=== PATIENT | male | born 1975 | race Caucasian/White ===

== ENCOUNTER 2017-09-17 20:14 | Emergency (ER) | payer OTHER ==
[~2017-09-17] VITALS: Ht 172.7 cm; Wt 81.6 kg
[2017-09-17 20:16] VITALS: TEMP 36.5; Ht 172.7 cm; Wt 81.6 kg
--- NOTE | 2017-09-17 21:11 | DIAGNOSTIC IMAGING REPORT ---
R SHOULDER MIN 2 VIEWS ROUTINE CLINICAL HISTORY: Right shoulder pain following injury. COMPARISON: None FINDINGS: Alignment of the right shoulder is anatomic. No acute fracture is identified. There is moderate osteoarthritis of the right acromioclavicular joint. IMPRESSION: 1. No acute fracture or dislocation within the right shoulder. 2. Moderate osteoarthritis of the right acromioclavicular joint. Electronically signed by: Amadeo Dotson M.D. 09/17/2017 9:09 PM Dictated Date/Time: 09/17/2017 9:08 PM
[2017-09-17 21:36] VITALS: BP 130/80; PULSE 70; O2SAT 98
--- NOTE | 2017-09-17 23:34 | EMERGENCY ROOM VISIT NOTE ---
History First contact with patient: 20:19 Chief Complaint: SHOULDER PAIN Stated Complaint: RIGHT SHOULDER INJURY AND PAIN History of Present Illness The patient is a 41 year old male who presents to the Emergency Room with complaints of a right shoulder injury at work this afternoon. At approximately 5 PM, the patient was on a ladder at [employer], when a tote fell off of the shelf and he attempted to catch it. The patient reports that he reached out to grab the box as it was falling, and the box pulled down on the shoulder. He now reports difficulty moving the shoulder without pain. He has not noticed any swelling or bruising about the shoulder. He denies any pain extending into the neck or back. He also denies any paresthesias or numbness of the right upper extremity, and rates his discomfort an 8 out of 10. The patient is right- hand dominant. He denies any prior history of right shoulder injuries. Review of Systems 10 system review was performed and was negative except for pertinent positives and negatives as indicated in history of present illness Past Medical/Surgical History Medical Problems: (1) Headache (2) Low back pain (3) Slurred speech Surgical Problems: (1) History of left knee surgery Family History Diabetes mellitus Hypertension Seizures Social History Smoking Status: Current Every Day Smoker Alcohol Use: occasionally Drug Use: none Marital Status: Housing Status: lives with family Occupation Status: employed Current/Historical Medications No Active Prescriptions or Reported Meds Physical Exam Vital Signs Date Time Temp Pulse Resp B/P (MAP) Pulse Ox O2 Delivery O2 Flow Rate FiO2 09/17/17 21:36 70 18 130/80 98 Room Air 09/17/17 20:16 36.5 69 18 130/83 99 Room Air Physical Exam CONSTITUTIONAL: Healthy and well nourished. Alert and oriented X 3 with positive affect. Patient appears in mild discomfort. HEENT: Normocephalic, atraumatic. Pupils equal, round and reactive. NECK: Full active range of motion without discomfort. RESPIRATORY: Clear to auscultation bilaterally with no wheezing, crackles, rhonchi or stridor. The breathing does not cause any discomfort. CARDIOVASCULAR: Regular rate and rhythm with no murmurs, rubs or gallops. MUSCULOSKELETAL: Examination of the right shoulder shows discomfort with range of motion. He has no obvious ecchymosis over the biceps or triceps region. He has no significant tenderness to palpation over the distal clavicle or acromioclavicular joint. Distal pulses are intact. INTEGUMENTARY: No rash or other significant dermatologic conditions noted. NEUROLOGIC: No focal neurologic deficits noted. Right deltoid, hand and fingers are sensory intact. Medical Decision & Procedures ER Provider Diagnostic Interpretation: My interpretation of right shoulder x-rays does not show any separation, fracture or dislocation. Radiologist report is as follows: R SHOULDER MIN 2 VIEWS ROUTINE CLINICAL HISTORY: Right shoulder pain following injury. COMPARISON: None FINDINGS: Alignment of the right shoulder is anatomic. No acute fracture is identified. There is moderate osteoarthritis of the right acromioclavicular joint. IMPRESSION: 1. No acute fracture or dislocation within the right shoulder. 2. Moderate osteoarthritis of the right acromioclavicular joint. ED Course Patient history and physical exam were performed. Nurse's notes were reviewed. Vital signs were reviewed and were normal. The patient refused any analgesics while in the emergency department. X-rays of the right shoulder were normal. A sling was applied. He was encouraged to intermittently apply ice to the shoulder. The patient was encouraged alternate ibuprofen and Tylenol as needed for pain. The patient was instructed to follow-up with his Worker's Compensation approved orthopedic surgeon for further reevaluation and management. The patient was happy with plan of care, voiced understanding of all discharge instructions, and rated his pain a 6 out of 10 at the time of discharge. Medical Decision I am concerned for possible tenderness or rotator cuff injury. X-rays do not show any evidence for fracture, dislocation or acromioclavicular separation. Axillary plexitis was also considered. I do not suspect a cervical injury or cervical radiculitis. Medication Reconcilliation Current Medication List: was personally reviewed by me Blood Pressure Screening Patient's blood pressure: Normal blood pressure Impression Primary Impression: Right shoulder injury Additional Impression: Work related injury Departure Information Dispostion Home / Self-Care Condition FAIR Prescriptions No Active Prescriptions or Reported Meds Forms HOME CARE DOCUMENTATION FORM, IMPORTANT VISIT INFORMATION Patient Instructions My [facility] Additional Instructions Intermittently apply ice to shoulder. Wear sling for comfort. Ibuprofen 800 mg and/or Tylenol 1000 mg every 8 hours. You may also alternate these medications for more effective pain relief: Ibuprofen --4 HRS--> Tylenol --4 HRS--> ibuprofen --4 HRS--> Tylenol .... Follow-up with your Worker's Compensation approved orthopedic surgeon for further reevaluation and management. FOR USE: No use of right upper extremity until reevaluated by orthopedics. Problem Qualifiers Primary Impression: Right shoulder injury Encounter type: initial encounter Qualified Codes: S49.91XA - Unspecified injury of right shoulder and upper arm, initial encounter
== END 2017-09-17 21:30 | disposition home or self-care (01) ==
LOC: C.EDB 20:16
DX: S49.91XA Unspecified injury of right shoulder and upper arm, initial encounter (principal); X50.9XXA Other and unspecified overexertion or strenuous movements or postures, initial encounter; Y92.512 Supermarket, store or market as the place of occurrence of the external cause; Y99.0 Civilian activity done for income or pay; F17.200 Nicotine dependence, unspecified, uncomplicated

== ENCOUNTER 2020-09-10 12:30 | Inpatient (IN) ==
[2020-09-10] MEDS ORDERED: SODIUM CHLORIDE 0.9% 1000ML 2,000 ML IV ONE (13:21)
[2020-09-10 13:33] LABS: Appearance Urine Clear (Clear); Bilirubin Urine Negative (Negative); Blood Urine Negative (Negative); Color Urine Yellow; Glucose Urine UA 3+ (Negative); Ketones Urine 4+ (Negative); Leukocyte Esterase Urine Negative (Negative); Nitrite Urine Negative (Negative); Protein Urine Negative (Negative); Specific Gravity Urine 1.042 (1.000-1.030); Urobilinogen Urine Negative (Negative)
[2020-09-10 13:39] LABS: Basophils # (auto) 0.04 K/uL (0-0.2); Basophils % (auto) 0.3 %; Eosinophils # (auto) 0.33 K/uL (0-0.5); Eosinophils % (auto) 2.5 %; Hematocrit (blood only) 46.3 % (42-52); Hemoglobin 17.1 g/dL (14.0-18.0); Immature Granulocytes # (auto) 0.02 K/uL (0.00-0.02); Immature Granulocytes % (auto) 0.2 %; Lymphocytes # (auto) 2.55 K/uL (1.2-3.4); Lymphocytes % (auto) 19.4 %; Mean Corpuscular Hemoglobin 30.1 pg (25-34); Mean Corpuscular Hgb Conc 36.9 g/dL (32-36); Mean Corpuscular Volume 81.5 fL (80-100); Monocytes # (auto) 0.75 K/uL (0.11-0.59); Monocytes % (auto) 5.7 %; Neutrophils # (auto) 9.43 K/uL (1.4-6.5); Neutrophils % (auto) 71.9 %; Platelet Count 306 K/uL (130-400); Red Blood Count 5.68 M/uL (4.7-6.1); White Blood Count 13.12 K/uL (4.8-10.8)
--- NOTE | 2020-09-10 13:39 | Emergency Department Note ---
History of Present Illness General Chief complaint: Hyperglycemia Stated complaint: SUGAR IS 598/HAS NOT BEEN DIAGNOSED W/DIABETES YET Time Seen by Provider: 09/10/20 13:06 History of Present Illness Maximum Pain Intensity: 0 44-year-old male who presents to the emergency department for evaluation of possible diabetes. The patient reports that over the past few months, he has noticed significant change in fatigue, weakness, lethargy, increased hunger, thirst and frequent urination. 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 The patient also reports notable change in vision. He was recently seen by an security and compliance analyst, who told him that he was having changes in the eye that were consistent with diabetes. The patient scheduled an appointment with a [facility] physician for next for evaluation. The patient previously has not had a family doctor. The patient reports strong family history of diabetes with his mother, brother and maternal grandmother with diabetes. Friend brought him a glucometer yesterday, and the patient checked his blood glucose levels this morning starting at around 9 AM up until noon time, and consistently had blood glucose levels in the 500s. The patient reports that he was able to downtrend those numbers with drinking lots of water. Patient denies any other concerning symptoms such as chest pain, shortness of breath or abdominal pain. He has noticed some tingling in his hands and feet. Home Medications Medication Instructions Recorded Confirmed Type No Known Home Medications 09/10/20 09/10/20 History Allergies Allergy/AdvReac Type Severity Reaction Status Date / Time hydrocodone Allergy Mild HIVES Verified 09/10/20 14:49 codeine Allergy Unknown Hives Verified 09/10/20 14:49 Ethanol Allergy Unknown HIVES Uncoded 09/10/20 14:49 Past Med/Surg History Medical History Epilepsy Hx-TIA (transient ischemic attack) Surgical History History of orthopedic surgery Family History Other Diabetes Hypertension Seizure Social History Smoking Status: Current every day smoker Tobacco Type: Cigarettes Preferred Language: Japanese Communication Ability: Effective Visual Impairment: No Limitations Hearing Ability: Normal marital status: Current Living Situation: Spouse current occupational status: employed Feels Safe at Home: Yes Review of Systems 10 system review was performed and was negative except for pertinent positives and negatives as indicated in history of present illness Physical Exam Vital Signs Vital Signs - 24 hr 09/10/20 12:31 09/10/20 13:39 09/10/20 14:00 Temperature 36.4 C L Temperature Source Temporal Artery Scan Pulse Rate 93 H 77 73 Pulse Rate from SpO2 Sensor 76 74 Respiratory Rate 20 14 18 Respiratory Effort / Characteristics Non-Labored Spontaneous Respiratory Depth Normal Respiratory Pattern Regular Blood Pressure 116/79 124/86 129/77 Blood Pressure Mean 91 98 94 Blood Pressure Position Sitting Pulse Oximetry 98 98 98 Oxygen Delivery Method Room Air Room Air Room Air Sepsis Recent Fever Within 48 Hours No Sepsis New/Unexplained Change in Mental Status N/A Sepsis Action Taken by Nursing No Action Required 09/10/20 14:30 09/10/20 15:00 09/10/20 15:30 Temperature Temperature Source Pulse Rate 70 70 78 Pulse Rate from SpO2 Sensor 72 71 76 Respiratory Rate 15 16 22 Respiratory Effort / Characteristics Respiratory Depth Respiratory Pattern Blood Pressure 118/81 114/76 114/86 Blood Pressure Mean 93 88 95 Blood Pressure Position Pulse Oximetry 98 98 98 Oxygen Delivery Method Room Air Room Air Sepsis Recent Fever Within 48 Hours Sepsis New/Unexplained Change in Mental Status Sepsis Action Taken by Nursing 09/10/20 16:00 09/10/20 16:30 09/10/20 17:00 Temperature Temperature Source Pulse Rate 73 70 63 Pulse Rate from SpO2 Sensor 73 72 64 Respiratory Rate 16 14 12 Respiratory Effort / Characteristics Respiratory Depth Respiratory Pattern Blood Pressure 130/72 116/74 104/69 Blood Pressure Mean 91 88 80 Blood Pressure Position Pulse Oximetry 97 97 97 Oxygen Delivery Method Sepsis Recent Fever Within 48 Hours Sepsis New/Unexplained Change in Mental Status Sepsis Action Taken by Nursing 09/10/20 17:30 09/10/20 18:00 09/10/20 19:04 Temperature Temperature Source Pulse Rate 64 66 80 Pulse Rate from SpO2 Sensor 64 63 82 Respiratory Rate 11 L 9 L 14 Respiratory Effort / Characteristics Respiratory Depth Respiratory Pattern Blood Pressure 105/68 116/64 156/91 H Blood Pressure Mean 80 81 112 Blood Pressure Position Pulse Oximetry 97 96 98 Oxygen Delivery Method Sepsis Recent Fever Within 48 Hours Sepsis New/Unexplained Change in Mental Status Sepsis Action Taken by Nursing 09/10/20 20:20 Temperature Temperature Source Pulse Rate 76 Pulse Rate from SpO2 Sensor Respiratory Rate Respiratory Effort / Characteristics Respiratory Depth Respiratory Pattern Blood Pressure Blood Pressure Mean Blood Pressure Position Pulse Oximetry 99 Oxygen Delivery Method Room Air Sepsis Recent Fever Within 48 Hours Sepsis New/Unexplained Change in Mental Status Sepsis Action Taken by Nursing CONSTITUTIONAL: Healthy and well nourished. Alert and oriented X 3. Patient does not appear in any acute distress. HEENT: Normocephalic, atraumatic. Pupils equal, round and reactive. No scleral icterus or conjunctival injection/pallor. NECK: Full active range of motion without discomfort. No JVD or carotid bruits. LYMPHATICS: No cervical chain adenopathy. RESPIRATORY: Clear to auscultation bilaterally with no wheezing, crackles, rhonchi or stridor. CARDIOVASCULAR: Regular rate and rhythm with no murmurs, rubs or gallops. GASTROINTESTINAL: Bowel sounds present in all quadrants. Abdomen is soft and nontender to palpation. MUSCULOSKELETAL: Full range of motion of all joints without discomfort. INTEGUMENTARY: No rash or other significant dermatologic conditions noted. HEMATOLOGIC: No ecchymosis or petechiae. PSYCHIATRIC: Positive affect. NEUROLOGIC: Cranial nerves II-XII grossly intact. No focal neurologic deficits noted. Course Course Patient history and physical exam were performed. Nurses notes were reviewed. Vital signs were reviewed and were normal. BSG at the time of presentation to the emergency department was 321. The patient was advised that he does have diabetes, with his symptoms, elevated blood glucose levels and visual changes. The patient then started to cry. He then started to develop mild left-sided chest discomfort. IV access was established, and labs were drawn. After the patient received only 250 cc of normal saline (upon reevaluation and to further consult with the patient), he reported that his chest pain had resolved. The patient was hydrated with 2 L of normal saline. An ECG was performed and was normal other than a short [place] interval. The patient was placed on a grey roll man while in the emergency department. A portable chest x-ray was performed and was normal. Review of labs shows a mild leukocytosis with left shift and no bandemia. Platelet count, hemoglobin and hematocrit are normal. CMP shows a hyponatremia of 127, glucose of 382, phosphorus of 2.2 and TSH of 6.89. Hemoglobin A1c was 11.2. There were some issues with hemolysis with potassium and serum ketone labs delayed while the patient was under my care. The patient was administered regular insulin 10 units subcutaneous. Findings were discussed with the patient, who agreed with admission. The case was also discussed with Dr. Tavarez, ED attending physician, who is also in agreement with admission. The case was also discussed with our Prepress Operator, as well as Dr. Frausto, [facility] hospitalist, for further evaluation and management. Please see her dictation for further treatment and final disposition. Administered Medications Discontinued Medications Sodium Chloride (Nss 1000ml) 2,000 mls @ 999 mls/hr IV .Q2H1M ONE Stop: 09/10/20 15:21 Last Infusion: 09/10/20 15:31 Dose: 0 mls/hr Documented by: [id number] Admin: 09/10/20 13:25 Dose: 999 mls/hr Documented by: [id number] Insulin Human Regular (Novolin-R Insulin Per Unit Charge) 10 units SC NOW STA Stop: 09/10/20 14:29 Last Admin: 09/10/20 15:25 Dose: 10 units Documented by: [id number] Cosigned by: [id number] Miscellaneous Information (Pharmacy Glycemic Mgmt Consult) 1 ea N/A NOW STA Stop: 09/10/20 15:22 Last Admin: 09/10/20 19:59 Dose: 1 ea Documented by: [id number] Medical Decision Making Medical Records Attestation: I reviewed the patient's medical records. Home Medications Current Medication List: was personally reviewed by me Laboratory Data Attestation: I reviewed the patient's lab results. Result diagrams: 09/10/20 Unknown 09/10/20 Unknown Lab Results 09/10/20 09/10/20 09/10/20 Range/Units 13:13 14:54 16:09 WBC (4.8-10.8) K/uL RBC (4.7-6.1) M/uL Hgb (14.0-18.0) g/dL Hct (42-52) % MCV (80-100) fL MCH (25-34) pg MCHC (32-36) g/dL Plt Count (130-400) K/uL Immature Gran % (Auto) % Neut % (Auto) % Lymph % (Auto) % Morrison % (Auto) % Eos % (Auto) % Baso % (Auto) % Neut # (Auto) (1.4-6.5) K/uL Lymph # (Auto) (1.2-3.4) K/uL Morrison # (Auto) (0.11-0.59) K/uL Eos # (Auto) (0-0.5) K/uL Baso # (Auto) (0-0.2) K/uL Immature Gran # (Auto) (0.00-0.02) K/uL Sodium 133 L (136-145) mmol/L Potassium Cancelled 3.9 Chloride 105 (98-107) mmol/L Carbon Dioxide 19 L (21-32) mmol/L Anion Gap 9.0 (3-11) BUN 13 (7-18) mg/dl Creatinine 0.68 (0.6-1.4) mg/dl Est Cr Clr Drug Dosing 132.3 ml/min Est GFR ( Amer) 136.5 ml/min Est GFR (Non-Af Amer) 117.8 ml/min BUN/Creatinine Ratio 19.8 (10-20) Glucose 252 H (70-99) mg/dl POC Glucose 321 H* (70-99) mg/dl Estimat Average Glucose mg/dl Hemoglobin A1c (4.5-5.6) % Calcium 7.7 L D (8.5-10.1) mg/dl Phosphorus 2.2 L (2.5-4.9) mg/dl Magnesium Cancelled 2.2 Total Bilirubin (0.2-1) mg/dl AST Cancelled 11 L ALT (12-78) U/L Alkaline Phosphatase (45-117) U/L Troponin I (0-0.045) ng/ml Total Protein (6.4-8.2) gm/dl Albumin (3.4-5.0) gm/dl Globulin (2.5-4.0) gm/dl Albumin/Globulin Ratio (0.9-2) Beta-Hydroxybutyric Acd (0.2-2.81) mg/dl TSH (0.300-4.500) uIu/ml Free T4 (0.8-1.6) ng/dl Specimen Hemolysis Urine Color Urine Appearance (Clear) Urine pH (4.5-7.5) Ur Specific [place] (1.000-1.030) Urine Protein (Negative) Urine Glucose (UA) (Negative) Urine Ketones (Negative) Urine Blood (Negative) Urine Nitrite (Negative) Urine Bilirubin (Negative) Urine Urobilinogen (Negative) Ur Leukocyte Esterase (Negative) COVID-19 Eval Order SARS-CoV-2 (PCR) (Negative) 09/10/20 09/10/20 09/10/20 Range/Units 16:48 16:48 18:52 WBC (4.8-10.8) K/uL RBC (4.7-6.1) M/uL Hgb (14.0-18.0) g/dL Hct (42-52) % MCV (80-100) fL MCH (25-34) pg MCHC (32-36) g/dL Plt Count (130-400) K/uL Immature Gran % (Auto) % Neut % (Auto) % Lymph % (Auto) % Morrison % (Auto) % Eos % (Auto) % Baso % (Auto) % Neut # (Auto) (1.4-6.5) K/uL Lymph # (Auto) (1.2-3.4) K/uL Morrison # (Auto) (0.11-0.59) K/uL Eos # (Auto) (0-0.5) K/uL Baso # (Auto) (0-0.2) K/uL Immature Gran # (Auto) (0.00-0.02) K/uL Sodium (136-145) mmol/L Potassium Chloride (98-107) mmol/L Carbon Dioxide (21-32) mmol/L Anion Gap (3-11) BUN (7-18) mg/dl Creatinine (0.6-1.4) mg/dl Est Cr Clr Drug Dosing ml/min Est GFR ( Amer) ml/min Est GFR (Non-Af Amer) ml/min BUN/Creatinine Ratio (10-20) Glucose (70-99) mg/dl POC Glucose 177 H (70-99) mg/dl Estimat Average Glucose mg/dl Hemoglobin A1c (4.5-5.6) % Calcium (8.5-10.1) mg/dl Phosphorus (2.5-4.9) mg/dl Magnesium Total Bilirubin (0.2-1) mg/dl AST ALT (12-78) U/L Alkaline Phosphatase (45-117) U/L Troponin I (0-0.045) ng/ml Total Protein (6.4-8.2) gm/dl Albumin (3.4-5.0) gm/dl Globulin (2.5-4.0) gm/dl Albumin/Globulin Ratio (0.9-2) Beta-Hydroxybutyric Acd (0.2-2.81) mg/dl TSH (0.300-4.500) uIu/ml Free T4 (0.8-1.6) ng/dl Specimen Hemolysis Urine Color Urine Appearance (Clear) Urine pH (4.5-7.5) Ur Specific [place] (1.000-1.030) Urine Protein (Negative) Urine Glucose (UA) (Negative) Urine Ketones (Negative) Urine Blood (Negative) Urine Nitrite (Negative) Urine Bilirubin (Negative) Urine Urobilinogen (Negative) Ur Leukocyte Esterase (Negative) COVID-[address] Eval [address] Covid[address] [facility] SARS-CoV-2 (PCR) POSITIVE A* (Negative) 09/10/20 09/10/20 09/10/20 Range/Units Unknown Unknown Unknown WBC 13.12 H (4.8-10.8) K/uL RBC 5.68 (4.7-6.1) M/uL Hgb 17.1 (14.0-18.0) g/dL Hct 46.3 (42-52) % MCV 81.5 (80-100) fL MCH 30.1 (25-34) pg MCHC 36.9 H (32-36) g/dL Plt Count 306 (130-400) K/uL Immature Gran % (Auto) 0.2 % Neut % (Auto) 71.9 % Lymph % (Auto) 19.4 % Morrison % (Auto) 5.7 % Eos % (Auto) 2.5 % Baso % (Auto) 0.3 % Neut # (Auto) 9.43 H (1.4-6.5) K/uL Lymph # (Auto) 2.55 (1.2-3.4) K/uL Morrison # (Auto) 0.75 H (0.11-0.59) K/uL Eos # (Auto) 0.33 (0-0.5) K/uL Baso # (Auto) 0.04 (0-0.2) K/uL Immature Gran # (Auto) 0.02 (0.00-0.02) K/uL Sodium 127 L (136-145) mmol/L Potassium TNP Chloride 96 L (98-107) mmol/L Carbon Dioxide 22 (21-32) mmol/L Anion Gap 9.0 (3-11) BUN 17 (7-18) mg/dl Creatinine 0.90 (0.6-1.4) mg/dl Est Cr Clr Drug Dosing 100.0 ml/min Est GFR ( Amer) 121.7 ml/min Est GFR (Non-Af Amer) 105.0 ml/min BUN/Creatinine Ratio 18.8 (10-20) Glucose 382 H* (70-99) mg/dl POC Glucose (70-99) mg/dl Estimat Average Glucose 275 mg/dl Hemoglobin A1c 11.2 H (4.5-5.6) % Calcium 9.2 (8.5-10.1) mg/dl Phosphorus (2.5-4.9) mg/dl Magnesium TNP Total Bilirubin 0.5 (0.2-1) mg/dl AST TNP ALT 38 (12-78) U/L Alkaline Phosphatase 184 H (45-117) U/L Troponin I < 0.015 (0-0.045) ng/ml Total Protein 8.2 (6.4-8.2) gm/dl Albumin 4.3 (3.4-5.0) gm/dl Globulin 3.9 (2.5-4.0) gm/dl Albumin/Globulin Ratio 1.1 (0.9-2) Beta-Hydroxybutyric Acd (0.2-2.81) mg/dl TSH 6.890 H (0.300-4.500) uIu/ml Free T4 0.99 (0.8-1.6) ng/dl Specimen Hemolysis Urine Color Urine Appearance (Clear) Urine pH (4.5-7.5) Ur Specific [place] (1.000-1.030) Urine Protein (Negative) Urine Glucose (UA) (Negative) Urine Ketones (Negative) Urine Blood (Negative) Urine Nitrite (Negative) Urine Bilirubin (Negative) Urine Urobilinogen (Negative) Ur Leukocyte Esterase (Negative) COVID-19 Eval Order SARS-CoV-2 (PCR) (Negative) 09/10/20 Range/Units Unknown WBC (4.8-10.8) K/uL RBC (4.7-6.1) M/uL Hgb (14.0-18.0) g/dL Hct (42-52) % MCV (80-100) fL MCH (25-34) pg MCHC (32-36) g/dL Plt Count (130-400) K/uL Immature Gran % (Auto) % Neut % (Auto) % Lymph % (Auto) % Morrison % (Auto) % Eos % (Auto) % Baso % (Auto) % Neut # (Auto) (1.4-6.5) K/uL Lymph # (Auto) (1.2-3.4) K/uL Morrison # (Auto) (0.11-0.59) K/uL Eos # (Auto) (0-0.5) K/uL Baso # (Auto) (0-0.2) K/uL Immature Gran # (Auto) (0.00-0.02) K/uL Sodium (136-145) mmol/L Potassium Chloride (98-107) mmol/L Carbon Dioxide (21-32) mmol/L Anion Gap (3-11) BUN (7-18) mg/dl Creatinine (0.6-1.4) mg/dl Est Cr Clr Drug Dosing ml/min Est GFR ( Amer) ml/min Est GFR (Non-Af Amer) ml/min BUN/Creatinine Ratio (10-20) Glucose (70-99) mg/dl POC Glucose (70-99) mg/dl Estimat Average Glucose mg/dl Hemoglobin A1c (4.5-5.6) % Calcium (8.5-10.1) mg/dl Phosphorus (2.5-4.9) mg/dl Magnesium Total Bilirubin (0.2-1) mg/dl AST ALT (12-78) U/L Alkaline Phosphatase (45-117) U/L Troponin I (0-0.045) ng/ml Total Protein (6.4-8.2) gm/dl Albumin (3.4-5.0) gm/dl Globulin (2.5-4.0) gm/dl Albumin/Globulin Ratio (0.9-2) Beta-Hydroxybutyric Acd (0.2-2.81) mg/dl TSH (0.300-4.500) uIu/ml Free T4 (0.8-1.6) ng/dl Specimen Hemolysis Urine Color Yellow Urine Appearance Clear (Clear) Urine pH 5.0 (4.5-7.5) Ur Specific [place] 1.042 H (1.000-1.030) Urine Protein Negative (Negative) Urine Glucose (UA) 3+ H (Negative) Urine Ketones 4+ H (Negative) Urine Blood Negative (Negative) Urine Nitrite Negative (Negative) Urine Bilirubin Negative (Negative) Urine Urobilinogen Negative (Negative) Ur Leukocyte Esterase Negative (Negative) COVID-19 Eval Order SARS-CoV-2 (PCR) (Negative) Imaging Data Attestation: I personally reviewed and interpreted this imaging study as follows: My Impression: My interpretation of a portable chest x-ray does not show any consolidations, pneumothorax or cardiac prominence. Radiologist report was also reviewed. Radiologist's Impression: Chest X-Ray 09/10/20 13:22 SINGLE VIEW CHEST CLINICAL HISTORY: Generalized weakness. FINDINGS: 2 AP, portable, upright chest radiographs are compared to study dated 08/08/2018. The cardiomediastinal silhouette is unremarkable. The lungs and pleural spaces are clear. No pneumothorax is seen. The bony thorax is grossly intact. IMPRESSION: No active disease in the chest. ACT 112: Negative or not required by law. Electronically signed by: Cody Hawkins M.D. 09/10/2020 1:53 PM ECG Data Attestation: I personally reviewed and interpreted this ECG as follows: Indication: + chest pain and + weakness Rate (beats per minute): 68 Rhythm: + normal sinus ECG Intervals/blocks: + Normal QRS, + Short [place], + Normal QT and + Normal QT-c ECG [place]: + Normal ECG ST segments: + Normal ST segments Comparison ECG Date: from (08/08/2018) Change: no significant change Blood Pressure Blood Pressure Findings: Normal blood pressure MDM Narrative Cardiac monitoring: An order was placed for continuous cardiac monitoring. The monitor shows a rate of 68 bpm with a normal sinus rhythm. 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 Patient presents to the emergency department with symptoms most consistent with diabetes with lethargy, weakness, polyuria, polyphasia and vision changes. Patient also has a strong family history of type 2 diabetes. The patient was also seen by his security and compliance analyst who indicated physical exam findings concerning for diabetes. Patient did have home glucometer readings in the 500s. Hemoglobin A1c is 11.2 consistent with new onset type 2 diabetes mellitus. Patient is also hyponatremic, likely consistent with pseudonatremia due to elevated blood glucose. Urinalysis also shows glucosuria and ketonuria without signs of infection. Laboratory studies are not consistent with ketoacidosis. Patient does not have any other physical exam or imaging findings to suggest infectious etiology. Impression & Plan Diabetes mellitus, new onset, Hyponatremia, History of TIAs, History of tobacco abuse Discharge Plan Visit Data Chief Complaint: Hyperglycemia Stated Complaint: SUGAR IS 598/HAS NOT BEEN DIAGNOSED W/DIABETES YET ED Provider: Josias Tavarez ED Midlevel Provider: Ricardo Dumont Discharge Problem: Diabetes mellitus, new onset, Hyponatremia, History of TIAs, History of tobacco abuse Forms Stand Alone Forms: [employer] Prescriptions Prescriptions: No Action No Known Home Medications RF: 0 Referrals Referrals: PCP,NO [Primary Care Provider] -
--- NOTE | 2020-09-10 13:54 | XRay Report ---
SINGLE VIEW CHEST CLINICAL HISTORY: Generalized weakness. FINDINGS: 2 AP, portable, upright chest radiographs are compared to study dated 08/08/2018. The cardiom ediastinal silhouette is unremarkable. The lungs and pleural spaces are clear. No pneumothorax is see n. The bony thorax is grossly intact. IMPRESSION: No active disease in the chest. ACT 112: Negative or not required by law. Electronically signed by: Cody Hawkins M.D. 09/10/2020 1:53 PM
[2020-09-10 13:59] LABS: Alanine Aminotransferase 38 U/L (12-78); Albumin Level 4.3 gm/dl (3.4-5.0); BUN Creatinine Ratio 18.8 (10-20); Blood Urea Nitrogen 17 mg/dl (7-18); Calcium 9.2 mg/dl (8.5-10.1); Carbon Dioxide 22 mmol/L (21-32); Chloride 96 mmol/L (98-107); Est GFR (African American) 121.7 ml/min; Glucose 382 mg/dl (70-99); Sodium 127 mmol/L (136-145)
[2020-09-10 14:08] LABS: Albumin Globulin Ratio 1.1 (0.9-2); Alkaline Phosphatase 184 U/L (45-117); Bilirubin,Total 0.5 mg/dl (0.2-1); Globulin 3.9 gm/dl (2.5-4.0); Total Protein 8.2 gm/dl (6.4-8.2); Troponin I < 0.015 ng/ml (0-0.045)
[2020-09-10] MEDS ORDERED: NovoLIN-R INSULIN PER UNIT CHARGE SC STA (14:28)
[2020-09-10 14:29] LABS: T4 Free Thyroxine 0.99 ng/dl (0.8-1.6)
[2020-09-10 14:43] LABS: Estimated Average Glucose 275 mg/dl; Hemoglobin A1C 11.2 % (4.5-5.6)
[2020-09-10] MEDS ORDERED: PHARMACY GLYCEMIC MGMT CONSULT STA (15:21)
--- NOTE | 2020-09-10 15:21 | History & Physical Report ---
Date of Service September 10, 2020 Assessment & Plan (1) Diabetes mellitus, new onset: Plan: Patient presents with history of lethargy, weakness, plegia, polyuria, vision changes Elevated blood glucose at home at 590 Prior hemoglobin A1c 5.5%, 2 years ago Brother diagnosed with diabetes at age of 20, there is also other family history of diabetes Patient had recently eye exam due to vision changes, was told that he had diabetic changes In ER, blood glucose about 380, sodium low at 127 consistent with pseudonatremia due to elevated blood sugar Urine significant for glucose and ketones, no signs of infection Current hemoglobin A1c 11.2% in ER received normal saline IV, and 10 units of subcu insulin we will recheck BMP now, we will closely monitor glucose levels, sodium and other electrolytes Replete potassium and add electrolytes as needed 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 Armas is a 44-year-old male, with history of TIA several years ago, family history of diabetes, history of tobacco abuse, who now presents with lethargy, weakness, frequent urination and increased thirst for at least several weeks, and after checking his blood glucose level today found to have value of about 590, presents to ER for further evaluation. Patient reports that his brother was diagnosed with diabetes when he was 20-year-old and is on insulin. There is also history of diabetes in his paternal grandmother who was diagnosed in later age. Patient reports that he has been very weak, lethargic, has had a big appetite, and thirst, urinating a lot, for at least several weeks. He used his brothers glucometer today and found his blood glucose to be elevated, about 590. He drank a lot of water to help with that before he was able to present to the ER. He has not seen a physician in at least 2 years. He was seen at [facility] physician office 2 years ago. At that time hemoglobin A1c was 5.5 %. 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 He was told that he has some diabetic changes on exam. He was supposed to see primary care doctor on to follow-up on these findings and further work-up for diabetes. Reports history of TIA, several years ago, and was recommended to use aspirin. Patient says he only occasionally takes aspirin. He is also a current smoker, reports about half a pack to 2 packs a day. Reports that he would like to try to quit smoking, tried nicotine patches in the past, however says that they made him feel sick. In the ER, glucose level elevated at 380, urine significant for glucose and ketones, no signs of infection. Received normal saline IV, and 10 units of subcu insulin. Hemoglobin A1c found to be 11.2%. Allergies Allergy/AdvReac Type Severity Reaction Status Date / Time hydrocodone Allergy Mild HIVES Verified 09/10/20 14:49 codeine Allergy Unknown Hives Verified 09/10/20 14:49 Ethanol Allergy Unknown HIVES Uncoded 09/10/20 14:49 Home Medications Medication Instructions Recorded Confirmed Type No Known Home Medications 09/10/20 09/10/20 History Past Med/Surg History Medical History Epilepsy Hx-TIA (transient ischemic attack) Surgical History History of orthopedic surgery Family History Other Diabetes Hypertension Seizure Social History Smoking Status: Current every day smoker Tobacco Type: Cigarettes Preferred Language: [place]an Communication Ability: Effective Visual Impairment: No Limitations Hearing Ability: Normal marital status: Current Living Situation: Spouse current occupational status: employed Feels Safe at Home: Yes Review of Systems Constitutional: + fatigue; no fever and no chills Eyes: + worsening vision Ear, Nose, Mouth, Throat: no problem reported Respiratory: no cough and no dyspnea Cardiovascular: no chest pain, no palpitations and no edema Gastrointestinal: no abdominal pain, no nausea and no vomiting Genitourinary: + urinary frequency Musculoskeletal: no problem reported Integumentary: no problem reported Neurologic: + generalized weakness Psychiatric: no problem reported Endocrine: + fatigue, + polydipsia, + polyphagia and + polyuria Hematologic / Lymphatic: no problem reported Allergy / Immunological: no problem reported Physical Exam Constitutional: WD/WN, vitals as above Eyes: PERRL, conjunctivae normal, anicteric sclerae ENMT: external ear and nose normal, oropharynx normal Neck: trachea midline, no thyromegaly Respiratory: normal respiratory effort, lungs clear to auscultation Cardiovascular: RRR, no murmur, no edema Chest (Breasts): Chest: normal inspection of chest Gastrointestinal (Abdomen): normal bowel sounds, soft, nontender, no hepatosplenomegaly Musculoskeletal: no cyanosis or clubbing, extremities motor strength 5/5 Skin: no rashes, warm and dry Neurologic: PERRL, EOMI, accommodation nl, no face palsy, no dysarthria Psychiatric: A+Ox3, euthymic affect Genitourinary: no CVA tenderness Lymphatic: no lymphedema Results & Data Results & Data ([facility]) Vital Signs (Past 12 Hours) Vital Signs Temp Pulse Resp BP Pulse Ox 09/10/20 12:31 36.4 C L 93 H 20 116/79 98 Laboratory Results 09/10/20 09/10/20 09/10/20 Range/Units Unknown Unknown Unknown WBC 13.12 H (4.8-10.8) K/uL RBC 5.68 (4.7-6.1) M/uL Hgb 17.1 (14.0-18.0) g/dL Hct 46.3 (42-52) % MCV 81.5 (80-100) fL MCH 30.1 (25-34) pg MCHC 36.9 H (32-36) g/dL Plt Count 306 (130-400) K/uL Immature Gran % (Auto) 0.2 % Neut % (Auto) 71.9 % Lymph % (Auto) 19.4 % Edgar % (Auto) 5.7 % Eos % (Auto) 2.5 % Baso % (Auto) 0.3 % Neut # (Auto) 9.43 H (1.4-6.5) K/uL Lymph # (Auto) 2.55 (1.2-3.4) K/uL Edgar # (Auto) 0.75 H (0.11-0.59) K/uL Eos # (Auto) 0.33 (0-0.5) K/uL Baso # (Auto) 0.04 (0-0.2) K/uL Immature Gran # (Auto) 0.02 (0.00-0.02) K/uL Sodium 127 L (136-145) mmol/L Potassium TNP Chloride 96 L (98-107) mmol/L Carbon Dioxide 22 (21-32) mmol/L Anion Gap 9.0 (3-11) BUN 17 (7-18) mg/dl Creatinine 0.90 (0.6-1.4) mg/dl Est Cr Clr Drug Dosing 100.0 ml/min Est GFR ( Amer) 121.7 ml/min Est GFR (Non-Af Amer) 105.0 ml/min BUN/Creatinine Ratio 18.8 (10-20) Glucose 382 H* (70-99) mg/dl POC Glucose (70-99) mg/dl Estimat Average Glucose mg/dl Hemoglobin A1c (4.5-5.6) % Calcium 9.2 (8.5-10.1) mg/dl Magnesium TNP Total Bilirubin 0.5 (0.2-1) mg/dl AST TNP ALT 38 (12-78) U/L Alkaline Phosphatase 184 H (45-117) U/L Troponin I < 0.015 (0-0.045) ng/ml Total Protein 8.2 (6.4-8.2) gm/dl Albumin 4.3 (3.4-5.0) gm/dl Globulin 3.9 (2.5-4.0) gm/dl Albumin/Globulin Ratio 1.1 (0.9-2) Beta-Hydroxybutyric Acd (0.2-2.81) mg/dl TSH 6.890 H (0.300-4.500) uIu/ml Free T4 0.99 (0.8-1.6) ng/dl Urine Color Yellow Urine Appearance Clear (Clear) Urine pH 5.0 (4.5-7.5) Ur Specific [place] 1.042 H (1.000-1.030) Urine Protein Negative (Negative) Urine Glucose (UA) 3+ H (Negative) Urine Ketones 4+ H (Negative) Urine Blood Negative (Negative) Urine Nitrite Negative (Negative) Urine Bilirubin Negative (Negative) Urine Urobilinogen Negative (Negative) Ur Leukocyte Esterase Negative (Negative) 09/10/20 09/10/20 09/10/20 Range/Units Unknown 14:54 13:13 WBC (4.8-10.8) K/uL RBC (4.7-6.1) M/uL Hgb (14.0-18.0) g/dL Hct (42-52) % MCV (80-100) fL MCH (25-34) pg MCHC (32-36) g/dL Plt Count (130-400) K/uL Immature Gran % (Auto) % Neut % (Auto) % Lymph % (Auto) % Edgar % (Auto) % Eos % (Auto) % Baso % (Auto) % Neut # (Auto) (1.4-6.5) K/uL Lymph # (Auto) (1.2-3.4) K/uL Edgar # (Auto) (0.11-0.59) K/uL Eos # (Auto) (0-0.5) K/uL Baso # (Auto) (0-0.2) K/uL Immature Gran # (Auto) (0.00-0.02) K/uL Sodium (136-145) mmol/L Potassium Cancelled Chloride (98-107) mmol/L Carbon Dioxide (21-32) mmol/L Anion Gap (3-11) BUN (7-18) mg/dl Creatinine (0.6-1.4) mg/dl Est Cr Clr Drug Dosing ml/min Est GFR ( Amer) ml/min Est GFR (Non-Af Amer) ml/min BUN/Creatinine Ratio (10-20) Glucose (70-99) mg/dl POC Glucose 321 H* (70-99) mg/dl Estimat Average Glucose 275 mg/dl Hemoglobin A1c 11.2 H (4.5-5.6) % Calcium (8.5-10.1) mg/dl Magnesium Cancelled Total Bilirubin (0.2-1) mg/dl AST Cancelled ALT (12-78) U/L Alkaline Phosphatase (45-117) U/L Troponin I (0-0.045) ng/ml Total Protein (6.4-8.2) gm/dl Albumin (3.4-5.0) gm/dl Globulin (2.5-4.0) gm/dl Albumin/Globulin Ratio (0.9-2) Beta-Hydroxybutyric Acd (0.2-2.81) mg/dl TSH (0.300-4.500) uIu/ml Free T4 (0.8-1.6) ng/dl Urine Color Urine Appearance (Clear) Urine pH (4.5-7.5) Ur Specific [place] (1.000-1.030) Urine Protein (Negative) Urine Glucose (UA) (Negative) Urine Ketones (Negative) Urine Blood (Negative) Urine Nitrite (Negative) Urine Bilirubin (Negative) Urine Urobilinogen (Negative) Ur Leukocyte Esterase (Negative) Diagnostic Findings IMPRESSION: No active disease in the chest.
[2020-09-10 16:50] LABS: BUN Creatinine Ratio 19.8 (10-20); Calcium 7.7 mg/dl (8.5-10.1); Creatinine Clr Calc Pharmacy 132.3 ml/min; Est GFR (African American) 136.5 ml/min; Est GFR (Non-African American) 117.8 ml/min; Magnesium 2.2 mg/dl (1.8-2.4); Phosphorus 2.2 mg/dl (2.5-4.9); Potassium 3.9 mmol/L (3.5-5.1)
[2020-09-10] MEDS ORDERED: PHARMACY GLYCEMIC MGMT CONSULT PRN (19:58)
--- NOTE | 2020-09-10 20:48 | Pharmacy Report ---
Pharmacy Glycemic Short Note 2 - Date of Service September 10, 2020 - Glycemic Short BSG Results (Last 24 hours): 09/10/20 09/10/20 09/10/20 13:13 16:09 18:52 Glucose 252 H POC Glucose 321 H* 177 H 09/10/20 Unknown Glucose 382 H* POC Glucose OUTPATIENT ANTIDIABETIC REGIMEN: * None * HbA1c 11.2% on 09/10/20 ASSESSMENT: * 44 yo M admitted with hyperglycemia and new-onset diabetes. No DKA, no HHS noted. * Initial BSG > 300 mg/dL but decrased to 177 mg/dL with 10 units regular insulin SQ * Will initiate Lantus at 0.3 units/kg * Will initiate Novolog at weight-based moderate stress estimate * One overnight check 2nd BSG > 300 mg/dL earlier today PLAN FOR INPATIENT GLYCEMIC CONTROL: * Basal insulin * Lantus 22 units SQ x1 * Bolus insulin * NovoLog per scale ACHS or Q6hrs while NPO * Goal Range: Low 110 mg/dL - High 140 mg/dL * Correction Factor: 35 mg/dL/unit * Nutritional / Prandial insulin per carb ratio of 1 unit per 11 grams CHO consumed PLAN FOR DISCHARGE: * tbd
[2020-09-10] MEDS ORDERED: POT PHOSPHATE MONOBASIC W/ SOD TAB PO ONE (21:00)
[2020-09-10] MEDS ORDERED: INSULIN GLARGINE SOLOSTAR 100 UNITS/ML 3 ML PEN SC ONE (21:45)
[2020-09-10] MEDS: INSULIN ASPART 100 UNITS/ML 3 ML PEN SC ONE (22:57)
[2020-09-10] MEDS: SODIUM CHLORIDE 0.9% 1000ML 1,000 ML IV SCH (23:04)
[2020-09-10] MEDS: INSULIN ASPART 100 UNITS/ML 3 ML PEN SC SCH (23:15)
[2020-09-11] MEDS ORDERED: POLYETHYLENE (MIRALAX) 17 GM PACK PO PRN (02:09)
[2020-09-11] MEDS ORDERED: ONDANSETRON INJ 2 MG/ML 2 ML VIAL IV PRN (02:09)
[2020-09-11] MEDS ORDERED: ACETAMINOPHEN 325 MG TAB PO PRN (02:09)
[2020-09-11] MEDS: INSULIN ASPART 100 UNITS/ML 3 ML PEN SC ONE (02:16)
[2020-09-11] MEDS ORDERED: ENOXAPARIN INJ 40 MG/0.4 ML SYR SQ SCH (03:00)
[2020-09-11] MEDS: SODIUM CHLORIDE 0.9% 1000ML 1,000 ML IV SCH ×2 (04:18→12:38)
[2020-09-11] MEDS: POT PHOSPHATE MONOBASIC W/ SOD TAB PO SCH ×2 (08:35→15:04)
[2020-09-11] MEDS: INSULIN ASPART 100 UNITS/ML 3 ML PEN SC SCH ×2 (08:35→12:22)
--- NOTE | 2020-09-11 09:16 | Pharmacy Report ---
Pharmacy Glycemic Short Note 2 - Date of Service September 11, 2020 - Glycemic Short BSG Results (Last 24 hours): 09/10/20 09/10/20 09/10/20 13:13 16:09 18:52 Glucose 252 H POC Glucose 321 H* 177 H 09/10/20 09/10/20 09/11/20 22:06 Unknown 02:08 Glucose 382 H* POC Glucose 287 H 141 H 09/11/20 08:14 Glucose POC Glucose 157 H OUTPATIENT ANTIDIABETIC REGIMEN: * None * HbA1c 11.2% on 09/10/20 ASSESSMENT: 09/11/20 * Patient has received 22 units (0.32 units/kg) of Lantus PLUS 5 units of NovoLog last evening at bedtime * BSGs overnight 287--> 141-->157 * BSGs coming down nicely with current orders * Patient would like to go home SONG. No hyperglycemic crisis (no DKA/HHS) just hyperglycemia and new diagnosis. Pt will need DM education on signs/symptoms of hypo/hyperglycemia, hypoglycemia treatment, POC BSG testing, and insulin administration prior to dc. Will coordinate with RN and CDE * Will provide conservative insulin recs for outpatient since insulin is not yet at steady state 09/10/20 * 44 yo M admitted with hyperglycemia and new-onset diabetes. No DKA, no HHS noted. * Initial BSG > 300 mg/dL but decreased to 177 mg/dL with 10 units regular insulin SQ * Will initiate Lantus at 0.3 units/kg * Will initiate Novolog at weight-based moderate stress estimate * One overnight check 2nd BSG > 300 mg/dL earlier today PLAN FOR INPATIENT GLYCEMIC CONTROL: * Basal insulin * Lantus 22 units SQ x1 * Bolus insulin * NovoLog per scale ACHS or Q6hrs while NPO * Goal Range: Low 110 mg/dL - High 140 mg/dL * Correction Factor: 35 mg/dL/unit * Nutritional / Prandial insulin per carb ratio of 1 unit per 11 grams CHO consumed PLAN FOR DISCHARGE: * A1c = 11.2 % on 09/10/20 * Goal A1c = <7 % based on age and comorbidities * Unknown if patient is DENNY vs T2DM. Pt appears insulin sensitive like a DENNY and has a strong family history of autoimmune DM. Recommend DC on insulin (as opposed to oral agents + insulin) since autoimmune DM cannot be ruled out. * Pt has [employer] insurance- Lantus and NovoLog are preferred insulins with that insurance * Recommend: * Lantus 20 units SQ HS * NovoLog 6 units SQ three times daily with meals Patient can add correctional insulin scale with PCP next week, could consider: Low dose SSI Blood Sugar 70-150 administer 0 units Blood Sugar 151-200 administer 1 units Blood Sugar 201-250 administer 3 units Blood Sugar 251-300 administer 5 units Blood Sugar 301-350 administer 7 units Blood Sugar 351-400 administer 9 units Blood Sugar >400 administer 11 units and call MD * Support Patient Self-Management * Healthy Lifestyle (diet, exercise, and smoking cessation) * Disease self-management (SMBG) * Prevention of complications (BP, Lipid goals, Immunizations) * Pt will need outpatient Diabetes Self-Management Education & Support
--- NOTE | 2020-09-11 11:26 | Hospitalist Progress Note ---
Date of Service September 11, 2020 Assessment & Plan (1) Diabetes mellitus, new onset: Plan: Patient presents with history of lethargy, weakness, plegia, polyuria, vision changes Elevated blood glucose at home at 590 Prior hemoglobin A1c 5.5%, 2 years ago Brother diagnosed with diabetes at age of 20, there is also other family history of diabetes Patient had recently eye exam due to vision changes, was told that he had diabetic changes In ER, blood glucose about 380, sodium low at 127 consistent with pseudonatremia due to elevated blood sugar Urine significant for glucose and ketones, no signs of infection Current hemoglobin A1c 11.2% in ER received normal saline IV, and 10 units of subcu insulin we will recheck BMP now, we will closely monitor glucose levels, sodium and other electrolytes Replete potassium and add electrolytes as needed Glycemic pharmacy consulted as well community health educator Patient doing quite well clinically, understands how to use insulin, and how to check his blood sugar levels, discussed with community health educator Patient will be discharged on 20 units of Lantus daily, and 6 units of NovoLog 3 times a day with meals He has a follow-up with his PCP on September 17 Hx of TIA several yrs ago Patient reports he is supposed to be on aspirin, however he is not actually taking it only occasionally plan to restart aspirin on discharge History of tobacco abuse Patient reports smoking about half a pack to 2 packs a day Would like to quit smoking Tried nicotine patches before, says that he felt sick Counselled the pt, and recommended calling [phone] quit now, free smoking cessation line DVT ppx: Lovenox Code: Full Admission and Anticipated Discharge Date Admission Date: September 10, 2020 Subjective Patient seen in follow-up of new onset diabetes Review of Systems Review of Systems: All systems reviewed & are unremarkable except as noted in Subjective Physical Exam Constitutional: WD/WN, vitals as above Eyes: PERRL, conjunctivae normal, anicteric sclerae ENMT: external ear and nose normal, oropharynx normal Neck: trachea midline, no thyromegaly Respiratory: normal respiratory effort, lungs clear to auscultation Cardiovascular: RRR, no murmur, no edema Chest (Breasts): Chest: normal inspection of chest Gastrointestinal (Abdomen): normal bowel sounds, soft, nontender, no hepatosplenomegaly Musculoskeletal: no cyanosis or clubbing, extremities motor strength 5/5 Skin: no rashes, warm and dry Neurologic: PERRL, EOMI, accommodation nl, no face palsy, no dysarthria Psychiatric: A+Ox3, euthymic affect Genitourinary: no CVA tenderness Lymphatic: no lymphedema Results & Data Results & Data ([facility]) Vital Signs (Past 12 Hours) Vital Signs Temp Pulse Pulse Resp BP Pulse Ox 09/11/20 08:00 36.5 C 76 18 116/59 L 98 09/11/20 07:00 72 09/11/20 04:14 36.5 C 70 16 107/65 97 Laboratory Results 09/11/20 09/11/20 09/10/20 Range/Units 08:14 02:08 Unknown WBC (4.8-10.8) K/uL RBC (4.7-6.1) M/uL Hgb (14.0-18.0) g/dL Hct (42-52) % MCV (80-100) fL MCH (25-34) pg MCHC (32-36) g/dL Plt Count (130-400) K/uL Immature Gran % (Auto) % Neut % (Auto) % Lymph % (Auto) % Wetzel % (Auto) % Eos % (Auto) % Baso % (Auto) % Neut # (Auto) (1.4-6.5) K/uL Lymph # (Auto) (1.2-3.4) K/uL Wetzel # (Auto) (0.11-0.59) K/uL Eos # (Auto) (0-0.5) K/uL Baso # (Auto) (0-0.2) K/uL Immature Gran # (Auto) (0.00-0.02) K/uL Sodium (136-145) mmol/L Potassium Chloride (98-107) mmol/L Carbon Dioxide (21-32) mmol/L Anion Gap (3-11) BUN (7-18) mg/dl Creatinine (0.6-1.4) mg/dl Est Cr Clr Drug Dosing ml/min Est GFR ( Amer) ml/min Est GFR (Non-Af Amer) ml/min BUN/Creatinine Ratio (10-20) Glucose (70-99) mg/dl POC Glucose 157 H 141 H (70-99) mg/dl Estimat Average Glucose mg/dl Hemoglobin A1c (4.5-5.6) % Calcium (8.5-10.1) mg/dl Phosphorus (2.5-4.9) mg/dl Magnesium Total Bilirubin (0.2-1) mg/dl AST ALT (12-78) U/L Alkaline Phosphatase (45-117) U/L Troponin I (0-0.045) ng/ml Total Protein (6.4-8.2) gm/dl Albumin (3.4-5.0) gm/dl Globulin (2.5-4.0) gm/dl Albumin/Globulin Ratio (0.9-2) Beta-Hydroxybutyric Acd (0.2-2.81) mg/dl TSH (0.300-4.500) uIu/ml Free T4 (0.8-1.6) ng/dl Specimen Hemolysis Urine Color Yellow Urine Appearance Clear (Clear) Urine pH 5.0 (4.5-7.5) Ur Specific Lincoln 1.042 H (1.000-1.030) Urine Protein Negative (Negative) Urine Glucose (UA) 3+ H (Negative) Urine Ketones 4+ H (Negative) Urine Blood Negative (Negative) Urine Nitrite Negative (Negative) Urine Bilirubin Negative (Negative) Urine Urobilinogen Negative (Negative) Ur Leukocyte Esterase Negative (Negative) COVID-19 Eval Order SARS-CoV-2 (PCR) (Negative) 09/10/20 09/10/20 09/10/20 Range/Units Unknown Unknown Unknown WBC 13.12 H (4.8-10.8) K/uL RBC 5.68 (4.7-6.1) M/uL Hgb 17.1 (14.0-18.0) g/dL Hct 46.3 (42-52) % MCV 81.5 (80-100) fL MCH 30.1 (25-34) pg MCHC 36.9 H (32-36) g/dL Plt Count 306 (130-400) K/uL Immature Gran % (Auto) 0.2 % Neut % (Auto) 71.9 % Lymph % (Auto) 19.4 % Wetzel % (Auto) 5.7 % Eos % (Auto) 2.5 % Baso % (Auto) 0.3 % Neut # (Auto) 9.43 H (1.4-6.5) K/uL Lymph # (Auto) 2.55 (1.2-3.4) K/uL Wetzel # (Auto) 0.75 H (0.11-0.59) K/uL Eos # (Auto) 0.33 (0-0.5) K/uL Baso # (Auto) 0.04 (0-0.2) K/uL Immature Gran # (Auto) 0.02 (0.00-0.02) K/uL Sodium 127 L (136-145) mmol/L Potassium TNP Chloride 96 L (98-107) mmol/L Carbon Dioxide 22 (21-32) mmol/L Anion Gap 9.0 (3-11) BUN 17 (7-18) mg/dl Creatinine 0.90 (0.6-1.4) mg/dl Est Cr Clr Drug Dosing 100.0 ml/min Est GFR ( Amer) 121.7 ml/min Est GFR (Non-Af Amer) 105.0 ml/min BUN/Creatinine Ratio 18.8 (10-20) Glucose 382 H* (70-99) mg/dl POC Glucose (70-99) mg/dl Estimat Average Glucose 275 mg/dl Hemoglobin A1c 11.2 H (4.5-5.6) % Calcium 9.2 (8.5-10.1) mg/dl Phosphorus (2.5-4.9) mg/dl Magnesium TNP Total Bilirubin 0.5 (0.2-1) mg/dl AST TNP ALT 38 (12-78) U/L Alkaline Phosphatase 184 H (45-117) U/L Troponin I < 0.015 (0-0.045) ng/ml Total Protein 8.2 (6.4-8.2) gm/dl Albumin 4.3 (3.4-5.0) gm/dl Globulin 3.9 (2.5-4.0) gm/dl Albumin/Globulin Ratio 1.1 (0.9-2) Beta-Hydroxybutyric Acd (0.2-2.81) mg/dl TSH 6.890 H (0.300-4.500) uIu/ml Free T4 0.99 (0.8-1.6) ng/dl Specimen Hemolysis Urine Color Urine Appearance (Clear) Urine pH (4.5-7.5) Ur Specific Lincoln (1.000-1.030) Urine Protein (Negative) Urine Glucose (UA) (Negative) Urine Ketones (Negative) Urine Blood (Negative) Urine Nitrite (Negative) Urine Bilirubin (Negative) Urine Urobilinogen (Negative) Ur Leukocyte Esterase (Negative) COVID-19 Eval Order SARS-CoV-2 (PCR) (Negative) 09/10/20 09/10/20 09/10/20 Range/Units 22:06 18:52 16:48 WBC (4.8-10.8) K/uL RBC (4.7-6.1) M/uL Hgb (14.0-18.0) g/dL Hct (42-52) % MCV (80-100) fL MCH (25-34) pg MCHC (32-36) g/dL Plt Count (130-400) K/uL Immature Gran % (Auto) % Neut % (Auto) % Lymph % (Auto) % Wetzel % (Auto) % Eos % (Auto) % Baso % (Auto) % Neut # (Auto) (1.4-6.5) K/uL Lymph # (Auto) (1.2-3.4) K/uL Wetzel # (Auto) (0.11-0.59) K/uL Eos # (Auto) (0-0.5) K/uL Baso # (Auto) (0-0.2) K/uL Immature Gran # (Auto) (0.00-0.02) K/uL Sodium (136-145) mmol/L Potassium Chloride (98-107) mmol/L Carbon Dioxide (21-32) mmol/L Anion Gap (3-11) BUN (7-18) mg/dl Creatinine (0.6-1.4) mg/dl Est Cr Clr Drug Dosing ml/min Est GFR ( Amer) ml/min Est GFR (Non-Af Amer) ml/min BUN/Creatinine Ratio (10-20) Glucose (70-99) mg/dl POC Glucose 287 H 177 H (70-99) mg/dl Estimat Average Glucose mg/dl Hemoglobin A1c (4.5-5.6) % Calcium (8.5-10.1) mg/dl Phosphorus (2.5-4.9) mg/dl Magnesium Total Bilirubin (0.2-1) mg/dl AST ALT (12-78) U/L Alkaline Phosphatase (45-117) U/L Troponin I (0-0.045) ng/ml Total Protein (6.4-8.2) gm/dl Albumin (3.4-5.0) gm/dl Globulin (2.5-4.0) gm/dl Albumin/Globulin Ratio (0.9-2) Beta-Hydroxybutyric Acd (0.2-2.81) mg/dl TSH (0.300-4.500) uIu/ml Free T4 (0.8-1.6) ng/dl Specimen Hemolysis Urine Color Urine Appearance (Clear) Urine pH (4.5-7.5) Ur Specific Lincoln (1.000-1.030) Urine Protein (Negative) Urine Glucose (UA) (Negative) Urine Ketones (Negative) Urine Blood (Negative) Urine Nitrite (Negative) Urine Bilirubin (Negative) Urine Urobilinogen (Negative) Ur Leukocyte Esterase (Negative) COVID-19 Eval Order SARS-CoV-2 (PCR) POSITIVE A* (Negative) 09/10/20 09/10/20 09/10/20 Range/Units 16:48 16:09 14:54 WBC (4.8-10.8) K/uL RBC (4.7-6.1) M/uL Hgb (14.0-18.0) g/dL Hct (42-52) % MCV (80-100) fL MCH (25-34) pg MCHC (32-36) g/dL Plt Count (130-400) K/uL Immature Gran % (Auto) % Neut % (Auto) % Lymph % (Auto) % Wetzel % (Auto) % Eos % (Auto) % Baso % (Auto) % Neut # (Auto) (1.4-6.5) K/uL Lymph # (Auto) (1.2-3.4) K/uL Wetzel # (Auto) (0.11-0.59) K/uL Eos # (Auto) (0-0.5) K/uL Baso # (Auto) (0-0.2) K/uL Immature Gran # (Auto) (0.00-0.02) K/uL Sodium 133 L (136-145) mmol/L Potassium 3.9 Cancelled Chloride 105 (98-107) mmol/L Carbon Dioxide 19 L (21-32) mmol/L Anion Gap 9.0 (3-11) BUN 13 (7-18) mg/dl Creatinine 0.68 (0.6-1.4) mg/dl Est Cr Clr Drug Dosing 132.3 ml/min Est GFR ( Amer) 136.5 ml/min Est GFR (Non-Af Amer) 117.8 ml/min BUN/Creatinine Ratio 19.8 (10-20) Glucose 252 H (70-99) mg/dl POC Glucose (70-99) mg/dl Estimat Average Glucose mg/dl Hemoglobin A1c (4.5-5.6) % Calcium 7.7 L D (8.5-10.1) mg/dl Phosphorus 2.2 L (2.5-4.9) mg/dl Magnesium 2.2 Cancelled Total Bilirubin (0.2-1) mg/dl AST 11 L Cancelled ALT (12-78) U/L Alkaline Phosphatase (45-117) U/L Troponin I (0-0.045) ng/ml Total Protein (6.4-8.2) gm/dl Albumin (3.4-5.0) gm/dl Globulin (2.5-4.0) gm/dl Albumin/Globulin Ratio (0.9-2) Beta-Hydroxybutyric Acd (0.2-2.81) mg/dl TSH (0.300-4.500) uIu/ml Free T4 (0.8-1.6) ng/dl Specimen Hemolysis Urine Color Urine Appearance (Clear) Urine pH (4.5-7.5) Ur Specific Lincoln (1.000-1.030) Urine Protein (Negative) Urine Glucose (UA) (Negative) Urine Ketones (Negative) Urine Blood (Negative) Urine Nitrite (Negative) Urine Bilirubin (Negative) Urine Urobilinogen (Negative) Ur Leukocyte Esterase (Negative) COVID-19 Eval Order Covid19 at [facility] SARS-CoV-2 (PCR) (Negative) 09/10/20 Range/Units 13:13 WBC (4.8-10.8) K/uL RBC (4.7-6.1) M/uL Hgb (14.0-18.0) g/dL Hct (42-52) % MCV (80-100) fL MCH (25-34) pg MCHC (32-36) g/dL Plt Count (130-400) K/uL Immature Gran % (Auto) % Neut % (Auto) % Lymph % (Auto) % Wetzel % (Auto) % Eos % (Auto) % Baso % (Auto) % Neut # (Auto) (1.4-6.5) K/uL Lymph # (Auto) (1.2-3.4) K/uL Wetzel # (Auto) (0.11-0.59) K/uL Eos # (Auto) (0-0.5) K/uL Baso # (Auto) (0-0.2) K/uL Immature Gran # (Auto) (0.00-0.02) K/uL Sodium (136-145) mmol/L Potassium Chloride (98-107) mmol/L Carbon Dioxide (21-32) mmol/L Anion Gap (3-11) BUN (7-18) mg/dl Creatinine (0.6-1.4) mg/dl Est Cr Clr Drug Dosing ml/min Est GFR ( Amer) ml/min Est GFR (Non-Af Amer) ml/min BUN/Creatinine Ratio (10-20) Glucose (70-99) mg/dl POC Glucose 321 H* (70-99) mg/dl Estimat Average Glucose mg/dl Hemoglobin A1c (4.5-5.6) % Calcium (8.5-10.1) mg/dl Phosphorus (2.5-4.9) mg/dl Magnesium Total Bilirubin (0.2-1) mg/dl AST ALT (12-78) U/L Alkaline Phosphatase (45-117) U/L Troponin I (0-0.045) ng/ml Total Protein (6.4-8.2) gm/dl Albumin (3.4-5.0) gm/dl Globulin (2.5-4.0) gm/dl Albumin/Globulin Ratio (0.9-2) Beta-Hydroxybutyric Acd (0.2-2.81) mg/dl TSH (0.300-4.500) uIu/ml Free T4 (0.8-1.6) ng/dl Specimen Hemolysis Urine Color Urine Appearance (Clear) Urine pH (4.5-7.5) Ur Specific Lincoln (1.000-1.030) Urine Protein (Negative) Urine Glucose (UA) (Negative) Urine Ketones (Negative) Urine Blood (Negative) Urine Nitrite (Negative) Urine Bilirubin (Negative) Urine Urobilinogen (Negative) Ur Leukocyte Esterase (Negative) COVID-19 Eval Order SARS-CoV-2 (PCR) (Negative) Medications Administered Current Inpatient Medications Acetaminophen (Acetaminophen 325 Mg Tab) 650 mg PO Q4H PRN PRN Reason: Pain or Fever Stop: 10/11/20 02:08 Enoxaparin Sodium (Enoxaparin Inj 40 Mg/0.4 Ml Syr) 40 mg SQ DAILY [facility] Stop: 10/11/20 02:59 Last Admin: 09/11/20 04:17 Dose: Not Given Documented by: Sodium Chloride (Nss 1000ml) 1,000 mls @ 125 mls/hr IV .Q8H [facility] Stop: 10/10/20 19:59 Last Admin: 09/11/20 04:18 Dose: 125 mls/hr Documented by: Insulin Aspart (Insulin Aspart 100 Units/Ml 3 Ml Pen) 0 units SC [facility] Stop: 10/10/20 21:44 Last Admin: 09/11/20 08:35 Dose: 6 units Documented by: Insulin Glargine (Insulin Glargine Solostar 100 Units/Ml 3 Ml Pen) 25 units SC [facility]; Protocol Stop: 10/11/20 20:59 Miscellaneous Information (Pharmacy Glycemic Mgmt Consult) 1 ea N/A UD PRN PRN Reason: Consult Stop: 10/10/20 19:57 Ondansetron HCl (Ondansetron Inj 2 Mg/Ml 2 Ml Vial) 4 mg IV Q6H PRN PRN Reason: Nausea Stop: 10/11/20 02:08 Polyethylene Glycol (Polyethylene (Miralax) 17 Gm Pack) 17 gm PO DAILY PRN PRN Reason: Constipation Stop: 10/11/20 02:08 Potassium Phosphate (Pot Phosphate Monobasic W/ Sod Tab) 1 tab PO QID [facility] Stop: 10/11/20 08:59 Last Admin: 09/11/20 08:35 Dose: 1 tab Documented by:
--- NOTE | 2020-09-11 13:43 | Discharge Summary ---
Date of Service September 11, 2020 Admission HPI Per Admitting Provider Mr. Armas is a 44-year-old male, with history of TIA several years ago, family history of diabetes, history of tobacco abuse, who now presents with lethargy, weakness, frequent urination and increased thirst for at least several weeks, and after checking his blood glucose level today found to have value of about 590, presents to ER for further evaluation. Patient reports that his brother was diagnosed with diabetes when he was 20-year-old and is on insulin. There is also history of diabetes in his paternal grandmother who was diagnosed in later age. Patient reports that he has been very weak, lethargic, has had a big appetite, and thirst, urinating a lot, for at least several weeks. He used his brothers glucometer today and found his blood glucose to be elevated, about 590. He drank a lot of water to help with that before he was able to present to the ER. He has not seen a physician in at least 2 years. He was seen at [facility] physician office 2 years ago. At that time hemoglobin A1c was 5.5 %. Most recently, patient noticed that he had some vision changes, and was seen by manager green/psychologist social. He was told that he has some diabetic changes on exam. He was supposed to see primary care doctor on to follow-up on these findings and further work-up for diabetes. Reports history of TIA, several years ago, and was recommended to use aspirin. Patient says he only occasionally takes aspirin. He is also a current smoker, reports about half a pack to 2 packs a day. Reports that he would like to try to quit smoking, tried nicotine patches in the past, however says that they made him feel sick. In the ER, glucose level elevated at 380, urine significant for glucose and ketones, no signs of infection. Received normal saline IV, and 10 units of subcu insulin. Hemoglobin A1c found to be 11.2%. Admission Exam Per Admitting Provider Constitutional: WD/WN, vitals as above Eyes: PERRL, conjunctivae normal, anicteric sclerae ENMT: external ear and nose normal, oropharynx normal Neck: trachea midline, no thyromegaly Respiratory: normal respiratory effort, lungs clear to auscultation Cardiovascular: RRR, no murmur, no edema Chest (Breasts): Chest: normal inspection of chest Gastrointestinal (Abdomen): normal bowel sounds, soft, nontender, no hepatosplenomegaly Musculoskeletal: no cyanosis or clubbing, extremities motor strength 5/5 Skin: no rashes, warm and dry Neurologic: PERRL, EOMI, accommodation nl, no face palsy, no dysarthria Psychiatric: A+Ox3, euthymic affect Genitourinary: no CVA tenderness Lymphatic: no lymphedema Principal Diagnosis Diabetes mellitus, new onset positive COVID 19 test Discharge Exam Constitutional WD/WN, vitals as above Eyes PERRL, conjunctivae normal, anicteric sclerae ENMT external ear and nose normal, oropharynx normal Neck trachea midline, no thyromegaly Respiratory normal respiratory effort, lungs clear to auscultation Cardiovascular RRR, no murmur, no edema Chest (Breasts) Chest: normal inspection of chest Gastrointestinal (Abdomen) normal bowel sounds, soft, nontender, no hepatosplenomegaly Musculoskeletal no cyanosis or clubbing, extremities motor strength 5/5 Skin no rashes, warm and dry Neurologic PERRL, EOMI, accommodation nl, no face palsy, no dysarthria Psychiatric A+Ox3, euthymic affect Genitourinary no CVA tenderness Lymphatic no lymphedema Discharge Data Allergies Allergy/AdvReac Type Severity Reaction Status Date / Time hydrocodone Allergy Mild HIVES Verified 09/10/20 14:49 codeine Allergy Unknown Hives Verified 09/10/20 14:49 Ethanol Allergy Unknown HIVES Uncoded 09/10/20 14:49 Consultations 09/10/20 14:31 ED Decision to Admit Stat Diabetes Follow up Diabetes Follow-up Needed for HgbA1c >9%,Newly Diagnosed Diabetes Hospital Course (1) Diabetes mellitus, new onset: Patient presents with history of lethargy, weakness, plegia, polyuria, vision changes Elevated blood glucose at home at 590 Prior hemoglobin A1c 5.5%, 2 years ago Brother diagnosed with diabetes at age of 20, there is also other family history of diabetes Patient had recently eye exam due to vision changes, was told that he had diabetic changes In ER, blood glucose about 380, sodium low at 127 consistent with pseudonatremia due to elevated blood sugar Urine significant for glucose and ketones, no signs of infection Current hemoglobin A1c 11.2% in ER received normal saline IV, and 10 units of subcu insulin we will recheck BMP now, we will closely monitor glucose levels, sodium and other electrolytes Replete potassium and add electrolytes as needed Glycemic pharmacy consulted as well inclusion paraeducator Patient doing quite well clinically, understands how to use insulin, and how to check his blood sugar levels, discussed with breastfeeding educator Patient will be discharged on 20 units of Lantus daily, and 6 units of NovoLog 3 times a day with meals He has a follow-up with his PCP on September 17 Hx of TIA several yrs ago Patient reports he is supposed to be on aspirin, however he is not actually taking it only occasionally plan to restart aspirin on discharge History of tobacco abuse Patient reports smoking about half a pack to 2 packs a day Would like to quit smoking Tried nicotine patches before, says that he felt sick Counselled the pt, and recommended calling [facility] now, free smoking cessation line + COVID19 test Patient asymptomatic, no history of fevers, shortness of breath Chest x-ray unremarkable Patient was fully vaccinated in May Recommend to monitor for symptoms for next 10 days and if develops any, they will contact healthcare provider Patient was also advised to wear a mask DVT ppx: Lovenox Code: Full Total Time Total Time Spent Total Time Spent (In Minutes): 40 Discharge Plan Discharge Items Patient Disposition: Home - Self-Care Reason For Visit: HYPERGLYCEMIA, NEW DM DX, CP Discharge Diagnosis: Diabetes mellitus, new onset positive COVID 19 test Activity: Per Instructions section Non-emergency contact: Primary Care Provider Call non-emergency contact if: you have any medication questions and your symptoms worsen Follow-up/Referrals: PCP,NO [Primary Care Provider] - Diet: Carb Consistent or DM2 Addtl Attending Provider Instructions: Follow-up with primary care doctor, within 1 week. It is important that you follow instructions from breastfeeding educator, and check your blood sugar at home, keep a record of these numbers. Use insulin as prescribed, use 20 units of Lantus at night, and use 6 units of NovoLog three times a day with meals. Insulin pens will be provided from the hospital. Your insulin dosage may change, and therefore you need to follow-up closely with the physician and provide them with your recorded blood sugar numbers. You should also continue taking aspirin 81 mg daily. For smoking cessation, consider calling [facility] now, free smoking cessation line. Given your positive test for COVID-19, it is recommended that you monitor your symptoms, such as a fever, cough, shortness of breath. Isolate yourself for 10 days and if you develop any of these concerning symptoms, contact your healthcare provider. Also, wear a mask if you have to be around other people. Pending Studies at Discharge: No Stand-Alone Forms: [facility]ess[facility] Medications and DC Order Prescriptions: New Lantus Solostar U-100 Insulin 100 unit/mL (3 mL) Insulin Pen 20 unit SC HS Qty: 3 RF: 0 insulin aspart U-100 [Novolog Flexpen U-100 Insulin] 100 unit/mL (3 mL) Insulin Pen 6 unit SC ACHS Qty: 3 RF: 0 Discharge Orders: Discharge Order (Routine); Ordered 09/11/20 Ordered By: Zhang Johnson/Other Patient Handouts: Long-Term Complications of Diabetes, Hypoglycemia (Low Blood Sugar), How to Check Your Blood Sugar, Healthy Meals for Diabetes, Diabetes: Sick-Day Plan, Diabetes: Activity Tips Admission Data Admit Date/Time: 09/10/20 15:21 Attending Provider: Zhang Bell Admit Provider: Zhang Bell Primary Care Provider: PCP,NO Other Providers: Doroteo Escobar
[2020-09-11] MEDS ORDERED: INSULIN GLARGINE SOLOSTAR 100 UNITS/ML 3 ML PEN SC SCH (21:00)
--- NOTE | 2020-09-12 06:12 | Electrocardiogram Report ---
Test Reason : Blood Pressure : / mmHG Vent. Rate : 068 BPM Atrial Rate : 068 BPM P-R Int : 110 ms QRS Dur : 084 ms QT Int : 382 ms P-R-T Axes : 014 066 046 degrees QTc Int : 406 ms Sinus rhythm with short MS Otherwise normal ECG When compared with ECG of 08-AUG-2018 08:16, No significant change was found Confirmed by Mauri Cisse ([id number]) on 09/12/2020 6:12:04 AM Referred By: Confirmed By:Mauri Cisse
== END 2020-09-11 15:15 | disposition home or self-care (01) | DRG 639 ==
LOC: ED 12:30 → 2S 15:21
DX: Z88.5 Allergy status to narcotic agent; Z83.3 Family history of diabetes mellitus; G40.909 Epilepsy, unspecified, not intractable, without status epilepticus; F17.210 Nicotine dependence, cigarettes, uncomplicated; Z86.73 Personal history of transient ischemic attack (TIA), and cerebral infarction without residual deficits; E11.65 Type 2 diabetes mellitus with hyperglycemia

== ENCOUNTER 2022-12-02 18:31 | Inpatient (IN) ==
[2022-12-02] MEDS ORDERED: SODIUM CHLORIDE 0.9% 1,000 ML IV ONE (18:37)
[2022-12-02] MEDS ORDERED: ONDANSETRON INJ 2 MG/ML 2 ML VIAL IV STA (18:37)
[2022-12-02] MEDS ORDERED: PLASMA-LYTE A 2,000 ML IV ONE (18:37)
--- NOTE | 2022-12-02 18:40 | Emergency Department Note ---
Impression & Plan DKA (diabetic ketoacidosis), Pseudohyponatremia ED Provider Note NAME: NIKKI BERRY AGE: 46 SEX: M : 1975 ARRIVES VIA: Ambulance INFORMANT: Patient ED PROVIDER(S): Joe Cho DO CHIEF COMPLAINT: hyperglycemia HPI: Patient is a 46-year-old male with a past medical history of TIAs, diabetes, tobacco abuse, hyponatremia who presents to the ER for elevated blood sugars. His Dexcom stopped working 3 days ago. He notes he has not taken any insulin since then. He has been having vomiting for the past 2 days. He denies any headache or change in vision. No chest pain or shortness of breath. No dysuria, urgency, or frequency. 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 ADDITIONAL HISTORY OBTAINED: Per HPI Chronic Medical/Social Conditions Affecting Care: Per HPI PAST MEDICAL HISTORY:See Below PAST SURGICAL HISTORY:See Below FAMILY HISTORY:See Below SOCIAL HISTORY:See Below HOME MEDICATIONS:See Below ALLERGIES:See Below VITALS:See Below PHYSICAL EXAMINATION: GENERAL: Sitting up in bed, alert, well appearing, well nourished, no distress, non-toxic EYE EXAM: normal conjunctiva. OROPHARYNX: Dry mucous membranes NECK: supple, no nuchal rigidity, no adenopathy, non-tender LUNGS: Clear to auscultation. Normal chest wall mechanics HEART: no murmurs, S1 normal and S2 normal ABDOMEN: abdomen soft, non-tender, normo-active bowel sounds, no masses, no rebound or guarding. UPPER EXTREMITIES: upper extremities are grossly normal. LOWER EXTREMITIES: No pitting edema. NEURO EXAM: Normal sensorium, cranial nerves II-XII grossly intact, normal speech, no gross weakness of arms, no gross weakness of legs. MEDICAL DECISION MAKING: Patient is a 46-year-old male who presents ER for the above-stated complaint. IV was established blood work was obtained. Labs show a leukocytosis of 13.9 thousand. No significant anemia. VBG with a pH of 7.38. BMP with pseudohyponatremia at 122. Potassium was elevated. Sugars were significantly elevated at about 700. LFTs bilirubin were unremarkable. Lipase was normal. UA was clean. Patient was given 3 L of IV fluids, placed on insulin drip and given insulin bolus and discussed with the hospitalist for further evaluation management treatment. External Records Reviewed: Admitted on 09/26 for DKA Consults/Care Managements Discussions: Per [facility] Triage Nursing notes reviewed. Limited review of prior medical records performed Vital Signs: reviewed and remarkable for no significant abnormalities Differential diagnosis: Differential diagnoses includes but is not limited to gastritis, peptic ulcer disease, GERD, gallbladder disease, pancreatitis, small bowel obstruction, appendicitis, diverticulitis, hernia, urinary tract infection, torsion, perforation, trauma, infectious. ER treatment provided: See below Diagnostics interpreted by me include EKG and cardiac monitoring as listed below: -Cardiac Monitoring: An order was placed for continuous cardiac monitoring. The monitor shows a rate of 78 with sinus rhythm. -ECG: Sinus rhythm rate 74 Normal axis No PVCs QTc 386 -Laboratory studies:Interpreted by me as stated above in MDM and shown below. Imaging studies: Xrays: As interpreted by me:none CTs show: none Procedures:none Critical Care: None Past Med/Surg History Medical History Diabetes mellitus, new onset Epilepsy History of TIAs History of tobacco abuse Hx-TIA (transient ischemic attack) Surgical History History of left knee surgery History of orthopedic surgery Family History Other Diabetes Hypertension Seizure Social History Smoking Status: Current every day smoker Tobacco Type: Cigarettes Cigarettes Per Day: 10; Second Hand Exposure: No; Do You Dip or Chew Tobacco: No; Hx Alcohol Use: Yes Hx Substance Use: No Preferred Language: Yakut Communication Ability: Effective Visual Impairment: No Limitations Hearing Ability: Normal Stacker Operator Required: No Beliefs That Will Affect Care: None marital status: Current Living Situation: Alone current occupational status: employed Feels Safe at Home: Yes Assistive Devices: None Allergies Allergies Allergy/AdvReac Type Severity Reaction Status Date / Time hydrocodone Allergy Mild HIVES Verified 12/02/22 19:55 codeine Allergy Unknown Hives Verified 12/02/22 19:55 Ethanol Allergy Unknown HIVES Uncoded 12/02/22 19:55 Home Meds Home Medications Medication Instructions Recorded Confirmed insulin aspart U-100 100 unit/mL 0 unit subcut DIRECTED 12/02/22 12/02/22 subcutaneous solution Results & Data (ED) Vital Signs Vital Signs - 24 hr 12/02/22 18:37 12/02/22 18:37 12/02/22 19:37 Temperature 36.8 C 36.8 C Temperature Source Oral Oral Pulse Rate 90 73 Pulse Rate [Apical] Pulse Rate [Right Finger] 88 Pulse Rhythm Regular Pulse Rhythm [Right Finger] Regular Pulse Strength Normal Pulse Strength [Right Finger] Normal Respiratory Rate 22 22 Respiratory Effort / Characteristics Non-Labored Non-Labored Respiratory Depth Normal Normal Respiratory Pattern Regular Regular Blood Pressure 119/97 Blood Pressure [Right Arm] 119/97 Blood Pressure Mean 104 Blood Pressure Mean [Right Arm] 104 Blood Pressure Position Lying Blood Pressure Position [Right Arm] Lying Pulse Oximetry 97 97 Oxygen Delivery Method Room Air Room Air Sepsis Recent Fever Within 48 Hours No Sepsis New/Unexplained Change in Mental Status N/A Sepsis Action Taken by Nursing No Action Required 12/02/22 20:02 12/02/22 23:10 Temperature Temperature Source Pulse Rate 69 Pulse Rate [Apical] 78 Pulse Rate [Right Finger] Pulse Rhythm Pulse Rhythm [Right Finger] Pulse Strength Pulse Strength [Right Finger] Respiratory Rate 18 Respiratory Effort / Characteristics Non-Labored Spontaneous Respiratory Depth Normal Respiratory Pattern Regular Blood Pressure Blood Pressure [Right Arm] 112/71 Blood Pressure Mean Blood Pressure Mean [Right Arm] 84 Blood Pressure Position Blood Pressure Position [Right Arm] Pulse Oximetry 100 Oxygen Delivery Method Room Air Sepsis Recent Fever Within 48 Hours Sepsis New/Unexplained Change in Mental Status Sepsis Action Taken by Nursing Laboratory Data 12/02/22 18:45 12/02/22 23:58 Lab Results 12/02/22 12/02/22 12/02/22 Range/Units 18:35 18:45 18:45 WBC 13.93 H (4.8-10.8) K/ul RBC 5.54 (4.70-6.10) M/uL Hgb 15.9 (14.0-18.0) g/dl POC Hgb (14.0-18.0) g/dl Hct 45.4 (42.0-52.0) % POC Hct (42-52) % MCV 81.9 (80.0-100.0) fL MCH 28.7 (25.0-34.0) pg MCHC 35.0 (32.0-36.0) g/dL RDW Std Deviation 37.0 (36.4-46.3) fL RDW Coeff of Edgar 12.4 (11.5-14.5) % Plt Count 485 H (130-400) K/uL MPV 9.7 (9.4-12.4) fL Immature Gran % (Auto) 0.4 % Neut % (Auto) 77.9 % Lymph % (Auto) 13.8 % [place] % (Auto) 6.7 % Eos % (Auto) 0.5 % Baso % (Auto) 0.7 % Neut # (Auto) 10.85 H (1.40-6.50) K/uL Lymph # (Auto) 1.92 (1.20-3.40) K/uL [place] # (Auto) 0.94 H (0.11-0.59) K/uL Eos # (Auto) 0.07 (0.00-0.50) K/uL Baso # (Auto) 0.10 (0.00-0.20) K/uL Immature Gran # (Auto) 0.05 (0.01-0.20) K/uL VBG pH (7.36-7.41) POC Sodium (135-144) mmol/L Sodium 120 L (136-145) mmol/L POC Potassium (3.3-5.0) mmol/L Potassium 5.4 H (3.5-5.1) mmol/L POC Chloride (101-112) mmol/L Chloride 88 L (98-107) mmol/L Carbon Dioxide 15 L (21-32) mmol/L POC Total CO2 (24-31) mmol/L Anion Gap 17 H (3-11) POC Anion Gap (16-25) mmol/L POC BUN (7-18) mg/dl BUN 19 (6-23) mg/dl Creatinine 0.99 (0.6-1.4) mg/dl POC Creatinine (0.6-1.3) mg/dl Est Cr Clr Drug Dosing 84.6 ml/min Est GFR ( Amer) 106.9 ml/min Est GFR (Non-Af Amer) 92.2 ml/min BUN/Creatinine Ratio 19.2 (10-20) Glucose 696 H* (70-99(Fasting)) mg/dl POC Glucose > 600 H* (70-99) mg/dl POC Glucose (other) (70-99) mg/dl Calcium 10.2 (8.6-10.3) mg/dl POC Ioniz Calcium Lizbeth (1.12-1.32) mmol/l Phosphorus (2.5-4.9) mg/dl Magnesium 2.3 (1.7-2.4) mg/dl Total Bilirubin 0.8 (0.2-1.0) mg/dl AST 10 L (13-39) U/L ALT 11 (7-52) U/L Alkaline Phosphatase 132 H (34-104) U/L Total Protein 8.2 (6.0-8.3) gm/dl Albumin 4.8 (3.4-5.0) gm/dl Globulin 3.4 (2.5-4.0) gm/dl Albumin/Globulin Ratio 1.4 (0.9-2) Lipase 25 (11-82) U/L Urine Color Urine Appearance (Clear) Urine pH (4.5-7.5) Ur Specific [place] (1.000-1.030) Urine Protein (Negative) Urine Glucose (UA) (Negative) Urine Ketones (Negative) Urine Blood (Negative) Urine Nitrite (Negative) Urine Bilirubin (Negative) Urine Urobilinogen (Negative) Ur Leukocyte Esterase (Negative) 12/02/22 12/02/22 12/02/22 Range/Units 18:52 19:43 19:45 WBC (4.8-10.8) K/ul RBC (4.70-6.10) M/uL Hgb (14.0-18.0) g/dl POC Hgb 17.0 (14.0-18.0) g/dl Hct (42.0-52.0) % POC Hct 50 (42-52) % MCV (80.0-100.0) fL MCH (25.0-34.0) pg MCHC (32.0-36.0) g/dL RDW Std Deviation (36.4-46.3) fL RDW Coeff of Edgar (11.5-14.5) % Plt Count (130-400) K/uL MPV (9.4-12.4) fL Immature Gran % (Auto) % Neut % (Auto) % Lymph % (Auto) % [place] % (Auto) % Eos % (Auto) % Baso % (Auto) % Neut # (Auto) (1.40-6.50) K/uL Lymph # (Auto) (1.20-3.40) K/uL [place] # (Auto) (0.11-0.59) K/uL Eos # (Auto) (0.00-0.50) K/uL Baso # (Auto) (0.00-0.20) K/uL Immature Gran # (Auto) (0.01-0.20) K/uL VBG pH (7.36-7.41) POC Sodium 122 L (135-144) mmol/L Sodium (136-145) mmol/L POC Potassium 5.5 H (3.3-5.0) mmol/L Potassium (3.5-5.1) mmol/L POC Chloride 93 L (101-112) mmol/L Chloride (98-107) mmol/L Carbon Dioxide (21-32) mmol/L POC Total CO2 16 L (24-31) mmol/L Anion Gap (3-11) POC Anion Gap 19.0 (16-25) mmol/L POC BUN 19 H (7-18) mg/dl BUN (6-23) mg/dl Creatinine (0.6-1.4) mg/dl POC Creatinine 0.7 (0.6-1.3) mg/dl Est Cr Clr Drug Dosing ml/min Est GFR ( Amer) ml/min Est GFR (Non-Af Amer) ml/min BUN/Creatinine Ratio (10-20) Glucose (70-99(Fasting)) mg/dl POC Glucose 489 H* 466 H* (70-99) mg/dl POC Glucose (other) > 700 H* (70-99) mg/dl Calcium (8.6-10.3) mg/dl POC Ioniz Calcium Lizbeth 1.22 (1.12-1.32) mmol/l Phosphorus (2.5-4.9) mg/dl Magnesium (1.7-2.4) mg/dl Total Bilirubin (0.2-1.0) mg/dl AST (13-39) U/L ALT (7-52) U/L Alkaline Phosphatase (34-104) U/L Total Protein (6.0-8.3) gm/dl Albumin (3.4-5.0) gm/dl Globulin (2.5-4.0) gm/dl Albumin/Globulin Ratio (0.9-2) Lipase (11-82) U/L Urine Color Urine Appearance (Clear) Urine pH (4.5-7.5) Ur Specific [place] (1.000-1.030) Urine Protein (Negative) Urine Glucose (UA) (Negative) Urine Ketones (Negative) Urine Blood (Negative) Urine Nitrite (Negative) Urine Bilirubin (Negative) Urine Urobilinogen (Negative) Ur Leukocyte Esterase (Negative) 12/02/22 12/02/22 12/02/22 Range/Units 20:51 21:56 22:20 WBC (4.8-10.8) K/ul RBC (4.70-6.10) M/uL Hgb (14.0-18.0) g/dl POC Hgb (14.0-18.0) g/dl Hct (42.0-52.0) % POC Hct (42-52) % MCV (80.0-100.0) fL MCH (25.0-34.0) pg MCHC (32.0-36.0) g/dL RDW Std Deviation (36.4-46.3) fL RDW Coeff of Edgar (11.5-14.5) % Plt Count (130-400) K/uL MPV (9.4-12.4) fL Immature Gran % (Auto) % Neut % (Auto) % Lymph % (Auto) % [place] % (Auto) % Eos % (Auto) % Baso % (Auto) % Neut # (Auto) (1.40-6.50) K/uL Lymph # (Auto) (1.20-3.40) K/uL [place] # (Auto) (0.11-0.59) K/uL Eos # (Auto) (0.00-0.50) K/uL Baso # (Auto) (0.00-0.20) K/uL Immature Gran # (Auto) (0.01-0.20) K/uL VBG pH (7.36-7.41) POC Sodium (135-144) mmol/L Sodium (136-145) mmol/L POC Potassium (3.3-5.0) mmol/L Potassium (3.5-5.1) mmol/L POC Chloride (101-112) mmol/L Chloride (98-107) mmol/L Carbon Dioxide (21-32) mmol/L POC Total CO2 (24-31) mmol/L Anion Gap (3-11) POC Anion Gap (16-25) mmol/L POC BUN (7-18) mg/dl BUN (6-23) mg/dl Creatinine (0.6-1.4) mg/dl POC Creatinine (0.6-1.3) mg/dl Est Cr Clr Drug Dosing ml/min Est GFR ( Amer) ml/min Est GFR (Non-Af Amer) ml/min BUN/Creatinine Ratio (10-20) Glucose (70-99(Fasting)) mg/dl POC Glucose 370 H* 362 H* (70-99) mg/dl POC Glucose (other) (70-99) mg/dl Calcium (8.6-10.3) mg/dl POC Ioniz Calcium Lizbeth (1.12-1.32) mmol/l Phosphorus (2.5-4.9) mg/dl Magnesium (1.7-2.4) mg/dl Total Bilirubin (0.2-1.0) mg/dl AST (13-39) U/L ALT (7-52) U/L Alkaline Phosphatase (34-104) U/L Total Protein (6.0-8.3) gm/dl Albumin (3.4-5.0) gm/dl Globulin (2.5-4.0) gm/dl Albumin/Globulin Ratio (0.9-2) Lipase (11-82) U/L Urine Color Yellow Urine Appearance Clear (Clear) Urine pH 5.0 (4.5-7.5) Ur Specific [place] 1.039 H (1.000-1.030) Urine Protein Negative (Negative) Urine Glucose (UA) 3+ H (Negative) Urine Ketones 3+ H (Negative) Urine Blood Negative (Negative) Urine Nitrite Negative (Negative) Urine Bilirubin Negative (Negative) Urine Urobilinogen Negative (Negative) Ur Leukocyte Esterase Negative (Negative) 12/02/22 12/02/22 12/02/22 Range/Units 22:56 23:58 23:58 WBC (4.8-10.8) K/ul RBC (4.70-6.10) M/uL Hgb (14.0-18.0) g/dl POC Hgb (14.0-18.0) g/dl Hct (42.0-52.0) % POC Hct (42-52) % MCV (80.0-100.0) fL MCH (25.0-34.0) pg MCHC (32.0-36.0) g/dL RDW Std Deviation (36.4-46.3) fL RDW Coeff of Edgar (11.5-14.5) % Plt Count (130-400) K/uL MPV (9.4-12.4) fL Immature Gran % (Auto) % Neut % (Auto) % Lymph % (Auto) % [place] % (Auto) % Eos % (Auto) % Baso % (Auto) % Neut # (Auto) (1.40-6.50) K/uL Lymph # (Auto) (1.20-3.40) K/uL [place] # (Auto) (0.11-0.59) K/uL Eos # (Auto) (0.00-0.50) K/uL Baso # (Auto) (0.00-0.20) K/uL Immature Gran # (Auto) (0.01-0.20) K/uL VBG pH 7.38 (7.36-7.41) POC Sodium (135-144) mmol/L Sodium 132 L D (136-145) mmol/L POC Potassium (3.3-5.0) mmol/L Potassium 3.5 D (3.5-5.1) mmol/L POC Chloride (101-112) mmol/L Chloride 104 (98-107) mmol/L Carbon Dioxide 22 (21-32) mmol/L POC Total CO2 (24-31) mmol/L Anion Gap 6 (3-11) POC Anion Gap (16-25) mmol/L POC BUN (7-18) mg/dl BUN 15 (6-23) mg/dl Creatinine 0.68 D (0.6-1.4) mg/dl POC Creatinine (0.6-1.3) mg/dl Est Cr Clr Drug Dosing 123.1 ml/min Est GFR ( Amer) 134.6 ml/min Est GFR (Non-Af Amer) 116.2 ml/min BUN/Creatinine Ratio 22.1 H (10-20) Glucose 214 H (70-99(Fasting)) mg/dl POC Glucose 264 H (70-99) mg/dl POC Glucose (other) (70-99) mg/dl Calcium 8.4 L (8.6-10.3) mg/dl POC Ioniz Calcium Lizbeth (1.12-1.32) mmol/l Phosphorus 1.5 L* (2.5-4.9) mg/dl Magnesium 2.0 (1.7-2.4) mg/dl Total Bilirubin (0.2-1.0) mg/dl AST (13-39) U/L ALT (7-52) U/L Alkaline Phosphatase (34-104) U/L Total Protein (6.0-8.3) gm/dl Albumin (3.4-5.0) gm/dl Globulin (2.5-4.0) gm/dl Albumin/Globulin Ratio (0.9-2) Lipase (11-82) U/L Urine Color Urine Appearance (Clear) Urine pH (4.5-7.5) Ur Specific [place] (1.000-1.030) Urine Protein (Negative) Urine Glucose (UA) (Negative) Urine Ketones (Negative) Urine Blood (Negative) Urine Nitrite (Negative) Urine Bilirubin (Negative) Urine Urobilinogen (Negative) Ur Leukocyte Esterase (Negative) 12/03/22 Range/Units 00:19 WBC (4.8-10.8) K/ul RBC (4.70-6.10) M/uL Hgb (14.0-18.0) g/dl POC Hgb (14.0-18.0) g/dl Hct (42.0-52.0) % POC Hct (42-52) % MCV (80.0-100.0) fL MCH (25.0-34.0) pg MCHC (32.0-36.0) g/dL RDW Std Deviation (36.4-46.3) fL RDW Coeff of Edgar (11.5-14.5) % Plt Count (130-400) K/uL MPV (9.4-12.4) fL Immature Gran % (Auto) % Neut % (Auto) % Lymph % (Auto) % [place] % (Auto) % Eos % (Auto) % Baso % (Auto) % Neut # (Auto) (1.40-6.50) K/uL Lymph # (Auto) (1.20-3.40) K/uL [place] # (Auto) (0.11-0.59) K/uL Eos # (Auto) (0.00-0.50) K/uL Baso # (Auto) (0.00-0.20) K/uL Immature Gran # (Auto) (0.01-0.20) K/uL VBG pH (7.36-7.41) POC Sodium (135-144) mmol/L Sodium (136-145) mmol/L POC Potassium (3.3-5.0) mmol/L Potassium (3.5-5.1) mmol/L POC Chloride (101-112) mmol/L Chloride (98-107) mmol/L Carbon Dioxide (21-32) mmol/L POC Total CO2 (24-31) mmol/L Anion Gap (3-11) POC Anion Gap (16-25) mmol/L POC BUN (7-18) mg/dl BUN (6-23) mg/dl Creatinine (0.6-1.4) mg/dl POC Creatinine (0.6-1.3) mg/dl Est Cr Clr Drug Dosing ml/min Est GFR ( Amer) ml/min Est GFR (Non-Af Amer) ml/min BUN/Creatinine Ratio (10-20) Glucose (70-99(Fasting)) mg/dl POC Glucose 184 H (70-99) mg/dl POC Glucose (other) (70-99) mg/dl Calcium (8.6-10.3) mg/dl POC Ioniz Calcium Lizbeth (1.12-1.32) mmol/l Phosphorus (2.5-4.9) mg/dl Magnesium (1.7-2.4) mg/dl Total Bilirubin (0.2-1.0) mg/dl AST (13-39) U/L ALT (7-52) U/L Alkaline Phosphatase (34-104) U/L Total Protein (6.0-8.3) gm/dl Albumin (3.4-5.0) gm/dl Globulin (2.5-4.0) gm/dl Albumin/Globulin Ratio (0.9-2) Lipase (11-82) U/L Urine Color Urine Appearance (Clear) Urine pH (4.5-7.5) Ur Specific [place] (1.000-1.030) Urine Protein (Negative) Urine Glucose (UA) (Negative) Urine Ketones (Negative) Urine Blood (Negative) Urine Nitrite (Negative) Urine Bilirubin (Negative) Urine Urobilinogen (Negative) Ur Leukocyte Esterase (Negative) Administered Medications Insulin Human Regular 250 (units/ Sodium Chloride) 250 mls @ 6 mls/hr IV .Q24H TIGIST; Protocol Stop: 01/01/23 18:59 Last Titration: 12/03/22 00:34 Dose: 0 units/hr, 0 mls/hr Documented By: MED Co-signed By: JOO Titration: 12/02/22 23:04 Dose: 6 units/hr, 6 mls/hr Documented By: MED Co-signed By: RITU Titration: 12/02/22 22:07 Dose: 6 units/hr, 6 mls/hr Documented By: MED Co-signed By: RITU Titration: 12/02/22 20:59 Dose: 6 units/hr, 6 mls/hr Documented By: MED Co-signed By: JOO Admin: 12/02/22 19:56 Dose: 6 units/hr, 6 mls/hr Documented By: MED Co-signed By: RITU Discontinued Medications Parenteral Electrolytes (Plasma-Lyte A Ph 7.4) 2,000 mls @ 999 mls/hr IV .Q2H1M ONE Stop: 12/02/22 20:37 Last Admin: 12/02/22 22:03 Dose: 999 mls/hr Documented By: JOO Sodium Chloride (Nss) 1,000 mls @ 999 mls/hr IV .Q1H1M ONE Stop: 12/02/22 19:37 Last Infusion: 12/02/22 22:06 Dose: 0 mls/hr Documented By: Admin: 12/02/22 19:00 Dose: 999 mls/hr Documented By: JEISON Insulin Aspart (Insulin Aspart Per Unit Charge) 0 units SC ACHS TIGIST Stop: 01/01/23 20:59 Last Admin: 12/02/22 22:06 Dose: Not Given Documented By: MED Co-signed By: RITU Insulin Human Regular (Novolin-R Bolus From Bag) 6 units IV ONE ONE Stop: 12/02/22 19:16 Last Admin: 12/02/22 19:58 Dose: 6 units Documented By: MED Co-signed By: RITU Ondansetron HCl (Ondansetron Inj 2 Mg/Ml 2 Ml Vial) 4 mg IV NOW STA Stop: 12/02/22 18:38 Last Admin: 12/02/22 19:37 Dose: 4 mg Documented By: MED Discharge Plan Visit Data Chief Complaint: Hyperglycemia Stated Complaint: HYPERGLYCEMIA ED Provider: Joe Cho Discharge Problem: DKA (diabetic ketoacidosis), Pseudohyponatremia Forms Stand Alone Forms: My [facility] Prescriptions Prescriptions: No Action insulin aspart U-100 100 unit/mL solution 0 unit subcut DIRECTED Referrals Referrals: PCP,NO [Primary Care Provider] -
[2022-12-02] MEDS ORDERED: GLUCAGON FOR INJ 1 MG VIAL SQ PRN (18:54)
[2022-12-02] MEDS ORDERED: GLUCOSE 10 TAB/TUBE PO PRN (18:54)
[2022-12-02] MEDS ORDERED: CARBOHYDRATES FOR HYPOGLYCEMIA PO PRN (18:54)
[2022-12-02] MEDS ORDERED: STAT IV Infusion **Titration per Protocol STA ×2 (18:54→23:42)
[2022-12-02] MEDS ORDERED: GLUCOSE 40% GEL 15 GM TUBE PO PRN (18:54)
[2022-12-02] MEDS ORDERED: DEXTROSE 50% 50 ML SYRINGE IV PRN (18:54)
[2022-12-02] MEDS ORDERED: HHS GOAL RANGE 250-350 mg/dl ONE (18:54)
[2022-12-02 18:59] LABS: Basophils % (auto) 0.7 %; Eosinophils # (auto) 0.07 K/uL (0.00-0.50); Eosinophils % (auto) 0.5 %; Hematocrit (blood only) 45.4 % (42.0-52.0); Hemoglobin 15.9 g/dl (14.0-18.0); Immature Granulocytes # (auto) 0.05 K/uL (0.01-0.20); Immature Granulocytes % (auto) 0.4 %; Lymphocytes # (auto) 1.92 K/uL (1.20-3.40); Lymphocytes % (auto) 13.8 %; Mean Corpuscular Hemoglobin 28.7 pg (25.0-34.0); Mean Corpuscular Volume 81.9 fL (80.0-100.0); Mean Platelet Volume 9.7 fL (9.4-12.4); Monocytes # (auto) 0.94 K/uL (0.11-0.59); Monocytes % (auto) 6.7 %; Neutrophils # (auto) 10.85 K/uL (1.40-6.50); Neutrophils % (auto) 77.9 %; Platelet Count 485 K/uL (130-400); RDW Coefficient of Variation 12.4 % (11.5-14.5); Red Blood Count 5.54 M/uL (4.70-6.10); White Blood Count 13.93 K/ul (4.8-10.8)
[2022-12-02] MEDS ORDERED: INSULIN REGULAR 250 UNITS in SODIUM CHLORIDE 0.9% 247.5 ML IV SCH ×2 (19:00→23:45)
[2022-12-02 19:06] LABS: iSTAT Blood Urea Nitrogen 19 mg/dl (7-18); iSTAT Carbon Dioxide 16 mmol/L (24-31); iSTAT Chloride 93 mmol/L (101-112); iSTAT Creatinine 0.7 mg/dl (0.6-1.3); iSTAT Glucose > 700 mg/dl (70-99); iSTAT Hematocrit 50 % (42-52); iSTAT Ionized Calcium 1.22 mmol/l (1.12-1.32); iSTAT Potassium 5.5 mmol/L (3.3-5.0); iSTAT Sodium 122 mmol/L (135-144)
[2022-12-02] MEDS ORDERED: NovoLIN-R BOLUS FROM BAG IV ONE (19:15)
[2022-12-02 19:26] LABS: Albumin Globulin Ratio 1.4 (0.9-2); Albumin Level 4.8 gm/dl (3.4-5.0); BUN Creatinine Ratio 19.2 (10-20); Bilirubin,Total 0.8 mg/dl (0.2-1.0); Calcium 10.2 mg/dl (8.6-10.3); Creatinine Clr Calc Pharmacy 84.6 ml/min; Est GFR (African American) 106.9 ml/min; Est GFR (Non-African American) 92.2 ml/min; Globulin 3.4 gm/dl (2.5-4.0); Magnesium 2.3 mg/dl (1.7-2.4); Potassium 5.4 mmol/L (3.5-5.1); Total Protein 8.2 gm/dl (6.0-8.3)
[2022-12-02] MEDS ORDERED: INSULIN ASPART PER UNIT CHARGE SC SCH (21:00)
[2022-12-02 23:10] LABS: Appearance Urine Clear (Clear); Bilirubin Urine Negative (Negative); Blood Urine Negative (Negative); Color Urine Yellow; Glucose Urine UA 3+ (Negative); Ketones Urine 3+ (Negative); Leukocyte Esterase Urine Negative (Negative); Nitrite Urine Negative (Negative); Protein Urine Negative (Negative); Specific Gravity Urine 1.039 (1.000-1.030); Urobilinogen Urine Negative (Negative)
[2022-12-02] MEDS ORDERED: DKA GOAL RANGE 150-250 mg/dl ONE (23:42)
[2022-12-02] MEDS ORDERED: PHARMACY GLYCEMIC MGMT CONSULT PRN (23:42)
[2022-12-02] MEDS ORDERED: PENDING D5 1/2NS+20mEq KCL IVF SCH (23:45)
[2022-12-02] MEDS ORDERED: PENDING 1/2NSS+20mEq KCL IVF SCH (23:45)
--- NOTE | 2022-12-02 23:54 | History & Physical Report ---
Date of Service December 02, 2022 Assessment & Plan (1) DKA (diabetic ketoacidosis): Plan: 46-year-old male with past medical significant for type 1 diabetes subclinical hypothyroidism tobacco use disorder ADHD history of seizure disorder presents with DKA. DKA Insulin drip protocol as per DKA protocol Aggressive IV fluids per protocol Change fluids as per protocol BMP every 4 hours per protocol Close monitoring of sugars as per protocol Monitor in med/telemetry Chest discomfort Chest acid reflux We will follow serial enzymes Hyponatremia Mostly pseudohyponatremia from DKA We will follow labs Hyperkalemia Potassium 5.4 On insulin drip We will follow labs DVT prophylaxis Lovenox History of Present Illness Chief Complaint: DKA Primary Care Provider: NO PCP 46-year-old male with past medical significant for type 1 diabetes subclinical hypothyroidism tobacco use disorder ADHD history of seizure disorder presents with DKA. Patient states his Dexcom was not working and he was in [facility] and he was not having his insulin and was not taking his insulin for last few days. Comes today because of nausea vomiting and abdominal pain and found to be in DKA. States he has some mild chest discomfort thinks from acid reflux. Denies any shortness of breath. Currently no headache. Says when sugars are high he has blurred visions. No earache. No runny nose. No sore throat. No cough. Normal bowel and bladder movements. Past medical history as mentioned above. Past surgical history. Right shoulder arthroscopy. Knee arthroscopy. Social history. Smokes 1 pack a day for 10 years. Alcohol as per epic sixpack per week. No drugs currently. Family history. Mother had diabetes, thyroid issues. Allergies Allergy/AdvReac Type Severity Reaction Status Date / Time hydrocodone Allergy Mild HIVES Verified 12/02/22 19:55 codeine Allergy Unknown Hives Verified 12/02/22 19:55 Ethanol Allergy Unknown HIVES Uncoded 12/02/22 19:55 Home Medications Medication Instructions Recorded Confirmed Type insulin aspart U-100 100 unit/mL 0 unit subcut DIRECTED 12/02/22 12/02/22 History subcutaneous solution Past Med/Surg History Medical History Diabetes mellitus, new onset Epilepsy History of TIAs History of tobacco abuse Hx-TIA (transient ischemic attack) Surgical History History of left knee surgery History of orthopedic surgery Family History Other Diabetes Hypertension Seizure Social History Smoking Status: Heavy tobacco smoker Tobacco Type: Cigarettes Cigarettes Per Day: 10; Second Hand Exposure: No; Do You Dip or Chew Tobacco: Yes; Tobacco Cessation Education Requested by Patient: No Hx Alcohol Use: Yes Hx Substance Use: No Preferred Language: Guinean Communication Ability: Effective Visual Impairment: No Limitations Hearing Ability: Normal Breaker Hand Required: No Beliefs That Will Affect Care: None marital status: Current Living Situation: Alone current occupational status: employed Other Information That Helps Us Care for You: No Feels Safe at Home: Yes Safety Concerns: Feels Safe At This Time Assistive Devices: None Review of Systems Review of Systems: All systems reviewed & are unremarkable except as noted in HPI & below Physical Exam Physical Exam: General- Not in distress Head- atraumatic Eyes- PERRL. ENT- oropharynx clear Neck- supple, no JVD. Lungs- clear to auscultation no wheezing or crackles. Heart- regular rhythm; no murmur, no gallop. Abdomen- normal bowel sounds, soft, nontender, no distension. Extremities- no pretibial edema, no erythema seen. Neuro- alert, oriented x 3; PERRL; no facial palsy; no dysarthria; moves extremities. Skin- warm & dry Results & Data Results & Data Vital Signs (Past 12 Hours) Vital Signs Temp Pulse Pulse Pulse Resp BP BP 12/02/22 20:02 78 18 112/71 12/02/22 19:37 73 12/02/22 18:37 36.8 C 88 22 119/97 12/02/22 18:37 36.8 C 90 22 119/97 Pulse Ox O2 Del Method 12/02/22 20:02 100 Room Air 12/02/22 19:37 12/02/22 18:37 97 Room Air 12/02/22 18:37 97 Room Air Diagnostic Findings Laboratory Results WBC 13.93 K/ul (4.8-10.8) H 12/02/22 18:45 RBC 5.54 M/uL (4.70-6.10) 12/02/22 18:45 Hgb 15.9 g/dl (14.0-18.0) 12/02/22 18:45 POC Hgb 17.0 g/dl (14.0-18.0) 12/02/22 18:52 Hct 45.4 % (42.0-52.0) 12/02/22 18:45 POC Hct 50 % (42-52) 12/02/22 18:52 MCV 81.9 fL (80.0-100.0) 12/02/22 18:45 MCH 28.7 pg (25.0-34.0) 12/02/22 18:45 MCHC 35.0 g/dL (32.0-36.0) 12/02/22 18:45 RDW Std Deviation 37.0 fL (36.4-46.3) 12/02/22 18:45 RDW Coeff of Edgar 12.4 % (11.5-14.5) 12/02/22 18:45 Plt Count 485 K/uL (130-400) H 12/02/22 18:45 MPV 9.7 fL (9.4-12.4) 12/02/22 18:45 Immature Gran % (Auto) 0.4 % 12/02/22 18:45 Neut % (Auto) 77.9 % 12/02/22 18:45 Lymph % (Auto) 13.8 % 12/02/22 18:45 [place] % (Auto) 6.7 % 12/02/22 18:45 Eos % (Auto) 0.5 % 12/02/22 18:45 Baso % (Auto) 0.7 % 12/02/22 18:45 Neut # (Auto) 10.85 K/uL (1.40-6.50) H 12/02/22 18:45 Lymph # (Auto) 1.92 K/uL (1.20-3.40) 12/02/22 18:45 [place] # (Auto) 0.94 K/uL (0.11-0.59) H 12/02/22 18:45 Eos # (Auto) 0.07 K/uL (0.00-0.50) 12/02/22 18:45 Baso # (Auto) 0.10 K/uL (0.00-0.20) 12/02/22 18:45 Immature Gran # (Auto) 0.05 K/uL (0.01-0.20) 12/02/22 18:45 POC Sodium 122 mmol/L (135-144) L 12/02/22 18:52 Sodium 120 mmol/L (136-145) L 12/02/22 18:45 POC Potassium 5.5 mmol/L (3.3-5.0) H 12/02/22 18:52 Potassium 5.4 mmol/L (3.5-5.1) H 12/02/22 18:45 POC Chloride 93 mmol/L (101-112) L 12/02/22 18:52 Chloride 88 mmol/L (98-107) L 12/02/22 18:45 Carbon Dioxide 15 mmol/L (21-32) L 12/02/22 18:45 POC Total CO2 16 mmol/L (24-31) L 12/02/22 18:52 Anion Gap 17 (3-11) H 12/02/22 18:45 POC Anion Gap 19.0 mmol/L (16-25) 12/02/22 18:52 POC BUN 19 mg/dl (7-18) H 12/02/22 18:52 BUN 19 mg/dl (6-23) 12/02/22 18:45 Creatinine 0.99 mg/dl (0.6-1.4) 12/02/22 18:45 POC Creatinine 0.7 mg/dl (0.6-1.3) 12/02/22 18:52 Est Cr Clr Drug Dosing 84.6 ml/min 12/02/22 18:45 Est GFR ( Amer) 106.9 ml/min 12/02/22 18:45 Est GFR (Non-Af Amer) 92.2 ml/min 12/02/22 18:45 BUN/Creatinine Ratio 19.2 (10-20) 12/02/22 18:45 Glucose 696 mg/dl (70-99(Fasting)) H* 12/02/22 18:45 POC Glucose 264 mg/dl (70-99) H 12/02/22 22:56 POC Glucose (other) > 700 mg/dl (70-99) H* 12/02/22 18:52 Calcium 10.2 mg/dl (8.6-10.3) 12/02/22 18:45 POC Ioniz Calcium [place] 1.22 mmol/l (1.12-1.32) 12/02/22 18:52 Magnesium 2.3 mg/dl (1.7-2.4) 12/02/22 18:45 Total Bilirubin 0.8 mg/dl (0.2-1.0) 12/02/22 18:45 AST 10 U/L (13-39) L 12/02/22 18:45 ALT 11 U/L (7-52) 12/02/22 18:45 Alkaline Phosphatase 132 U/L (34-104) H 12/02/22 18:45 Total Protein 8.2 gm/dl (6.0-8.3) 12/02/22 18:45 Albumin 4.8 gm/dl (3.4-5.0) 12/02/22 18:45 Globulin 3.4 gm/dl (2.5-4.0) 12/02/22 18:45 Albumin/Globulin Ratio 1.4 (0.9-2) 12/02/22 18:45 Lipase 25 U/L (11-82) 12/02/22 18:45 Urine Color Yellow 12/02/22 22:20 Urine Appearance Clear (Clear) 12/02/22 22:20 Urine pH 5.0 (4.5-7.5) 12/02/22 22:20 Ur Specific [place] 1.039 (1.000-1.030) H 12/02/22 22:20 Urine Protein Negative (Negative) 12/02/22 22:20 Urine Glucose (UA) 3+ (Negative) H 12/02/22 22:20 Urine Ketones 3+ (Negative) H 12/02/22 22:20 Urine Blood Negative (Negative) 12/02/22 22:20 Urine Nitrite Negative (Negative) 12/02/22 22:20 Urine Bilirubin Negative (Negative) 12/02/22 22:20 Urine Urobilinogen Negative (Negative) 12/02/22 22:20 Ur Leukocyte Esterase Negative (Negative) 12/02/22 22:20 ECG Additional Comments: ECG. Normal sinus rhythm with sinus arrhythmia with rate of 74. No significant change was found. Code Status & VTE Plan VTE Prophylaxis Plan VTE Prophylaxis will be ordered: Yes
[2022-12-03 00:33] LABS: BUN Creatinine Ratio 22.1 (10-20); Calcium 8.4 mg/dl (8.6-10.3); Creatinine Clr Calc Pharmacy 123.1 ml/min; Est GFR (African American) 134.6 ml/min; Est GFR (Non-African American) 116.2 ml/min; Phosphorus 1.5 mg/dl (2.5-4.9); Potassium 3.5 mmol/L (3.5-5.1)
[2022-12-03] MEDS: SODIUM CHLORIDE 0.9% 1,000 ML IV SCH ×4 (00:50→19:40)
[2022-12-03] MEDS ORDERED: ONDANSETRON INJ 2 MG/ML 2 ML VIAL IV PRN (02:01)
[2022-12-03] MEDS ORDERED: NITROGLYCERIN SL 0.4 MG/TAB TAB SL PRN (02:01)
[2022-12-03] MEDS ORDERED: ACETAMINOPHEN 325 MG TAB PO PRN (02:01)
[2022-12-03] MEDS ORDERED: POTASSIUM CHLORIDE CRTAB 20 MEQ TABCR PO STA (02:15)
[2022-12-03] MEDS ORDERED: SODIUM PHOSPHATE 3 MMOL/1 ML INFUSION IV STA ×2 (02:24→13:30)
[2022-12-03] MEDS ORDERED: GLUCOSE 10 TAB/TUBE PO PRN (02:30)
[2022-12-03] MEDS ORDERED: CARBOHYDRATES FOR HYPOGLYCEMIA PO PRN (02:30)
[2022-12-03] MEDS ORDERED: GLUCOSE 40% GEL 15 GM TUBE PO PRN (02:30)
[2022-12-03] MEDS ORDERED: GLUCAGON FOR INJ 1 MG VIAL IM PRN (02:30)
[2022-12-03] MEDS ORDERED: DEXTROSE 50% 50 ML SYRINGE IV PRN (02:30)
[2022-12-03] MEDS ORDERED: LANTUS PER UNIT CHARGE SC ONE ×2 (03:00→09:00)
[2022-12-03] MEDS ORDERED: SODIUM PHOSPHATE 24 MMOL in SODIUM CHLORIDE 0.9% 500 ML IV ONE (03:00)
[2022-12-03] MEDS: INSULIN ASPART PER UNIT CHARGE SC SCH ×5 (03:00→20:13)
[2022-12-03] MEDS ORDERED: Nursing to Pharmacy Communication SCH (03:30)
[2022-12-03 04:27] LABS: BUN Creatinine Ratio 22.7 (10-20); Creatinine Clr Calc Pharmacy 126.5 ml/min; Est GFR (African American) 136.3 ml/min; Est GFR (Non-African American) 117.6 ml/min; Magnesium 1.9 mg/dl (1.7-2.4); Phosphorus 2.8 mg/dl (2.5-4.9); Potassium 3.8 mmol/L (3.5-5.1)
[2022-12-03 07:17] LABS: Estimated Average Glucose 303 mg/dl; Hemoglobin A1C 12.2 % (4.5-5.6)
[2022-12-03] MEDS ORDERED: INSULIN ASPART PER UNIT CHARGE SC SCH (07:30)
--- NOTE | 2022-12-03 07:43 | Electrocardiogram Report ---
Test Reason : Blood Pressure : / mmHG Vent. Rate : 074 BPM Atrial Rate : 085 BPM P-R Int : 118 ms QRS Dur : 074 ms QT Int : 348 ms P-R-T Axes : 075 081 069 degrees QTc Int : 386 ms Normal sinus rhythm with sinus arrhythmia Possible Left atrial enlargement Borderline ECG When compared with ECG of 25-NOV-2020 18:04, No significant change was found Confirmed by Carlos Tolliver ([id number]) on 12/03/2022 7:43:43 AM Referred By: REFERRED SELF Confirmed By:Sherwin Tolliver
--- NOTE | 2022-12-03 07:51 | Electrocardiogram Report ---
Test Reason : Blood Pressure : / mmHG Vent. Rate : 072 BPM Atrial Rate : 072 BPM P-R Int : 094 ms QRS Dur : 084 ms QT Int : 400 ms P-R-T Axes : 035 074 072 degrees QTc Int : 438 ms Sinus rhythm with short SC Nonspecific T wave abnormality Abnormal ECG When compared with ECG of 02-DEC-2022 18:36, (unconfirmed) Nonspecific T wave abnormality, worse in Anterolateral leads QT has lengthened Confirmed by Carlos Tolliver ([id number]) on 12/03/2022 7:51:03 AM Referred By: REFERRED SELF Confirmed By:Sherwin Tolliver
[2022-12-03 09:01] LABS: BUN Creatinine Ratio 21.9 (10-20); Creatinine Clr Calc Pharmacy 130.4 ml/min; Est GFR (Non-African American) 119.1 ml/min; Magnesium 1.8 mg/dl (1.7-2.4); Phosphorus 3.1 mg/dl (2.5-4.9); Potassium 4.3 mmol/L (3.5-5.1)
[2022-12-03] MEDS: ENOXAPARIN INJ 40 MG/0.4 ML SYR SQ SCH (09:18)
--- NOTE | 2022-12-03 11:40 | Hospitalist Progress Note ---
Date of Service December 03, 2022 Assessment & Plan (1) DKA (diabetic ketoacidosis): Plan: 46-year-old male with past medical significant for type 1 diabetes subclinical hypothyroidism tobacco use disorder ADHD history of seizure disorder presents with DKA. DKA Was started on Insulin drip protocol and IVF as per DKA protocol Has been transitioned from insulin drip earlier today after DKA resolved Provided DM education Patient appear to be poorly informed about DM management DM educator consult He also stated he will like follow up with Machine Feed Operator that his had been difficult to get appointment with He will need to follow up with Machine Feed Operator as well as DM educator Optimize glycemic control HbA1c is 12.2 Continue DM education while inpatient Glycemic pharm on board Chest discomfort Trop was negative Resolved now Hyponatremia Likely mostly from pseudohyponatremia from DKA as BG was >600 on presentation Na is 132 this morning Hyperkalemia Potassium 5.4 on admission Resolved Monitor electrolytes DVT prophylaxis Loveclairex I spent a total of 65 minutes coordinating, documenting and providing care for this patient excluding time spent in performance of separately billed services Admission and Anticipated Discharge Date Admission Date: December 02, 2022 Subjective Patient seen and examined Reports nausea, vomiting and abd pain have resolved Still reports weakness Denied any headache, dizziness, fever, chills, dysuria, freq, urgency, diarrhea, chest pain, cough, SOB Physical Exam Constitutional: + well hydrated; no acute distress Eyes: PERRL, conjunctivae normal, anicteric sclerae ENMT: external ear and nose normal, oropharynx normal Respiratory: normal respiratory effort, lungs clear to auscultation Cardiovascular: Rate/Rhythm: regular rate and regular rhythm S1 S2 Gastrointestinal (Abdomen): normal bowel sounds, soft, nontender, no hepatosplenomegaly Musculoskeletal: no cyanosis or clubbing, extremities motor strength 5/5 Neurologic: PERRL, EOMI, accommodation nl, no face palsy, no dysarthria Psychiatric: A+Ox3, euthymic affect Results & Data Results & Data Vital Signs (Past 12 Hours) Vital Signs Temp Pulse Pulse Pulse Resp BP Pulse Ox 12/03/22 07:40 36.5 C 75 18 99/65 L 97 12/03/22 01:55 73 12/03/22 02:01 36.5 C 73 16 109/61 98 12/03/22 02:01 12/03/22 01:28 65 20 Pulse Ox O2 Del Method O2 Del Method 12/03/22 07:40 Room Air 12/03/22 01:55 12/03/22 02:01 Room Air 12/03/22 02:01 98 Room Air 12/03/22 01:28 Room Air Laboratory Results Abnormal lab results 12/02/22 12/02/22 12/02/22 Range/Units 18:35 18:45 18:45 WBC 13.93 H (4.8-10.8) K/ul Plt Count 485 H (130-400) K/uL Neut # (Auto) 10.85 H (1.40-6.50) K/uL Webb # (Auto) 0.94 H (0.11-0.59) K/uL VBG pH (7.36-7.41) POC Sodium (135-144) mmol/L Sodium 120 L (136-145) mmol/L POC Potassium (3.3-5.0) mmol/L Potassium 5.4 H (3.5-5.1) mmol/L POC Chloride (101-112) mmol/L Chloride 88 L (98-107) mmol/L Carbon Dioxide 15 L (21-32) mmol/L POC Total CO2 (24-31) mmol/L Anion Gap 17 H (3-11) POC BUN (7-18) mg/dl BUN/Creatinine Ratio (10-20) Glucose 696 H* (70-99(Fasting)) mg/dl POC Glucose > 600 H* (70-99) mg/dl POC Glucose (other) (70-99) mg/dl Hemoglobin A1c (4.5-5.6) % Calcium (8.6-10.3) mg/dl Phosphorus (2.5-4.9) mg/dl AST 10 L (13-39) U/L Alkaline Phosphatase 132 H (34-104) U/L Ur Specific [place] (1.000-1.030) Urine Glucose (UA) (Negative) Urine Ketones (Negative) 12/02/22 12/02/22 12/02/22 Range/Units 18:52 19:43 19:45 WBC (4.8-10.8) K/ul Plt Count (130-400) K/uL Neut # (Auto) (1.40-6.50) K/uL Webb # (Auto) (0.11-0.59) K/uL VBG pH (7.36-7.41) POC Sodium 122 L (135-144) mmol/L Sodium (136-145) mmol/L POC Potassium 5.5 H (3.3-5.0) mmol/L Potassium (3.5-5.1) mmol/L POC Chloride 93 L (101-112) mmol/L Chloride (98-107) mmol/L Carbon Dioxide (21-32) mmol/L POC Total CO2 16 L (24-31) mmol/L Anion Gap (3-11) POC BUN 19 H (7-18) mg/dl BUN/Creatinine Ratio (10-20) Glucose (70-99(Fasting)) mg/dl POC Glucose 489 H* 466 H* (70-99) mg/dl POC Glucose (other) > 700 H* (70-99) mg/dl Hemoglobin A1c (4.5-5.6) % Calcium (8.6-10.3) mg/dl Phosphorus (2.5-4.9) mg/dl AST (13-39) U/L Alkaline Phosphatase (34-104) U/L Ur Specific [place] (1.000-1.030) Urine Glucose (UA) (Negative) Urine Ketones (Negative) 12/02/22 12/02/22 12/02/22 Range/Units 20:51 21:56 22:20 WBC (4.8-10.8) K/ul Plt Count (130-400) K/uL Neut # (Auto) (1.40-6.50) K/uL Webb # (Auto) (0.11-0.59) K/uL VBG pH (7.36-7.41) POC Sodium (135-144) mmol/L Sodium (136-145) mmol/L POC Potassium (3.3-5.0) mmol/L Potassium (3.5-5.1) mmol/L POC Chloride (101-112) mmol/L Chloride (98-107) mmol/L Carbon Dioxide (21-32) mmol/L POC Total CO2 (24-31) mmol/L Anion Gap (3-11) POC BUN (7-18) mg/dl BUN/Creatinine Ratio (10-20) Glucose (70-99(Fasting)) mg/dl POC Glucose 370 H* 362 H* (70-99) mg/dl POC Glucose (other) (70-99) mg/dl Hemoglobin A1c (4.5-5.6) % Calcium (8.6-10.3) mg/dl Phosphorus (2.5-4.9) mg/dl AST (13-39) U/L Alkaline Phosphatase (34-104) U/L Ur Specific [place] 1.039 H (1.000-1.030) Urine Glucose (UA) 3+ H (Negative) Urine Ketones 3+ H (Negative) 12/02/22 12/02/22 12/03/22 Range/Units 22:56 23:58 00:19 WBC (4.8-10.8) K/ul Plt Count (130-400) K/uL Neut # (Auto) (1.40-6.50) K/uL Webb # (Auto) (0.11-0.59) K/uL VBG pH (7.36-7.41) POC Sodium (135-144) mmol/L Sodium 132 L D (136-145) mmol/L POC Potassium (3.3-5.0) mmol/L Potassium (3.5-5.1) mmol/L POC Chloride (101-112) mmol/L Chloride (98-107) mmol/L Carbon Dioxide (21-32) mmol/L POC Total CO2 (24-31) mmol/L Anion Gap (3-11) POC BUN (7-18) mg/dl BUN/Creatinine Ratio 22.1 H (10-20) Glucose 214 H (70-99(Fasting)) mg/dl POC Glucose 264 H 184 H (70-99) mg/dl POC Glucose (other) (70-99) mg/dl Hemoglobin A1c (4.5-5.6) % Calcium 8.4 L (8.6-10.3) mg/dl Phosphorus 1.5 L* (2.5-4.9) mg/dl AST (13-39) U/L Alkaline Phosphatase (34-104) U/L Ur Specific [place] (1.000-1.030) Urine Glucose (UA) (Negative) Urine Ketones (Negative) 12/03/22 12/03/22 12/03/22 Range/Units 01:13 02:49 03:37 WBC (4.8-10.8) K/ul Plt Count (130-400) K/uL Neut # (Auto) (1.40-6.50) K/uL [place] # (Auto) (0.11-0.59) K/uL VBG pH (7.36-7.41) POC Sodium (135-144) mmol/L Sodium 133 L (136-145) mmol/L POC Potassium (3.3-5.0) mmol/L Potassium (3.5-5.1) mmol/L POC Chloride (101-112) mmol/L Chloride (98-107) mmol/L Carbon Dioxide (21-32) mmol/L POC Total CO2 (24-31) mmol/L Anion Gap (3-11) POC BUN (7-18) mg/dl BUN/Creatinine Ratio 22.7 H (10-20) Glucose 135 H (70-99(Fasting)) mg/dl POC Glucose 186 H 115 H (70-99) mg/dl POC Glucose (other) (70-99) mg/dl Hemoglobin A1c (4.5-5.6) % Calcium 8.0 L (8.6-10.3) mg/dl Phosphorus (2.5-4.9) mg/dl AST (13-39) U/L Alkaline Phosphatase (34-104) U/L Ur Specific [place] (1.000-1.030) Urine Glucose (UA) (Negative) Urine Ketones (Negative) 12/03/22 12/03/22 12/03/22 Range/Units 03:37 03:37 07:38 WBC (4.8-10.8) K/ul Plt Count (130-400) K/uL Neut # (Auto) (1.40-6.50) K/uL [place] # (Auto) (0.11-0.59) K/uL VBG pH 7.34 L (7.36-7.41) POC Sodium (135-144) mmol/L Sodium (136-145) mmol/L POC Potassium (3.3-5.0) mmol/L Potassium (3.5-5.1) mmol/L POC Chloride (101-112) mmol/L Chloride (98-107) mmol/L Carbon Dioxide (21-32) mmol/L POC Total CO2 (24-31) mmol/L Anion Gap (3-11) POC BUN (7-18) mg/dl BUN/Creatinine Ratio (10-20) Glucose (70-99(Fasting)) mg/dl POC Glucose 304 H* (70-99) mg/dl POC Glucose (other) (70-99) mg/dl Hemoglobin A1c 12.2 H (4.5-5.6) % Calcium (8.6-10.3) mg/dl Phosphorus (2.5-4.9) mg/dl AST (13-39) U/L Alkaline Phosphatase (34-104) U/L Ur Specific [place] (1.000-1.030) Urine Glucose (UA) (Negative) Urine Ketones (Negative) 12/03/22 12/03/22 Range/Units 08:01 11:32 WBC (4.8-10.8) K/ul Plt Count (130-400) K/uL Neut # (Auto) (1.40-6.50) K/uL [place] # (Auto) (0.11-0.59) K/uL VBG pH (7.36-7.41) POC Sodium (135-144) mmol/L Sodium 132 L (136-145) mmol/L POC Potassium (3.3-5.0) mmol/L Potassium (3.5-5.1) mmol/L POC Chloride (101-112) mmol/L Chloride (98-107) mmol/L Carbon Dioxide (21-32) mmol/L POC Total CO2 (24-31) mmol/L Anion Gap (3-11) POC BUN (7-18) mg/dl BUN/Creatinine Ratio 21.9 H (10-20) Glucose 303 H* (70-99(Fasting)) mg/dl POC Glucose 317 H* (70-99) mg/dl POC Glucose (other) (70-99) mg/dl Hemoglobin A1c (4.5-5.6) % Calcium 8.0 L (8.6-10.3) mg/dl Phosphorus (2.5-4.9) mg/dl AST (13-39) U/L Alkaline Phosphatase (34-104) U/L Ur Specific [place] (1.000-1.030) Urine Glucose (UA) (Negative) Urine Ketones (Negative)
[2022-12-03] MEDS ORDERED: INSULIN HUMAN REGULAR PER UNIT 6 UNITS in SYRINGE 5.94 ML IV ONE (12:15)
[2022-12-03 12:33] LABS: BUN Creatinine Ratio 21.2 (10-20); Calcium 8.2 mg/dl (8.6-10.3); Creatinine Clr Calc Pharmacy 126.5 ml/min; Est GFR (African American) 136.3 ml/min; Est GFR (Non-African American) 117.6 ml/min; Magnesium 1.9 mg/dl (1.7-2.4); Phosphorus 1.4 mg/dl (2.5-4.9); Potassium 4.1 mmol/L (3.5-5.1)
[2022-12-03 13:09] LABS: Troponin I High Sensitivity 3.2 pg/ml (0-20)
[2022-12-03] MEDS ORDERED: SODIUM PHOSPHATE 30 MMOL in DEXTROSE 5% 500 ML IV ONE (13:45)
--- NOTE | 2022-12-03 14:21 | Pharmacy Report ---
Pharmacy Glycemic Short Note 2 - Date of Service December 03, 2022 - Glycemic Short BSG Results (Last 24 hours): 12/02/22 12/02/22 12/02/22 18:35 18:45 18:52 Glucose 696 H* POC Glucose > 600 H* POC Glucose (other) > 700 H* 12/02/22 12/02/22 12/02/22 19:43 19:45 20:51 Glucose POC Glucose 489 H* 466 H* 370 H* POC Glucose (other) 12/02/22 12/02/22 12/02/22 21:56 22:56 23:58 Glucose 214 H POC Glucose 362 H* 264 H POC Glucose (other) 12/03/22 12/03/22 12/03/22 00:19 01:13 02:49 Glucose POC Glucose 184 H 186 H 115 H POC Glucose (other) 12/03/22 12/03/22 12/03/22 03:37 07:38 08:01 Glucose 135 H 303 H* POC Glucose 304 H* POC Glucose (other) 12/03/22 12/03/22 11:32 11:46 Glucose 315 H* POC Glucose 317 H* POC Glucose (other) OUTPATIENT ANTIDIABETIC REGIMEN: * Omnipod insulin pump * A1c = 12.2% ASSESSMENT: * Eleuterio is a 46 yr old with history of T1DM presenting in DKA after not taking 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 * Initially treated with IV insulin infusion per protocol. This was abruptly discontinued overnight (running at 6 units/hr prior to d/c). Patient was given a one time dose of Lantus 10 units following discontinuation of IV infusion. Conservative dosing used due to lack of outpatient insulin data. BSG have been significantly increased since. * Patient uses an Omnipod insulin pump as outpatient. I spoke with the patient this morning in attempt to determine pump settings/insulin usage. Patient was unable to provide any information on insulin doses and does not have his pump with him. He reports not being seen by Endocrinology in over a year and having no provider oversight for his insulin pump since then. * Fasting BSG 304. Treated with Novolog 10 units. Lunch BSG 317. Treated with 6 unit IV insulin bolus + 12 units Novolog. Additional 20 units of Lantus ordered. * Will utilize weight based insulin dosing until needs are better known. PLAN FOR INPATIENT GLYCEMIC CONTROL: * Basal insulin * Lantus 10 + 20 units SQ this AM * Further dosing TBD * Bolus insulin * NovoLog per scale ACHS or Q6hrs while NPO * Goal Range: Low 110 mg/dL - High 150 mg/dL * Correction Factor: 25 mg/dL/unit * Nutritional / Prandial insulin per carb ratio of 1 unit per 9 grams CHO consumed
[2022-12-03] MEDS: FAMOTIDINE 20 MG TAB PO SCH (14:50)
[2022-12-04] MEDS: INSULIN ASPART PER UNIT CHARGE SC SCH ×7 (00:14→21:19)
[2022-12-04] MEDS: SODIUM CHLORIDE 0.9% 1,000 ML IV SCH ×4 (02:19→21:26)
[2022-12-04] MEDS: ENOXAPARIN INJ 40 MG/0.4 ML SYR SQ SCH (08:08)
[2022-12-04] MEDS: FAMOTIDINE 20 MG TAB PO SCH (08:08)
[2022-12-04] MEDS: LANTUS PER UNIT CHARGE SC SCH (08:08)
--- NOTE | 2022-12-04 08:11 | Hospitalist Progress Note ---
Date of Service December 04, 2022 Assessment & Plan (1) DKA (diabetic ketoacidosis): Plan: 46-year-old male with past medical significant for type 1 diabetes subclinical hypothyroidism tobacco use disorder ADHD history of seizure disorder presents with DKA. DKA Was started on Insulin drip protocol and IVF as per DKA protocol Has transitioned from insulin drip after DKA resolved DM educator consult He also stated he will like follow up with Wine Steward that his had been difficult to get appointment with He will need to follow up with Wine Steward as well as DM educator Optimize glycemic control HbA1c is 12.2 % Continue DM education while inpatient Glycemic pharm on board Chest discomfort Trop was negative Resolved now Hyponatremia/ Pseudohyponatremia - secondary to hyperglycemia BG was >600 on presentation Na now improved Hyperkalemia Potassium 5.4 on admission Resolved Monitor electrolytes DVT prophylaxis Lovenox Admission and Anticipated Discharge Date Admission Date: December 02, 2022 Subjective Patient seen in follow up of DKA Reports nausea, vomiting and abd pain have resolved Still reports weakness Denies any headache, dizziness, fever, chills, dysuria, freq, urgency, diarrhea, chest pain, cough, SOB Tolerating diet Review of Systems Review of Systems: All systems reviewed & are unremarkable except as noted in Subjective Physical Exam Physical Exam: General- Not in d istress Head- at raumatic Eyes- PE RRL. ENT- orophar ynx clear Neck- s upple, no JVD. Kay ngs- clear to ausc ultation no wheezi ng or crackles. H eart- regular rhyt hm; no murmur, no gallop. Abdomen- normal bowel sound s, soft, nontender , no distension. Extremities- no pr etibial edema, no erythema seen. Ne uro- alert, orient ed x 3; PERRL; no facial palsy; no d ysarthria; moves e xtremities. Skin- warm & dry Results & Data Results & Data Vital Signs (Past 12 Hours) Vital Signs Temp Pulse Pulse Resp BP Pulse Ox O2 Del Method 12/04/22 07:18 37.0 C 78 18 113/73 98 Room Air 12/04/22 03:39 36.6 C 62 17 102/63 97 Room Air 12/03/22 21:58 71 12/03/22 23:53 36.9 C 72 17 94/54 L 98 Room Air Laboratory Results 12/04/22 12/04/22 12/04/22 Range/Units 15:56 13:37 11:36 WBC (4.8-10.8) K/ul RBC (4.70-6.10) M/uL Hgb (14.0-18.0) g/dl Hct (42.0-52.0) % MCV (80.0-100.0) fL MCH (25.0-34.0) pg MCHC (32.0-36.0) g/dL RDW Std Deviation (36.4-46.3) fL RDW Coeff of Edgar (11.5-14.5) % Plt Count (130-400) K/uL MPV (9.4-12.4) fL Sodium (136-145) mmol/L Potassium (3.5-5.1) mmol/L Chloride (98-107) mmol/L Carbon Dioxide (21-32) mmol/L Anion Gap (3-11) BUN (6-23) mg/dl Creatinine (0.6-1.4) mg/dl Est Cr Clr Drug Dosing ml/min Est GFR ( Amer) ml/min Est GFR (Non-Af Amer) ml/min BUN/Creatinine Ratio (10-20) Glucose (70-99(Fasting)) mg/dl POC Glucose 125 H 246 H 168 H (70-99) mg/dl Calcium (8.6-10.3) mg/dl Phosphorus (2.5-4.9) mg/dl Magnesium (1.7-2.4) mg/dl 12/04/22 12/04/22 12/04/22 Range/Units 10:40 10:40 07:20 WBC 8.20 (4.8-10.8) K/ul RBC 4.15 L (4.70-6.10) M/uL Hgb 11.8 L D (14.0-18.0) g/dl Hct 34.8 L (42.0-52.0) % MCV 83.9 (80.0-100.0) fL MCH 28.4 (25.0-34.0) pg MCHC 33.9 (32.0-36.0) g/dL RDW Std Deviation 38.6 (36.4-46.3) fL RDW Coeff of Edgar 12.7 (11.5-14.5) % Plt Count 317 (130-400) K/uL MPV 10.1 (9.4-12.4) fL Sodium 135 L (136-145) mmol/L Potassium 3.8 (3.5-5.1) mmol/L Chloride 107 (98-107) mmol/L Carbon Dioxide 23 (21-32) mmol/L Anion Gap 5 (3-11) BUN 10 (6-23) mg/dl Creatinine 0.74 (0.6-1.4) mg/dl Est Cr Clr Drug Dosing 113.5 ml/min Est GFR ( Amer) 130.0 ml/min Est GFR (Non-Af Amer) 112.2 ml/min BUN/Creatinine Ratio 13.5 (10-20) Glucose 250 H (70-99(Fasting)) mg/dl POC Glucose 209 H (70-99) mg/dl Calcium 8.1 L (8.6-10.3) mg/dl Phosphorus 3.1 D (2.5-4.9) mg/dl Magnesium 1.7 (1.7-2.4) mg/dl 12/04/22 12/04/22 12/03/22 Range/Units 03:50 00:05 20:00 WBC (4.8-10.8) K/ul RBC (4.70-6.10) M/uL Hgb (14.0-18.0) g/dl Hct (42.0-52.0) % MCV (80.0-100.0) fL MCH (25.0-34.0) pg MCHC (32.0-36.0) g/dL RDW Std Deviation (36.4-46.3) fL RDW Coeff of Edgar (11.5-14.5) % Plt Count (130-400) K/uL MPV (9.4-12.4) fL Sodium (136-145) mmol/L Potassium (3.5-5.1) mmol/L Chloride (98-107) mmol/L Carbon Dioxide (21-32) mmol/L Anion Gap (3-11) BUN (6-23) mg/dl Creatinine (0.6-1.4) mg/dl Est Cr Clr Drug Dosing ml/min Est GFR ( Amer) ml/min Est GFR (Non-Af Amer) ml/min BUN/Creatinine Ratio (10-20) Glucose (70-99(Fasting)) mg/dl POC Glucose 170 H 186 H 267 H (70-99) mg/dl Calcium (8.6-10.3) mg/dl Phosphorus (2.5-4.9) mg/dl Magnesium (1.7-2.4) mg/dl Medications Administered Current Inpatient Medications Acetaminophen (Acetaminophen 325 Mg Tab) 650 mg PO Q4H PRN PRN Reason: Pain or Fever Stop: 01/02/23 02:00 Dextrose (Dextrose 50% 50 Ml Syringe) 25 - 50 ml IV UD PRN; Protocol PRN Reason: Hypoglycemia Protocol Stop: 01/02/23 02:29 Enoxaparin Sodium (Enoxaparin Inj 40 Mg/0.4 Ml Syr) 40 mg SQ Q24H [facility] Stop: 01/02/23 08:59 Last Admin: 12/04/22 08:08 Dose: 40 mg Famotidine (Famotidine 20 Mg Tab) 20 mg PO QAM [facility] Stop: 01/02/23 13:29 Last Admin: 12/04/22 08:08 Dose: 20 mg Glucagon (Glucagon For Inj 1 Mg Vial) 1 mg IM UD PRN; Protocol PRN Reason: Hypoglycemia Protocol Stop: 01/02/23 02:29 Glucose (Glucose 40% Gel 15 Gm Tube) 15 - 30 gm PO UD PRN; Protocol PRN Reason: Hypoglycemia Protocol Stop: 01/02/23 02:29 Glucose (Glucose 10 Tab/Tube) 4 - 8 tab PO UD PRN; Protocol PRN Reason: Hypoglycemia Protocol Stop: 01/02/23 02:29 Sodium Chloride (Nss) 1,000 mls @ 150 mls/hr IV .Q6H40M [facility] Stop: 01/01/23 23:44 Last Admin: 12/04/22 02:19 Dose: 150 mls/hr Insulin Aspart (Insulin Aspart Per Unit Charge) 0 units SC ACHS [facility] Stop: 01/02/23 02:59 Last Admin: 12/04/22 08:08 Dose: 12 units Insulin Glargine (Lantus Per Unit Charge) 30 units SC DAILY [facility] Stop: 01/03/23 08:59 Last Admin: 12/04/22 08:08 Dose: 30 units Miscellaneous (Carbohydrates For Hypoglycemia ) 15 - 30 gm PO UD PRN PRN Reason: Hypoglycemia Treatment Stop: 01/02/23 02:29 Miscellaneous Information (Pharmacy Glycemic Mgmt Consult) 1 each N/A UD PRN PRN Reason: Consult Stop: 01/01/23 23:41 Nitroglycerin (Nitroglycerin Sl 0.4 Mg/Tab Tab) 0.4 mg SL Q5M PRN PRN Reason: Chest Pain Stop: 01/02/23 02:00 Ondansetron HCl (Ondansetron Inj 2 Mg/Ml 2 Ml Vial) 4 mg IV Q6H PRN PRN Reason: Nausea Stop: 01/02/23 02:00
[2022-12-04 11:14] LABS: BUN Creatinine Ratio 13.5 (10-20); Calcium 8.1 mg/dl (8.6-10.3); Creatinine Clr Calc Pharmacy 113.5 ml/min; Est GFR (Non-African American) 112.2 ml/min; Magnesium 1.7 mg/dl (1.7-2.4); Phosphorus 3.1 mg/dl (2.5-4.9); Potassium 3.8 mmol/L (3.5-5.1)
[2022-12-04 11:53] LABS: Hematocrit (blood only) 34.8 % (42.0-52.0); Hemoglobin 11.8 g/dl (14.0-18.0); Mean Corpuscular Hemoglobin 28.4 pg (25.0-34.0); Mean Corpuscular Hgb Conc 33.9 g/dL (32.0-36.0); Mean Corpuscular Volume 83.9 fL (80.0-100.0); Mean Platelet Volume 10.1 fL (9.4-12.4); Platelet Count 317 K/uL (130-400); RDW Coefficient of Variation 12.7 % (11.5-14.5); RDW Standard Deviation 38.6 fL (36.4-46.3); Red Blood Count 4.15 M/uL (4.70-6.10)
--- NOTE | 2022-12-04 12:43 | Electrocardiogram Report ---
Test Reason : Blood Pressure : / mmHG Vent. Rate : 061 BPM Atrial Rate : 061 BPM P-R Int : 100 ms QRS Dur : 086 ms QT Int : 404 ms P-R-T Axes : 033 068 065 degrees QTc Int : 406 ms Sinus rhythm Otherwise normal ECG When compared with ECG of 03-DEC-2022 05:17, No significant change was found Confirmed by Carlos Tolliver ([id number]) on 12/04/2022 12:43:42 PM Referred By: REFERRED SELF Confirmed By:Sherwin Tolliver
[2022-12-04] MEDS ORDERED: INSULIN ASPART PER UNIT CHARGE SC SCH (13:30)
[2022-12-04] MEDS: MAGNESIUM OXIDE 400 MG TAB PO SCH ×2 (13:38→20:15)
--- NOTE | 2022-12-04 14:44 | Pharmacy Report ---
Pharmacy Glycemic Short Note 2 - Date of Service December 04, 2022 - Glycemic Short BSG Results (Last 24 hours): 12/03/22 12/03/22 12/04/22 15:45 20:00 00:05 Glucose POC Glucose 181 H 267 H 186 H 12/04/22 12/04/22 12/04/22 03:50 07:20 10:40 Glucose 250 H POC Glucose 170 H 209 H 12/04/22 12/04/22 11:36 13:37 Glucose POC Glucose 168 H 246 H OUTPATIENT ANTIDIABETIC REGIMEN: * Omnipod insulin pump * A1c = 12.2% ASSESSMENT: 12/04: * Eleuterio received 75 units of SQ insulin yesterday (30 units basal + 45 units bolus) * Fasting BSG of 209 mg/dL. Although still elevated this is a significant improvement compared to 12/03. Continue current dose for now - hoping needs will decrease as insulin resistant state resolves. * Post prandial BSG elevation persisted yesterday evening. Will slightly tighten carb coverage. 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 * Initially treated with IV insulin infusion per protocol. This was abruptly discontinued overnight (running at 6 units/hr prior to d/c). Patient was given a one time dose of Lantus 10 units following discontinuation of IV infusion. Conservative dosing used due to lack of outpatient insulin data. BSG have been significantly increased since. * Patient uses an Omnipod insulin pump as outpatient. I spoke with the patient this morning in attempt to determine pump settings/insulin usage. Patient was unable to provide any information on insulin doses and does not have his pump with him. He reports not being seen by Endocrinology in over a year and having no provider oversight for his insulin pump since then. * Fasting BSG 304. Treated with Novolog 10 units. Lunch BSG 317. Treated with 6 unit IV insulin bolus + 12 units Novolog. Additional 20 units of Lantus ordered. * Will utilize weight based insulin dosing until needs are better known. PLAN FOR INPATIENT GLYCEMIC CONTROL: * Basal insulin * Lantus 30 units SQ qAM * Bolus insulin * NovoLog per scale ACHS or Q6hrs while NPO * Goal Range: Low 110 mg/dL - High 150 mg/dL * Correction Factor: 30 mg/dL/unit * Nutritional / Prandial insulin per carb ratio of 1 unit per 10 grams CHO consumed
[2022-12-04] MEDS ORDERED: LANTUS PER UNIT CHARGE SC SCH (21:00)
[2022-12-05] MEDS: INSULIN ASPART PER UNIT CHARGE SC SCH ×6 (00:15→20:33)
[2022-12-05] MEDS: SODIUM CHLORIDE 0.9% 1,000 ML IV SCH ×3 (04:35→17:08)
[2022-12-05 07:27] LABS: BUN Creatinine Ratio 34.7 (10-20); Calcium 8.5 mg/dl (8.6-10.3); Creatinine Clr Calc Pharmacy 113.8 ml/min; Est GFR (African American) 129.3 ml/min; Est GFR (Non-African American) 111.6 ml/min; Phosphorus 3.8 mg/dl (2.5-4.9); Potassium 4.8 mmol/L (3.5-5.1)
[2022-12-05] MEDS: ENOXAPARIN INJ 40 MG/0.4 ML SYR SQ SCH (08:03)
[2022-12-05] MEDS: MAGNESIUM OXIDE 400 MG TAB PO SCH ×2 (08:03→20:31)
[2022-12-05] MEDS: FAMOTIDINE 20 MG TAB PO SCH (08:03)
[2022-12-05] MEDS: LANTUS PER UNIT CHARGE SC SCH (08:04)
--- NOTE | 2022-12-05 09:46 | Pharmacy Report ---
Pharmacy Glycemic Short Note 2 - Date of Service December 05, 2022 - Glycemic Short BSG Results (Last 24 hours): 12/04/22 12/04/22 12/04/22 10:40 11:36 13:37 Glucose 250 H POC Glucose 168 H 246 H 12/04/22 12/04/22 12/05/22 15:56 21:12 00:01 Glucose POC Glucose 125 H 101 H 206 H 12/05/22 12/05/22 12/05/22 03:47 06:30 07:42 Glucose 237 H POC Glucose 141 H 296 H OUTPATIENT ANTIDIABETIC REGIMEN: * Omnipod insulin pump * A1c = 12.2% ASSESSMENT: 12/05: * Eleuterio received 77 units of SQ insulin yesterday (30 units basal + 47 units bolus) * Fasting BSG of 296 mg/dL. likely due to snacking overnight, although this was covered with NovoLog - tighten CR at this time, consider increasing basal insulin tomorrow if still above 180mg/dl tomorrow morning. PRN dose tonight. * CDE Consult today 12/04: * Eleuterio received 75 units of SQ insulin yesterday (30 units basal + 45 units bolus) * Fasting BSG of 209 mg/dL. Although still elevated this is a significant improvement compared to 12/03. Continue current dose for now - hoping needs will decrease as insulin resistant state resolves. * Post prandial BSG elevation persisted yesterday evening. Will slightly tighten carb coverage. 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 * Initially treated with IV insulin infusion per protocol. This was abruptly discontinued overnight (running at 6 units/hr prior to d/c). Patient was given a one time dose of Lantus 10 units following discontinuation of IV infusion. Conservative dosing used due to lack of outpatient insulin data. BSG have been significantly increased since. * Patient uses an Omnipod insulin pump as outpatient. I spoke with the patient this morning in attempt to determine pump settings/insulin usage. Patient was unable to provide any information on insulin doses and does not have his pump with him. He reports not being seen by Endocrinology in over a year and having no provider oversight for his insulin pump since then. * Fasting BSG 304. Treated with Novolog 10 units. Lunch BSG 317. Treated with 6 unit IV insulin bolus + 12 units Novolog. Additional 20 units of Lantus ordered. * Will utilize weight based insulin dosing until needs are better known. PLAN FOR INPATIENT GLYCEMIC CONTROL: * Basal insulin * Lantus 30 units SQ qAM, 5 units HS for BSG > 180mg/dl * Bolus insulin * NovoLog per scale ACHS or Q6hrs while NPO & overnight at 0000 and 0400 * Goal Range: Low 110 mg/dL - High 150 mg/dL * Correction Factor: 30 mg/dL/unit * tighten: Nutritional / Prandial insulin per carb ratio of 1 unit per 9 grams CHO consumed
[2022-12-05] MEDS ORDERED: LANTUS PER UNIT CHARGE SC SCH (21:00)
[2022-12-06] MEDS: INSULIN ASPART PER UNIT CHARGE SC SCH ×3 (04:23→08:29)
--- NOTE | 2022-12-06 07:51 | Hospitalist Progress Note ---
Date of Service December 05, 2022 (late entry) Assessment & Plan (1) DKA (diabetic ketoacidosis): Plan: 46-year-old male with past medical significant for type 1 diabetes subclinical hypothyroidism tobacco use disorder ADHD history of seizure disorder presents with DKA. DKA Was started on Insulin drip protocol and IVF as per DKA protocol Has transitioned from insulin drip after DKA resolved DM educator consult - seen by staff educator, family is supposed to bring pump from home He also stated he will like follow up with Cooper Helper that his had been difficult to get appointment with - will arrange Endocrinology follow up, and PCP follow up Optimize glycemic control HbA1c is 12.2 % Continue DM education while inpatient Glycemic pharmacy on board Chest discomfort Trop was negative Resolved now Hyponatremia/ Pseudohyponatremia - secondary to hyperglycemia BG was >600 on presentation Na now improved Hyperkalemia Potassium 5.4 on admission Resolved Monitor electrolytes DVT prophylaxis Lovenox Admission and Anticipated Discharge Date Admission Date: December 02, 2022 Subjective Patient seen in follow up of DKA Reports nausea, vomiting and abd pain have resolved Denies any headache, dizziness, fever, chills, dysuria, freq, urgency, diarrhea, chest pain, cough, SOB Tolerating diet Blood sugars elevated Seen by staff educator, family is supposed to bring pump from home Review of Systems Review of Systems: All systems reviewed & are unremarkable except as noted in Subjective Physical Exam Physical Exam: General- Not in d istress Head- at raumatic Eyes- PE RRL. ENT- orophar ynx clear Neck- s upple, no JVD. Kay ngs- clear to ausc ultation no wheezi ng or crackles. H eart- regular rhyt hm; no murmur, no gallop. Abdomen- normal bowel sound s, soft, nontender , no distension. Extremities- no pr etibial edema, no erythema seen. Ne uro- alert, orient ed x 3; PERRL; no facial palsy; no d ysarthria; moves e xtremities. Skin- warm & dry Results & Data Results & Data Vital Signs (Past 12 Hours) Vital Signs Temp Pulse Pulse Pulse Resp BP Pulse Ox 12/05/22 23:36 36.7 C 82 18 108/70 98 12/05/22 23:00 84 12/05/22 20:00 O2 Del Method 12/05/22 23:36 Room Air 12/05/22 23:00 12/05/22 20:00 Room Air Laboratory Results 12/06/22 12/06/22 12/06/22 Range/Units 07:14 06:44 04:07 POC Glucose 151 H 179 H 308 H* (70-99) mg/dl 12/06/22 12/05/22 12/05/22 Range/Units 04:06 23:59 20:15 POC Glucose 346 H* 128 H 123 H (70-99) mg/dl 12/05/22 12/05/22 12/05/22 Range/Units 16:33 14:45 11:33 POC Glucose 176 H 78 293 H (70-99) mg/dl Medications Administered Current Inpatient Medications Acetaminophen (Acetaminophen 325 Mg Tab) 650 mg PO Q4H PRN PRN Reason: Pain or Fever Stop: 01/02/23 02:00 Dextrose (Dextrose 50% 50 Ml Syringe) 25 - 50 ml IV UD PRN; Protocol PRN Reason: Hypoglycemia Protocol Stop: 01/02/23 02:29 Enoxaparin Sodium (Enoxaparin Inj 40 Mg/0.4 Ml Syr) 40 mg SQ Q24H [facility] Stop: 01/02/23 08:59 Last Admin: 12/05/22 08:03 Dose: 40 mg Famotidine (Famotidine 20 Mg Tab) 20 mg PO QAM [facility] Stop: 01/02/23 13:29 Last Admin: 12/05/22 08:03 Dose: 20 mg Glucagon (Glucagon For Inj 1 Mg Vial) 1 mg IM UD PRN; Protocol PRN Reason: Hypoglycemia Protocol Stop: 01/02/23 02:29 Glucose (Glucose 40% Gel 15 Gm Tube) 15 - 30 gm PO UD PRN; Protocol PRN Reason: Hypoglycemia Protocol Stop: 01/02/23 02:29 Glucose (Glucose 10 Tab/Tube) 4 - 8 tab PO UD PRN; Protocol PRN Reason: Hypoglycemia Protocol Stop: 01/02/23 02:29 Insulin Aspart (Insulin Aspart Per Unit Charge) 0 units SC ACHS [facility] Stop: 01/02/23 02:59 Last Admin: 12/05/22 20:33 Dose: 10 units Insulin Aspart (Insulin Aspart Per Unit Charge) 0 units SC 0000,[id number] [facility] Stop: 01/05/23 00:00 Last Admin: 12/06/22 04:23 Dose: 8 units Insulin Glargine (Lantus Per Unit Charge) 30 units SC DAILY [facility] Stop: 01/03/23 08:59 Last Admin: 12/05/22 08:04 Dose: 30 units Insulin Glargine (Lantus Per Unit Charge) 0 units SC HS [facility]; Protocol Stop: 01/04/23 20:59 Last Admin: 12/05/22 20:28 Dose: Not Given Magnesium Oxide (Magnesium Oxide 400 Mg Tab) 400 mg PO BID [facility] Stop: 01/03/23 11:44 Last Admin: 12/05/22 20:31 Dose: 400 mg Miscellaneous (Carbohydrates For Hypoglycemia ) 15 - 30 gm PO UD PRN PRN Reason: Hypoglycemia Treatment Stop: 01/02/23 02:29 Miscellaneous Information (Pharmacy Glycemic Mgmt Consult) 1 each N/A UD PRN PRN Reason: Consult Stop: 01/01/23 23:41 Nitroglycerin (Nitroglycerin Sl 0.4 Mg/Tab Tab) 0.4 mg SL Q5M PRN PRN Reason: Chest Pain Stop: 01/02/23 02:00 Ondansetron HCl (Ondansetron Inj 2 Mg/Ml 2 Ml Vial) 4 mg IV Q6H PRN PRN Reason: Nausea Stop: 01/02/23 02:00
--- NOTE | 2022-12-06 07:55 | Hospitalist Progress Note ---
Date of Service December 06, 2022 Assessment & Plan (1) DKA (diabetic ketoacidosis): Plan: 46-year-old male with past medical significant for type 1 diabetes subclinical hypothyroidism tobacco use disorder ADHD history of seizure disorder presents with DKA. DKA Was started on Insulin drip protocol and IVF as per DKA protocol Has transitioned from insulin drip after DKA resolved DM educator consult - seen by critical care educator, family is supposed to bring pump from home He also stated he will like follow up with Budget Officer that his had been difficult to get appointment with - will arrange Endocrinology follow up, and PCP follow up Optimize glycemic control HbA1c is 12.2 % Continue DM education while inpatient Glycemic pharmacy on board Chest discomfort Trop was negative Resolved now Hyponatremia/ Pseudohyponatremia - secondary to hyperglycemia BG was >600 on presentation Na now improved Hyperkalemia Potassium 5.4 on admission Resolved Monitor electrolytes DVT prophylaxis Lovenox Admission and Anticipated Discharge Date Admission Date: December 02, 2022 Subjective Patient seen in follow up of DKA Reports nausea, vomiting and abd pain have resolved Denies any headache, dizziness, fever, chills, dysuria, freq, urgency, diarrhea, chest pain, cough, SOB Tolerating diet Blood sugars elevated Seen by critical care educator, family is supposed to bring pump from home Physical Exam Physical Exam: General- Not in d istress Head- at raumatic Eyes- PE RRL. ENT- orophar ynx clear Neck- s upple, no JVD. Kay ngs- clear to ausc ultation no wheezi ng or crackles. H eart- regular rhyt hm; no murmur, no gallop. Abdomen- normal bowel sound s, soft, nontender , no distension. Extremities- no pr etibial edema, no erythema seen. Ne uro- alert, orient ed x 3; PERRL; no facial palsy; no d ysarthria; moves e xtremities. Skin- warm & dry Results & Data Results & Data Vital Signs (Past 12 Hours) Vital Signs Temp Pulse Pulse Pulse Resp BP Pulse Ox 12/06/22 07:49 36.7 C 78 16 113/76 96 12/06/22 02:19 36.6 C 76 18 112/68 97 12/05/22 23:36 36.7 C 82 18 108/70 98 12/05/22 23:00 84 12/05/22 20:00 O2 Del Method 12/06/22 07:49 Room Air 12/06/22 02:19 Room Air 12/05/22 23:36 Room Air 12/05/22 23:00 12/05/22 20:00 Room Air Medications Administered Current Inpatient Medications Acetaminophen (Acetaminophen 325 Mg Tab) 650 mg PO Q4H PRN PRN Reason: Pain or Fever Stop: 01/02/23 02:00 Dextrose (Dextrose 50% 50 Ml Syringe) 25 - 50 ml IV UD PRN; Protocol PRN Reason: Hypoglycemia Protocol Stop: 01/02/23 02:29 Enoxaparin Sodium (Enoxaparin Inj 40 Mg/0.4 Ml Syr) 40 mg SQ Q24H [facility] Stop: 01/02/23 08:59 Last Admin: 12/05/22 08:03 Dose: 40 mg Famotidine (Famotidine 20 Mg Tab) 20 mg PO QAM [facility] Stop: 01/02/23 13:29 Last Admin: 12/05/22 08:03 Dose: 20 mg Glucagon (Glucagon For Inj 1 Mg Vial) 1 mg IM UD PRN; Protocol PRN Reason: Hypoglycemia Protocol Stop: 01/02/23 02:29 Glucose (Glucose 40% Gel 15 Gm Tube) 15 - 30 gm PO UD PRN; Protocol PRN Reason: Hypoglycemia Protocol Stop: 01/02/23 02:29 Glucose (Glucose 10 Tab/Tube) 4 - 8 tab PO UD PRN; Protocol PRN Reason: Hypoglycemia Protocol Stop: 01/02/23 02:29 Insulin Aspart (Insulin Aspart Per Unit Charge) 0 units SC ACHS [facility] Stop: 01/02/23 02:59 Last Admin: 12/05/22 20:33 Dose: 10 units Insulin Aspart (Insulin Aspart Per Unit Charge) 0 units SC 0000,[id number] [facility] Stop: 01/05/23 00:00 Last Admin: 12/06/22 04:23 Dose: 8 units Insulin Glargine (Lantus Per Unit Charge) 30 units SC DAILY [facility] Stop: 01/03/23 08:59 Last Admin: 12/05/22 08:04 Dose: 30 units Insulin Glargine (Lantus Per Unit Charge) 0 units SC HS [facility]; Protocol Stop: 01/04/23 20:59 Last Admin: 12/05/22 20:28 Dose: Not Given Magnesium Oxide (Magnesium Oxide 400 Mg Tab) 400 mg PO BID [facility] Stop: 01/03/23 11:44 Last Admin: 12/05/22 20:31 Dose: 400 mg Miscellaneous (Carbohydrates For Hypoglycemia ) 15 - 30 gm PO UD PRN PRN Reason: Hypoglycemia Treatment Stop: 01/02/23 02:29 Miscellaneous Information (Pharmacy Glycemic Mgmt Consult) 1 each N/A UD PRN PRN Reason: Consult Stop: 01/01/23 23:41 Nitroglycerin (Nitroglycerin Sl 0.4 Mg/Tab Tab) 0.4 mg SL Q5M PRN PRN Reason: Chest Pain Stop: 01/02/23 02:00 Ondansetron HCl (Ondansetron Inj 2 Mg/Ml 2 Ml Vial) 4 mg IV Q6H PRN PRN Reason: Nausea Stop: 01/02/23 02:00
[2022-12-06] MEDS: FAMOTIDINE 20 MG TAB PO SCH (08:28)
[2022-12-06] MEDS: LANTUS PER UNIT CHARGE SC SCH (08:29)
[2022-12-06] MEDS: ENOXAPARIN INJ 40 MG/0.4 ML SYR SQ SCH (08:29)
[2022-12-06] MEDS: MAGNESIUM OXIDE 400 MG TAB PO SCH (08:29)
--- NOTE | 2022-12-07 15:25 | Hospitalist Progress Note ---
Date of Service 12/06/2022 Assessment & Plan Admission and Anticipated Discharge Date Admission Date: December 02, 2022 Subjective Notified by RN on 12/06/2022 AM that pt does not have a pump - family was unable to find. Then notified by RN again that pt wants to be discharged in 1 hr. I messaged parent educator and case management so that we can prepare for discharge - even though pt plans on leaving without his pump. Shortly after, I received message from RN that pt left his room - without notifying anyone. Pt was "code rick" in hospital lobby. His IVs were removed. Per report, pt declined to sign Leaving AMA form and left the hospital. Pt was not seen by the physician. MD Ray
--- NOTE | 2022-12-07 15:30 | Discharge Summary ---
Date of Service December 07, 2022 Admission HPI Per Admitting Provider 46-year-old male with past medical significant for type 1 diabetes subclinical hypothyroidism tobacco use disorder ADHD history of seizure disorder presents with DKA. Patient states his Dexcom was not working and he was in [facility] and he was not having his insulin and was not taking his insulin for last few days. Comes today because of nausea vomiting and abdominal pain and found to be in DKA. States he has some mild chest discomfort thinks from acid reflux. Denies any shortness of breath. Currently no headache. Says when sugars are high he has blurred visions. No earache. No runny nose. No sore throat. No cough. Normal bowel and bladder movements. Past medical history as mentioned above. Past surgical history. Right shoulder arthroscopy. Knee arthroscopy. Social history. Smokes 1 pack a day for 10 years. Alcohol as per [email or web address] sixpack per week. No drugs currently. Family history. Mother had diabetes, thyroid issues. Admission Exam Per Admitting Provider General- Not in distress Head- atraumatic Eyes- PERRL. ENT- oropharynx clear Neck- supple, no JVD. Lungs- clear to auscultation no wheezing or crackles. Heart- regular rhythm; no murmur, no gallop. Abdomen- normal bowel sounds, soft, nontender, no distension. Extremities- no pretibial edema, no erythema seen. Neuro- alert, oriented x 3; PERRL; no facial palsy; no dysarthria; moves extremities. Skin- warm & dry Principal Diagnosis DKA Discharge Exam Pt left without being seen by the physician Discharge Data Allergies Allergy/AdvReac Type Severity Reaction Status Date / Time hydrocodone Allergy Mild HIVES Verified 12/02/22 19:55 codeine Allergy Unknown Hives Verified 12/02/22 19:55 Ethanol Allergy Unknown HIVES Uncoded 12/02/22 19:55 Consultations 12/02/22 19:52 ED Decision to Admit Stat Diabetes Follow up Diabetes Follow-up Needed for HgbA1c >9% Total Time Total Time Spent Total Time Spent (In Minutes): 0 Discharge Plan Discharge Items Patient Disposition: Against Medical Advice Reason For Visit: DKA Activity: As commented below Activity Comment: pt left without being seen by the physician Non-emergency contact: Primary Care Provider and Specialist Follow-up/Referrals: Betty Kay MD [Outside Practitioners] - (Date & Time 12/08/2022 11:20 AM Provider Betty Kay MD Department Family [facility] ) Virgen Kasper PA-C [Outside Practitioners] - (Date & Time 12/07/2022 9:00 AM Provider Virgen Kasper PA-C Department Endocrinology, [place] Please note that this appointment is at [facility]. The address is [address] [place] [address]. The office is on the second floor of the hospital.) Pending Studies at Discharge: No Stand-Alone Forms: My [facility] [employer], Smoking Cessation Medications and DC Order Prescriptions: Continued insulin aspart U-100 100 unit/mL solution 0 unit subcut DIRECTED Discharge Orders: Left Against Medical Advice (Routine); Ordered 12/06/22 Ordered By: Zhang Johnson/Other Patient Handouts: Managing Type 1 Diabetes, Diabetes: Sick-Day Plan Admission Data Admit Date/Time: 12/02/22 23:42 Attending Provider: Zhang Bell Admit Provider: Adan Valdivia Primary Care Provider: PCP,NO Other Providers: Adan Valdivia ; Zhang Bell ; Carla Jauergui I.
== END 2022-12-06 09:47 | disposition left against medical advice (07) | DRG 638 ==
LOC: ED 18:31 → SUATTDRO 23:42 → 2S 23:42

== ENCOUNTER 2024-01-16 12:29 | Inpatient (IN) ==
--- NOTE | 2024-01-16 12:51 | Emergency Department Note ---
Impression & Plan DKA (diabetic ketoacidosis), Vomiting, Leukocytosis ED Provider Note NAME: NIKKI BERRY AGE: 48 SEX: M : 1975 ARRIVES VIA: Walk-In INFORMANT: [Patient][sister] ED PROVIDER(S): [Cody Bowling MD] CHIEF COMPLAINT: Vomiting HISTORY OF PRESENT ILLNESS: The patient is a 48-year-old male with diabetes. The patient has had 2 days of vomiting. He feels quite sick to the stomach. No fever, no cough, no shortness of breath. He has not noticed any pain. He states he feels he may be back in DKA, although, he feels worse than he did the last time he had DKA The patient's sister is at bedside. She was called by the father to take the patient to the hospital as he seemed unwell. PMHx/PSHx/Social Hx: See Below PHYSICAL EXAM: GENERAL: Patient is in mild distress, seems anxious. HEENT: No acute trauma, normocephalic atraumatic, mucous membranes dry, no nasal congestion. NECK: No stridor, no adenopathy, no meningismus, trachea is midline. LUNGS: Clear to auscultation bilaterally, no wheeze, no rhonchi, breath sounds equal. HEART: Without murmurs gallops or rubs, regular rate and rhythm. ABDOMEN: Soft, nontender, no peritonitis. EXTREMITIES: No cyanosis, full range of motion of all the joints without pain or difficulty. NEUROLOGIC: Oriented x 3, no acute motor or sensory deficits, no focal weakness. No speech slur. SKIN: No jaundice, no diaphoresis. DIFFERENTIAL DIAGNOSIS: DKA, dehydration, electrolyte imbalance, UTI, foodborne or viral illness, among others. EMERGENCY DEPARTMENT PROCEDURES: MEDICAL DECISION MAKING: There is a moderate leukocytosis, this could be consistent with infection or just the stress of his vomiting. There was a normal hemoglobin and platelet count. VBG did show some acidosis. Renal panel testing showed a high blood sugar and findings of acidosis. No renal failure. No concerning liver enzyme elevation. TSH was slightly elevated however, the T4 was normal. ECG showed a normal sinus rhythm, no ischemia. Cardiac enzyme testing x 1 was not consistent with acute cardiac injury. Alcohol level was undetectable. Chest x-ray did not show pneumonia or CHF. On exam, patient was complaining of nausea, he seemed uncomfortable. The patient was aggressively managed given his findings. He was given 1 L of IV saline. He was given IV Phenergan, IV Zofran and IV Ativan. He was placed on an insulin drip. The patient has made some improvement, he does seem more comfortable. He will require a hospital stay for the diagnosis of DKA. I spoke with the patient and his sister. I spoke with case management, the on- call hospitalist was consulted. Prior/Outside records/notes reviewed: None ECG per my interpretation: Indication was vomiting. ECG shows a normal sinus rhythm with a rate of 91. There is no acute ST elevation, there is some right atrial enlargement. There are no PVCs. The QTc is 415. Continuous Cardiac Monitoring per my interpretation: An order was placed for continuous cardiac monitoring. The monitor shows a rate of 99 with normal sinus rhythm. Imaging/x-ray results per my interpretation: Chest x-ray does not show mediastinal widening, pneumonia or pneumothorax. Chronic Medical/Social conditions affecting care: History of diabetes and previous DKA. Care/Management discussed with: Case management, the on-call hospitalist. Level of care consideration(s): After review of the information above and other included data: --I believe the patient requires escalation of care to admission Critical Care Note: I have personally spent 48 minutes of critical care time in the direct management of this patient. This includes bedside care, interpretation of diagnostic studies, and testing, discussion with consultants, patient, and family members, and other required patient management activities. This 48 minutes is in excess of all separately billable procedures. DISPOSITION: Admission Past Med/Surg History Problem List (Updated 01/16/24 @ 19:55 by Cody Bowling MD) Leukocytosis (Acute) Vomiting (Acute) DKA (diabetic ketoacidosis) (Acute) Metabolic acidosis, increased anion gap Pseudohyponatremia (Acute) DKA (diabetic ketoacidosis) (Acute) History of TIAs (Acute) Diabetes mellitus, new onset History of tobacco abuse (Acute) Diabetes mellitus, new onset (Acute) Hyponatremia (Acute) History of orthopedic surgery Headache Right shoulder injury (Acute) Slurred speech Work related injury (Acute) Medical History Mood disorder Hx-TIA (transient ischemic attack) Epilepsy Surgical History S/P right knee arthroscopy Family History Other Diabetes Hypertension Seizure Social History Smoking Status: Current every day smoker Tobacco Type: Cigarettes Cigarettes Per Day: 10; Second Hand Exposure: No; Do You Dip or Chew Tobacco: Yes; Hx Alcohol Use: Yes Hx Substance Use: No Preferred Language: Slovenian Communication Ability: Effective Visual Impairment: No Limitations Hearing Ability: Normal Headend Technician Required: No Beliefs That Will Affect Care: None marital status: Current Living Situation: Alone current occupational status: employed Other Information That Helps Us Care for You: No Feels Safe at Home: Yes Safety Concerns: Feels Safe At This Time Assistive Devices: None Allergies Allergies Allergy/AdvReac Type Severity Reaction Status Date / Time hydrocodone Allergy Mild HIVES Verified 12/02/22 19:55 codeine Allergy Unknown Hives Verified 12/02/22 19:55 ethyl alcohol Allergy Unknown Hives Verified 01/16/24 14:32 Home Meds Home Medications Medication Instructions Recorded Confirmed insulin aspart U-100 100 unit/mL 100 unit subcut UD 12/02/22 01/16/24 subcutaneous solution Results & Data (ED) Vital Signs Vital Signs - 24 hr 01/16/24 12:33 01/16/24 12:57 01/16/24 15:51 Temperature 36.3 C L Temperature Source Oral Pulse Rate 99 H 81 Pulse Rate [Apical] 94 H Respiratory Rate 18 16 Respiratory Effort / Characteristics Non-Labored Respiratory Depth Normal Respiratory Pattern Regular Blood Pressure 103/73 Blood Pressure [Left Arm] 115/76 Blood Pressure Mean 83 Blood Pressure Mean [Left Arm] 89 Blood Pressure Position [Left Arm] Semi-fowlers Pulse Oximetry 94 99 Oxygen Delivery Method Room Air Room Air Sepsis New/Unexplained Change in Mental Status N/A Sepsis Action Taken by Nursing No Action Required 01/16/24 15:51 Temperature Temperature Source Pulse Rate 97 H Pulse Rate [Apical] Respiratory Rate 13 Respiratory Effort / Characteristics Respiratory Depth Respiratory Pattern Blood Pressure Blood Pressure [Left Arm] Blood Pressure Mean Blood Pressure Mean [Left Arm] Blood Pressure Position [Left Arm] Pulse Oximetry 99 Oxygen Delivery Method Room Air Sepsis New/Unexplained Change in Mental Status Sepsis Action Taken by Jail Medications Current Medication List: was personally reviewed by me Laboratory Data Attestation: I reviewed the patient's lab results. 01/16/24 13:26 01/16/24 19:09 Lab Results 01/16/24 01/16/24 01/16/24 Range/Units 12:36 13:26 14:23 WBC 18.00 H (4.8-10.8) K/ul RBC 6.27 H (4.70-6.10) M/uL Hgb 17.8 (14.0-18.0) g/dl Hct 52.7 H (42.0-52.0) % MCV 84.1 (80.0-100.0) fL MCH 28.4 (25.0-34.0) pg MCHC 33.8 (32.0-36.0) g/dL RDW Std Deviation 36.5 (36.4-46.3) fL RDW Coeff of Edgar 12.0 (11.5-14.5) % Plt Count 382 (130-400) K/uL MPV 10.1 (9.4-12.4) fL Immature Gran % (Auto) 0.6 % Neut % (Auto) 86.6 % Lymph % (Auto) 8.4 % Kay % (Auto) 3.7 % Eos % (Auto) 0.2 % Baso % (Auto) 0.5 % Neut # (Auto) 15.59 H (1.40-6.50) K/uL Lymph # (Auto) 1.52 (1.20-3.40) K/uL Kay # (Auto) 0.66 H (0.11-0.59) K/uL Eos # (Auto) 0.04 (0.00-0.50) K/uL Baso # (Auto) 0.09 (0.00-0.20) K/uL Immature Gran # (Auto) 0.10 (0.01-0.20) K/uL Platelet Estimate Normal (Normal) VBG pH 7.12 L (7.36-7.41) VBG pCO2 32 L (38-50) mmHg VBG pO2 36 mmHg VBG HCO3 10 mmol/L VBG O2 Saturation 61.0 % VBG Base Excess -17.8 mEq/L Sodium 130 L (136-145) mmol/L Potassium 5.4 H (3.5-5.1) mmol/L Chloride 96 L (98-107) mmol/L Carbon Dioxide 14 L (21-32) mmol/L Anion Gap 20 H (3-11) BUN 22 (6-23) mg/dl Creatinine 1.08 (0.6-1.4) mg/dl Est Cr Clr Drug Dosing 73.9 ml/min eGFR 85.71 BUN/Creatinine Ratio 20.4 H (10-20) Glucose 399 H* (70-99(Fasting)) mg/dl POC Glucose 405 H* (70-99) mg/dl Calcium 10.1 (8.6-10.3) mg/dl Magnesium 1.8 (1.7-2.4) mg/dl Total Bilirubin 0.8 (0.2-1.0) mg/dl AST 15 (13-39) U/L ALT 15 (7-52) U/L Alkaline Phosphatase 129 H (34-104) U/L Troponin I High Sens 3.4 (0-20) pg/ml Total Protein 8.2 (6.0-8.3) gm/dl Albumin 4.7 (3.4-5.0) gm/dl Globulin 3.5 (2.5-4.0) gm/dl Albumin/Globulin Ratio 1.3 (0.9-2) TSH 5.654 H (0.300-4.500) uIu/ml Free T4 0.68 (0.61-1.60) ng/dl Ethyl Alcohol mg/dL < 10.0 (<10.0) mg/dl 01/16/24 Range/Units 14:58 WBC (4.8-10.8) K/ul RBC (4.70-6.10) M/uL Hgb (14.0-18.0) g/dl Hct (42.0-52.0) % MCV (80.0-100.0) fL MCH (25.0-34.0) pg MCHC (32.0-36.0) g/dL RDW Std Deviation (36.4-46.3) fL RDW Coeff of Edgar (11.5-14.5) % Plt Count (130-400) K/uL MPV (9.4-12.4) fL Immature Gran % (Auto) % Neut % (Auto) % Lymph % (Auto) % Kay % (Auto) % Eos % (Auto) % Baso % (Auto) % Neut # (Auto) (1.40-6.50) K/uL Lymph # (Auto) (1.20-3.40) K/uL Kay # (Auto) (0.11-0.59) K/uL Eos # (Auto) (0.00-0.50) K/uL Baso # (Auto) (0.00-0.20) K/uL Immature Gran # (Auto) (0.01-0.20) K/uL Platelet Estimate (Normal) VBG pH (7.36-7.41) VBG pCO2 (38-50) mmHg VBG pO2 mmHg VBG HCO3 mmol/L VBG O2 Saturation % VBG Base Excess mEq/L Sodium (136-145) mmol/L Potassium (3.5-5.1) mmol/L Chloride (98-107) mmol/L Carbon Dioxide (21-32) mmol/L Anion Gap (3-11) BUN (6-23) mg/dl Creatinine (0.6-1.4) mg/dl Est Cr Clr Drug Dosing ml/min eGFR BUN/Creatinine Ratio (10-20) Glucose (70-99(Fasting)) mg/dl POC Glucose 311 H* (70-99) mg/dl Calcium (8.6-10.3) mg/dl Magnesium (1.7-2.4) mg/dl Total Bilirubin (0.2-1.0) mg/dl AST (13-39) U/L ALT (7-52) U/L Alkaline Phosphatase (34-104) U/L Troponin I High Sens (0-20) pg/ml Total Protein (6.0-8.3) gm/dl Albumin (3.4-5.0) gm/dl Globulin (2.5-4.0) gm/dl Albumin/Globulin Ratio (0.9-2) TSH (0.300-4.500) uIu/ml Free T4 (0.61-1.60) ng/dl Ethyl Alcohol mg/dL (<10.0) mg/dl Administered Medications Insulin Human Regular 250 (units/ Sodium Chloride) 250 mls @ 5.8 mls/hr IV .Q24H TIGIST; Protocol Stop: 02/15/24 14:29 Last Titration: 01/16/24 18:30 Dose: 0 units/hr, 0 mls/hr Documented By: MICHELLE Co-signed By: CHERYL Titration: 01/16/24 17:48 Dose: 5.8 units/hr, 5.8 mls/hr Documented By: DYAN Co-signed By: GRACIAW Titration: 01/16/24 16:31 Dose: 7.3 units/hr, 7.3 mls/hr Documented By: DAVIN Co-signed By: AM Admin: 01/16/24 14:55 Dose: 6.1 units/hr, 6.1 mls/hr Documented By: RICARDO Co-signed By: DAVIN Insulin Aspart (Insulin Aspart Per Unit Charge) 0 units SC ACHS [facility] Stop: 02/15/24 16:29 Last Admin: 01/16/24 16:42 Dose: Not Given Documented By: DAVIN Co-signed By: RICARDO Nicotine (Nicotine 14 Mg/24 Hr Patch) 1 patch TD QAM [facility] Stop: 02/15/24 16:29 Last Admin: 01/16/24 17:11 Dose: Not Given Documented By: DAVIN Discontinued Medications Sodium Chloride (Nss) 1,000 mls @ 999 mls/hr IV .Q1H1M ONE Stop: 01/16/24 13:42 Last Infusion: 01/16/24 18:55 Dose: Infused Documented By: Admin: 01/16/24 13:22 Dose: 999 mls/hr Documented By: DYAN Promethazine HCl (Phenergan) 6.25 mg in 50.25 mls @ 201 mls/hr IV NOW STA Stop: 01/16/24 13:01 Last Infusion: 01/16/24 18:55 Dose: Infused Documented By: Admin: 01/16/24 13:25 Dose: 201 mls/hr Documented By: DYAN Sodium Chloride (1/2 Nss) 1,000 mls @ 125 mls/hr IV .Q8H [facility] Stop: 02/15/24 16:44 Last Admin: 01/16/24 17:10 Dose: 125 mls/hr Documented By: DAVIN Insulin Human Regular (Novolin-R Bolus From Bag) 6.1 units IV ONE ONE Stop: 01/16/24 14:31 Last Admin: 12/10/24 15:02 Dose: 6.1 units Documented By: RICARDO Co-signed By: DAVIN Lorazepam (Lorazepam 1 Mg/1 Ml Syr Ed Inj Use) 0.5 mg IV ONE STA Stop: 01/16/24 12:48 Last Admin: 01/16/24 13:33 Dose: 0.5 mg Documented By: DYAN Ondansetron HCl (Ondansetron Inj 2 Mg/Ml 2 Ml Vial) 4 mg IV NOW STA Stop: 01/16/24 12:48 Last Admin: 01/16/24 13:25 Dose: 4 mg Documented By: DYAN Imaging Data Radiologist's Impression: Chest X-Ray 01/16/24 12:42 XR chest 1V portable CLINICAL HISTORY: weakness TECHNIQUE: Single frontal radiograph of the chest was obtained. Comparison: Comparison is made to chest radiograph 01/17/2023 FINDINGS: No lines and tubes are seen. The cardiomediastinal silhouette is normal. The lungs are clear. No evidence of pleural effusion or pneumothorax. IMPRESSION: No acute chest disease. ACT 112: Negative or not required by law. Electronically signed by: Pascual Bain M.D. 01/16/2024 1:14 PM Discharge Plan Visit Data Chief Complaint: Vomiting Stated Complaint: VOMIT, DEHYDRATED, DIABETES PAT. ED Provider: Cody Bowling Discharge Problem: DKA (diabetic ketoacidosis), Vomiting, Leukocytosis Patient Disposition: Admitted As Inpatient Condition: Serious Discharge Instructions Interventions: ED Discharge Assessment Last Done: 01/16/24 18:00 Discharge Problem: DKA (diabetic ketoacidosis) Qualifiers: Diabetes mellitus type: type 1 Diabetes mellitus complication detail: without coma Qualified Code(s): E10.10 - Type 1 diabetes mellitus with ketoacidosis without coma Vomiting Qualifiers: Vomiting type: unspecified Nausea presence: with nausea Qualified Code(s): R 11.2 - Nausea with vomiting, unspecified Leukocytosis Qualifiers: Leukocytosis type: unspecified Qualified Code(s): D72.829 - Elevated white blood cell count, unspecified
--- NOTE | 2024-01-16 13:15 | XRay Report ---
XR chest 1V portable CLINICAL HISTORY: weakness TECHNIQUE: Single frontal radiograph of the chest was obtained. Comparison: Comparison is made to chest radiograph 01/17/2023 FINDINGS: No lines and tubes are seen. The cardiomediastinal silhouette is normal. The lungs are clear. No evid ence of pleural effusion or pneumothorax. IMPRESSION: No acute chest disease. ACT 112: Negative or not required by law. Electronically signed by: Pascual Bain M.D. 01/16/2024 1:14 PM
[2024-01-16] MEDS: SODIUM CHLORIDE 0.9% 1,000 ML IV ONE (13:22)
[2024-01-16] MEDS: ONDANSETRON INJ 2 MG/ML 2 ML VIAL IV STA (13:25)
[2024-01-16] MEDS: PROMETHAZINE 6.25 MG/50.25 ML BAG IV STA (13:25)
[2024-01-16] MEDS: LORazepam 1 MG/1 ML SYR ED Inj Use IV STA (13:33)
[2024-01-16 14:10] LABS: Basophils # (auto) 0.09 K/uL (0.00-0.20); Basophils % (auto) 0.5 %; Eosinophils # (auto) 0.04 K/uL (0.00-0.50); Eosinophils % (auto) 0.2 %; Hematocrit (blood only) 52.7 % (42.0-52.0); Hemoglobin 17.8 g/dl (14.0-18.0); Immature Granulocytes % (auto) 0.6 %; Lymphocytes # (auto) 1.52 K/uL (1.20-3.40); Lymphocytes % (auto) 8.4 %; Mean Corpuscular Hemoglobin 28.4 pg (25.0-34.0); Mean Corpuscular Hgb Conc 33.8 g/dL (32.0-36.0); Mean Corpuscular Volume 84.1 fL (80.0-100.0); Mean Platelet Volume 10.1 fL (9.4-12.4); Monocytes # (auto) 0.66 K/uL (0.11-0.59); Monocytes % (auto) 3.7 %; Neutrophils # (auto) 15.59 K/uL (1.40-6.50); Neutrophils % (auto) 86.6 %; Platelet Count 382 K/uL (130-400); Platelet Estimate Normal (Normal); RDW Standard Deviation 36.5 fL (36.4-46.3); Red Blood Count 6.27 M/uL (4.70-6.10)
[2024-01-16 14:16] LABS: Albumin Globulin Ratio 1.3 (0.9-2); Albumin Level 4.7 gm/dl (3.4-5.0); BUN Creatinine Ratio 20.4 (10-20); Bilirubin,Total 0.8 mg/dl (0.2-1.0); Calcium 10.1 mg/dl (8.6-10.3); Creatinine Clr Calc Pharmacy 73.9 ml/min; Globulin 3.5 gm/dl (2.5-4.0); Magnesium 1.8 mg/dl (1.7-2.4); Potassium 5.4 mmol/L (3.5-5.1); Total Protein 8.2 gm/dl (6.0-8.3); Troponin I High Sensitivity 3.4 pg/ml (0-20)
[2024-01-16 14:23] LABS: Thyroid Stimulating Hormone 5.654 uIu/ml (0.300-4.500)
[2024-01-16] MEDS ORDERED: DKA GOAL RANGE 150-250 mg/dl ONE ×2 (14:23→15:29)
[2024-01-16] MEDS ORDERED: STAT IV Infusion **Titration per Protocol STA (14:23)
[2024-01-16] MEDS ORDERED: PHARMACY GLYCEMIC MGMT CONSULT PRN ×2 (14:23→15:29)
[2024-01-16] MEDS ORDERED: DEXTROSE 50% 50 ML SYRINGE IV PRN (14:30)
[2024-01-16] MEDS ORDERED: GLUCAGON FOR INJ 1 MG VIAL SQ PRN (14:30)
[2024-01-16] MEDS ORDERED: CARBOHYDRATES FOR HYPOGLYCEMIA PO PRN (14:30)
[2024-01-16] MEDS ORDERED: GLUCOSE 10 TAB/TUBE PO PRN (14:30)
[2024-01-16] MEDS ORDERED: GLUCOSE 40% GEL 15 GM TUBE PO PRN (14:30)
[2024-01-16 14:32] LABS: Base Excess VBG -17.8 mEq/L; HCO3 VBG 10 mmol/L; PCO2 VBG 32 mmHg (38-50); PO2 VBG 36 mmHg; pH VBG 7.12 (7.36-7.41)
--- NOTE | 2024-01-16 14:41 | History & Physical Report ---
Date of Service January 16, 2024 Assessment & Plan (1) Metabolic acidosis, increased anion gap: (2) DKA (diabetic ketoacidosis): (3) Mood disorder: (4) History of tobacco abuse: Plan: This is a 48-year-old male with PMH of type 1 diabetes with insulin pump, tobacco use disorder, ADHD, history of seizure disorder, JUAN PABLO, depression and other medical problems listed below who presents from home with vomiting x 2 days and was found to have DKA. DKA 2/2 noncompliance with insulin Anion gap metabolic acidosis Type 1 DM with insulin pump Nausea, vomiting x 2 days 2/2 noncompliance (ran out of insulin 1 week ago) Drowsy on exam but responds to questions appropriately Afebrile, WBC 18K, Na 130, K 5.4, anion gap 20, VBG pH 7.12, bicarb 14 Considered infectious source given leukocytosis, however likely reactive - no recent URI, CXR clear, UA and blood cultures pending DKA protocol per pharmacy, continue insulin drip with scheduled labs until AG closes, IV fluids ordered, NPO for now Mood disorder Not on home meds currently Elevated TSH 5.65, free T4 pending H/o subclinical hypothyroidism in outpatient chart Recommend repeat thyroid function tests in 6 weeks Tobacco use disorder Smokes 10 cigarettes / day Nicotine patch ordered Elevated Cr Cr 1.08 today, baseline Cr ~0.9 so does not meet criteria for CARYL but will monitor Expect improvement with fluids DVT Ppx: SQ heparin Code status: FULL PCP: Eliza Dispo: Admitted to PCU. Patient seen in collaboration with Dr. Mooney. Please see addendum. I spent a total of 65 minutes coordinating, documenting, and providing care for this patient excluding time spent in the performance of separately billed services. History of Present Illness Chief Complaint: vomiting Primary Care Provider: NO PCP This is a 48-year-old male with PMH of type 1 diabetes with insulin pump, tobacco use disorder, ADHD, history of seizure disorder, JUAN PABLO, depression and other medical problems listed below who presents from home with vomiting x 2 days. Patient agitated and drowsy during interview so history is limited. He started feeling poorly over the weekend and has had nausea and vomiting for the past 2 days. Feels fatigued, has not smoked since Monday due to feeling poorly. Upon further questioning, admits he has been out of insulin for a week due to cost. Is not taking any other meds. Denies any fever, chills, recent URIs, chest pain, shortness of breath, abdominal pain, dysuria, diarrhea or constipation. Allergies Allergy/AdvReac Type Severity Reaction Status Date / Time hydrocodone Allergy Mild HIVES Verified 12/02/22 19:55 codeine Allergy Unknown Hives Verified 12/02/22 19:55 ethyl alcohol Allergy Unknown Hives Verified 01/16/24 14:32 Home Medications Medication Instructions Recorded Confirmed Type insulin aspart U-100 100 unit/mL 100 unit subcut UD 12/02/22 01/16/24 History subcutaneous solution Past Med/Surg History Problem List (Updated 01/16/24 @ 16:08 by Zaina Rico PA-C) Metabolic acidosis, increased anion gap Pseudohyponatremia (Acute) DKA (diabetic ketoacidosis) (Acute) History of TIAs (Acute) Diabetes mellitus, new onset History of tobacco abuse (Acute) Diabetes mellitus, new onset (Acute) Hyponatremia (Acute) History of orthopedic surgery Headache Right shoulder injury (Acute) Slurred speech Work related injury (Acute) Medical History (Updated 01/16/24 @ 16:08 by Zaina Rico PA-C) Mood disorder Hx-TIA (transient ischemic attack) Epilepsy Surgical History S/P right knee arthroscopy Family History Other Diabetes Hypertension Seizure Social History Smoking Status: Current every day smoker Tobacco Type: Cigarettes Cigarettes Per Day: 10; Second Hand Exposure: No; Do You Dip or Chew Tobacco: Yes; Hx Alcohol Use: Yes Hx Substance Use: No Preferred Language: Lithuanian Communication Ability: Effective Visual Impairment: No Limitations Hearing Ability: Normal Supervisor Pastry Required: No Beliefs That Will Affect Care: None marital status: Current Living Situation: Alone current occupational status: employed Feels Safe at Home: Yes Assistive Devices: None Review of Systems Review of Systems: At least ten systems reviewed and negative except as noted in the HPI. Physical Exam Physical Exam: Please see Dr. Mooney's addendum for physical exam. Results & Data Results & Data Vital Signs (Past 12 Hours) Vital Signs Temp Pulse Resp BP Pulse Ox O2 Del Method 01/16/24 12:57 81 01/16/24 12:33 36.3 C L 99 H 18 103/73 94 Room Air Laboratory Results Short CBC 01/16/24 Range/Units 13:26 WBC 18.00 H (4.8-10.8) K/ul Hgb 17.8 (14.0-18.0) g/dl Hct 52.7 H (42.0-52.0) % Plt Count 382 (130-400) K/uL BMP 01/16/24 13:26 Sodium 130 L Potassium 5.4 H Chloride 96 L Carbon Dioxide 14 L BUN 22 Creatinine 1.08 Glucose 399 H* Calcium 10.1 Liver Function 01/16/24 Range/Units 13:26 Total Bilirubin 0.8 (0.2-1.0) mg/dl AST 15 (13-39) U/L ALT 15 (7-52) U/L Alkaline Phosphatase 129 H (34-104) U/L Albumin 4.7 (3.4-5.0) gm/dl Diagnostic Findings Chest X-Ray 01/16/24 12:42 XR chest 1V portable CLINICAL HISTORY: weakness TECHNIQUE: Single frontal radiograph of the chest was obtained. Comparison: Comparison is made to chest radiograph 01/17/2023 FINDINGS: No lines and tubes are seen. The cardiomediastinal silhouette is normal. The lungs are clear. No evidence of pleural effusion or pneumothorax. IMPRESSION: No acute chest disease. ACT 112: Negative or not required by law. Electronically signed by: Pascual Bain M.D. 01/16/2024 1:14 PM Supervising Physician Co-Signing Physician Notes 58-year-old male with PMH of T1DM with insulin pump, tobacco use disorder, ADHD, h/o seizure disorder, JUAN PABLO, depression was brought to the ED (by his sister) with complaint of 2 days of vomiting, feeling sick to the stomach. He denied fever or cough or shortness of breath. He denies any pain. 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 He denies genitourinary pain. He denies facial pain. Patient is oriented and very drowsy, overall history taking was difficult to extract information from the patient. Patient did not like being asked questions. Labs and imaging reviewed WBC elevated at 18,000, sodium 130, potassium 5.4, anion gap metabolic acidosis noted, blood glucose elevated at 399, TSH mildly elevated CXR with no acute finding. Diabetic ketoacidosis, Anion gap metabolic acidosis T1DM on insulin pump Patient noted to be in DKA at presentation, institute DKA protocol, glycemic pharmacy consult, development educator consult. N.p.o. and IV fluids per protocol. Nausea exam WNL, no sinus tenderness, genitourinary exam normal. Get urinalysis with reflex culture, get blood culture to rule out infection. Continue telemetry monitoring at PCU level. Leukocytosis: Get UA and blood culture, likely leukocytosis from acute stress of DKA. Elevated TSH: Follow up fT4, repeat TFT in 6 weeks. No need for thyroid replacement at present. On exam: GENERAL: drowsy and oriented x3. on RA, appears ill/frail/sick. HEENT: No pallor, no icterus. Pupils equal, round and reactive to light. Oral mucosa dry. Nasal turbinates/exam wnl. NECK: No JVD, no neck masses. HEART: S1 and S2 heard. Regular rate and rhythm. No murmur, no gallop. RESPIRATORY SYSTEM: Normal AP diameter. No accessory muscle use. No wheezing, no crackles. ABDOMEN: Soft, bowel sounds present, nontender, no distention. CENTRAL NERVOUS SYSTEM: No facial droop. Speech is clear. Obeys simple commands. Moves extremities. EXTREMITIES: No edema, no erythema seen. : no lesions/redness/tenderness noted. I have seen and examined the patient and have discussed the case with the provider above. I agree with the assessment and plan as stated. Time spent: 30 min
[2024-01-16] MEDS: INSULIN REGULAR 250 UNITS in SODIUM CHLORIDE 0.9% 247.5 ML IV SCH (14:55)
[2024-01-16] MEDS: NovoLIN-R BOLUS FROM BAG IV ONE (15:02)
[2024-01-16] MEDS ORDERED: PENDING D5 1/2NS+20mEq KCL IVF SCH (15:30)
[2024-01-16] MEDS: INSULIN ASPART PER UNIT CHARGE SC SCH (16:42)
--- NOTE | 2024-01-16 17:06 | Electrocardiogram Report ---
Test Reason : Blood Pressure : */* mmHG Vent. Rate : 91 BPM Atrial Rate : 91 BPM P-R Int : 130 ms QRS Dur : 80 ms QT Int : 338 ms P-R-T Axes : 85 87 79 degrees QTcB Int : 415 ms Normal sinus rhythm Right atrial enlargement Borderline ECG When compared with ECG of 04-Dec-2022 05:53, SC interval has increased Vent. rate has increased by 30 bpm Right atrial enlargement now present Confirmed by Andrew Alvarez ([id number]) on 01/16/2024 5:06:45 PM Referred By: REFERRED SELF Confirmed By: Andrew Alvarez
[2024-01-16] MEDS: SODIUM CHLORIDE 0.45 % 1,000 ML IV SCH (17:10)
[2024-01-16] MEDS: NICOTINE 14 MG/24 HR PATCH TD SCH (17:11)
[2024-01-16 18:03] LABS: T4 Free Thyroxine 0.68 ng/dl (0.61-1.60)
[2024-01-16] MEDS ORDERED: POLYETHYLENE (MIRALAX) 17 GM PACK PO PRN (18:26)
[2024-01-16] MEDS ORDERED: ONDANSETRON INJ 2 MG/ML 2 ML VIAL IV PRN (18:26)
[2024-01-16] MEDS ORDERED: ACETAMINOPHEN 325 MG TAB PO PRN (18:26)
[2024-01-16] MEDS ORDERED: Nursing to Pharmacy Communication SCH (19:15)
[2024-01-16 19:49] LABS: BUN Creatinine Ratio 23.9 (10-20); Calcium 9.3 mg/dl (8.6-10.3); Creatinine Clr Calc Pharmacy 90.9 ml/min; Phosphorus 2.7 mg/dl (2.5-4.9); Potassium 4.1 mmol/L (3.5-5.1)
[2024-01-16] MEDS: INFLUENZA VACC TS2024-25(6m+)/PF (IIV3) 0.5mL Syr IM ONE (19:54)
[2024-01-16] MEDS: D5W AND 1/2NSS + 20MEQ KCL 20 MEQ/1,000 ML BAG IV SCH (20:38)
[2024-01-16] MEDS: LANTUS PER UNIT CHARGE SC STA (20:40)
[2024-01-16] MEDS: D5W AND 1/2NSS 1,000 ML IV SCH (22:10)
[2024-01-16] MEDS: PENDING 1/2NSS+20mEq KCL IVF SCH (22:10)
[2024-01-16] MEDS: HEPARIN SOD 5,000 UNIT/0.5 ML VIAL SQ SCH (22:39)
[2024-01-17] MEDS: SODIUM CHLOR 0.45% + 20MEQ KCL 20 MEQ/1,000 ML BAG IV SCH (00:07)
[2024-01-17] MEDS: INSULIN ASPART PER UNIT CHARGE SC SCH ×2 (00:08→12:37)
[2024-01-17 10:28] LABS: Hematocrit (blood only) 43.2 % (42.0-52.0); Mean Corpuscular Hemoglobin 28.1 pg (25.0-34.0); Mean Corpuscular Hgb Conc 34.7 g/dL (32.0-36.0); Mean Corpuscular Volume 81.1 fL (80.0-100.0); Mean Platelet Volume 9.4 fL (9.4-12.4); Platelet Count 346 K/uL (130-400); RDW Coefficient of Variation 12.3 % (11.5-14.5); RDW Standard Deviation 35.3 fL (36.4-46.3); Red Blood Count 5.33 M/uL (4.70-6.10); White Blood Count 15.39 K/ul (4.8-10.8)
[2024-01-17 10:57] LABS: Estimated Average Glucose 278 mg/dl; Hemoglobin A1C 11.3 % (4.5-5.6)
[2024-01-17 11:06] LABS: BUN Creatinine Ratio 24.7 (10-20); Calcium 9.1 mg/dl (8.6-10.3); Creatinine Clr Calc Pharmacy 98.6 ml/min; Phosphorus 2.1 mg/dl (2.5-4.9); Potassium 4.7 mmol/L (3.5-5.1)
--- NOTE | 2024-01-17 12:27 | Pharmacy Report ---
Pharmacy Glycemic Short Note 2 - Date of Service January 17, 2024 - Glycemic Short BSG Results (Last 24 hours): 01/16/24 01/16/24 01/16/24 12:36 13:26 14:58 Glucose 399 H* POC Glucose 405 H* 311 H* 01/16/24 01/16/24 01/16/24 16:04 17:39 18:35 Glucose POC Glucose 320 H* 207 H 183 H 01/16/24 01/16/24 01/16/24 19:09 19:35 21:02 Glucose 164 H POC Glucose 161 H 163 H 01/16/24 01/16/24 01/17/24 22:04 22:26 00:01 Glucose POC Glucose 121 H 109 H 152 H 01/17/24 01/17/24 01/17/24 03:56 08:03 10:14 Glucose 171 H POC Glucose 117 H 143 H 01/17/24 11:09 Glucose POC Glucose 164 H OUTPATIENT ANTIDIABETIC REGIMEN: * Omnipod * Basal rate: 1 unit/hr X 24 hours * Bolus: 1:14 CR, CF: 50 for BSG > 150 * A1c: 11.3% 01/17/24 ASSESSMENT: * 48-year-old male with PMH of type 1 diabetes with insulin pump who presented with vomiting x 2 days and was found to have DKA from reported noncompliance with insulin. Reportedly ran out of supplies 01/12. * Labs improved by yesterday evening and patient was transitioned off insulin infusion. Patient was subsequently ordered a diet at lunch today. * BSGs thus far today after drip transition and 10 units of Lantus last evenin-143-164 mg/dL. * During previous admission patient required a range of 10-30 units of basal insulin and was BSG was difficult to control. Patient did snack overnight as well. * Will order a scale tonight based on BSG to account for unknown PO intake today. PLAN FOR INPATIENT GLYCEMIC CONTROL: * Hold outpatient oral diabetes medications * Basal insulin * Lantus 10,15, or 20 units SQ HS based on scale * Bolus insulin * NovoLog per scale ACHS and 0000 check * Goal Range: Low 110 mg/dL - High 140 mg/dL * Correction Factor: 35 mg/dL/unit * Nutritional / Prandial insulin per carb ratio of 1 unit per 12 grams CHO consumed
--- NOTE | 2024-01-17 14:28 | Hospitalist Progress Note ---
Date of Service January 17, 2024 Assessment & Plan (1) Metabolic acidosis, increased anion gap: (2) DKA (diabetic ketoacidosis): (3) Mood disorder: (4) History of tobacco abuse: Plan: 58-year-old male with PMH of T1DM with insulin pump, tobacco use disorder, ADHD, h/o seizure disorder, JUAN PABLO, depression was brought to the ED (by his sister) with complaint of 2 days of vomiting, feeling sick to the stomach. He denied fever or cough or shortness of breath. He denied any pain. 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 He denied genitourinary pain. He denied facial pain. He is being managed for the following: Diabetic ketoacidosis Anion gap metabolic acidosis T1DM on insulin pump Patient noted to be in DKA at presentation. Cause: Ran out of insulin supplies. Patient did decline multiple lab studies needed during DKA protocol. Status post DKA protocol, anion gap has closed. Patient denies nausea, vomiting, abdominal pain. Continue to get labs 1 time this afternoon and then in the morning. Diet has been resumed, fingerstick glucose running better. peer educator evaluated, patient is unable to get insulin pump supplies until February 2024. Will need basal/bolus insulin 1 prior to discharge, likely fahad. Follow blood culture for preliminary results. Leukocytosis: UA negative for UTI, follow blood culture. Leukocytosis likely secondary to acute stress of DKA. Elevated TSH: Follow up fT4, repeat TFT in 6 weeks. No need for thyroid replacement at present. Mood disorder: Not on home meds currently Tobacco use disorder: Smokes 10 cigarettes / day . Counselling for smoking cessation done. Nicotine patch ordered DVT Ppx: SQ heparin Code status: FULL PCP: Eliza Dispo: Admitted to PCU. Admission and Anticipated Discharge Date Admission Date: January 16, 2024 Subjective Patient was seen and examined at bedside. Patient seems more alert and awake, is on room air, resting comfortably, not in any acute distress. 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 Patient denies nausea, vomiting, abdominal pain, reports feeling better. Physical Exam Physical Exam: GENERAL: Alert and oriented x3. on RA, NAD. HEENT: No pallor, no icterus. Pupils equal, round and reactive to light. Oral mucosa moist. Nasal turbinates/exam wnl. NECK: No JVD, no neck masses. HEART: S1 and S2 heard. Regular rate and rhythm. No murmur, no gallop. RESPIRATORY SYSTEM: Normal AP diameter. No accessory muscle use. No wheezing, no crackles. ABDOMEN: Soft, bowel sounds present, nontender, no distention. CENTRAL NERVOUS SYSTEM: No facial droop. Speech is clear. Obeys simple commands. Moves extremities. EXTREMITIES: No edema, no erythema seen. : not performed today. Results & Data Results & Data Vital Signs (Past 12 Hours) Vital Signs Temp Pulse Pulse Resp BP Pulse Ox O2 Del Method 01/17/24 11:20 37.0 C 72 17 110/74 97 Room Air 01/17/24 08:00 36.9 C 63 17 94/68 L 98 Room Air 01/17/24 07:00 73 01/17/24 02:51 72 18 108/73 95 Room Air
[2024-01-17] MEDS ORDERED: Nursing to Pharmacy Communication SCH (16:30)
[2024-01-17] MEDS: INSULIN HUMAN REGULAR PER UNIT 6 UNITS in SYRINGE 5.94 ML IV ONE (18:51)
[2024-01-17] MEDS: INSULIN ASPART PER UNIT CHARGE SC ONE (19:06)
[2024-01-17 19:55] LABS: BUN Creatinine Ratio 20.9 (10-20); Calcium 8.4 mg/dl (8.6-10.3); Creatinine Clr Calc Pharmacy 57.5 ml/min; Potassium 4.2 mmol/L (3.5-5.1)
[2024-01-17] MEDS: LANTUS PER UNIT CHARGE SC SCH (20:28)
--- OUTSIDE RECORDS SUMMARY | 2024-01-17 23:45 | External Medical Summary | Summary of Care ---
Author Name Unknown Organization [facility] Address [address] [place] [address] Phone [phone] Care Team Providers Care Doctor Of Medicine Name Role Phone Betty Kay MD Primary Care Provider [phone] Reason for Visit * Reason Comments Diabetes Follow-Up Dosage Adjustment In Person (Anticoag Cl inic) Encounter Details Date Type Department Care Team (Late st Contact Info) Description 12/08/2023 8:00 AM EDT Telemedicine Endocrinology Flakito Knox, Aliy[address] [place] [place] [address] Aliyah, Pharmacist Endocrinology [address] [place] [address] Type 1 diabetes mellitus with hyperglycemia (HCC)* Allergies Active Allergy Reactions Criticality Noted Date Comments Codeine Hives 01/24/2023 Robitussin with codeine Hydrocodone 08/13/2018 Hives Guaifenesin Hives 01/24/2023 documented as of this encounter (statuses as of 12/08/2023) Medications Medication Sig Dispensed Refills Start Date End Date Status OneTouch Verio In Vitro Strip (Glucose Blood) Use as directed 4 times a day as needed for Hyperglycemia (high sugar) or Hypoglycemia (low sugar). Use up to four times a day as directed 400 Strip 3 11/02/2022 Active OneTouch Delica Plus [id number] For testing glucose 4 times daily. E11.9 400 Each 3 11/02/2022 Active Insulin Aspart 100 UNIT/ML Injection Solution (NovoLOG) For insulin pump 100 units daily. 100 mL 12 12/07/2022 Active Insulin Glargine Solostar 100 UNIT/ML Subcutaneous Solution Pen-injector Injected under the skin, ONE time(s) per day:18 units. TDD:18 units ICD10: E10.9 15 mL 1 12/07/2022 Active Insulin Syringe-Needle U-100 31G X 5/16" 0.3 ML (B-D INSULIN SYRINGE ULTRAFINE) For pump back up: For injecting insulin 4 times daily. E10.9 200 Each 1 12/07/2022 Active Insulin Pen Needle 31G X 4 MMIndications:Insu edison pump titration,Type 1 diabetes mellitus without complication (HCC) Use as directed. FOR PUMP BACK UP: Use 1 with each insulin injection up to 5 times per day 200 Each 1 12/08/2022 Active Gvoke HypoPen 2-Pack 1 MG/0.2ML Subcutaneous Solution Auto-injector (Glucagon)Indicati ons:Insulin pump titration,Type 1 diabetes mellitus without complication (HCC) Inject 1.0 mg under the skin of belly/thigh or upper arm as needed for unresponsiveness due to suspected hypoglycemia 0.4 mL 11 12/08/2022 Active buPROPion HCl ER (XL) 150 MG Oral Tablet Extended Release 24 Hour (Wellbutrin XL) Take 1 Tablet by mouth in the morning. 90 Tablet 1 03/10/2023 Active Additional Information Patient taking differently:150 mg Oral Daily(AM),Pt hasn't started yet, Reported on 03/24/2023 InnovisTouch Verio w/Device Kit Use up to 4 times a day E11.9 1 Kit 03/10/2023 Active Omnipod 5 G6 Pod (Gen 5)Indications:Type 1 diabetes mellitus without complication (HCC) Use as directed. Change pod every 3 days. 50 Each 3 03/24/2023 Active Protective Barrier Wipes Use under insulin pump adhesive sites. 50 Each 5 11/16/2023 Active Dexcom G6 SensorIndications: Type 1 diabetes mellitus with hyperglycemia (HCC) Use as directed. Change every 10 days. 9 Each 1 11/16/2023 Active Dexcom G6 TransmitterIndicat ions:Type 1 diabetes mellitus with hyperglycemia (HCC) Use as directed. Change every 90 days. 1 Each 1 11/16/2023 Active documented as of this encounter (statuses as of 12/08/2023) Active Problems Problem Noted Date Diagnosed Date Major depressive disorder, single episode, moder ate 07/10/2023 JUAN PABLO (generalized anxiety disorder) 03/10/2023 Depression with anxiety 03/10/2023 Insulin pump titration 03/08/2022 Subclinical hypothyroidism 10/21/2021 History of seizure disorder 10/21/2021 Food insecurity 02/15/2021 Overview: Per [facility] Protocol ADHD (attention deficit hype ractivity disorder), combined type 02/09/2021 Tobacco use disorder 01/28/2021 Type 1 diabetes mellitus without complication documented as of this encounter (statuses as of 12/08/2023) Resolved Problems Problem Noted Date Diagnosed Date Resolved Date Nonintractable epilepsy with out status epilepticus 03/10/2023 03/10/2023 DM type 1, not at goal 03/08/202203/10 Type 2 diabetes mellitus without complication 02/23/1902/23/2022 Temporal arteritis 02/09/2021 Overview: Reported by pt around 2016 Seizure disorder 02/09/2021 10/21/2021 Overview: Last seizure at age 19 documented as of this encounter (statuses as of 12/08/2023) Immunizations Name Administration Dates Next Due Seasonal Influenza, PF, 6 M & above, IM , (FluLaval or Fluzone) 10/21/2021 TD - Tetanus/Diptheria (ADULT) 05/13/1983 TDAP (age 10 and older)(Boostrix) 10/11/2018 documented as of this encounter Social History Tobacco Use Types Packs/Day Years Used Date Smoking Tobacco: Every Day Cigarettes 1 10 Passive Smoke Exposure: Current Smokeless Tobacco: Never Alcohol Use Standard Drinks/Week Comments Yes 5 (1 standard drink = 0.6 oz pure alcohol) pt states drinks 6 pack per week PHQ-2 Answer Date Recorded PHQ Adult Total Score 17 05/21/2021 Hunger Vital Sign Answer Date Recorded Within the past 12 months, y ou worried that your food would run out before you got the money to buy more. Often true 12/08/19 24 Within the past 12 months, t he food you bought just didn't last and you didn't have money to get more. Often true 12/08/2023 Childcare Answer Date Recorded Do you feel overwhelmed with taking care of a child, family member or friend? Yes 12/08/2023 Does your family need help f inding childcare? (Household - for ages 0-17 years) Not on file 12/08/2023 Clothing Answer Date Recorded Have you been unable to get clothing when it was really needed? Yes 12/08/2023 Is your family able to get c lothes or diapers when needed? (Household - for ages 0-17 years) Not on file 12/08/2023 Personal Safety Answer Date Recorded Do you feel unsafe or have concerns for your saf ety? No 12/08/2023 Do you have concerns for you r family's safety? (Household - for ages 0-17 years) Not on file 12/08/2023 Utilities Answer Date Recorded Do you have trouble paying y our heating, water, or electric bill? Yes 12/08/2023 Is your family able to pay t he heat, water, or electric bill? (Household - for ages 0-17 years) Not on file 12/08/2023 Does your family have access to good internet? (Household - for ages 0-17 years) Not on file 12/08/2023 Employment Status Answer Date Recorded Are you unemployed or without regular income? Ye s 12/08/2023 Does the household have a re gular source of income? (Household - for ages 0-17 years) Not on file 12/08/2023 Social Connections Answer Date Recorded How often do you feel lonely or isolated from th ose around you? Always 12/08/2023 Financial Resource Strain Answer Date R ecorded Do you have any trouble payi ng for your medications, or do you think you might in the future? Yes 12/08/2023 Does your family have troubl e paying for medicine? (Household - for ages 0-17 years) Not on file 12/08/2023 Transportation Needs Answer Date Record ed READ ONLY Do you have troubl e getting a ride to medical visits or work? Never True 12/08/2023 Does your family have a hard time getting a ride to doctors visits? (Household - for ages 0-17 years) Not on file 12/08/2023 Has lack of transportation k ept you from medical appointments, meetings, work, or from getting things needed for daily living? Check all that apply. Yes, it has kept me from non-medical meetings, appointments, work, or from getting things that I need 12/08/2023 Do you (or your family) have trouble finding or paying for a ride (transportation)? (Household - for ages 0-17 years) Not on file 12/08/2023 Housing Stability Answer Date Recorded Do you currently live in a s helter or have no steady place to sleep at night? No 12/08/2023 READ ONLY Do you think you a re at risk of becoming homeless? No 12/08/2023 Does your family worry about paying for your home or becoming homeless? (Household - for ages 0-17 years) Not on file 1 02/06/2023 Are you homeless or worried that you might be in the future? Yes 12/08/2023 Are you (or your family) siena eless or worried that you might be in the future? (Household - for ages 0-17 years) Not on file Food Insecurity Answer Date Recorded Do you need food for this week? Yes 12/08/2023 Are you able to get enough f ood for your family? (Household - for ages 0-17 years) Not on file 12/08/2023 Does your family need food t his week? (Household - for ages 0-17 years) Not on file 12/08/2023 Do you always have enough fo od for your family? (Household - for ages 0-17 years) Not on file 12/08/2023 Sex and Gender Information Value Date Recorded Sex Assigned at Male 10/21/2021 11:14 AM EDT Gender Identity Male 10/21/2021 11:14 AM EDT Sexual Orientation Straight 10/21/2021 11 :14 AM EDT Job Start Date Occupation Industry Not on file Not on file Not on file documented as of this encounter Progress Notes * Mayda Olsen, [facility] - 12/08/2023 8:01 AM EDT Images from the original note were not included. Patient location: HOME. I was not in a hospital or clinic location. After connecting through televideo, patient was verified with two unique identifiers. Patient (or authorized legal medical office representative) was then informed that this was a Telemedicine visit and being conducted confidentially over secure lines. Methods to assure confidentiality were taken. Patient acknowledged consent and understanding of privacy and security of the Telemedicine visit. The patient agreed to participate. Medication Therapy Disease Management - CSII Follow-up Interval History: Eleuterio Armas is an 47 year old year old male returning to the [facility] for a diabetes insulin pump follow-up visit. Diagnosed with DENNY, treated as T1DM September 2020. Using OP5 + Dexcom G6. Update today, 12/07: Last visit pump report was showing a basal of 0, however, today the report is showing accurate basal rates which patient confirmed on PDM. Working on remembering to enter all carbs into the pump - did this consistently for one day in the past two weeks and glucoses were much better controlled. Current Diabetes Medications: Insulin Instructions Omnipod 5 insulin aspart 100 UNIT/ML injection (NovoLOG) Last edited by Mayda Olsen [facility] on 12/08/2023 at 8:54 AM Basal Rate Total Basal Dose: 22.6 units/day Time units/hr 12:00 AM 0.8 7:00 AM 1 Blood Glucose Target Time mg/dL 12:00 AM 120 - 140 Sensitivity Factor Time mg/dL/unit 12:00 AM 50 Carb Ratio Time g/unit 12:00 AM 14 Blood Glucose Review: Hypoglycemia Assessment: 1. Do you know what the symptoms of hypoglycemia are? Yes 2. How often can you tell by your symptoms if your blood sugar is low? Always 3. In a typical week, how many times will your blood sugar go below 70 mg/dL? Twice in the past fewweeks/months Patient Active Problem List Diagnosis Tobacco use disorder Type 1 diabetes mellitus without complication (HCC) ADHD (attention deficit hyperactivity disorder), combined type Food insecurity Subclinical hypothyroidism History of seizure disorder Insulin pump titration JUAN PABLO (generalized anxiety disorder) Depression with anxiety Major depressive disorder, single episode, moderate (HCC) Review of patient's allergies indicates: Allergen Reactions Codeine Hives Robitussin with codeine Hydrocodone Hives Robitussin (Alcohol Free) [Guaifenesin] Hives Current Outpatient Medications Medication Sig Dispense Refill OneTouch Verio In Vitro Strip (Glucose Blood) Use as directed 4 times a day as needed for Hyperglycemia (high sugar) or Hypoglycemia (low sugar). Use up to four times a day as directed 400 Strip 3 OneTouch Delica Plus [id number] For testing glucose 4 times daily. E11.9 400 Each 3 Insulin Aspart 100 UNIT/ML Injection Solution (NovoLOG) For insulin pump 100 units daily. 100 mL 12 Insulin Glargine Solostar 100 UNIT/ML Subcutaneous Solution Pen-injector Injected under the skin, ONE time(s) per day:18 units. TDD:18 units ICD10: E10.9 15 mL 1 Insulin Syringe-Needle U-100 31G X 5/16" 0.3 ML (B-D INSULIN SYRINGE ULTRAFINE) For pump back up: For injecting insulin 4 times daily. E10.9 200 Each 1 Insulin Pen Needle 31G X 4 MM Use as directed. FOR PUMP BACK UP: Use 1 with each insulin injection up to 5 times per day 200 Each 1 Gvoke HypoPen 2-Pack 1 MG/0.2ML Subcutaneous Solution Auto-injector (Glucagon) Inject 1.0 mg under the skin of belly/thigh or upper arm as needed for unresponsiveness due to suspected hypoglycemia 0.4 mL 11 buPROPion HCl ER (XL) 150 MG Oral Tablet Extended Release 24 Hour (Wellbutrin XL) Take 1 Tablet by mouth in the morning. (Patient taking differently: Take 1 Tablet by mouth in the morning. Pt hasn't started yet.) 90 Tablet 1 OneTouch Verio w/Device Kit Use up to 4 times a day E11.9 1 Kit 0 Omnipod 5 G6 Pod (Gen 5) Use as directed. Change pod every 3 days. 50 Each 3 Protective Barrier Wipes Use under insulin pump adhesive sites. 50 Each 5 Dexcom G6 Sensor Use as directed. Change every 10 days. 9 Each 1 Dexcom G6 Transmitter Use as directed. Change every 90 days. 1 Each 1 No current facility-administered medications for this visit. Objective: The 10-year ASCVD risk score (Jason MORALES, et al., 2019) is: 10% Values used to calculate the score: Age: 47 years Sex: Male Is Non- : No Diabetic: Yes Tobacco smoker: Yes Systolic Blood Pressure: 128 mmHg Is BP treated: No HDL Cholesterol: 44 mg/dL Total Cholesterol: 180 mg/dL Estimated body mass index is 23.76 kg/m as calculated from the following: Height as of 07/10/23: 1.702 m (5' 7"). Weight as of 07/10/23: 68.8 kg (151 lb 11.2 oz). BP Readings from Last 3 Encounters: 07/10/23 128/86 03/24/23 110/70 03/10/23 136/70 No components found for: "[id number]" No results found for: "MICROALBUMIN" Lab Results Component Value Date/Time LDL CHOLESTEROL (CALCULATED) - [facility] 113 03/24/2023 01:22 PM LDL CHOLESTEROL (DIRECT MEASURE) - [facility] 124 10/21/2021 12:26 PM Lab Results Component Value Date/Time ALT - [facility] 14 03/24/2023 01:22 PM ALT - [facility] 25 08/13/2018 11:16 AM Assessment & Plan: Glycemic control is unstable and not at goal. Missed carb entries are causing prolonged hyperglycemia. When patient does enter carbs, glucoses are much better controlled. Encouraged patient to continue working on entering all carbs being consumed. Educated on the importance of pre-bolusing by 15 minutes. Dexcom target range is set to 70-250 - advised patient to adjust to 70-180 to align with glycemic goals. Reviewed rule of 15's. OP5 sea for iphone is now released - made patient aware of this and showed patient where to find pump settings in PDM to transfer over to sea. Patient to SMBG at least 4 times daily, before each meal and at bedtime. Patient aware to contact clinic if any hypoglycemia before next visit. Reviewed appropriate management of hyperglycemia as noted in pump start documentation. Had a negative experience with [facility] pharmacy in the past - declines transferring prescriptions. Diabetes Medications: Insulin Instructions Omnipod 5 insulin aspart 100 UNIT/ML injection (NovoLOG) Last edited by Mayda Olsen [facility] on 12/08/2023 at 8:54 AM Basal Rate Total Basal Dose: 22.6 units/day Time units/hr 12:00 AM 0.8 7:00 AM 1 Blood Glucose Target Time mg/dL 12:00 AM 120 - 140 Sensitivity Factor Time mg/dL/unit 12:00 AM 50 Carb Ratio Time g/unit 12:00 AM 14 Diabetes Health Maintenance: due for updated A1c and urine microalbumin - ordered and patient is aware to complete this Return to Clinic: 6 months with myself. Patient must see a provider before seeing me again. Sent Chantelle front end drupal developer to schedule provider visit. 06/07/2024 [facility] I spent a total of Greater than 55 mins (exact time 60 mins) on the date of service in preparation,delivery, and documentation of the care provided to Eleuterio Armas excluding any time spent in the performance of separately billed services or time spent by another provider/QHP. Mayda Olsen [facility] Clinical Pharmacist Medication Therapy Disease Management 12/08/2023, 8:02 AM documented in this encounter Plan of Treatment Upcoming Encounters Date Type Department Care Team (Late st Contact Info) Description 06/07/2024 8:00 AM EDT Telemedicine Endocrinology Aliyah [address] [place] [phone] [facility] [address] [facility] [place] [id number] Health Maintenance Due Date Last Done Comments DISCUSS TOBACCO CESSATION (REFER TO SMARTSET #1029) 1977 Pneumococcal Vaccine: Pediatrics (0 to 5 Years) and At-Risk Patients (6 to 64 Years) (1 of 2 - PCV) 12/30/1983 HIV Screening 1992 Hepatitis C Screening 12/30/1995 Hepatitis B Vaccine (1 of 3 - 19+ 3-dose series) 1996 Albumin/Creatinine Ratio 05/21/2022 05/21/2021 Depression Monitoring 05/21/2022 05/21/2021 Cologuard 2022 Colonoscopy 2022 Colorectal Cancer Screening 2022 Fecal Occult Blood Test 2022 Sigmoidoscopy 2022 HbA1c 09/22/2023 03/24/2023, 02/08, 10/21/2021, Additional history exists COVID-19 Vaccine ( season) 2023 06/04/2020, 05/14/2020 Influenza Vaccine (FLU shot) (#1) 2023 10/21/2021 Diabetic Eye Exam 12/09/2023 12/08/2022, 05/21/2021 Diabetic Foot Exam 12/09/2023 12/08/2022, 10/21/2021 GFR 03/24/2024 03/24/2023, 10/07, 05/21/2021, Additional history exists Lipid Panel 03/24/2028 03/24/2023, 10/07, 05/21/2021 DTap/Tdap Vaccines (2 - Td or Tdap) 10/11/2028 10/11/2018, 05/13/1983 HPV (Gardasil) Vaccine Aged Out No lo nger eligible based on patient's age to complete this topic MENINGOCOCCAL (MENACTRA/MENVEO) Aged Out No longer eligible based on patient's age to complete this topic documented as of this encounter Medical Devices Not on filedocumented as of this encounter Visit Diagnoses Diagnosis Type 1 diabetes mellitus with hyperglycemia (HCC)- Primary Type I (juvenile type) diabetes mellitus without mention of complication, not stated as uncontrolled documented in this encounter Care Teams Doctor Of Medicine Relationship Specialty Start Date End Date Betty Kay MD [address] [place] [address] PCP - General Internal Medicine 11/03/21 documented as of this encounter
--- OUTSIDE RECORDS SUMMARY | 2024-01-17 23:45 | External Medical Summary | Summary of Care ---
Author Name Unknown Organization [facility] Address [address] [place] [address] Phone [phone] Care Team Providers Care Public Relations Manager Name Role Phone Betty Kay MD Primary Care Provider [phone] Reason for Visit * Reason Onset Date Comments Appointment 12/08/2023 Encounter Details Date Type Department Care Team (Late st Contact Info) Description 12/08/2023 Telephone Endocrinology Aliyah [address] [place] [phone] [facility] [address] [place] [address] Appointment Allergies Active Allergy Reactions Criticality Noted Date [...] Strip 3 11/02/2022 Active OneTouch Delica Plus [id number] For testing glucose 4 times daily. E11.9 [...] Daily(AM),Pt hasn't started yet, Reported on 03/24/2023 Acumen w/Device Kit Use up to 4 times [...] on file documented as of this encounter Miscellaneous Notes * Telephone Encounter - Mayda Olsen [facility] - 12/08/2023 9:00 AM EDT Please assist with scheduling a provider visit ideally between 01/2024 to 05/2024. Patient must see a provider before seeing me again 06/2024. Thanks! documented in this encounter Plan of Treatment Upcoming Encounters Date Type Department Care Team (Late st Contact Info) Description 06/07/2024 8:00 AM EDT Telemedicine Endocrinology Aliyah [address] [place] [phone] Aliyah, Pharmacist Endocrinology [address] [facility] [place] [address] Health Maintenance Due Date Last Done Comments DISCUSS TOBACCO CESSATION (REFER TO SMARTSET #[id number]) 1977 Pneumococcal Vaccine: Pediatrics (0 to 5 [...] Not on filedocumented as of this encounter Care Teams Public Relations Manager Relationship Specialty Start Date End Date Betty Kay MD [address] [place] [address] PCP - General Internal Medicine 11/03/21 documented as of this encounter
--- OUTSIDE RECORDS SUMMARY | 2024-01-17 23:45 | External Medical Summary | Summary of Care ---
Author Name Unknown Organization [facility] Address [address] [place] [address] Phone [phone] Care Team Providers Care Field Auto Appraiser Name Role Phone Betty Kay MD Primary Care Provider [phone] Reason for Visit * Reason Onset Date Comments Medication Refill 11/16/2023 Encounter Details Date Type Department Care Team (Late st Contact Info) Description 11/16/2023 Refill [facility] [address], [place] [id number] Virgen Kasper PA-C [address] [place] [address] Allergies Active Allergy Reactions Criticality Noted Date Comments Codeine Hives 01/24/2023 Robitussin with codeine Hydrocodone 08/13/2018 Hives Guaifenesin Hives 01/24/2023 documented as of this encounter (statuses as of 11/16/2023) Medications Medication Sig Dispensed Refills Start Date End Date Status OneTouch Verio In Vitro Strip (Glucose Blood) Use as directed 4 times a day as needed for Hyperglycemia (high sugar) or Hypoglycemia (low sugar). Use up to four times a day as directed 400 Strip 3 3 Active OneTouch Delica Plus [id number] For testing glucose 4 times daily. E11.9 400 Each 3 3 Active Insulin Aspart 100 UNIT/ML Injection Solution (NovoLOG) For insulin pump 100 units daily. 100 mL 12 3 Active Insulin Glargine Solostar 100 UNIT/ML Subcutaneous Solution Pen-injector Injected under the skin, ONE time(s) per day:18 units. TDD:18 units ICD10: E10.9 15 mL 1 3 Active Insulin Syringe-Needle U-100 31G X 5/16" 0.3 ML (B-D INSULIN SYRINGE ULTRAFINE) For pump back up: For injecting insulin 4 times daily. E10.9 200 Each 1 3 Active Insulin Pen Needle 31G X 4 MMIndications:Ins ulin pump titration,Type 1 diabetes mellitus without complication (HCC) Use as directed. FOR PUMP BACK UP: Use 1 with each insulin injection up to 5 times per day 200 Each 1 3 Active Gvoke HypoPen 2-Pack 1 MG/0.2ML Subcutaneous Solution Auto-injector (Glucagon)Indicat ions:Insulin pump titration,Type 1 diabetes mellitus without complication (HCC) Inject 1.0 mg under the skin of belly/thigh or upper arm as needed for unresponsiveness due to suspected hypoglycemia 0.4 mL 11 3 Active buPROPion HCl ER (XL) 150 MG Oral Tablet Extended Release 24 Hour (Wellbutrin XL) Take 1 Tablet by mouth in the morning. 90 Tablet 1 4 Active Additional Information Patient taking differently:150 mg Oral Daily(AM),Pt hasn't started yet, Reported on 03/24/2023 [employer] Verio w/Device Kit Use up to 4 times a day E11.9 1 Kit 4 Active Omnipod 5 G6 Pod (Gen 5)Indications:Typ e 1 diabetes mellitus without complication (HCC) Use as directed. Change pod every 3 days. 50 Each 3 4 Active Protective Barrier Wipes Use under insulin pump adhesive sites. 50 Each 5 4 Active Protective Barrier Wipes Use under insulin pump adhesive sites 50 Each 11 3 11/16/19 24 Discontinu ed(Refill) documented as of this encounter (statuses as of 11/16/2023) Active Problems Problem Noted Date Diagnosed Date Major depressive disorder, single episode, moder ate 07/10/2023 JUAN PABLO (generalized anxiety disorder) 03/10/2023 Depression with anxiety 03/10/2023 Insulin pump titration 03/08/2022 Subclinical hypothyroidism 10/21/2021 History of seizure disorder 10/21/2021 Food insecurity 02/15/2021 Overview: Per [facility] Protocol ADHD (attention deficit hype ractivity disorder), combined type 02/09/2021 Tobacco use disorder 01/28/2021 Type 1 diabetes mellitus without complication documented as of this encounter (statuses as of 11/16/2023) Resolved Problems Problem Noted Date Diagnosed Date Resolved Date Nonintractable epilepsy with out status epilepticus 03/10/2023 03/10/2023 DM type 1, not at goal 03/08/202203/10 Type 2 diabetes mellitus without complication 02/23/1902/23/2022 Temporal arteritis 02/09/2021 Overview: Reported by pt around 2016 Seizure disorder 02/09/2021 10/21/2021 Overview: Last seizure at age 19 documented as of this encounter (statuses as of 11/16/2023) Immunizations Name Administration Dates Next Due Seasonal [...] the money to buy more. Often true 12/14/19 23 Within the past 12 months, t he food you bought just didn't last and you didn't have money to get more. Often true 12/13/2022 Childcare Answer Date Recorded Do you feel overwhelmed with taking care of a child, family member or friend? No 12/13/2022 Does your family need help f inding childcare? (Household - for ages 0-17 years) Not on file 12/13/2022 Clothing Answer Date Recorded Have you been unable to get clothing when it was really needed? No 12/13/2022 Is your family able to get c lothes or diapers when needed? (Household - for ages 0-17 years) Not on file 12/13/2022 Personal Safety Answer Date Recorded Do you feel unsafe or have concerns for your saf ety? No 12/13/2022 Do you have concerns for you r family's safety? (Household - for ages 0-17 years) Not on file 12/13/2022 Utilities Answer Date Recorded Do you have trouble paying y our heating, water, or electric bill? Yes 12/13/2022 Is your family able to pay t he heat, water, or electric bill? (Household - for ages 0-17 years) Not on file 12/13/2022 Does your family have access to good internet? (Household - for ages 0-17 years) Not on file 12/13/2022 Employment Status Answer Date Recorded Are you unemployed or without regular income? Ye s 12/13/2022 Does the household have a re lar source of income? (Household - for ages 0-17 years) Not on file 12/13/2022 Social Connections Answer Date Recorded How often do you feel lonely or isolated from th ose around you? Rarely 12/13/2022 Financial Resource Strain Answer Date R ecorded Do you have any trouble payi ng for your medications, or do you think you might in the future? No 12/13/2022 Does your family have troubl e paying for medicine? (Household - for ages 0-17 years) Not on file 12/13/2022 Transportation Needs Answer Date Record ed READ ONLY Do you have troubl e getting a ride to medical visits or work? Never True 12/13/2022 Does your family have a hard time getting a ride to doctors visits? (Household - for ages 0-17 years) Not on file 12/13/2022 Has lack of transportation k ept you from medical appointments, meetings, work, or from getting things needed for daily living? Check all that apply. (Adult - for ages 18 years and over) Not on file 12/13/2022 Do you (or your family) have trouble finding or paying for a ride (transportation)? (Household - for ages 0-17 years) Not on file 12/13/2022 Housing Stability Answer Date Recorded Do you currently live in a s helter or have no steady place to sleep at night? No 12/13/2022 READ ONLY Do you think you a re at risk of becoming homeless? No 12/13/2022 Does your family worry about paying for your home or becoming homeless? (Household - for ages 0-17 years) Not on file 1 02/12/2022 Are you homeless or worried that you might be in the future? (Adult - for ages 18 years and over) Not on file Are you (or your family) siena eless or worried that you might be in the future? (Household - for ages 0-17 years) Not on file Food Insecurity Answer Date Recorded Do you need food for this week? Yes 12/13/2022 Are you able to get enough f ood for your family? (Household - for ages 0-17 years) Not on file 12/13/2022 Does your family need food t his week? (Household - for ages 0-17 years) Not on file 12/13/2022 Do you always have enough fo od for your family? (Household - for ages 0-17 years) Not on file 12/13/2022 Sex and Gender Information Value Date Recorded Sex Assigned at Male 10/21/2021 11:14 AM EDT Gender Identity Male 10/21/2021 11:14 AM EDT Sexual Orientation Straight 10/21/2021 11 :14 AM EDT Job Start Date Occupation Industry Not on file Not on file Not on file documented as of this encounter Miscellaneous Notes * Telephone Encounter - Leanne Sidhu CRNP - 11/16/2023 10:57 AM EDTSigned Prescriptions: Disp Refills Protective Barrier Wipes 50 Each5 Sig: Use under insulin pump adhesive sites. Authorizing Provider: LEANNE SIDHU * Telephone Encounter - Sue Weber CMA - 11/16/2023 9:53 AM EDTPending Prescriptions: Disp Refills Protective Barrier Wipes 50 Each5 Sig: Use under insulin pump adhesive sites. * Telephone Encounter - Sue Weber CMA - 11/16/2023 9:52 AM EDT This medication has been pended for renewal in accordance with our office medication renewal policy. Pending Prescriptions: Disp Refills Protective Barrier Wipes 50 Each5 Sig: Use under insulin pump adhesive sites. 03/08/2022 (in office), 02/15/2023 (telemedicine) Visit date not found If no future appointments scheduled, and last appointment is greater than a year ago, please schedule patient for a follow-up appointment Last date the medication was ordered: 12/08/2022 Pharmacy: [facility] [address] [place] [address] Labs: Lab Results Component Value Date/Time CREATININE - [facility] 0.9 03/24/2023 01:22 PM CREATININE - [facility] 0.90 09/10/2020 12:00 AM CREATININE - [facility] 1.0 08/13/2018 11:16 AM CREATININE, RANDOM URINE - [facility] 98 05/21/2021 12:03 PM No components found for: "E G" * Telephone Encounter - Petra Rome OSA - 11/16/2023 8:01 AM EDTPending Prescriptions: Disp Refills Protective Barrier Wipes 50 Each11 Sig: Use under insulin pump adhesive sites documented in this encounter Plan of Treatment Upcoming Encounters Date Type Department Care Team (Late st Contact Info) Description 12/08/2023 8:00 AM EDT Telemedicine Endocrinology [address] [place], [place] [address] Aliyah, Pharmacist Endocrinology [address] [place] [address] [place] [address] Health Maintenance Due Date Last Done Comments DISCUSS TOBACCO CESSATION (REFER TO SMARTSET #[id number]) 1977 Pneumococcal Vaccine: Pediatrics (0 to 5 [...] filedocumented as of this encounter Care Teams Field Auto Appraiser Relationship Specialty Start Date End Date Betty Kay MD [address] [place] [address] PCP - General Internal Medicine 11/03/21 documented as of this encounter
--- OUTSIDE RECORDS SUMMARY | 2024-01-17 23:46 | External Medical Summary | Summary of Care ---
Author Name Unknown Organization [facility] Address [address] [place] [address] Phone [phone] Care Team Providers Care Hospice Home Health Aide Name Role Phone Betty Kay MD Primary Care Provider [phone] Reason for Visit * Reason Onset Date Comments Appointment 08/23/2023 Encounter Details Date Type Department Care Team (Late st Contact Info) Description 08/23/2023 Telephone Endocrinology, [place] [address] [place] [address] Virgen Kasper PA-C [address] [place] [address] Appointment Allergies Active Allergy Reactions Criticality Noted Date Comments Codeine Hives 01/24/2023 Robitussin with codeine Hydrocodone 08/13/2018 Hives Guaifenesin Hives 01/24/2023 documented as of this encounter (statuses as of 08/23/2023) Medications Medication Sig Dispensed Refills Start Date End Date Status OneTouch Verio In Vitro Strip (Glucose Blood) Use as directed 4 times a day as needed for Hyperglycemia (high sugar) or Hypoglycemia (low sugar). Use up to four times a day as directed 400 Strip 3 11/02/2022 Active OneTouch Delica Plus [id number] For testing glucose 4 times daily. E11.9 400 Each 3 11/02/2022 Active Dexcom G6 Sensor Use as directed. 9 Each 3 11/02/2022 Active Dexcom G6 Transmitter Use as directed. 1 Each 4 11/02/2022 Active Insulin Aspart 100 UNIT/ML Injection [...] suspected hypoglycemia 0.4 mL 11 12/08/2022 Active Protective Barrier Wipes Use under insulin pump adhesive sites 50 Each 11 12/08/2022 Active buPROPion HCl ER (XL) 150 MG Oral Tablet Extended Release 24 Hour (Wellbutrin XL) Take 1 Tablet by mouth in the morning. 90 Tablet 1 03/10/2023 Active Additional Information Patient taking differently:150 mg Oral Daily(AM),Pt hasn't started yet, Reported on 03/24/2023 [employer] Verio w/Device Kit Use up to 4 times a day E11.9 1 Kit 03/10/2023 Active Omnipod 5 G6 Pod (Gen 5)Indications:Type 1 diabetes mellitus without complication (HCC) Use as directed. Change pod every 3 days. 50 Each 3 03/24/2023 Active documented as of this encounter (statuses as of 08/23/2023) Active Problems Problem Noted Date Diagnosed Date Major depressive disorder, single episode, moder ate 07/10/2023 JUAN PABLO (generalized anxiety disorder) 03/10/2023 Depression with anxiety 03/10/2023 Insulin pump titration 03/08/2022 Subclinical hypothyroidism 10/21/2021 History of seizure disorder 10/21/2021 Food insecurity 02/15/2021 Overview: Per [facility] Protocol ADHD (attention deficit hype ractivity disorder), combined type 02/09/2021 Tobacco use disorder 01/28/2021 Type 1 diabetes mellitus without complication documented as of this encounter (statuses as of 08/23/2023) Resolved Problems Problem Noted Date Diagnosed Date Resolved Date Nonintractable epilepsy with out status epilepticus 03/10/2023 03/10/2023 DM type 1, not at goal 03/08/202203/10 Type 2 diabetes mellitus without complication 02/23/1902/23/2022 Temporal arteritis 02/09/2021 Overview: Reported by pt around 2016 Seizure disorder 02/09/2021 10/21/2021 Overview: Last seizure at age 19 documented as of this encounter (statuses as of 08/23/2023) Immunizations Name Administration Dates Next Due Seasonal [...] encounter Miscellaneous Notes * Telephone Encounter - Luann Hinkle OSA - 08/23/2023 9:16 AM EDT LMAM for pt to schedule overdue follow-up appt. Left number for Scheduling documented in this encounter Plan of Treatment Upcoming Encounters Date Type Department Care Team (Late st Contact Info) Description 10/06/2023 11:00 AM EDT Telemedicine Endocrinology Aliy[address] [place] [address] Aliyah, Pharmacist Endocrinology [address] [facility] [place] [address] 10/10/2023 1:20 PM EDT Office Visit [facility] [address] [place] [address] Betty Kay MD [address] [place] [address] Health Maintenance Due Date Last Done Comments DISCUSS TOBACCO CESSATION (REFER TO SMARTSET #[id number]) 1975 Pneumococcal Vaccine: Pediatrics (0 to 5 Years) and At-Risk Patients (6 to 64 Years) (1 of 2 - PCV) 12/30/1983 HIV Screening 1992 Hepatitis C Screening 12/30/1995 Hepatitis B Vaccine (1 of 3 - 19+ 3-dose series) 1996 Albumin/Creatinine Ratio 05/21/2022 05/21/2021 Depression Monitoring 05/21/2022 05/21/2021 COVID-19 Vaccine ( - 2022- season) 2022 06/04/2020, 05/14/2020 Cologuard 2022 Colonoscopy 2022 Colorectal Cancer Screening 2022 Fecal Occult Blood Test 2022 Sigmoidoscopy 2022 HbA1c 09/22/2023 03/24/2023, 02/08, 10/21/2021, Additional history exists Influenza Vaccine (FLU shot) (#1) 2023 10/21/2021 Diabetic Eye Exam 12/09/2023 12/08/2022, 05/21/2021 Diabetic Foot Exam 12/09/2023 12/08/2022, 10/21/2021 GFR 03/24/2024 03/24/2023, 10/07, 05/21/2021, Additional history exists Lipid Panel 03/24/2028 03/24/2023, 10/07, 05/21/2021 DTaP,Tdap,and Td Vaccines (2 - Td or Tdap) 10/11/2028 10/11/2018, 05/13/1983 HPV (Gardasil) Vaccine Aged Out No lo nger eligible based on patient's age to complete this topic MENINGOCOCCAL (MENACTRA/MENVEO) Aged Out No longer eligible based on patient's age to complete this topic documented as of this encounter Medical Devices Not on filedocumented as of this encounter Care Teams Hospice Home Health Aide Relationship Specialty Start Date End Date Betty Kay MD [address] [place] [address] PCP - General Internal Medicine 11/03/21 documented as of this encounter
--- OUTSIDE RECORDS SUMMARY | 2024-01-17 23:46 | External Medical Summary | Summary of Care ---
Author Name Unknown Organization [facility] Address [address] [place] [address] Phone [phone] Care Team Providers Care Concrete Swimming Pool Installer Name Role Phone Betty Kay MD Primary Care Provider [phone] Reason for Visit * Reason Onset Date Comments Appointment 08/22/2023 Encounter Details Date Type Department Care Team (Late st Contact Info) Description 08/22/2023 Telephone Endocrinology [address] [place] [address] Mayda Olsen, [facility] [address] [place] [address] Appointment Allergies Active Allergy Reactions Criticality Noted Date Comments Codeine Hives 01/24/2023 Robitussin with codeine Hydrocodone 08/13/2018 Hives Guaifenesin Hives 01/24/2023 documented as of this encounter (statuses as of 08/22/2023) Medications Medication Sig Dispensed Refills Start Date End Date Status OneTouch Verio In Vitro Strip (Glucose Blood) Use as directed 4 times a day as needed for Hyperglycemia (high sugar) or Hypoglycemia (low sugar). Use up to four times a day as directed 400 Strip 3 11/02/2022 Active OneTouch Delica Plus [id number] For testing glucose 4 times daily. E11.9 [...] Daily(AM),Pt hasn't started yet, Reported on 03/24/2023 [employer] Verio w/Device Kit Use up to 4 times a day E11.9 1 Kit 03/10/2023 Active Omnipod 5 G6 Pod (Gen 5)Indications:Type 1 diabetes mellitus without complication (HCC) Use as directed. Change pod every 3 days. 50 Each 3 03/24/2023 Active documented as of this encounter (statuses as of 08/22/2023) Active Problems Problem Noted Date Diagnosed Date [...] as of this encounter (statuses as of 08/22/2023) Resolved Problems Problem Noted Date Diagnosed Date Resolved Date Nonintractable epilepsy with out status epilepticus 03/10/2023 03/10/2023 DM type 1, not at goal 03/08/202203/10 Type 2 diabetes mellitus without complication 02/23/1902/23/2022 Temporal arteritis 02/09/2021 Overview: Reported by pt around 2016 Seizure disorder 02/09/2021 10/21/2021 Overview: Last seizure at age 19 documented as of this encounter (statuses as of 08/22/2023) Immunizations Name Administration Dates Next Due Seasonal [...] money to buy more. Often true 12/14/19 Within the past 12 months, t he [...] 12/13/2022 Does the household have a re gular [...] Notes * Telephone Encounter - Mayda Olsen RPh - 08/22/2023 3:06 PM EDT Please assist with scheduling a provider visit as soon as possible. Thanks documented in this encounter Plan of Treatment Upcoming Encounters Date Type Department Care Team (Late st Contact Info) Description 10/06/2023 11:00 AM EDT Telemedicine Endocrinology Aliy[address], [place] [phone] Aliyah, Pharmacist Endocrinology [address] [facility] [place] [address] 10/10/2023 1:20 PM EDT Office Visit [facility] [address] [place] [address] Betty Kay MD [address] [place] [address] Health Maintenance Due Date Last Done Comments DISCUSS TOBACCO CESSATION (REFER TO SMARTSET #[id number]) 1975 Pneumococcal Vaccine: Pediatrics (0 to 5 Years) and At-Risk Patients (6 to 64 Years) (1 of 2 - PCV) 12/30/1983 HIV Screening 1992 Hepatitis C Screening 12/30/1995 Hepatitis B Vaccine (1 of 3 - 19+ 3-dose series) 1996 Albumin/Creatinine Ratio 05/21/2022 05/21/2021 Depression Monitoring 05/21/2022 05/21/2021 COVID-19 Vaccine (3 - 2022- season) 2022 06/04/2020, 05/14/2020 Cologuard [...] filedocumented as of this encounter Care Teams Concrete Swimming Pool Installer Relationship Specialty Start Date End Date Betty Kay MD [address] [facility] [place] [address] PCP - General Internal Medicine 11/03/21 documented as of this encounter
--- OUTSIDE RECORDS SUMMARY | 2024-01-17 23:46 | External Medical Summary | Summary of Care ---
Author Name Unknown Organization [facility] Address [address] [place] [address] Phone [phone] Care Team Providers Care Boatbuilder Wood Name Role Phone Betty Kay MD Primary Care Provider Reason for Visit * Reason Comments Diabetes Follow-Up Dosage Adjustment In Person (Anticoag Cl inic) Encounter Details Date Type Department Care Team (Late st Contact Info) Description 08/22/2023 2:00 PM EDT Telemedicine Endocrinology Aliyah Fraga [address] [place] [address] Aliyah, Pharmacist Endocrinology [address] [place] [address] Type 1 diabetes mellitus with [...] Strip 3 11/02/2022 Active OneTouch Delica Plus [id number] For testing glucose 4 times daily. E11.9 [...] Daily(AM),Pt hasn't started yet, Reported on 03/24/2023 Travora NetworksTouch Verio w/Device Kit Use up to 4 [...] this encounter Progress Notes * Mayda Olsen, [facility] - 08/22/2023 1:46 PM EDT Images from the original note were not included. Patient location: HOME. I was in a hospital or clinic location. After connecting through televideo,patient was verified with two unique identifiers. Patient (or authorized legal technology sales representative) was then informed that this was a Telemedicine visit and being conducted confidentially over secure lines. Methods to assure confidentiality were taken. Patient acknowledged consent and understanding of pr ivacy and security of the Telemedicine visit. The patient agreed to participate. Medication Therapy Disease Management - CSII Follow-up Interval History: Eleuterio Armas is an 47 year old year old male returning to the [facility] for a diabetes insulin pump follow-up visit. Diagnosed with DENNY, treated as T1DM September 2020. Using OP5 + Dexcom G6. Update today, 08/21: Fearful of lows which is holding patient back from entering carbs into the pump. States he has tried SkinTac and overpatches for the pods and they continue to fall off prematurely. Current Diabetes Medications: Insulin Instructions Omnipod 5 insulin aspart 100 UNIT/ML injection (NovoLOG) Last edited by Mayda Olsen [facility] on 08/22/2023 at 2:50 PM Basal Rate Total Basal Dose: 0 units/day Time units/hr 12:00 AM 0 Blood Glucose Target Time mg/dL 12:00 AM 120 - 140 Sensitivity Factor Time mg/dL/unit 12:00 AM 50 Carb Ratio Time g/unit 12:00 AM 15 After video visit was disconnected, I noticed there is no basal rate set in the pump and max basal rate is set to 0.05 units/hour: Blood Glucose Review: Hypoglycemia Assessment: 1. Do you know what the symptoms of hypoglycemia are? Yes 2. How often can you tell by your symptoms if your blood sugar is low? Often 3. In a typical week, how many times will your blood sugar go below 70 mg/dL? occasionally Patient Active Problem List Diagnosis Tobacco use [...] directed 400 Strip 3 OneTouch Delica Plus [id number] For testing glucose 4 times daily. E11.9 400 Each 3 Dexcom G6 Sensor Use as directed. 9 Each 3 Dexcom G6 Transmitter Use as directed. 1 Each 4 Insulin Aspart 100 UNIT/ML Injection Solution (NovoLOG) [...] due to suspected hypoglycemia 0.4 mL 11 Protective Barrier Wipes Use under insulin pump adhesive sites 50 Each 11 buPROPion HCl ER (XL) 150 MG [...] pod every 3 days. 50 Each 3 No current facility-administered medications for this visit. Objective: The 10-year ASCVD risk score (Jason DK, et al., 2019) is: 10% Values used [...] 110/70 03/10/23 136/70 No components found for: "[id number]" No results found for: "MICROALBUMIN" Lab Results Component Value Date/Time LDL CHOLESTEROL (CALCULATED) - [email or web address] 113 03/24/2023 01:22 PM LDL CHOLESTEROL (DIRECT MEASURE) - [email or web address] 124 10/21/2021 12:26 PM Lab Results Component Value Date/Time ALT - [facility] 14 03/24/2023 01:22 PM ALT - [facility] 25 08/13/2018 11:16 AM Assessment & Plan: Glucose is uncontrolled and not at goal. Recommend using activity mode at all times of day to aid with fear of hypoglycemia Patient is not entering carbs into the pump prior to eating which is causing prolonged postprandialhyperglycemia including many times when glucoses are >400 for many hours. Stressed the importance of entering all carbs into the pump 15 minutes prior to eating. Educated on the use of [employer] sea to aid in carb counting. Patient states pods are falling off prematurely due to the hot weather outside and sweating - emailsent to Brandi Bassett for a guide on products that can help with this besides SkinTac and overpatches as patient already tried these. Encouraged patient to always carry pump supplies and insulin with him at all times and replace podsas soon as possible if one falls off. Had an in depth discussion with patient regarding complications of hyperglycemia including but not limited to DKA which can be life threatening, retinopathy, neuropathy, gastroparesis, kidney damage. No pump setting adjustments made today - need to focus on behavioral changes first. Patient to SMBG at least 4 times daily, before each meal and at bedtime. Patient aware to contact clinic if any hypoglycemia before next visit. Reviewed rule of 15s. Reviewed appropriate management of hyperglycemia as noted in pump start documentation. After our video call ended, I noticed there is no basal rate showing up on the pump report and max basal is set to 0.05 units/hr. Sent patient a [employer] message to clarify this. Diabetes Medications: Insulin Instructions Omnipod 5 insulin aspart 100 UNIT/ML injection (NovoLOG) Last edited by Mayda Olsen [facility] on 08/22/2023 at 2:50 PM Basal Rate Total Basal Dose: 0 units/day Time units/hr 12:00 AM 0 Blood Glucose Target Time mg/dL 12:00 AM 120 - 140 Sensitivity Factor Time mg/dL/unit 12:00 AM 50 Carb Ratio Time g/unit 12:00 AM 15 Return to Clinic: 6 weeks with myself via video. Needs provider visit. Sent TE to front counter attendant for assistance with scheduling. 10/06/2023 Aliyah, Pharmacist Endocrinology Mayda Olsen RP Clinical Pharmacist Medication Therapy Disease Management 08/22/2023, 1:46 PM documented in this encounter Plan of Treatment Upcoming Encounters Date Type Department Care Team (Late st Contact Info) Description 10/06/2023 11:00 AM EDT Telemedicine Endocrinology Aliyah [address]aga Dr [address] [place] [phone] Aliyah, Pharmacist Endocrinology [address] [place] [address] 10/10/2023 1:20 PM EDT Office Visit [facility] [address] [place] [address] Betty Kay MD [address] [place] [address] Scheduled Orders Name Type Priority Associated Diagnoses Orde r Schedule HEMOGLOBIN A1C Lab Routine Type 1 diabetes mellitus with hyperglycemia (HCC) Expected: 08/22/2023 (Approximate), Expires: 08/21/2024 ALBUMIN / CREATININE RATIO, URINE Lab Routine Type 1 diabetes mellitus with hyperglycemia (HCC) Expected: 08/22/2023 (Approximate), Expires: 08/21/2024 Health Maintenance Due Date Last Done Comments DISCUSS TOBACCO CESSATION (REFER TO SMARTSET #4825) 1977 Pneumococcal Vaccine: Pediatrics (0 to 5 Years) and At-Risk Patients (6 to 64 Years) (1 of 2 - PCV) 12/30/1983 HIV Screening 1992 Hepatitis C Screening 12/30/1995 Hepatitis B Vaccine (1 of 3 - 19+ 3-dose series) 1996 Albumin/Creatinine Ratio 05/21/2022 05/21/2021 Depression Monitoring 05/21/2022 05/21/2021 COVID-19 Vaccine (3 - 2022-24 season) 2022 06/04/2020, 05/14/2020 Cologuard 2022 Colonoscopy [...] uncontrolled documented in this encounter Care Teams Boatbuilder Wood Relationship Specialty Start Date End Date Betty Kay MD [address] [place] [id number] PCP - General Internal Medicine 11/03/21 documented as of this encounter
--- OUTSIDE RECORDS SUMMARY | 2024-01-17 23:46 | External Medical Summary | Summary of Care ---
Author Name Unknown Organization [facility] Address [address] [place] [address] Phone [phone] Care Team Providers Care Customer Technical Services Manager Name Role Phone Betty Kay MD Primary Care Provider [phone] Reason for Visit * Reason Onset Date Comments Medication Refill 11/16/2023 Encounter Details Date Type Department Care Team (Late st Contact Info) Description 11/16/2023 Refill [facility] [place] [address], [place] [phone] Domitila Do PA-C [address] [place] [address] Type 1 diabetes mellitus with [...] Strip 3 3 Active OneTouch Delica Plus [id number] For testing glucose 4 times daily. E11.9 [...] Daily(AM),Pt hasn't started yet, Reported on 03/24/2023 FXTrip w/Device Kit Use up to 4 times a day E11.9 1 Kit 4 Active Omnipod 5 G6 Pod (Gen 5)Indications:Type 1 diabetes mellitus without complication (HCC) Use as directed. Change pod every 3 days. 50 Each 3 4 Active Dexcom G6 SensorIndications: Type 1 diabetes mellitus with hyperglycemia (HCC) Use as directed. Change every 10 days. 9 Each 1 4 Active Dexcom G6 TransmitterIndicat ions:Type 1 diabetes mellitus with hyperglycemia (HCC) Use as directed. Change every 90 days. 1 Each 1 4 Active Dexcom G6 Sensor Use as directed. 9 Each 3 3 11/16/19 24 Discontinu ed(Refill) Dexcom G6 Transmitter Use as directed. 1 Each 4 3 11/16/19 24 Discontinu ed(Refill) Protective Barrier Wipes Use under insulin pump [...] disorder 10/21/2021 Food insecurity 02/15/2021 Overview: Per [facility] Protocol ADHD (attention deficit hype ractivity disorder), combined type 02/09/2021 Tobacco use disorder 01/28/2021 Type 1 diabetes mellitus without complication documented as of this encounter (statuses as of 11/16/2023) Resolved Problems Problem Noted Date Diagnosed Date Resolved Date Nonintractable epilepsy with out status epilepticus 03/10/2023 03/10/2023 DM type 1, not at goal 03/08/202203/10 Type 2 diabetes mellitus without complication 02/23/19 23 02/23/2022 Temporal arteritis 02/09/2021 Overview: Reported by pt [...] Encounter - Leanne Sidhu CRNP - 11/16/2023 10:55 AM EDTSigned Prescriptions: Disp Refills Dexcom G6 Sensor 9 Each 1 Sig: Use as directed. Change every 10 days. Authorizing Provider: LEANNE SIDHU Dexcom G6 Transmitter 1 Each 1 Sig: Use as directed. Change every 90 days. Authorizing Provider: LEANNE SIDHU * Telephone Encounter - Sue Weber CMA - 11/16/2023 9:53 AM EDTPending Prescriptions: Disp Refills Dexcom G6 Sensor 9 Each 1 Sig: Use as directed. Change every 10 days. Dexcom G6 Transmitter 1 Each 1 Sig: Use as directed. Change every 90 days. * Telephone Encounter - Sue Weber CMA - 11/16/2023 9:38 AM EDTPending Prescriptions: Disp Refills Dexcom G6 Sensor 9 Each 1 Sig: Use as directed. Change every 10 days. Dexcom G6 Transmitter 1 Each 1 Sig: Use as directed. Change every 90 days. * Telephone Encounter - Sue Weber CMA - 11/16/2023 9:13 AM EDT This medication has been pended for renewal in accordance with our office medication renewal policy. Pending Prescriptions: Disp Refills Dexcom G6 Sensor 9 Each 1 Sig: Use as directed. Change every 10 days. Dexcom G6 Transmitter 1 Each 1 Sig: Use as directed. Change every 90 days. 03/08/2022 (in office), 02/15/2023 (telemedicine) Visit date not found If no future appointments scheduled, and last appointment is greater than a year ago, please schedule patient for a follow-up appointment Last date the medication was ordered: 11/02/2022 Pharmacy: [facility] [id number] Labs: Lab Results Component Value Date/Time CREATININE - [facility] 0.9 03/24/2023 01:22 PM CREATININE - [facility] 0.90 09/10/2020 12:00 AM CREATININE - [facility] 1.0 08/13/2018 11:16 AM CREATININE, RANDOM URINE - [facility] 98 05/21/2021 12:03 PM No components found for: "E G" * Telephone Encounter - Petra Rome OSA - 11/16/2023 8:01 AM EDTPending Prescriptions: Disp Refills Dexcom G6 Sensor 9 Each 3 Sig: Use as directed. Dexcom G6 Transmitter 1 Each 4 Sig: Use as directed. documented in this encounter Plan of Treatment Upcoming Encounters Date Type Department Care Team (Late st Contact Info) Description 12/08/2023 8:00 AM EDT Telemedicine Endocrinology Aliyah [address]aga [address] [place] [phone] Aliyah, Pharmacist Endocrinology [address] [place] [facility] [place] [address] Health Maintenance Due Date Last Done Comments DISCUSS TOBACCO CESSATION (REFER TO SMARTSET #9707) 1975 Pneumococcal Vaccine: Pediatrics (0 to 5 [...] uncontrolled documented in this encounter Care Teams Customer Technical Services Manager Relationship Specialty Start Date End Date Betty Kay MD [address] [place] [address] PCP - General Internal Medicine 11/03/21 documented as of this encounter
--- OUTSIDE RECORDS SUMMARY | 2024-01-17 23:46 | External Medical Summary | Summary of Care ---
Author Name Unknown Organization [facility] Address [address] [place] [address] Phone [phone] Care Team Providers Care Social Media Content Specialist Name Role Phone Betty Kay MD Primary Care Provider [phone] Reason for Visit * Reason Onset Date Comments case management 08/25/2023 Encounter Details Date Type Department Care Team (Late st Contact Info) Description 08/25/2023 Telephone Care Coordination and Integration [address] [place], [place] [id number] Miladis Cohen RN [address] [place] [address] case management Allergies Active Allergy Reactions Criticality Noted Date Comments Codeine Hives 01/24/2023 Robitussin with codeine Hydrocodone 08/13/2018 Hives Guaifenesin Hives 01/24/2023 documented as of this encounter (statuses as of 08/25/2023) Medications Medication Sig Dispensed Refills Start Date End Date Status OneTouch Verio In Vitro Strip (Glucose Blood) Use as directed 4 times a day as needed for Hyperglycemia (high sugar) or Hypoglycemia (low sugar). Use up to four times a day as directed 400 Strip 3 11/02/2022 Active OneTouch Delica Plus [id number] For testing glucose 4 times daily. E11.9 400 Each 3 11/02/2022 Active Dexcom G6 Sensor Use as directed. 9 Each 11/02/2022 Active Dexcom G6 Transmitter Use as [...] Daily(AM),Pt hasn't started yet, Reported on 03/24/2023 FrontoTouch Verio w/Device Kit Use up to 4 times a day E11.9 1 Kit 03/10/2023 Active Omnipod 5 G6 Pod (Gen 5)Indications:Type 1 diabetes mellitus without complication (HCC) Use as directed. Change pod every 3 days. 50 Each 3 03/24/2023 Active documented as of this encounter (statuses as of 08/25/2023) Active Problems Problem Noted Date Diagnosed Date Major depressive disorder, single episode, moder ate 07/10/2023 JUAN PABLO (generalized anxiety disorder) 03/10/2023 Depression with anxiety 03/10/2023 Insulin pump titration 03/08/2022 Subclinical hypothyroidism 10/21/2021 History of seizure disorder 10/21/2021 Food insecurity 02/15/2021 Overview: Per [facility] Protocol ADHD (attention deficit hype ractivity disorder), combined type 02/09/2021 Tobacco use disorder 01/28/2021 Type 1 diabetes mellitus without complication documented as of this encounter (statuses as of 08/25/2023) Resolved Problems Problem Noted Date Diagnosed Date Resolved Date Nonintractable epilepsy with out status epilepticus 03/10/2023 03/10/2023 DM type 1, not at goal 03/08/202203/10 Type 2 diabetes mellitus without complication 02/23/1902/23/2022 Temporal arteritis 02/09/2021 Overview: Reported by pt around 2016 Seizure disorder 02/09/2021 10/21/2021 Overview: Last seizure at age 19 documented as of this encounter (statuses as of 08/25/2023) Immunizations Name Administration Dates Next Due Seasonal [...] encounter Miscellaneous Notes * Telephone Encounter - Miladis Cohen RN - 08/25/2023 10:06 AM EDT Please discharge the patient from [facility] ([facility]). Device(s)/IVR to be discontinued: pdivr calls due to completion. Thank you. documented in this encounter Plan of Treatment Upcoming Encounters Date Type Department Care Team (Late st Contact Info) Description 10/06/2023 11:00 AM EDT Telemedicine Endocrinology Aliyah [address]aga [address] [place], [place] [address] Aliyah, Pharmacist Endocrinology [address] [facility] [place] [address] 10/10/2023 1:20 PM EDT Office Visit [facility] [address] [place] [address] Betty Kay MD [address] [place] [address] Health Maintenance Due Date Last Done Comments DISCUSS TOBACCO CESSATION (REFER TO SMARTSET #1013) 1975 Pneumococcal Vaccine: Pediatrics (0 to 5 [...] filedocumented as of this encounter Care Teams Social Media Content Specialist Relationship Specialty Start Date End Date Betty Kay MD [address] [place] [address] PCP - General Internal Medicine 11/03/21 documented as of this encounter
--- OUTSIDE RECORDS SUMMARY | 2024-01-17 23:46 | External Medical Summary | Summary of Care ---
Author Name Unknown Organization [facility] Address [address] [place] [address] Phone [phone] Care Team Providers Care Manhole Builder Name Role Phone Betty Kay MD Primary Care Provider Reason for Visit * Reason Onset Date Comments Health Maintenance 09/22/2023 Encounter Details Date Type Department Care Team (Late st Contact Info) Description 09/22/2023 Telephone [facility] [address] [place] [address] Betty Kay MD [address] [place] [address] Health Maintenance Allergies Active Allergy Reactions Criticality Noted Date Comments Codeine Hives 01/24/2023 Robitussin with codeine Hydrocodone 08/13/2018 Hives Guaifenesin Hives 01/24/2023 documented as of this encounter (statuses as of 09/22/2023) Medications Medication Sig Dispensed Refills Start Date End Date Status OneTouch Verio In Vitro Strip (Glucose Blood) Use as directed 4 times a day as needed for Hyperglycemia (high sugar) or Hypoglycemia (low sugar). Use up to four times a day as directed 400 Strip 3 11/02/2022 Active OneTouch Delica Plus [id number] For testing glucose 4 times daily. E11.9 [...] Daily(AM),Pt hasn't started yet, Reported on 03/24/2023 [employer] w/Device Kit Use up to 4 times a day E11.9 1 Kit 03/10/2023 Active Omnipod 5 G6 Pod (Gen 5)Indications:Type 1 diabetes mellitus without complication (HCC) Use as directed. Change pod every 3 days. 50 Each 3 03/24/2023 Active documented as of this encounter (statuses as of 09/22/2023) Active Problems Problem Noted Date Diagnosed Date [...] as of this encounter (statuses as of 09/22/2023) Resolved Problems Problem Noted Date Diagnosed Date Resolved Date Nonintractable epilepsy with out status epilepticus 03/10/2023 03/10/2023 DM type 1, not at goal 03/08/202203/10 Type 2 diabetes mellitus without complication 02/23/1902/23/2022 Temporal arteritis 02/09/2021 Overview: Reported by pt around 2016 Seizure disorder 02/09/2021 10/21/2021 Overview: Last seizure at age 19 documented as of this encounter (statuses as of 09/22/2023) Immunizations Name Administration Dates Next Due Seasonal [...] encounter Miscellaneous Notes * Telephone Encounter - Holly Gee LPN - 09/22/2023 10:05 AM EDT Care Gaps Comprehensive Care Outreach Last Office/Telemedicine Visit: 07/10/2023 (in office), 07/21/2021 (telemedicine) Next Office Visit: 10/10/2023 Hemoglobin AIC Results: Lab Results Component Value Date/Time HEMOGLOBIN A1C - [facility] 9.7 (H) 03/24/2023 01:22 PM HEMOGLOBIN A1C - [facility] 8.5 (H) 10/21/2021 12:26 PM HEMOGLOBIN A1C - [facility] 6.5 (H) 05/21/2021 12:03 PM HEMOGLOBIN A1C - [facility] 5.5 08/13/2018 11:16 AM HEMOGLOBIN A1C POCT - [facility] 8.0 (H) 03/08/2022 03:23 PM BP Readings from Last 1 Encounters: 07/10/23 128/86 Reviewed Health Maintenance below: Health Maintenance Topic Date Due DISCUSS TOBACCO CESSATION (REFER TO SMARTSET #8306) Never done Pneumococcal Vaccine: Pediatrics (0 to 5 Years) and At-Risk Patients (6 to 64 Years) (1 of 2 - PCV)Never done HIV Screening Never done Hepatitis C Screening Never done Hepatitis B Vaccine (1 of 3 - 19+ 3-dose series) Never done Albumin/Creatinine Ratio 05/21/2022 Depression Monitoring 05/21/2022 COVID-19 Vaccine ( - 2022-24 season) 2022 Colorectal Cancer Screening Never done HbA1c 09/22/2023 Influenza Vaccine (FLU shot) (1) 10/08/2023 Diabetic Eye Exam 12/09/2023 Diabetic Foot Exam 12/09/2023 Cologuard follow Labs already ordered Care Gap Outreach Action Taken: [employer] message sent documented in this encounter Plan of Treatment Upcoming Encounters Date Type Department Care Team (Late st Contact Info) Description 10/06/2023 11:00 AM EDT Telemedicine Endocrinology Aliyah [address]aga [address] [place] [phone] Aliyah, Pharmacist Endocrinology [address] [facility] [place] [address] 10/10/2023 1:20 PM EDT Office Visit [facility] [address] [place] [phone] Betty Kay MD [address] [place] [address] Health Maintenance Due Date Last Done Comments DISCUSS TOBACCO CESSATION (REFER TO SMARTSET #0850) 1975 Pneumococcal Vaccine: Pediatrics (0 to 5 [...] filedocumented as of this encounter Care Teams Manhole Builder Relationship Specialty Start Date End Date Betty Kay MD [address] [place] [address] PCP - General Internal Medicine 11/03/21 documented as of this encounter
[2024-01-18] MEDS ORDERED: INSULIN ASPART PER UNIT CHARGE SC SCH
[2024-01-18] MEDS: INSULIN ASPART PER UNIT CHARGE SC SCH (00:09)
[2024-01-18 06:21] LABS: Hematocrit (blood only) 38.9 % (42.0-52.0); Hemoglobin 13.4 g/dl (14.0-18.0); Mean Corpuscular Hemoglobin 28.2 pg (25.0-34.0); Mean Corpuscular Hgb Conc 34.4 g/dL (32.0-36.0); Mean Corpuscular Volume 81.9 fL (80.0-100.0); Mean Platelet Volume 9.7 fL (9.4-12.4); Platelet Count 313 K/uL (130-400); RDW Standard Deviation 35.6 fL (36.4-46.3); Red Blood Count 4.75 M/uL (4.70-6.10); White Blood Count 10.81 K/ul (4.8-10.8)
[2024-01-18 06:48] LABS: BUN Creatinine Ratio 24.1 (10-20); Calcium 8.8 mg/dl (8.6-10.3); Creatinine Clr Calc Pharmacy 92.3 ml/min; Magnesium 1.8 mg/dl (1.7-2.4); Phosphorus 3.3 mg/dl (2.5-4.9); Potassium 3.7 mmol/L (3.5-5.1)
--- OUTSIDE RECORDS SUMMARY | 2024-01-18 11:56 | External Medical Summary | Summary of Care ---
Author Name Unknown Organization [facility] Address [address] [place] [address] Phone [phone] Care Team Providers Care Biscuit Packer Name Role Phone Betty Kay MD Primary Care Provider [phone] Reason for Visit * Reason Onset Date Comments Medication Refill 01/13/2024 Encounter Details Date Type Department Care Team (Late st Contact Info) Description 01/13/2024 Refill [facility] [address] [place], [place] [id number] Domitila Do PA-C [address] [place] [address] Type 1 diabetes mellitus without complication (HCC); Insulin pump titration Allergies Active Allergy Reactions Criticality Noted Date Comments Codeine Hives 01/24/2023 Robitussin with codeine Hydrocodone 08/13/2018 Hives Guaifenesin Hives 01/24/2023 documented as of this encounter (statuses as of 01/16/2024) Medications OneTouch Verio In Vitro Strip (Glucose Blood) Use as directed 4 times a day as needed for Hyperglycemia (high sugar) or Hypoglycemia (low sugar). Use up to four times a day as directed 400 Strip 3 11/03/19 Active OneTouch Delica Plus [id number] For testing glucose 4 times daily. E11.9 400 Each 3 11/03/19 Active Insulin Aspart 100 UNIT/ML Injection Solution (NovoLOG) For insulin pump 100 units daily. 100 mL 12 12/08/19 23 Active Gvoke HypoPen 2-Pack 1 MG/0.2ML Subcutaneous Solution Auto-injector (Glucagon)Indica tions:Insulin pump titration,Type 1 diabetes mellitus without complication (HCC) Inject 1.0 mg under the skin of belly/thigh or upper arm as needed for unresponsiveness due to suspected hypoglycemia 0.4 mL 11 12/09/19 23 Active buPROPion HCl ER (XL) 150 MG Oral Tablet Extended Release 24 Hour (Wellbutrin XL) Take 1 Tablet by mouth in the morning. 90 Tablet 1 03/10/19 24 Active Additional Information Patient taking differently:150 mg Oral Daily(AM),Pt hasn't started yet, Reported on 03/24/2023 [employer] Verio w/Device Kit Use up to 4 times a day E11.9 1 Kit 03/10/19 24 Active Dexcom G6 SensorIndication s:Type 1 diabetes mellitus with hyperglycemia (HCC) Use as directed. Change every 10 days. 9 Each 1 11/16/19 24 Active Dexcom G6 TransmitterIndic ations:Type 1 diabetes mellitus with hyperglycemia (HCC) Use as directed. Change every 90 days. 1 Each 1 11/16/19 24 Active Omnipod 5 [id number] Pods Gen 5Indications:Typ e 1 diabetes mellitus without complication (HCC) Use as directed. Change pod every 3 days. 50 Each 3 01/16/20 24 Active Insulin Glargine Solostar 100 UNIT/ML Subcutaneous Solution Pen-injector Injected under the skin, ONE time(s) per day: 22 units. TDD:22 units ICD10: E10.9 15 mL 1 01/16/20 24 Active Insulin Syringe-Needle U-100 31G X 5/16" 0.3 ML (B-D INSULIN SYRINGE ULTRAFINE) For pump back up: For injecting insulin 4 times daily. E10.9 200 Each 1 01/16/20 24 Active Insulin Pen Needle 31G X 4 MMIndications:Ty pe 1 diabetes mellitus without complication (HCC),Insulin pump titration Use as directed. FOR PUMP BACK UP: Use 1 with each insulin injection up to 5 times per day 200 Each 1 01/16/20 24 Active Insulin Glargine Solostar 100 UNIT/ML Subcutaneous Solution Pen-injector Injected under the skin, ONE time(s) per day:18 units. TDD:18 units ICD10: E10.9 15 mL 1 12/08/19 23 2023 Disconti nued(Ref ill) Insulin Syringe-Needle U-100 31G X 5/16" 0.3 ML (B-D INSULIN SYRINGE ULTRAFINE) For pump back up: For injecting insulin 4 times daily. E10.9 200 Each 1 12/08/19 23 2023 Disconti nued(Ref ill) Insulin Pen Needle 31G X 4 MMIndications:In sulin pump titration,Type 1 diabetes mellitus without complication (HCC) Use as directed. FOR PUMP BACK UP: Use 1 with each insulin injection up to 5 times per day 200 Each 1 12/09/19 23 2023 Disconti nued(Ref ill) Omnipod 5 G6 Pod (Gen 5)Indications:Ty pe 1 diabetes mellitus without complication (HCC) Use as directed. Change pod every 3 days. 50 Each 3 03/24/19 24 2023 Disconti nued(Ref ill) Protective Barrier Wipes Use under insulin pump adhesive sites. 50 Each 5 11/16/19 24 2023 Disconti nued(Ref ill) documented as of this encounter (statuses as of 01/16/2024) Active Problems Problem Noted Date Diagnosed Date Major depressive disorder, single episode, moder ate 07/10/2023 JUAN PABLO (generalized anxiety disorder) 03/10/2023 Depression with anxiety 03/10/2023 Insulin pump titration 03/08/2022 Subclinical hypothyroidism 10/21/2021 History of seizure disorder 10/21/2021 Food insecurity 02/15/2021 Overview: Per [facility] Protocol ADHD (attention deficit hype ractivity disorder), combined type 02/09/2021 Tobacco use disorder 01/28/2021 Type 1 diabetes mellitus without complication documented as of this encounter (statuses as of 01/16/2024) Resolved Problems Problem Noted Date Diagnosed Date Resolved Date Nonintractable epilepsy with out status epilepticus 03/10/2023 03/10/2023 DM type 1, not at goal 03/08/202203/10 Type 2 diabetes mellitus without complication 02/23/19 23 02/23/2022 Temporal arteritis 02/09/2021 Overview (02/09/2021): Reported by pt around 2016 Seizure disorder 02/09/2021 10/21/2021 Overview (02/09/2021): Last seizure at age 19 documented as of this encounter (statuses as of 01/16/2024) Immunizations Name Administration Dates Next Due Seasonal [...] 12/08/2023 Transportation Needs Answer Date Record ed Do you have trouble getting a ride to medical visits or work? (Adult - for ages 18 years and over) Not on file 12/08/2023 Does your family have a hard [...] place to sleep at night? No 12/08/2023 Do you think you are at risk of becoming homeless? (Adult - for ages 18 years and over) Not on file 12/08/2023 Does your family worry about paying [...] Assigned at Male 10/21/2021 11:14 AM EDT Legal Sex Male 5:14 AM EST Gender Identity Male 10/21/2021 11:14 AM EDT Sexual Orientation Straight 10/21/2021 11 :14 AM EDT documented as of this encounter Miscellaneous Notes * Telephone Encounter - Kj Kasper PA-C - 01/16/2024 11:25 AM EST Signed Prescriptions: Disp Refills Omnipod 5 [id number] Pods Gen 5 50 Each3 Sig: Use as directed. Change pod every 3 days.Authorizing Provider: KJ KASPER Insulin Glargine Solostar 100 UNIT/MLSubc*15 mL 1 Sig: Injected under the skin, ONE time(s) per day: 22 units. TDD:22 units ICD10: E10.9Authorizing Provider: KJ KASPER Insulin Syringe-Needle U-100 31G X 5/16" 0*200 Ea*1 Sig: For pump back up: For injecting insulin 4 times daily. E10.9Authorizing Provider:KJ KASPER Insulin Pen Needle 31G X 4 MM 200 Ea*1 Sig: Use as directed. FOR PUMP BACK UP: Use 1 with each insulin injection up to 5 times per dayAuthorizing Provider: KJ KASPER----- * Telephone Encounter - Alexandria Fuentes CMA - 01/16/2024 10:13 AM ESTPending Prescriptions: Disp Refills Omnipod 5 [id number] Pods Gen 5 50 Each3 Sig: Use as directed. Change pod every 3 days. * Telephone Encounter - Alexandria Fuentes CMA - 01/16/2024 10:12 AM EST Pending Prescriptions: Disp Refills Omnipod 5 [id number] Pods Gen 5 50 Each3 Sig: Use as directed. Change pod every 3 days. 03/08/2022 (in office), 02/15/2023 (telemedicine) Visit date not found If no future appointments scheduled, and last appointment is greater than a year ago, please schedule patient for a follow-up appointment Last date the medication was ordered: 03/24/23 [facility]acy: [facility] [address] [address] Labs: Lab Results Component Value Date/Time CREATININE - [facility] 0.9 03/24/2023 01:22 PM CREATININE - [facility] 0.90 09/10/2020 12:00 AM CREATININE - [facility] 1.0 08/13/2018 11:16 AM CREATININE, RANDOM URINE - [facility] 98 05/21/2021 12:03 PM No components found for: "E G" * Telephone Encounter - Petra Rome OSA - 01/15/2024 8:10 AM ESTPending Prescriptions: Disp Refills Omnipod 5 [id number] Pods Gen 5 50 Each3 Sig: Use as directed. Change pod every 3 days. documented in this encounter Plan of Treatment Upcoming Encounters Date Type Department Care Team (Late st Contact Info) Description 06/07/2024 8:00 AM EDT Telemedicine Endocrinology Aliyah [address] [place] [phone] Aliyah, Pharmacist Endocrinology [address] [facility] [place] [address] Health Maintenance Due Date Last Done Comments DISCUSS TOBACCO CESSATION (REFER TO SMARTSET #1433) 1975 Pneumococcal Vaccine: Pediatrics (0 to 5 [...] Visit Diagnoses Diagnosis Type 1 diabetes mellitus without complication (HCC) Type I (juvenile type) diabetes mellitus without mention of complication, not stated as uncontrolled Insulin pump titration Fitting and adjustment of insulin pump documented in this encounter Care Teams Biscuit Packer Relationship Specialty Start Date End Date Betty Kay MD [address] [place] [address] PCP - General Internal Medicine 11/03/21 documented as of this encounter
--- OUTSIDE RECORDS SUMMARY | 2024-01-18 11:57 | External Medical Summary | Summary of Care ---
Author Name Unknown Organization [facility] Address [address] [place] [address] Phone [phone] Care Team Providers Care Air Quality Manager Name Role Phone Betty Kay MD Primary Care Provider [phone] Reason for Visit * Reason Onset Date Comments Medication Refill 01/13/2024 Encounter Details Date Type Department Care Team (Late st Contact Info) Description 01/13/2024 Refill [facility] [address] [place] [address] Leanne Sidhu CRNP [address], [place] [id number] Allergies Active Allergy Reactions Criticality Noted Date [...] Strip 3 11/03/19 Active OneTouch Delica Plus [id number] For testing glucose 4 times daily. E11.9 400 Each 11/03/19 Active Insulin Aspart 100 UNIT/ML Injection Solution (NovoLOG) For insulin pump 100 units daily. 100 mL 12 12/08/19 Active Insulin Glargine Solostar 100 UNIT/ML Subcutaneous Solution Pen-injector Injected under the skin, ONE time(s) per day:18 units. TDD:18 units ICD10: E10.9 15 mL 1 12/08/19 Active Insulin Syringe-Needle U-100 31G X 5/16" 0.3 ML (B-D INSULIN SYRINGE ULTRAFINE) For pump back up: For injecting insulin 4 times daily. E10.9 200 Each 1 12/08/19 Active Insulin Pen Needle 31G X 4 MMIndications:In sulin pump titration,Type 1 diabetes mellitus without complication (HCC) Use as directed. FOR PUMP BACK UP: Use 1 with each insulin injection up to 5 times per day 200 Each 1 12/09/19 Active Gvoke HypoPen 2-Pack 1 MG/0.2ML Subcutaneous Solution Auto-injector (Glucagon)Indica tions:Insulin pump titration,Type 1 diabetes mellitus without complication (HCC) Inject 1.0 mg under the skin of belly/thigh or upper arm as needed for unresponsiveness due to suspected hypoglycemia 0.4 mL 11 12/09/19 Active buPROPion HCl ER (XL) 150 MG Oral Tablet Extended Release 24 Hour (Wellbutrin XL) Take 1 Tablet by mouth in the morning. 90 Tablet 1 03/10/19 Active Additional Information Patient taking differently:150 mg Oral Daily(AM),Pt hasn't started yet, Reported on 03/24/2023 OneTouch Verio w/Device Kit Use up to 4 times a day E11.9 1 Kit 03/10/19 Active Omnipod 5 G6 Pod (Gen 5)Indications:Ty pe 1 diabetes mellitus without complication (HCC) Use as directed. Change pod every 3 days. 50 Each 3 03/24/19 24 Active Dexcom G6 SensorIndication s:Type 1 diabetes mellitus with hyperglycemia (HCC) Use as directed. Change every 10 days. 9 Each 1 11/16/19 24 Active Dexcom G6 TransmitterIndic ations:Type 1 diabetes mellitus with hyperglycemia (HCC) Use as directed. Change every 90 days. 1 Each 1 11/16/19 24 Active Protective Barrier Wipes Use under insulin pump adhesive sites. 50 Each 5 01/16/20 24 Active Protective Barrier Wipes Use under insulin [...] mellitus without complication 02/23/1902/23/2022 Temporal arteritis 02/09/2021 Overview (02/09/2021): Reported by [...] Telephone Encounter - Leanne Sidhu CRNP - 01/16/2024 10:13 AM ESTSigned Prescriptions: Disp Refills Protective Barrier Wipes 50 Each5 Sig: Use under insulin pump adhesive sites. Authorizing Provider: LEANNE SIDHU * Telephone Encounter - Alexandria Fuentes CMA - 01/16/2024 10:12 AM ESTPending Prescriptions: Disp Refills Protective Barrier Wipes 50 Each5 Sig: Use under insulin pump adhesive sites. * Telephone Encounter - Alexandria Fuentes CMA - 01/16/2024 10:12 AM EST Pending Prescriptions: Disp Refills Protective Barrier Wipes 50 Each5 Sig: Use under insulin pump adhesive sites. 03/08/2022 (in office), 02/15/2023 (telemedicine) Visit date not found If no future appointments scheduled, and last appointment is greater than a year ago, please schedule patient for a follow-up appointment Last date the medication was ordered: 11/16/23 [facility]acy: [facility] [place] Labs: Lab Results Component Value Date/Time CREATININE - [facility] 0.9 03/24/2023 01:22 PM CREATININE - [facility] 0.90 09/10/2020 12:00 AM CREATININE - [facility] 1.0 08/13/2018 11:16 AM CREATININE, RANDOM URINE - [facility] 98 05/21/2021 12:03 PM No components found for: "E G" * Telephone Encounter - Petra Rome OSA - 01/15/2024 8:10 AM ESTPending Prescriptions: Disp Refills Protective Barrier Wipes 50 Each5 Sig: Use under insulin pump adhesive sites. documented in this encounter Plan of Treatment Upcoming Encounters Date Type Department Care Team (Late st Contact Info) Description 06/07/2024 8:00 AM EDT Telemedicine Endocrinology Aliyah [address] [place] [phone] Aliyah, Pharmacist Endocrinology [address] [facility] [place] [address] Health Maintenance Due Date Last Done Comments DISCUSS TOBACCO CESSATION (REFER TO SMARTSET #2318) 1975 Pneumococcal Vaccine: Pediatrics (0 to 5 [...] 10/21/2021, Additional history exists COVID-19 Vaccine ( - 2023- season) 2023 06/04/2020, 05/14/2020 Influenza Vaccine (FLU [...] filedocumented as of this encounter Care Teams Air Quality Manager Relationship Specialty Start Date End Date Betty Kay MD [address] [place] [address] PCP - General Internal Medicine 11/03/21 documented as of this encounter
--- NOTE | 2024-01-18 13:02 | Hospitalist Progress Note ---
Date of Service January 18, 2024 Assessment & Plan (1) Metabolic acidosis, increased anion gap: (2) DKA (diabetic ketoacidosis): (3) Mood disorder: (4) History of tobacco abuse: Plan: 58-year-old male with PMH of T1DM with insulin pump, tobacco use disorder, ADHD, h/o seizure disorder, JUAN PABLO, depression was brought to the ED (by his sister) with complaint of 2 days of vomiting, feeling sick to the stomach. He denied fever or cough or shortness of breath. He denied any pain. He reports running out of insulin pump supplies for about 1 week ago [employer]. He denied genitourinary pain. He denied facial pain. He is being managed for the following: Diabetic ketoacidosis Anion gap metabolic acidosis T1DM on insulin pump Patient noted to be in DKA at presentation. Cause: Ran out of insulin supplies. Patient did decline multiple lab studies needed during DKA protocol. Status post DKA protocol, anion gap has closed. Patient denies nausea, vomiting, abdominal pain. Labs reviwed in AM, Bl glucose has been widely variable - pt sneaking out to vending machines for snacks. pt encouraged to let RN know so that it can be covered w/ appropriate dose of insulin. development educator evaluated, patient is unable to get insulin pump supplies until February 2024. Will need basal/bolus insulin prior to discharge. Follow blood culture for preliminary results - So far negative growth.. Leukocytosis: UA negative for UTI, follow blood culture. Leukocytosis likely secondary to acute stress of DKA. WBC trending down. Patient has been afebrile. Elevated TSH: Follow up fT4, repeat TFT in 6 weeks. No need for thyroid replacement at present. Mood disorder: Not on home meds currently Tobacco use disorder: Smokes 10 cigarettes / day . Counselling for smoking cessation done. Nicotine patch ordered DVT Ppx: SQ heparin Code status: FULL PCP: Eliza Dispo: Admitted to PCU. Admission and Anticipated Discharge Date Admission Date: January 16, 2024 Subjective Patient was seen and examined at bedside. Patient seems more alert and awake, is on room air, resting comfortably, not in any acute distress. Patient has been noncompliant with ongoing medical care on and off. Per RN, patient sneaking out to vending machines multiple times a day. Patient encouraged to let RN know so that we can cover his carbs with insulin. His blood glucose level has been variable, will benefit with 1 more day for determining insulin requirements on discharge, patient agreeable. Patient denies nausea, vomiting or abdominal pain. Patient denies fever/sore throat/cough/chest pain. Physical Exam Physical Exam: GENERAL: Alert and oriented x3. on RA, NAD. HEENT: No pallor, no icterus. Pupils equal, round and reactive to light. Oral mucosa moist. Nasal turbinates/exam wnl. NECK: No JVD, no neck masses. HEART: S1 and S2 heard. Regular rate and rhythm. No murmur, no gallop. RESPIRATORY SYSTEM: Normal AP diameter. No accessory muscle use. No wheezing, no crackles. ABDOMEN: Soft, bowel sounds present, nontender, no distention. CENTRAL NERVOUS SYSTEM: No facial droop. Speech is clear. Obeys simple commands. Moves extremities. EXTREMITIES: No edema, no erythema seen. Results & Data Results & Data Vital Signs (Past 12 Hours) Vital Signs Temp Pulse Pulse Resp BP Pulse Ox O2 Del Method 01/18/24 11:51 36.7 C 86 18 105/75 99 Room Air 01/18/24 07:45 37.0 C 84 17 106/58 L 95 Room Air 01/18/24 07:00 73 01/18/24 02:45 36.6 C 63 18 100/66 98 Room Air
--- NOTE | 2024-01-18 13:11 | Pharmacy Report ---
Pharmacy Glycemic Short Note 2 - Date of Service January 18, 2024 - Glycemic Short BSG Results (Last 24 hours): 01/17/24 01/17/24 01/17/24 15:18 17:53 17:57 Glucose POC Glucose 286 H 552 H* 575 H* 01/17/24 01/17/24 01/17/24 19:04 20:12 23:53 Glucose 548 H* POC Glucose 386 H* 228 H 01/18/24 01/18/24 01/18/24 03:57 05:50 07:16 Glucose 368 H* POC Glucose 358 H* 321 H* 01/18/24 01/18/24 07:17 11:08 Glucose POC Glucose 336 H* 117 H OUTPATIENT ANTIDIABETIC REGIMEN: * Omnipod * Basal rate: 1 unit/hr X 24 hours * Bolus: 1:14 CR, CF: 50 for BSG > 150 * A1c: 11.3% 01/17/24 ASSESSMENT: 01/17 * Patient received 53 units of insulin yesterday, 20 of basal * BSGs elevated d/t uncovered food, difficult to determine true needs at this time * Will give 15 units of lantus this PM, adjust carb ratio- monitor 01/16 * 48-year-old male with PMH of type 1 diabetes with insulin pump who presented with vomiting x 2 days and was found to have DKA from reported noncompliance with insulin. Reportedly ran out of supplies 01/12. * Labs improved by yesterday evening and patient was transitioned off insulin infusion. Patient was subsequently ordered a diet at lunch today. * BSGs thus far today after drip transition and 10 units of Lantus last evenin-143-164 mg/dL. * During previous admission patient required a range of 10-30 units of basal insulin and was BSG was difficult to control. Patient did snack overnight as well. * Will order a scale tonight based on BSG to account for unknown PO intake today. PLAN FOR INPATIENT GLYCEMIC CONTROL: * Hold outpatient oral diabetes medications * Basal insulin * Lantus 15 units SQ HS * Bolus insulin * NovoLog per scale ACHS and 0000 check * Goal Range: Low 110 mg/dL - High 140 mg/dL * Correction Factor: 35 mg/dL/unit * Nutritional / Prandial insulin per carb ratio of 1 unit per 12 grams CHO consumed
[2024-01-18] MEDS: LANTUS PER UNIT CHARGE SC SCH (20:45)
[2024-01-19] MEDS: INSULIN ASPART PER UNIT CHARGE SC SCH (00:17)
[2024-01-19 02:50] VITALS: TEMP 97.7
[2024-01-19 06:45] LABS: Hematocrit (blood only) 38.9 % (42.0-52.0); Hemoglobin 13.4 g/dl (14.0-18.0); Mean Corpuscular Hemoglobin 28.4 pg (25.0-34.0); Mean Corpuscular Hgb Conc 34.4 g/dL (32.0-36.0); Mean Corpuscular Volume 82.4 fL (80.0-100.0); Mean Platelet Volume 10.2 fL (9.4-12.4); Platelet Count 277 K/uL (130-400); RDW Coefficient of Variation 12.2 % (11.5-14.5); RDW Standard Deviation 36.7 fL (36.4-46.3); Red Blood Count 4.72 M/uL (4.70-6.10); White Blood Count 9.89 K/ul (4.8-10.8)
[2024-01-19 07:10] LABS: BUN Creatinine Ratio 27.1 (10-20); Calcium 8.7 mg/dl (8.6-10.3); Creatinine Clr Calc Pharmacy 94.3 ml/min; Magnesium 1.7 mg/dl (1.7-2.4); Phosphorus 2.9 mg/dl (2.5-4.9); Potassium 4.2 mmol/L (3.5-5.1)
[2024-01-19 07:57] VITALS: BP 101/66; RESP 18; O2SAT 98
--- NOTE | 2024-01-19 11:01 | Discharge Summary ---
Date of Service January 19, 2024 Admission HPI Per Admitting Provider This is a 48-year-old male with PMH of type 1 diabetes with insulin pump, tobacco use disorder, ADHD, history of seizure disorder, JUAN PABLO, depression and other medical problems listed below who presents from home with vomiting x 2 days. Patient agitated and drowsy during interview so history is limited. He started feeling poorly over the weekend and has had nausea and vomiting for the past 2 days. Feels fatigued, has not smoked since Monday due to feeling poorly. Upon further questioning, admits he has been out of insulin for a week due to cost. Is not taking any other meds. Denies any fever, chills, recent URIs, chest pain, shortness of breath, abdominal pain, dysuria, diarrhea or constipation. Admission Exam Per Admitting Provider GENERAL: drowsy and oriented x3. on RA, appears ill/frail/sick. HEENT: No pallor, no icterus. Pupils equal, round and reactive to light. Oral mucosa dry. Nasal turbinates/exam wnl. NECK: No JVD, no neck masses. HEART: S1 and S2 heard. Regular rate and rhythm. No murmur, no gallop. RESPIRATORY SYSTEM: Normal AP diameter. No accessory muscle use. No wheezing, no crackles. ABDOMEN: Soft, bowel sounds present, nontender, no distention. CENTRAL NERVOUS SYSTEM: No facial droop. Speech is clear. Obeys simple commands. Moves extremities. EXTREMITIES: No edema, no erythema seen. : no lesions/redness/tenderness noted. Principal Diagnosis Diabetic ketoacidosis Anion gap metabolic acidosis T1DM on insulin pump Leukocytosis Elevated TSH Discharge Exam GENERAL: Alert and oriented x3. on RA, NAD. HEENT: No pallor, no icterus. Pupils equal, round and reactive to light. Oral mucosa moist. Nasal turbinates/exam wnl. NECK: No JVD, no neck masses. HEART: S1 and S2 heard. Regular rate and rhythm. No murmur, no gallop. RESPIRATORY SYSTEM: Normal AP diameter. No accessory muscle use. No wheezing, no crackles. ABDOMEN: Soft, bowel sounds present, nontender, no distention. CENTRAL NERVOUS SYSTEM: No facial droop. Speech is clear. Obeys simple commands. Moves extremities. EXTREMITIES: No edema, no erythema seen. Discharge Data Allergies Allergy/AdvReac Type Severity Reaction Status Date / Time hydrocodone Allergy Mild HIVES Verified 12/02/22 19:55 codeine Allergy Unknown Hives Verified 12/02/22 19:55 ethyl alcohol Allergy Unknown Hives Verified 01/16/24 14:32 Consultations 01/16/24 14:38 ED Decision to Admit Stat Hospital Course (1) Metabolic acidosis, increased anion gap: (2) DKA (diabetic ketoacidosis): (3) Mood disorder: (4) History of tobacco abuse: 58-year-old male with PMH of T1DM with insulin pump, tobacco use disorder, ADHD, h/o seizure disorder, JUAN PABLO, depression was brought to the ED (by his sister) with complaint of 2 days of vomiting, feeling sick to the stomach. He denied fever or cough or shortness of breath. He denied any pain. He reports running out of insulin pump supplies for about 1 week ago [employer]. He denied genitourinary pain. He denied facial pain. He was managed for the following: Diabetic ketoacidosis Anion gap metabolic acidosis T1DM on insulin pump Patient noted to be in DKA at presentation. Cause: Ran out of insulin supplies. Patient did decline multiple lab studies needed during DKA protocol. Status post DKA protocol, anion gap has closed. Patient denies nausea, vomiting, abdominal pain. Labs reviewed in AM, Bl glucose has been widely variable - pt sneaking out to vending machines for snacks. pt encouraged to let RN know so that it can be covered w/ appropriate dose of insulin. assignment agent evaluated, patient is unable to get insulin pump supplies until February 2024. Discussed with pharmacy and transfer engineer, patient's long-acting and sliding scale insulin prescription has been sent. Leukocytosis: UA negative for UTI, follow blood culture. Leukocytosis likely secondary to acute stress of DKA. WBC trended down to Normal off of antibiotic. Patient has been afebrile. blood culture with no growth so far. Elevated TSH: Follow up fT4, repeat TFT in 6 weeks. No need for thyroid replacement at present. Mood disorder: Not on home meds currently Tobacco use disorder: Smokes 10 cigarettes / day . Counselling for smoking cessation done. Nicotine patch ordered DVT Ppx: SQ heparin Code status: FULL PCP: Eliza Dispo: Admitted to PCU. Patient is being discharged home with following instruction at the point of discharge: Follow-up with your primary care physician within a week time and likely you will need labs CBC/CMP/magnesium/phosphorus. Follow-up with your diabetic clinic in a week time upon discharge for ongoing monitoring/management of your diabetes. You are being discharged on long-acting and short acting insulin until you can get back your insulin pump. You had abnormal thyroid hormones test while in hospital, recommend you repeat thyroid function test in about 6 weeks time. Coordinate with your PCP office to set up the test. Recommend that you quit smoking, nicotine patch will be ordered. Please make sure that you are able to get your medications today by calling your pharmacy before you leave the hospital so that your treatment continuity is not broken. Home Health Attestation I certify that this patient is under my care and that I, or a physicians grants and contracts assistant working with me, had a face to-face encounter that meets the home health [id number] encounter requirements with this patient. The encounter with the patient was in whole, or in part, for the following medical condition, which is the primary reason for home health care (list medical condition): I certify that, based on my findings, the following services are medically necessary home health services: My clinical findings support the need for the above services because: Further, I certify that my clinical findings support that this patient is homebound (i.e. absences from home require considerable and taxing effort and are for medical reasons or gnosticism services or infrequently or of short duration when for other reasons) because: Certification for Home Health Services: Based on the above findings, I certify that this patient is confined to the home and needs intermittent jail care, physical therapy and/or speech therapy or continues to need occupational therapy. The patient is under my care, and I have initiated the establishment of the plan of care. This patient will be followed by a physician who will periodically review the plan of care. Total Time Total Time Spent Total Time Spent (In Minutes): 40 Discharge Plan Discharge Items Patient Disposition: Home - Self-Care Reason For Visit: DKA Discharge Diagnosis: Diabetic ketoacidosis Anion gap metabolic acidosis T1DM on insulin pump Leukocytosis Elevated TSH Condition on Discharge: Serious Activity: Resume your previous activity Non-emergency contact: Primary Care Provider Call non-emergency contact if: you have any medication questions, your symptoms worsen and your temperature is above 101 Follow-up/Referrals: PCP,NO [Primary Care Provider] - Diet: Carb Count or DM1 Addtl Attending Provider Instructions: Follow-up with your primary care physician within a week time and likely you will need labs CBC/CMP/magnesium/phosphorus. Follow-up with your diabetic clinic in a week time upon discharge for ongoing monitoring/management of your diabetes. You are being discharged on long-acting and short acting insulin until you can get back your insulin pump. You had abnormal thyroid hormones test while in hospital, recommend you repeat thyroid function test in about 6 weeks time. Coordinate with your PCP office to set up the test. Recommend that you quit smoking, nicotine patch will be ordered. Please make sure that you are able to get your medications today by calling your pharmacy before you leave the hospital so that your treatment continuity is not broken. Pending Studies at Discharge: Yes Stand-Alone Forms: My [facility], Smoking Cessation Medications and DC Order Prescriptions: New insulin glargine [Lantus Solostar U-100 Insulin] 100 unit/mL (3 mL) insulin pen 18 unit subcut HS Qty: 15 1RF (DME) pen needle, diabetic [Pen Needle] 32 gauge x 5/32" needle See Rx Instructions .Route Qty: 100 1RF Rx Instructions: to inject 4x/day. insulin aspart U-100 [Novolog FlexPen U-100 Insulin] 100 unit/mL (3 mL) insulin pen 1 sliding scale dose subcut USEASDIRECTD Qty: 15 1RF Rx Instructions: per carb coverage and sliding scale up to 90 units/day. nicotine 7 mg/24 hr Patch 24 Hour 1 patch transdermal QAM Qty: 28 0RF Discontinued insulin aspart U-100 100 unit/mL solution 100 unit subcut UD Rx Instructions: per fill history inject 100 units daily via pump. Last filled 10/30/23 for 100 day supply. pt too ill to be able to answer questions. Discharge Orders: Discharge Order (Routine); Ordered 01/19/24 Ordered By: Rohini Mooney Admission Data Admit Date/Time: 01/16/24 15:59 Attending Provider: Rohini Mooney Admit Provider: Rohini Mooney Primary Care Provider: PCP,NO Other Providers: Rohini Mooney
[2024-01-19 11:13] VITALS: PULSE 70
== END 2024-01-19 11:59 | disposition home or self-care (01) | DRG 639 ==
LOC: ED 12:29 → 2E 15:59
DX: Z88.5 Allergy status to narcotic agent; F90.9 Attention-deficit hyperactivity disorder, unspecified type; Z91.128 Patient's intentional underdosing of medication regimen for other reason; Z91.048 Other nonmedicinal substance allergy status; G40.909 Epilepsy, unspecified, not intractable, without status epilepticus; Z86.73 Personal history of transient ischemic attack (TIA), and cerebral infarction without residual deficits; D72.829 Elevated white blood cell count, unspecified; R94.6 Abnormal results of thyroid function studies; T38.3X6A Underdosing of insulin and oral hypoglycemic [antidiabetic] drugs, initial encounter; R94.4 Abnormal results of kidney function studies; E10.10 Type 1 diabetes mellitus with ketoacidosis without coma; F17.210 Nicotine dependence, cigarettes, uncomplicated; F39 Unspecified mood [affective] disorder; Z96.41 Presence of insulin pump (external) (internal)

== ENCOUNTER 2024-02-05 09:02 | Inpatient (IN) ==
[2024-02-05] MEDS: LORazepam 2 MG/1 ML VIAL IV STA ×2 (09:23→11:30)
[2024-02-05] MEDS: SODIUM CHLORIDE 0.9% 1,000 ML IV ONE ×2 (09:24→10:33)
[2024-02-05 10:17] LABS: BUN Creatinine Ratio 17.5 (10-20); Calcium 9.7 mg/dl (8.6-10.3); Creatinine Clr Calc Pharmacy 55.8 ml/min; Potassium 6.1 mmol/L (3.5-5.1)
[2024-02-05 10:19] LABS: Mean Platelet Volume 10.7 fL (9.4-12.4); Platelet Count 500 K/uL (130-400); White Blood Count 36.54 K/ul (4.8-10.8)
[2024-02-05] MEDS ORDERED: GLUCOSE 10 TAB/TUBE PO PRN (10:22)
[2024-02-05] MEDS ORDERED: GLUCAGON FOR INJ 1 MG VIAL SQ PRN (10:22)
[2024-02-05] MEDS ORDERED: CARBOHYDRATES FOR HYPOGLYCEMIA PO PRN (10:22)
[2024-02-05] MEDS ORDERED: GLUCOSE 40% GEL 15 GM TUBE PO PRN (10:22)
[2024-02-05] MEDS ORDERED: DEXTROSE 50% 50 ML SYRINGE IV PRN (10:22)
[2024-02-05 10:29] LABS: Mean Corpuscular Hemoglobin 28.6 pg (25.0-34.0); Mean Corpuscular Hgb Conc 33.3 g/dL (32.0-36.0); Mean Corpuscular Volume 85.7 fL (80.0-100.0); RDW Coefficient of Variation 12.7 % (11.5-14.5); RDW Standard Deviation 40.9 fL (36.4-46.3)
[2024-02-05 10:30] LABS: Basophils # (auto) 0.14 K/uL (0.00-0.20); Basophils % (auto) 0.4 %; Eosinophils # (auto) 0.03 K/uL (0.00-0.50); Eosinophils % (auto) 0.1 %; Immature Granulocytes # (auto) 0.68 K/uL (0.01-0.20); Immature Granulocytes % (auto) 1.9 %; Lymphocytes # (auto) 1.29 K/uL (1.20-3.40); Lymphocytes % (auto) 3.5 %; Monocytes # (auto) 1.62 K/uL (0.11-0.59); Monocytes % (auto) 4.4 %; Neutrophils # (auto) 32.78 K/uL (1.40-6.50); Neutrophils % (auto) 89.7 %
[2024-02-05] MEDS ORDERED: INSULIN REGULAR 250 UNITS in SODIUM CHLORIDE 0.9% 247.5 ML IV SCH (10:30)
[2024-02-05] MEDS: CALCIUM GLUCONATE 1,000 MG/60 ML BAG IV STA (10:33)
[2024-02-05 10:34] LABS: Appearance Urine Clear (Clear); Bacteria Urine Automated None Seen (None Seen); Bilirubin Urine Negative (Negative); Blood Urine 1+ (Negative); Color Urine Yellow; Epithelial Cell Urine Auto 0-2 /hpf (0-2); Glucose Urine UA 3+ (Negative); Ketones Urine 4+ (Negative); Leukocyte Esterase Urine Negative (Negative); Mucus Urine Present (None Prsent); Nitrite Urine Negative (Negative); Protein Urine 1+ (Negative); Specific Gravity Urine 1.026 (1.000-1.030); Urobilinogen Urine Negative (Negative); WBC Urine Automated 0-5 /hpf (0-5)
--- OUTSIDE RECORDS SUMMARY | 2024-02-05 10:41 | External Medical Summary | Summary of Care ---
Author Name Unknown Organization [facility] Address [address] [place] [address] Phone [phone] Care Team Providers Care Manager Treasury Name Role Phone Betty Kay MD Primary Care Provider [phone] Reason for Visit * Reason Onset Date Comments Appointment 01/25/2024 Encounter Details Date Type Department Care Team (Late st Contact Info) Description 01/25/2024 Telephone [address]ocrinology [address] [place] [place] [phone] [facility] [address] [place] [address] Appointment Allergies Active Allergy Reactions Criticality Noted Date Comments Codeine Hives 01/24/2023 Robitussin with codeine Hydrocodone 08/13/2018 Hives Guaifenesin Hives 01/24/2023 documented as of this encounter (statuses as of 01/25/2024) Medications OneTouch Verio In Vitro Strip (Glucose Blood) Use as directed 4 times a day as needed for Hyperglycemia (high sugar) or Hypoglycemia (low sugar). Use up to four times a day as directed 400 Strip 3 11/03/19 Active Additional Information Patient not taking.Reported on 01/22/2024 OneTouch Delica Plus [id number] For testing glucose 4 times daily. E11.9 400 Each 3 11/03/19 Active Additional Information Patient not taking.Reported on 01/22/2024 Insulin Aspart 100 UNIT/ML Injection Solution (NovoLOG) For insulin pump 100 units daily. 100 mL 12 12/08/19 Active Additional Information Patient not taking.Reported on 01/22/2024 Gvoke HypoPen 2-Pack 1 MG/0.2ML Subcutaneous Solution [...] Tablet 1 03/10/19 Active Additional Information Patient not taking.Reported on 01/22/2024 OneTouch Verio w/Device Kit Use up to 4 times a day E11.9 1 Kit 03/10/19 Active Additional Information Patient not taking.Reported on 01/22/2024 Dexcom G6 SensorIndication s:Type 1 diabetes mellitus with hyperglycemia (HCC) Use as directed. Change every 10 days. 9 Each 1 11/16/19 Active Dexcom G6 TransmitterIndic ations:Type 1 diabetes mellitus with hyperglycemia (HCC) Use as directed. Change every 90 days. 1 Each 1 11/16/19 Active Protective Barrier Wipes Use under insulin pump adhesive sites. 50 Each 5 01/16/20 Active Additional Information Patient not taking.Reported on 01/22/2024 Omnipod 5 [id number] Pods Gen 5Indications:Typ e 1 diabetes mellitus without complication (HCC) Use as directed. Change pod every 3 days. 50 Each 3 01/16/20 Active Additional Information Patient not taking.Reported on 01/22/2024 Insulin Glargine Solostar 100 UNIT/ML Subcutaneous Solution Pen-injector Injected under the skin, ONE time(s) per day: 22 units. TDD:22 units ICD10: E10.9 15 mL 1 01/16/20 Active Insulin Syringe-Needle U-100 31G X 5/16" 0.3 ML (B-D INSULIN SYRINGE ULTRAFINE) For pump back up: For injecting insulin 4 times daily. E10.9 200 Each 1 01/16/20 Active Insulin Pen Needle 31G X 4 MMIndications:Ty pe 1 diabetes mellitus without complication (HCC),Insulin pump titration Use as directed. FOR PUMP BACK UP: Use 1 with each insulin injection up to 5 times per day 200 Each 1 01/16/20 24 Active Insulin Aspart 100 UNIT/ML Injection Solution (NovoLOG) Units as per sliding scale plus carbohydrate count divided by 12 before each meal. SSI 01/22/20 24 Active documented as of this encounter (statuses as of 01/25/2024) Active Problems Problem Noted Date Diagnosed Date Major depressive disorder, single episode, moder ate 07/10/2023 JUAN PABLO (generalized anxiety disorder) 03/10/2023 Depression with anxiety 03/10/2023 Insulin pump titration 03/08/2022 Subclinical hypothyroidism 10/21/2021 History of seizure disorder 10/21/2021 Food insecurity 02/15/2021 Overview: Per [facility] Protocol ADHD (attention deficit hype ractivity disorder), combined type 02/09/2021 Tobacco use disorder 01/28/2021 Type 1 diabetes mellitus without complication documented as of this encounter (statuses as of 01/25/2024) Resolved Problems Problem Noted Date Diagnosed Date Resolved Date Nonintractable epilepsy with out status epilepticus 03/10/2023 03/10/2023 DM type 1, not at goal 03/08/202203/10 Type 2 diabetes mellitus without complication 02/23/1902/23/2022 Temporal arteritis 02/09/2021 Overview (02/09/2021): Reported by pt around 2016 Seizure disorder 02/09/2021 10/21/2021 Overview (02/09/2021): Last seizure at age 19 documented as of this encounter (statuses as of 01/25/2024) Immunizations Name Administration Dates Next Due Seasonal Influenza, PF, 6 M & above, IM , (FluLaval or Fluzone) 10/21/2021 TD - Tetanus/Diptheria (ADULT) 05/13/1983 TDAP (age 10 and older)(Boostrix) 10/11/2018 documented as of this encounter Social History Tobacco Use Types Packs/Day Years Used Date Smoking Tobacco: Every Day Cigarettes 1 10 Passive Smoke Exposure: Current Smokeless Tobacco: Never Alcohol Use Standard Drinks/Week Comments Not Currently 5 (1 standard drink = 0.6 oz pure alcohol) pt states drinks 6 pack per week PHQ-2 Answer Date Recorded PHQ Adult Total Score 22 01/24/2024 Hunger Vital Sign Answer Date Recorded Within the past 12 months, y ou worried that your food would run out before you got the money to buy more. Often true 01/24/20 24 Within the past 12 months, t he food you bought just didn't last and you didn't have money to get more. Often true 01/24/2024 Childcare Answer Date Recorded Do you feel overwhelmed with taking care of a child, family member or friend? No 01/24/2024 Does your family need help f inding childcare? (Household - for ages 0-17 years) Not on file 01/24/2024 Clothing Answer Date Recorded Have you been unable to get clothing when it was really needed? No 01/24/2024 Is your family able to get c lothes or diapers when needed? (Household - for ages 0-17 years) Not on file 01/24/2024 Personal Safety Answer Date Recorded Do you feel unsafe or have concerns for your saf ety? No 01/24/2024 Do you have concerns for you r family's safety? (Household - for ages 0-17 years) Not on file 01/24/2024 Utilities Answer Date Recorded Do you have trouble paying y our heating, water, or electric bill? Yes 01/24/2024 Is your family able to pay t he heat, water, or electric bill? (Household - for ages 0-17 years) Not on file 01/24/2024 Does your family have access to good internet? (Household - for ages 0-17 years) Not on file 01/24/2024 Employment Status Answer Date Recorded Are you unemployed or without regular income? Ye s 01/24/2024 Does the household have a re gular source of income? (Household - for ages 0-17 years) Not on file 01/24/2024 Social Connections Answer Date Recorded How often do you feel lonely or isolated from th ose around you? Always 01/24/2024 Financial Resource Strain Answer Date R ecorded Do you have any trouble payi ng for your medications, or do you think you might in the future? No 01/24/2024 Does your family have troubl e paying for medicine? (Household - for ages 0-17 years) Not on file 01/24/2024 Transportation Needs Answer Date Record ed Do you have trouble getting a ride to medical visits or work? (Adult - for ages 18 years and over) Not on file 01/24/2024 Does your family have a hard time getting a ride to doctors visits? (Household - for ages 0-17 years) Not on file 01/24/2024 Has lack of transportation k ept you from medical appointments, meetings, work, or from getting things needed for daily living? Check all that apply. No 01/24/2024 Do you (or your family) have trouble finding or paying for a ride (transportation)? (Household - for ages 0-17 years) Not on file 01/24/2024 Housing Stability Answer Date Recorded Do you currently live in a s helter or have no steady place to sleep at night? Yes 01/24/2024 Do you think you are at risk of becoming homeless? (Adult - for ages 18 years and over) Not on file 01/24/2024 Does your family worry about paying for your home or becoming homeless? (Household - for ages 0-17 years) Not on file 1 03/26/2023 Are you homeless or worried that you might be in the future? Yes 01/24/2024 Are you (or your family) siena eless or worried that you might be in the future? (Household - for ages 0-17 years) Not on file Food Insecurity Answer Date Recorded Do you need food for this week? No 01/24/2024 Are you able to get enough f ood for your family? (Household - for ages 0-17 years) Not on file 01/24/2024 Does your family need food t his week? (Household - for ages 0-17 years) Not on file 01/24/2024 Do you always have enough fo od for your family? (Household - for ages 0-17 years) Not on file 01/24/2024 Sex and Gender Information Value Date Recorded Sex Assigned at Male 10/21/2021 11:14 AM EDT Legal Sex Male 5:14 AM EST Gender Identity Male 10/21/2021 11:14 AM EDT Sexual Orientation Straight 10/21/2021 11 :14 AM EDT documented as of this encounter Miscellaneous Notes * Telephone Encounter - Mayda Olsen RPh - 01/25/2024 9:15 AM EST Please assist with scheduling first available provider visit. Patient is overdue. Thank you! documented in this encounter Plan of Treatment Upcoming Encounters Date Type Department Care Team (Late st Contact Info) Description 01/30/2024 9:00 AM EST Office Visit [facility] [place] [address] [place] [id number] JuneKrishan MD [address] [facility] [place] [address] 02/08/2024 10:30 AM EST Telemedicine Endocrinology Aliyah [address] [place] [phone] Virgen Kasper PA-C [address] [place] [address] 06/07/2024 8:00 AM EDT Telemedicine Endocrinology Aliyah [address] [place] [place] [phone] Aliyah, Pharmacist Endocrinology [address] [address] Health Maintenance Due Date Last Done Comments DISCUSS TOBACCO CESSATION (REFER TO SMARTSET #[id number]) 1977 Pneumococcal Vaccine: Pediatrics (0 to 5 Years) and At-Risk Patients (6 to 64 Years) (1 of 2 - PCV) 12/30/1983 HIV Screening 1992 Hepatitis C Screening 12/30/1995 Hepatitis B Vaccine (1 of 3 - 19+ 3-dose series) 1996 Albumin/Creatinine Ratio 05/21/2022 05/21/2021 Cologuard 2022 Colonoscopy 2022 Colorectal Cancer Screening 2022 Fecal Occult Blood Test 2022 Sigmoidoscopy 2022 HbA1c 09/22/2023 03/24/2023, 02/08, 10/21/2021, Additional history exists COVID-19 Vaccine ( season) 2023 06/04/2020, 05/14/2020 Influenza Vaccine (FLU shot) (#1) 2023 10/21/2021 Diabetic Eye Exam 12/09/2023 12/08/2022, 05/21/2021 Diabetic Foot Exam 12/09/2023 12/08/2022, 10/21/2021 GFR 03/24/2024 03/24/2023, 10/07, 05/21/2021, Additional history exists Depression Monitoring 01/23/2025 01/24/2024 Lipid Panel 03/24/2028 03/24/2023, 10/07, 05/21/2021 DTap/Tdap [...] filedocumented as of this encounter Care Teams Manager Treasury Relationship Specialty Start Date End Date Betty Kay MD PCP - General Internal Medicine 11/03/21 documented as of this encounter
--- OUTSIDE RECORDS SUMMARY | 2024-02-05 10:41 | External Medical Summary | Summary of Care ---
Author Name Unknown Organization [facility] Address [address] [place] [address] Phone [phone] Care Team Providers Care Process Treater Name Role Phone Betty Kay MD Primary Care Provider [phone] Reason for Referral * Evaluate & Treat - Unlimited Visits (Within 10 days (routine)) - Authorized Specialty Diagnoses / Procedures Referred By Contac t Referred To Contact Pharmacist / Pharmacy Diagnoses Type 1 diabetes mellitus without complication (HCC) Krishan Hopkins MD [address] [facility] [place] [address] Phone: tel: fax: Referral ID Status Reason Start Date Expiration Date Visits Requested Visits Authorized [id number] Authorized Specialty Services Required 4 07/28/2024 99 99 Question Answer Referral Priority Within 10 days (routine) Where should this appointment be scheduled? [facility] Referring Provider Role: Primary Care Reason for Referral: DM Target A1c: < 7 Comments Pharmacist Medication Therapy Management: Minimum frequency patient should be seen in person for medication management: as appropriate per clinical condition and patient status By my signature, I understand that my patient Eleuterio Campbell will have his medication therapy managed by the [facility] ([facility]) per established policies, procedures, and protocols. I also certify that this referral may serve as an initiation of service for the management of drug therapy in the above noted patient. [facility] providers will be responsible for scheduling patient visits, obtaining appropriate laboratory studies, and adjusting medication management therapy per patient's need, in addition to those roles spelled out in the clinic policy, procedures, and drug management protocols. I understand that the service provided by the [facility] is voluntary and have informed patient that they can refuse the service at their discretion. I am aware that the [facility] will provide me with a copy of the patient encounter via [facility]. I authorize the [facility] to carry out these activities on my behalf. I consider this program to be a necessary part of the patient's medical care. Krishan Hopkins MD Reason for Visit * Reason Comments Follow Up Patient would like t o establish care with PCP and discuss shoulder and back from a recent fall last week at home in the driveway. He does not take anything for this. Encounter Details Date Type Department Care Team (Late st Contact Info) Description 01/30/2024 9:00 AM EST [facility] [address] [place] [phone] Krishan Hopkins MD [address] [facility] [place], [place] [id number] Type 1 diabetes mellitus without complication (HCC)*; Tobacco use disorder; JUAN PABLO (generalized anxiety disorder) Allergies Active Allergy Reactions Criticality Noted Date Comments Codeine Hives 01/24/2023 Robitussin with codeine Hydrocodone 08/13/2018 Hives Guaifenesin Hives 01/24/2023 documented as of this encounter (statuses as of 02/02/2024) Medications OneTouch Verio In Vitro Strip (Glucose Blood) Use as directed 4 times a day as needed for Hyperglycemia (high sugar) or Hypoglycemia (low sugar). Use up to four times a day as directed 400 Strip 3 11/03/19 Active Additional Information Patient not taking.Reported on 01/30/2024 OneTouch Delica Plus [id number] For testing glucose 4 times daily. E11.9 400 Each 3 11/03/19 Active Additional Information Patient not taking.Reported on 01/30/2024 Insulin Aspart 100 UNIT/ML Injection Solution (NovoLOG) For insulin pump 100 units daily. 100 mL 12 12/08/19 Active Gvoke HypoPen 2-Pack 1 MG/0.2ML Subcutaneous [...] Active Additional Information Patient not taking.Reported on 01/30/2024 Aria SystemsTouch Verio w/Device Kit Use up to 4 times a day E11.9 1 Kit 03/10/19 Active Additional Information Patient not taking.Reported on 01/30/2024 Dexcom G6 SensorIndication s:Type 1 diabetes mellitus with hyperglycemia (HCC) Use as directed. Change every 10 days. 9 Each 1 11/16/19 Active Dexcom G6 TransmitterIndic ations:Type 1 diabetes mellitus with hyperglycemia (HCC) Use as directed. Change every 90 days. 1 Each 1 11/16/19 Active Protective Barrier Wipes Use under insulin pump adhesive sites. 50 Each 5 01/16/20 Active Omnipod 5 [id number] Pods Gen 5Indications:Typ e 1 diabetes mellitus without complication (HCC) Use as directed. Change pod every 3 days. 50 Each 3 01/16/20 Active Additional Information Patient not taking.Reported on 01/30/2024 Insulin Glargine Solostar 100 UNIT/ML Subcutaneous Solution [...] 5 times per day 200 Each 1 12/10/20 24 Active Insulin Aspart 100 UNIT/ML Injection Solution (NovoLOG) Units as per sliding scale plus carbohydrate count divided by 12 before each meal. SSI 01/22/20 24 Active documented as of this encounter (statuses as of 02/02/2024) Active Problems Problem Noted Date Diagnosed Date [...] as of this encounter (statuses as of 02/02/2024) Resolved Problems Problem Noted Date Diagnosed Date Resolved Date Nonintractable epilepsy with out status epilepticus 03/10/2023 03/10/2023 DM type 1, not at goal 03/08/202203/10 Type 2 diabetes mellitus without complication 02/23/1902/23/2022 Temporal arteritis 02/09/2021 Overview (02/09/2021): Reported by pt around 2016 Seizure disorder 02/09/2021 10/21/2021 Overview (02/09/2021): Last seizure at age 19 documented as of this encounter (statuses as of 02/02/2024) Immunizations Name Administration Dates Next Due Seasonal [...] AM EDT documented as of this encounter Last Filed Vital Signs Vital Sign Reading Time Taken Comments Blood Pressure 112/80 01/30/2024 9:20 AM EST Pulse 97 01/30/2024 9:20 AM EST Temperature 36.7 C (98 F) 01/30/2024 9: 20 AM EST Respiratory Rate 18 01/30/2024 9:20 AM EST Oxygen Saturation 98% 01/30/2024 9:20 AM EST Inhaled Oxygen Concentration - - Weight 66.1 kg (145 lb 12.8 oz) 01/30/2024 9:20 AM EST Height - - Body Mass Index 22.84 07/10/2023 1:26 PM EDT documented in this encounter Progress Notes * Krishan Hopkins MD - 01/30/2024 9:19 AM EST Images from the original note were not included. Assessment and Plan 1. Type 1 diabetes mellitus without complication (HCC) (Primary) Uncontrolled with A1c 9.7. Refer to [facility] in [place]. Will require significant education on diet, insulin administration. Increase insulin glargine dosing to 20 units nightly from 18 units nightly. - PHARMACIST MEDS THERAPY MGMT REFERRAL OP 2. Tobacco use disorder Encourage cessation. 3. JUAN PABLO (generalized anxiety disorder) Not currently on medication. Previously on buspar. Wrap-Up Follow up as needed. History of Present Illness The patient is a 48 year old male with past medical history of uncontrolled type 1 diabetes, tobacco use, ADHD not on medication, JUAN PABLO, depression who presents to establish care with new PCP and to discuss recent fall. Patient presents to establish care with new PCP. History of type 1 diabetes following with endocrinology. Previously using insulin pump, however, was having lows and highs. Has been hospitalized for DKA. A1c is uncontrolled at 9.7. Now injecting four times daily. Not confident in how to inject, where to inject, diet, etc. At times will eat two whole pizzas - 10-12k calories per day. Following carb counts and sliding scale as below. Interested in following with [facility] in [place]. Physical Exam Vitals: 01/30/24 0920 Temp: 98 F (36.7 C) Pulse: 97 Resp: 18 SpO2: 98% BP: 112/80 Physical Exam Physical Exam Vitals reviewed. Constitutional: General: He is not in acute distress. Pulmonary: Effort: Pulmonary effort is normal. No respiratory distress. Neurological: General: No focal deficit present. Mental Status: He is alert. Psychiatric: Mood and Affect: Mood normal. Behavior: Behavior normal. This note has been completed in part utilizing [employer] Speech Voice Recognition Software. Due to technical limitations of the software, grammatical errors, random word insertions, prounoun errors, and incomplete sentences may occur. Any formal questions or concerns about the content, text, or information contained within the body of this dictation should be directly addressed to the provider for clarification. documented in this encounter Nursing Notes * Kimberlyn Farias LPN - 01/30/2024 9:20 AM EST The patient has been properly identified by confirmation of name and date of . Chief Complaint Patient presents with Follow Up Patient would like to establish care with PCP and discuss shoulder and back from a recent fall lastweek at home in the driveway. He does not take anything for this. documented in this encounter Plan of Treatment Upcoming Encounters Date Type Department Care Team (Late st Contact Info) Description 02/05/2024 2:10 PM EST [facility] [address] [place] [address] [facility] [address] [place] [address] 02/06/2024 9:10 AM EST Office Visit [address] [place] [phone] [place] [address] [place] [address] 02/06/2024 2:00 PM EST Scheduled Telephone Care Coordination and Integration [address] [facility] [place] [address] Marisol Frausto, Community Health Robotic Technician [facility] [place] [address] 02/08/2024 10:30 AM EST Telemedicine Endocrinology [address], [place] [phone] Virgen Kasper PA-C [address] [phone] 02/13/2024 11:45 AM EST Scheduled Telephone Care Coordination and Integration [address] [place], [place] [phone] Marisol Frausto, Community Health Health Robotic Technician [facility] [address] [place], [place] [phone] 02/20/2024 9:15 AM EST Scheduled Telephone Care Coordination and Integration [address] [place], [place] [phone] Marisol Frausto, Community Health Health Robotic Technician [address] [place] [address] 02/27/2024 11:00 AM EST Office Visit [facility] [address] [place] [address] JuneKrishan MD [address] [place] [address] 06/07/2024 8:00 AM EDT Telemedicine Endocrinology [address] [place] [place] [phone] Aliyah, Pharmacist Endocrinology [place] [address] Scheduled Referrals Name Type Priority Associated Diagnoses Orde r Schedule PHARMACIST MEDS THERAPY MGMT REFERRAL OP Referral Within 10 days (routine) Type 1 diabetes mellitus without complication (HCC) Ordered: 01/30/2024 Health Maintenance Due Date Last Done Comments DISCUSS TOBACCO CESSATION (REFER TO SMARTSET #9824) 1977 HIV Screening 1992 Hepatitis C Screening 12/30/1995 Hepatitis B Vaccine (1 of 3 - 19+ 3-dose series) 1996 Pneumococcal Vaccine: Pediatrics (0 to 5 Years) and At-Risk Patients (6 to 18 Years and 19+ Years) (1 of 2 - PCV) 1996 Albumin/Creatinine Ratio 05/21/2022 05/21/2021 Cologuard 2022 Colonoscopy 2022 Colorectal Cancer Screening 2022 Fecal Occult Blood Test 2022 Sigmoidoscopy 2022 HbA1c 09/22/2023 03/24/2023, 02/08, 10/21/2021, Additional history exists COVID-19 Vaccine (2023- season) 2023 06/04/2020, 05/14/2020 Influenza Vaccine (FLU [...] Diagnosis Type 1 diabetes mellitus without complication (HCC)- Primary Type I (juvenile type) diabetes mellitus without mention of complication, not stated as uncontrolled Tobacco use disorder JUAN PABLO (generalized anxiety disorder) Generalized anxiety disorder documented in this encounter Care Teams Process Treater Relationship Specialty Start Date End Date Betty Kay MD PCP - General Internal Medicine 11/03/21 documented as of this encounter
--- OUTSIDE RECORDS SUMMARY | 2024-02-05 10:41 | External Medical Summary | Summary of Care ---
Author Name Unknown Organization [facility] Address [address] [facility] [place] [address] Phone [phone] Care Team Providers Care It Sales Consultant Name Role Phone Betty Kay MD Primary Care Provider [phone] Encounter Details Date Type Department Care Team (Late st Contact Info) Description 01/19/2024 Population Health External Data Unspecified Department Allergies Active Allergy Reactions Criticality Noted Date Comments Codeine Hives 01/24/2023 Robitussin with codeine Hydrocodone 08/13/2018 Hives Guaifenesin Hives 01/24/2023 documented as of this encounter (statuses as of 01/19/2024) Medications OneTouch Verio In Vitro Strip (Glucose Blood) Use as directed 4 times a day as needed for Hyperglycemia (high sugar) or Hypoglycemia (low sugar). Use up to four times a day as directed 400 Strip 11/03/19 Active OneTouch Delica Plus [id number] For testing glucose 4 times daily. E11.9 400 Each 11/03/19 Active Insulin Aspart 100 UNIT/ML Injection Solution (NovoLOG) For insulin pump 100 units daily. 100 mL 12/08/19 Active Gvoke HypoPen 2-Pack 1 MG/0.2ML Subcutaneous Solution Auto-injector (Glucagon)Indica tions:Insulin pump titration,Type 1 diabetes mellitus without complication (HCC) Inject 1.0 mg under the skin of belly/thigh or upper arm as needed for unresponsiveness due to suspected hypoglycemia 0.4 mL 12/09/19 Active buPROPion HCl ER (XL) 150 MG Oral Tablet Extended Release 24 Hour (Wellbutrin XL) Take 1 Tablet by mouth in the morning. 90 Tablet 1 03/10/19 24 Active Additional Information Patient taking differently:150 mg Oral Daily(AM),Pt hasn't started yet, Reported on 03/24/2023 BtiquesTouch Verio w/Device Kit Use up to 4 times a day E11.9 1 Kit 03/10/19 Active Dexcom G6 SensorIndication s:Type 1 diabetes mellitus with hyperglycemia (HCC) Use as directed. Change every 10 days. 9 Each 1 11/16/19 24 Active Dexcom G6 TransmitterIndic ations:Type 1 diabetes mellitus with hyperglycemia (HCC) Use as directed. Change every 90 days. 1 Each 1 11/16/19 24 Active Protective Barrier Wipes Use under insulin pump adhesive sites. 50 Each 5 01/16/20 24 Active Omnipod 5 [id number] Pods Gen 5Indications:Typ e 1 diabetes mellitus [...] day 200 Each 1 01/16/20 24 Active documented as of this encounter (statuses as of 01/19/2024) Active Problems Problem Noted Date Diagnosed Date [...] as of this encounter (statuses as of 01/19/2024) Resolved Problems Problem Noted Date Diagnosed Date Resolved Date Nonintractable epilepsy with out status epilepticus 03/10/2023 03/10/2023 DM type 1, not at goal 03/08/202203/10 Type 2 diabetes mellitus without complication 02/23/1902/23/2022 Temporal arteritis 02/09/2021 Overview (02/09/2021): Reported by pt around 2016 Seizure disorder 02/09/2021 10/21/2021 Overview (02/09/2021): Last seizure at age 19 documented as of this encounter (statuses as of 01/19/2024) Immunizations Name Administration Dates Next Due Seasonal [...] 12/08/2023 Does the household have a re lar [...] AM EDT documented as of this encounter Plan of Treatment Upcoming Encounters Date Type Department Care Team (Late st Contact Info) Description 06/07/2024 8:00 AM EDT Telemedicine Endocrinology Aliy[address] [place] [phone] Aliyah, Pharmacist Endocrinology [address] [place] [address] [address] Health Maintenance Due Date Last Done Comments DISCUSS TOBACCO CESSATION (REFER TO SMARTSET #1702) 1977 Pneumococcal Vaccine: Pediatrics (0 to 5 [...] filedocumented as of this encounter Care Teams It Sales Consultant Relationship Specialty Start Date End Date Betty Kay MD [address] [place], [place] [phone] PCP - General Internal Medicine 11/03/21 documented as of this encounter
--- OUTSIDE RECORDS SUMMARY | 2024-02-05 10:41 | External Medical Summary | Summary of Care ---
Author Name Unknown Organization [facility] Address [address] [place] [address] Phone [phone] Care Team Providers Care Operations Intelligence Name Role Phone Betty Kay MD Primary Care Provider [phone] Reason for Visit * Reason Onset Date Comments Precert Denied 01/17/2024 Insulin Glargine -yfgn 100 Unit/ML Pen-injectors Encounter Details Date Type Department Care Team (Late st Contact Info) Description 01/17/2024 Telephone [facility] [place] [address] [place], [place] [phone] Domitila Do PA-C [address] [facility] [address] [place] [address] Precert Denied ( Insulin Glargine-yfgn 100... Allergies Active Allergy Reactions Criticality Noted Date Comments Codeine Hives 01/24/2023 Robitussin with codeine Hydrocodone 08/13/2018 Hives Guaifenesin Hives 01/24/2023 documented as of this encounter (statuses as of 01/22/2024) Medications OneTouch Verio In Vitro Strip (Glucose Blood) Use as directed 4 times a day as needed for Hyperglycemia (high sugar) or Hypoglycemia (low sugar). Use up to four times a day as directed 400 Strip 3 11/03/19 Active OneTouch Delica Plus [id number] For testing glucose 4 times daily. E11.9 [...] Daily(AM),Pt hasn't started yet, Reported on 03/24/2023 Cover [employer] Verio w/Device Kit Use up to 4 [...] Each 5 01/16/20 24 Active Omnipod 5 [id number] Pods Gen 5Indications:Typ e 1 diabetes mellitus [...] as of this encounter (statuses as of 01/22/2024) Active Problems Problem Noted Date Diagnosed Date Major depressive disorder, single episode, moder ate 07/10/2023 JUAN PABLO (generalized anxiety disorder) 03/10/2023 Depression with anxiety 03/10/2023 Insulin pump titration 03/08/2022 Subclinical hypothyroidism 10/21/2021 History of seizure disorder 10/21/2021 Food insecurity 02/15/2021 Overview: Per [facility] Protocol ADHD (attention deficit hype ractivity disorder), combined type 02/09/2021 Tobacco use disorder 01/28/2021 Type 1 diabetes mellitus without complication documented as of this encounter (statuses as of 01/22/2024) Resolved Problems Problem Noted Date Diagnosed Date Resolved Date Nonintractable epilepsy with out status epilepticus 03/10/2023 03/10/2023 DM type 1, not at goal 03/08/202203/10 Type 2 diabetes mellitus without complication 02/23/19 23 02/23/2022 Temporal arteritis 02/09/2021 2 Overview (02/09/2021): Reported by pt around 2016 Seizure disorder 02/09/2021 10/21/2021 Overview (02/09/2021): Last seizure at age 19 documented as of this encounter (statuses as of 01/22/2024) Immunizations Name Administration Dates Next Due Seasonal [...] encounter Miscellaneous Notes * Telephone Encounter - Leann Cedeño OSA - 01/17/2024 11:15 AM EST Images from the original note were not included. Retail Medicine Pre-Cert Request Medication/Disease State Information: Medication: Insulin Glargine Solostar 100 UNIT/ML Subcutaneous Solution Pen-injector Directions for use: Injected under the skin, ONE time(s) per day: 22 units. TDD:22 units ICD10: E10.9 Quantity prescribed: 1 Diagnosis (including ICD-10): Type 1 diabetes mellitus with hyperglycemia (HCC) E10.65 Medication(s) Tried/Failed/Contraindicated: See corresponding visit note(s) for additional supporting clinical information. Office Information: Prescriber: Domitila Do PA-C Primary Visit Coverage Payer Plan Sponsor Code Group Number Group Name [facility] [id number] Primary Visit Coverage Subscriber ID Name SSN Address [id number] ELEUTERIO ARMAS [id number] [facility] [place] [address] [place] [id number] documented in this encounter Plan of Treatment Upcoming Encounters Date Type Department Care Team (Late st Contact Info) Description 01/23/2024 11:20 AM EST Office Visit [facility] [address] [facility] [place] [phone] Betty Kay MD [address] [facility] [place] [address] 06/07/2024 8:00 AM EDT Telemedicine Endocrinology Aliy[address] [place] [phone] Aliyah, Pharmacist Endocrinology [address] [place] [address] [address] Health Maintenance Due Date Last Done Comments DISCUSS TOBACCO CESSATION (REFER TO SMARTSET #7910) 1977 Pneumococcal Vaccine: Pediatrics (0 to 5 [...] filedocumented as of this encounter Care Teams Operations Intelligence Relationship Specialty Start Date End Date Betty Kay MD [address] [place] [facility] [place] [address] PCP - General Internal Medicine 11/03/21 documented as of this encounter
--- OUTSIDE RECORDS SUMMARY | 2024-02-05 10:41 | External Medical Summary | Summary of Care ---
Author Name Unknown Organization [facility] Address [address] [place] [address] Phone [phone] Care Team Providers Care Hosiery Bagger Name Role Phone Betty Kay MD Primary Care Provider [phone] Encounter Details Date Type Department Care Team (Late st Contact Info) Description 01/23/2024 12:50 PM EST Home Visit Care Coordination and Integration [address] [place] [address] Alise Martinez, [facility] [address] [place] [address] Allergies Active Allergy Reactions Criticality Noted Date Comments Codeine Hives 01/24/2023 Robitussin with codeine Hydrocodone 08/13/2018 Hives Guaifenesin Hives 01/24/2023 documented as of this encounter (statuses as of 01/24/2024) Medications OneTouch Verio In Vitro Strip (Glucose Blood) Use as directed 4 times a day as needed for Hyperglycemia (high sugar) or Hypoglycemia (low sugar). Use up to four times a day as directed 400 Strip 3 11/03/19 Active Additional Information Patient not taking.Reported on 01/22/2024 OneTouch Delica Plus [id number] For testing glucose 4 times daily. E11.9 [...] Patient not taking.Reported on 01/22/2024 Omnipod 5 [id number] Pods Gen 5Indications:Typ e 1 diabetes mellitus [...] times per day 200 Each 1 01/16/20 Active Insulin Aspart 100 UNIT/ML Injection Solution (NovoLOG) Units as per sliding scale plus carbohydrate count divided by 12 before each meal. SSI 01/22/20 24 Active documented as of this encounter (statuses as of 01/24/2024) Active Problems Problem Noted Date Diagnosed Date Major depressive disorder, single episode, moder ate 07/10/2023 JUAN PABLO (generalized anxiety disorder) 03/10/2023 Depression with anxiety 03/10/2023 Insulin pump titration 03/08/2022 Subclinical hypothyroidism 10/21/2021 History of seizure disorder 10/21/2021 Food insecurity 02/15/2021 Overview: Per [facility] Protocol ADHD (attention deficit hype ractivity disorder), combined type 02/09/2021 Tobacco use disorder 01/28/2021 Type 1 diabetes mellitus without complication documented as of this encounter (statuses as of 01/24/2024) Resolved Problems Problem Noted Date Diagnosed Date Resolved Date Nonintractable epilepsy with out status epilepticus 03/10/2023 03/10/2023 DM type 1, not at goal 03/08/202203/10 Type 2 diabetes mellitus without complication 02/23/1902/23/2022 Temporal arteritis 02/09/2021 Overview (02/09/2021): Reported by pt around 2016 Seizure disorder 02/09/2021 10/21/2021 Overview (02/09/2021): Last seizure at age 19 documented as of this encounter (statuses as of 01/24/2024) Immunizations Name Administration Dates Next Due Seasonal [...] Answer Date Recorded PHQ Adult Total Score 20 01/22/2024 Hunger Vital Sign Answer Date Recorded Within the past 12 months, y ou worried that your food would run out before you got the money to buy more. Often true 01/23/20 24 Within the past 12 months, t he food you bought just didn't last and you didn't have money to get more. Often true 01/23/2024 Childcare Answer Date Recorded Do you feel overwhelmed with taking care of a child, family member or friend? No 01/23/2024 Does your family need help f inding childcare? (Household - for ages 0-17 years) Not on file 01/23/2024 Clothing Answer Date Recorded Have you been unable to get clothing when it was really needed? No 01/23/2024 Is your family able to get c lothes or diapers when needed? (Household - for ages 0-17 years) Not on file 01/23/2024 Personal Safety Answer Date Recorded Do you feel unsafe or have concerns for your saf ety? No 01/23/2024 Do you have concerns for you r family's safety? (Household - for ages 0-17 years) Not on file 01/23/2024 Utilities Answer Date Recorded Do you have trouble paying y our heating, water, or electric bill? No 01/23/2024 Is your family able to pay t he heat, water, or electric bill? (Household - for ages 0-17 years) Not on file 01/23/2024 Does your family have access to good internet? (Household - for ages 0-17 years) Not on file 01/23/2024 Employment Status Answer Date Recorded Are you unemployed or without regular income? Ye s 01/23/2024 Does the household have a re gular source of income? (Household - for ages 0-17 years) Not on file 01/23/2024 Social Connections Answer Date Recorded How often do you feel lonely or isolated from th ose around you? Always 01/23/2024 Financial Resource Strain Answer Date R ecorded Do you have any trouble payi ng for your medications, or do you think you might in the future? No 01/23/2024 Does your family have troubl e paying for medicine? (Household - for ages 0-17 years) Not on file 01/23/2024 Transportation Needs Answer Date Record ed Do you have trouble getting a ride to medical visits or work? (Adult - for ages 18 years and over) Not on file 01/23/2024 Does your family have a hard time getting a ride to doctors visits? (Household - for ages 0-17 years) Not on file 01/23/2024 Has lack of transportation k ept you from medical appointments, meetings, work, or from getting things needed for daily living? Check all that apply. No 01/23/2024 Do you (or your family) have trouble finding or paying for a ride (transportation)? (Household - for ages 0-17 years) Not on file 01/23/2024 Housing Stability Answer Date Recorded Do you currently live in a s helter or have no steady place to sleep at night? No 01/23/2024 Do you think you are at risk of becoming homeless? (Adult - for ages 18 years and over) Not on file 01/23/2024 Does your family worry about paying for your home or becoming homeless? (Household - for ages 0-17 years) Not on file 1 03/25/2023 Are you homeless or worried that you might be in the future? Yes 01/23/2024 Are you (or your family) siena eless or worried that you might be in the future? (Household - for ages 0-17 years) Not on file Food Insecurity Answer Date Recorded Do you need food for this week? No 01/23/2024 Are you able to get enough f ood for your family? (Household - for ages 0-17 years) Not on file 01/23/2024 Does your family need food t his week? (Household - for ages 0-17 years) Not on file 01/23/2024 Do you always have enough fo od for your family? (Household - for ages 0-17 years) Not on file 01/23/2024 Sex and Gender Information Value Date Recorded Sex Assigned at Male 10/21/2021 11:14 AM EDT Legal Sex Male 5:14 AM EST Gender Identity Male 10/21/2021 11:14 AM EDT Sexual Orientation Straight 10/21/2021 11 :14 AM EDT documented as of this encounter Last Filed Vital Signs Vital Sign Reading Time Taken Comments Blood Pressure 90/62 01/23/2024 1:15 PM EST Pulse 76 01/23/2024 1:15 PM EST Temperature 35.4 C (95.8 F) 01/23/2024 1:15 PM ES T Respiratory Rate - - Oxygen Saturation 95% 01/23/2024 1:15 PM EST Inhaled Oxygen Concentration - - Weight - - Height - - Body Mass Index - - documented in this encounter Progress Notes * Alise Martinez [facility] - 01/23/2024 1:03 PM EST Telemedicine visit: No [facility] (DYLAN) documentation: CHW saw pt in his home. He had forgotten that the CHW was coming. Pt states he missed his doctor appointment this morning because he didn't have a ride. Pt drives, but his car needs tires put on and he hasn't gotten them on yet. Pt states he does get food stamps, but not espinoza assistance at this time. Pt states he thinks he did apply for [employer]. He also stated he was to start a new job last week, but ended up in the hospital and missed his start date. Pt states he has been trying to get employment. CHW provided pt with an emergency food box. Pt states he does get $290 in food stamps a month, but it isn't enough. This pt takes in a very large amount of calories daily. CHW provided pt with names, addresses and contact numbers for local food prieto and food pantries. CHW provided pt with contact information for local organizations that assist with utilities and rent. Pt stated he is 10 months behind on his lot rent. He states he landlord is very understanding andthus far has not been given any eviction type notice. Pt states his BS run in the 200's but have gone up into the 600's. CHW stressed that the pt needed to get his appointment rescheduled for his PCP, SONG. Pt agreed to do that. documented in this encounter Plan of Treatment Upcoming Encounters Date Type Department Care Team (Late st Contact Info) Description 06/07/2024 8:00 AM EDT Telemedicine Endocrinology Flakito Knox, Aliyah [address] [place] [phone] Aliyah, Pharmacist Endocrinology [address] [place] [address] Health Maintenance Due Date Last Done Comments DISCUSS TOBACCO CESSATION (REFER TO SMARTSET #[id number]) 1975 Pneumococcal Vaccine: Pediatrics (0 to 5 [...] 10/07, 05/21/2021, Additional history exists Depression Monitoring 01/21/2025 01/22/2024 Lipid Panel 03/24/2028 03/24/2023, 10/07, 05/21/2021 DTap/Tdap [...] filedocumented as of this encounter Care Teams Hosiery Bagger Relationship Specialty Start Date End Date Betty Kay MD [address] [place] [address] PCP - General Internal Medicine 11/03/21 documented as of this encounter
--- NOTE | 2024-02-05 10:46 | History & Physical Report ---
Date of Service February 05, 2024 Assessment & Plan (1) DKA (diabetic ketoacidosis): (2) Metabolic acidosis, increased anion gap: (3) T1DM (type 1 diabetes mellitus): (4) Leukocytosis: Plan This is a 48 y/o male with type 1 diabetes, previously on an insulin pump, recent admission for DKA, ADHD, JUAN PABLO, hx seizure disorder, depression and other history as outlined below who presented to the ED today with vomiting. Pt is reportedly having difficulty obtaining insulin and corresponding supplies so has been intermittently running out. Work-up in the ED revealed elevated WBCs at 36.54, potassium 6.1, glucose 604, VBG pH <7.00, lactate 5.5. In the ED, pt given 16 units of regular insulin and started on insulin gtt, calcium gluconate, NSS x 2 liters, and empiric Zosyn. Referred for admission for further management. #Diabetic ketoacidosis #Increased anion gap metabolic acidosis #Vomiting #Type 1 DM - Admit to the ICU - Consult critical care - discussed with Dr. Duran - Continue insulin gtt per protocol - Bicarb gtt ordered - Infectious work-up - BioFire, blood cultures, MRSA swab, portal CXR. CT abd/pel ordered by ED provider due to vomiting, elevated lactate but patient refused. - Labs Q4 hours -BMP, Mg, Phos, VBG - Haldol prn for agitation - Empiric IV antibiotic coverage Patient seen and reviewed with collaborating physician, Dr. Escobar. Additional plan of care per his note. DVT prophylaxis: Lovenox Code status: full code Leigha Paez PA-C History of Present Illness Chief Complaint: N/V Primary Care Provider: NO PCP This is a 48 y/o male with type 1 diabetes, previously on an insulin pump, recent admission for DKA, ADHD, JUAN PABLO, hx seizure disorder, depression and other history as outlined below who presented to the ED today with vomiting. History from the patient is currently limited due to agitation and delirium so his outpatient Epic chart was extensively reviewed. Pt was recently admitted to [facility] 01/15-01/19/24 with DKA secondary to noncompliance with insulin as he reported running out a week prior to admission. Pt was treated with an insulin drip initially before being converted to basal/bolus dosing before discharge. He was seen by the unit educator, unable to get insulin pump supplies until February. Since discharge, he was seen by PCP office on 01/29 and glargine insulin dose increased from 18 to 20 units nightly, was referred to glycemic pharmacist for additional management and had an appointment with them today to establish. He is also overdue for follow-up with endocrinology in [place] and is scheduled for that appointment in February. Pt reportedly ran out of his insulin again within the last few days. Came in to the ED via EMS c/o nausea, vomiting, and back pain for the last few days. Allergies Allergy/AdvReac Type Severity Reaction Status Date / Time hydrocodone Allergy Mild HIVES Verified 12/02/22 19:55 codeine Allergy Unknown Hives Verified 12/02/22 19:55 ethyl alcohol Allergy Unknown Hives Verified 01/16/24 14:32 Home Medications Medication Instructions Recorded Confirmed Type insulin aspart U-100 100 unit/mL 1 sliding scale dose subcut 01/19/24 02/05/24 Rx (3 mL) subcutaneous pen (Novolog USEASDIRECTD #15 mL FlexPen U-100 Insulin aspart) insulin glargine 100 unit/mL (3 18 unit (0.18 mL) subcut HS #15 mL 01/19/24 02/05/24 Rx mL) subcutaneous pen (Lantus Solostar U-100 Insulin) nicotine 7 mg/24 hr daily 1 patch transdermal QAM #28 ea 01/19/24 02/05/24 Rx transdermal patch pen needle, diabetic 32 gauge x #100 ea 01/19/24 Rx /32" (Pen Needle) insulin aspart U-100 100 unit/mL See Rx Instructions .Route .COMPLEX 02/05/24 02/05/24 History subcutaneous solution Past Med/Surg History Problem List (Updated 02/05/24 @ 12:52 by Idalia Paez PA-C) T1DM (type 1 diabetes mellitus) Leukocytosis (Acute) Vomiting (Acute) DKA (diabetic ketoacidosis) (Acute) Metabolic acidosis, increased anion gap Pseudohyponatremia (Acute) DKA (diabetic ketoacidosis) (Acute) History of TIAs (Acute) Diabetes mellitus, new onset History of tobacco abuse (Acute) Diabetes mellitus, new onset (Acute) Hyponatremia (Acute) History of orthopedic surgery Headache Right shoulder injury (Acute) Slurred speech Work related injury (Acute) Medical History Mood disorder Hx-TIA (transient ischemic attack) Epilepsy Surgical History S/P right knee arthroscopy Family History Other Diabetes Hypertension Seizure Social History Smoking Status: Current every day smoker Tobacco Type: Cigarettes Cigarettes Per Day: 10; Second Hand Exposure: No; Do You Dip or Chew Tobacco: Yes; Hx Alcohol Use: Yes Hx Substance Use: No Preferred Language: Slovak Communication Ability: Effective Visual Impairment: No Limitations Hearing Ability: Normal 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 Results & Data Results & Data Vital Signs (Past 12 Hours) Vital Signs Pulse Resp BP Pulse Ox O2 Del Method 02/05/24 10:21 115 H 16 02/05/24 10:18 117 H 20 95 02/05/24 10:09 114 H 16 02/05/24 09:45 110 H 16 02/05/24 09:39 123 H 16 02/05/24 09:24 99 Room Air 02/05/24 09:21 114 H 20 100 02/05/24 09:18 115 H 26 H 02/05/24 09:14 111 H 02/05/24 09:09 131/94 02/05/24 09:08 123 H 18 131/94 97 Room Air Laboratory Results Lab Results 02/05/24 02/05/24 02/05/24 Range/Units 09:08 09:21 10:05 WBC 36.54 H* (4.8-10.8) K/ul RBC 5.60 (4.70-6.10) M/uL Hgb 16.0 (14.0-18.0) g/dl Hct 48.0 (42.0-52.0) % MCV 85.7 (80.0-100.0) fL MCH 28.6 (25.0-34.0) pg MCHC 33.3 (32.0-36.0) g/dL RDW Std Deviation 40.9 (36.4-46.3) fL RDW Coeff of Edgar 12.7 (11.5-14.5) % Plt Count 500 H (130-400) K/uL MPV 10.7 (9.4-12.4) fL Immature Gran % (Auto) 1.9 % Neut % (Auto) 89.7 % Lymph % (Auto) 3.5 % Kingman % (Auto) 4.4 % Eos % (Auto) 0.1 % Baso % (Auto) 0.4 % Neut # (Auto) 32.78 H (1.40-6.50) K/uL Lymph # (Auto) 1.29 (1.20-3.40) K/uL Kingman # (Auto) 1.62 H (0.11-0.59) K/uL Eos # (Auto) 0.03 (0.00-0.50) K/uL Baso # (Auto) 0.14 (0.00-0.20) K/uL Immature Gran # (Auto) 0.68 H (0.01-0.20) K/uL Sodium 130 L (136-145) mmol/L Potassium 6.1 H* (3.5-5.1) mmol/L Chloride 97 L (98-107) mmol/L Carbon Dioxide 6 L* (21-32) mmol/L Anion Gap 27 H (3-11) BUN 24 H (6-23) mg/dl Creatinine 1.37 (0.6-1.4) mg/dl Est Cr Clr Drug Dosing 55.8 ml/min eGFR 64.43 BUN/Creatinine Ratio 17.5 (10-20) Glucose 604 H* (70-99(Fasting)) mg/dl POC Glucose 483 H* (70-99) mg/dl Osmolality 325 H (280-300) mOsm/kg Calcium 9.7 (8.6-10.3) mg/dl Lipase 14 (11-82) U/L Urine Color Yellow Urine Appearance Clear (Clear) Urine pH 5.0 (4.5-7.5) Ur Specific Wilton 1.026 (1.000-1.030) Urine Protein 1+ H (Negative) Urine Glucose (UA) 3+ H (Negative) Urine Ketones 4+ H (Negative) Urine Blood 1+ H (Negative) Urine Nitrite Negative (Negative) Urine Bilirubin Negative (Negative) Urine Urobilinogen Negative (Negative) Ur Leukocyte Esterase Negative (Negative) Urine WBC (Auto) 0-5 (0-5) /hpf Urine RBC (Auto) 3-5 H (0-2) /hpf U Hyaline Cast (Auto) 6-10 H (0-2) /lpf U Epithel Cells (Auto) 0-2 (0-2) /hpf Urine Bacteria (Auto) None Seen (None Seen) Urine Mucus Present A (None Prsent) 02/05/24 Range/Units 10:43 WBC (4.8-10.8) K/ul RBC (4.70-6.10) M/uL Hgb (14.0-18.0) g/dl Hct (42.0-52.0) % MCV (80.0-100.0) fL MCH (25.0-34.0) pg MCHC (32.0-36.0) g/dL RDW Std Deviation (36.4-46.3) fL RDW Coeff of Edgar (11.5-14.5) % Plt Count (130-400) K/uL MPV (9.4-12.4) fL Immature Gran % (Auto) % Neut % (Auto) % Lymph % (Auto) % Kingman % (Auto) % Eos % (Auto) % Baso % (Auto) % Neut # (Auto) (1.40-6.50) K/uL Lymph # (Auto) (1.20-3.40) K/uL Kingman # (Auto) (0.11-0.59) K/uL Eos # (Auto) (0.00-0.50) K/uL Baso # (Auto) (0.00-0.20) K/uL Immature Gran # (Auto) (0.01-0.20) K/uL Sodium (136-145) mmol/L Potassium (3.5-5.1) mmol/L Chloride (98-107) mmol/L Carbon Dioxide (21-32) mmol/L Anion Gap (3-11) BUN (6-23) mg/dl Creatinine (0.6-1.4) mg/dl Est Cr Clr Drug Dosing ml/min eGFR BUN/Creatinine Ratio (10-20) Glucose (70-99(Fasting)) mg/dl POC Glucose 499 H* (70-99) mg/dl Osmolality (280-300) mOsm/kg Calcium (8.6-10.3) mg/dl Lipase (11-82) U/L Urine Color Urine Appearance (Clear) Urine pH (4.5-7.5) Ur Specific Wilton (1.000-1.030) Urine Protein (Negative) Urine Glucose (UA) (Negative) Urine Ketones (Negative) Urine Blood (Negative) Urine Nitrite (Negative) Urine Bilirubin (Negative) Urine Urobilinogen (Negative) Ur Leukocyte Esterase (Negative) Urine WBC (Auto) (0-5) /hpf Urine RBC (Auto) (0-2) /hpf U Hyaline Cast (Auto) (0-2) /lpf U Epithel Cells (Auto) (0-2) /hpf Urine Bacteria (Auto) (None Seen) Urine Mucus (None Prsent) Medications Administered Sodium Chloride (Nss) 1,000 mls @ 999 mls/hr IV .Q1H1M ONE Stop: 02/05/24 11:22 Last Admin: 02/05/24 10:33 Dose: 999 mls/hr Documented By: ML Discontinued Medications Sodium Chloride (Nss) 1,000 mls @ 999 mls/hr IV .Q1H1M ONE Stop: 02/05/24 10:17 Last Infusion: 02/05/24 10:25 Dose: Infused Documented By: Admin: 02/05/24 09:24 Dose: 999 mls/hr Documented By: DIYA Calcium Gluconate () 1,000 mg in 60 mls @ 240 mls/hr IV NOW STA Stop: 02/05/24 10:36 Last Admin: 02/05/24 10:33 Dose: 240 mls/hr Documented By: ML Lorazepam (Lorazepam 2 Mg/1 Ml Vial) 1 mg IV NOW STA Stop: 02/05/24 09:18 Last Admin: 02/05/24 09:23 Dose: 1 mg Documented By: DIYA (1) DKA (diabetic ketoacidosis) Diabetes mellitus complication detail: without coma Diabetes mellitus type: type 1 Qualified Code(s): E10.10 - Type 1 diabetes mellitus with ketoacidosis without coma (3) T1DM (type 1 diabetes mellitus) Diabetes mellitus complication detail: without coma Diabetes mellitus complication status: with ketoacidosis Qualified Code(s): E10.10 - Type 1 diabetes mellitus with ketoacidosis without coma (4) Leukocytosis Leukocytosis type: unspecified Qualified Code(s): D72.829 - Elevated white blood cell count, unspecified
--- NOTE | 2024-02-05 10:48 | CT Scan Report ---
CT OF THE HEAD WITHOUT CONTRAST CLINICAL HISTORY: Altered mental status. COMPARISON STUDY: MRI of the brain January 22, 2016. Head CT January 17, 2023. CT DOSE: 1251.59 mGy.cm TECHNIQUE: Helical axial images of the head were obtained without IV contrast. Automated exposure con trol was utilized for the study. A dose lowering technique was utilized adhering to the principles o f ALARA. FINDINGS: This exam is moderately compromised by motion artifact. No acute intracranial hemorrhage, m idline shift or mass effect is present. The ventricular system is unremarkable. The basal cisterns ar e patent. No extra-axial collections are present. There are no findings to suggest acute dural sinus thrombosis or acute territorial infarct. No significant calvarial abnormalities are present. Visualiz ed portions of the sinuses and mastoid air cells are clear. IMPRESSION: No acute intracranial findings. Exam moderately compromised by motion artifact. ACT 112: Negative or not required by law. Electronically signed by: Amadeo Dotson M.D. 02/05/2024 10:47 AM
[2024-02-05 10:53] LABS: Oxygen Saturation VBG 63.1 %; PCO2 VBG 20 mmHg (38-50); PO2 VBG 38 mmHg; pH VBG < 7.00 (7.36-7.41)
[2024-02-05] MEDS: INSULIN REGULAR 250 UNITS in SODIUM CHLORIDE 0.9% 247.5 ML IV SCH (11:15)
[2024-02-05] MEDS: NovoLIN-R BOLUS FROM BAG IV ONE (11:19)
[2024-02-05] MEDS: STAT IV Infusion **Titration per Protocol STA (11:20)
[2024-02-05] MEDS: SODIUM CHLORIDE 0.9% 1,000 ML IV SCH (11:25)
[2024-02-05] MEDS: PIPERACILLIN/TAZOBACTAM 4.5 GM/120 ML BAG IV ONE (11:42)
[2024-02-05] MEDS ORDERED: HALOPERIDOL LACTATE 5 MG/ML 1 ML VIAL IM PRN (11:43)
--- NOTE | 2024-02-05 11:58 | XRay Report ---
XR chest 1V portable CLINICAL HISTORY: DKA TECHNIQUE: Single frontal radiograph of the chest was obtained. Comparison: Comparison is made to chest radiograph 01/16/2024 FINDINGS: No lines and tubes are seen. The cardiomediastinal silhouette is normal. The lungs are clear. No evid ence of pleural effusion or pneumothorax. IMPRESSION: No acute chest disease. ACT 112: Negative or not required by law. Electronically signed by: Pascual Bain M.D. 02/05/2024 11:57 AM
[2024-02-05 12:42] LABS: Albumin Globulin Ratio 1.4 (0.9-2); Albumin Level 4.7 gm/dl (3.4-5.0); BUN Creatinine Ratio 19.2 (10-20); Bilirubin,Total 0.7 mg/dl (0.2-1.0); Creatinine Clr Calc Pharmacy 61.2 ml/min; Globulin 3.3 gm/dl (2.5-4.0); Magnesium 2.1 mg/dl (1.7-2.4); Phosphorus 5.6 mg/dl (2.5-4.9); Potassium 6.7 mmol/L (3.5-5.1)
[2024-02-05 12:49] LABS: Adenovirus PCR Not Detected (NotDetected); Bordetella parapertussis PCR Not Detected (NotDetected); Bordetella pertussis PCR Not Detected (NotDetected); Chlamydia pneumoniae PCR Not Detected (NotDetected); Coronavirus 229E PCR Not Detected (NotDetected); Coronavirus CoV-2 (COVID19)PCR Not Detected (NotDetected); Coronavirus HKU1 PCR Not Detected (NotDetected); Coronavirus NL63 PCR Not Detected (NotDetected); Coronavirus OC43PCR Not Detected (NotDetected); Human Metapneumovirus PCR Not Detected (NotDetected); Influenza A PCR Not Detected (NotDetected); Influenza B PCR Not Detected (NotDetected); Mycoplasma pneumoniae PCR Not Detected (NotDetected); Parainfluenza Virus 1 PCR Not Detected (NotDetected); Parainfluenza Virus 2 PCR Not Detected (NotDetected); Parainfluenza Virus 3 PCR Not Detected (NotDetected); Parainfluenza Virus 4 PCR Not Detected (NotDetected); Respiratory Syncytial VirusPCR Not Detected (NotDetected); Rhinovirus/Enterovirus PCR Not Detected (NotDetected)
[2024-02-05] MEDS: SODIUM BICARBONATE 8.4% 150 MEQ in WATER, STERILE 1,000 ML IV SCH (13:11)
--- NOTE | 2024-02-05 13:11 | Communication Note ---
Date of Service: February 05, 2024 Attending Addendum: Case reviewed with the advanced practitioner. I have personally performed a history and physical examination on the patient. I have reviewed the advanced practitioner's documentation on the date of service referenced in note, and I agree with, and take responsibility for the plan of care. please refer to her notes for full details patient seen and examined, records reviewed by myself as well on exam, patient seen resting in bed, sitting up, not in distress confused, answers some questions appropriately states he feels horrible denies pain, chest pain, cough, abdominal pain, cough no other symptoms VS noted and reviewed oriented x 1-2 , not in distress, speaks in sentences with no effort nor accessory muscle use normal rate, regular rhythm, no murmurs clear breath sounds bilaterally non distended, soft, nontender no bipedal edema, erythema, warmth no neuro deficits all labs, imaging noted and reviewed ASSESSMENT AND PLAN> DKA TYPE 1 DM secondary to missing insulin currently on SC insulin while awaiting supplies for his usual Insulin Pump Insulin drip in progress r/o underlying infection- ff up cultures, MRSA swab, empiric IV Zosyn SEVERE ACIDOSIS ph < 7 Bicarb drip other diagnoses and plan of care as per advanced practitioner's notes Doroteo Escobar MD
[2024-02-05 13:52] LABS: Estimated Average Glucose 275 mg/dl; Hemoglobin A1C 11.2 % (4.5-5.6)
[2024-02-05] MEDS: DKA GOAL RANGE 150-250 mg/dl ONE (13:56)
[2024-02-05] MEDS: INSULIN ASPART PER UNIT CHARGE SC SCH (13:56)
--- NOTE | 2024-02-05 14:32 | Pulmonary Consultation ---
Date of Consultation February 05, 2024 Assessment & Plan (1) T1DM (type 1 diabetes mellitus): Diabetes mellitus complication status: with ketoacidosis Diabetes mellitus complication detail: without coma Qualified Code(s): E10.10 - Type 1 diabetes mellitus with ketoacidosis without coma (2) Leukocytosis: Leukocytosis type: unspecified Qualified Code(s): D72.829 - Elevated white blood cell count, unspecified (3) Vomiting: Nausea presence: with nausea Vomiting type: unspecified Qualified Code(s): R11.2 - Nausea with vomiting, unspecified (4) DKA (diabetic ketoacidosis): Diabetes mellitus complication detail: without coma Diabetes mellitus type: type 1 Qualified Code(s): E10.10 - Type 1 diabetes mellitus with ketoacidosis without coma (5) Metabolic acidosis, increased anion gap: (6) Pseudohyponatremia: (7) Metabolic encephalopathy: (8) CARYL (acute kidney injury): (9) Mood disorder: Plan Reason Critically Ill: 48-year-old male admitted to the hospital for nausea and vomiting. Patient was found to be in DKA and transferred to the ICU Past medical history: Type 1 diabetes, ADHD, seizure disorder, depression Neuro - [facility]: Unable to assess --Metabolic encephalopathy Likely from hyperglycemia CT head negative 02/05/2024 --History of anxiety/mood disorder Not on any medication -- History of seizure disorder Not on any medications right now Cardiac - -- Tachycardia Likely from underlying DKA EKG 02/05/2024 1:27 PM: Sinus tachycardia, normal axis, no ST-T wave changes appreciated Respiratory - -- No acute issues Saturating well on room air GI - -- Nausea and vomiting Likely from DKA AST/ALT within normal limit, chronic mild elevation of alk phos RENAL/LYTES - -- HAGMA Delta-delta: 1.2, pure anion gap metabolic acidosis Likely sec to DKA VBG showed pH less than 7, started on bicarb drip Monitor --DKA Continue with insulin drip until anion gap closes Decreasing blood glucose no more than 100 in an hour Replace potassium IV when potassium level between 3.3-5.3 BMP every 4 hours Continue with IV fluids -- CARYL Follow-up urine lites Likely from dehydration from DKA Monitor BUN/creatinine Avoid nephrotoxic medications Strict ins and outs ENDO - -- Diabetes type 1 On insulin glargine 18 units nightly Continue with ICU hypoglycemia protocol HEME - -- Thrombocytosis Likely reactive Continue to trend ID - -- Leukocytosis Likely reactive UA and chest x-ray are clean Did get Zosyn in the ED --Prophylaxis VTE: Lovenox GI: None Lines: Peripheral Diet: N.p.o. Plan: Patient got only 2 L of IV fluid as per the signout given to the nurse I will give him 500 mL of Plasma-Lyte Once the blood sugar is less than 250 then I will add D5 to the regimen. Follow-up TSH Given the VBG less than 7, continue with bicarb drip for 1 bag Patient is still lethargic and somnolent likely from hyperglycemia. Aspiration precautions I have personally spent 58 minutes of critical care time in the direct management of this patient. This is a life/limb threatening event. This includes time spent evaluating patient, direct bedside care, chart review, placing orders, interpretation of diagnostic studies, discussion with consultants, patient, and family members, as well as other required patient management activities. This time is exclusive of all separately billable procedures, and teaching time and separate from and in addition to any other critical care service time. History of Present Illness History of Present Illness 48-year-old male admitted to the hospital for nausea and vomiting Past medical history: Type 1 diabetes, ADHD, seizure disorder, depression Patient was found to be in DKA and transferred to the ICU At the time of examination patient was not in any distress He was somnolent Heart rate was in the high 90s, systolic blood pressure in the high 100s with MAP 71 His insulin drip was running and bicarb drip was on hold. He was not on any IV fluids when he came from the ER to the ICU Patient is a poor historian History was obtained from previous chart Patient was admitted to the hospital not too long ago and recent changes were made to his insulin regimen Unfortunately he again ran out of insulin and ended up in the hospital Social history: Approximately 63-pypl-kohl smoking history, currently smoking half a pack a day Allergies Allergy/AdvReac Type Severity Reaction Status Date / Time hydrocodone Allergy Mild HIVES Verified 12/02/22 19:55 codeine Allergy Unknown Hives Verified 12/02/22 19:55 ethyl alcohol Allergy Unknown Hives Verified 01/16/24 14:32 Home Medications Medication Instructions Recorded Confirmed Type insulin aspart U-100 100 unit/mL 1 sliding scale dose subcut 01/19/24 02/05/24 Rx (3 mL) subcutaneous pen (Novolog USEASDIRECTD #15 mL FlexPen U-100 Insulin aspart) insulin glargine 100 unit/mL (3 18 unit (0.18 mL) subcut HS #15 mL 01/19/24 02/05/24 Rx mL) subcutaneous pen (Lantus Solostar U-100 Insulin) nicotine 7 mg/24 hr daily 1 patch transdermal QAM #28 ea 01/19/24 02/05/24 Rx transdermal patch pen needle, diabetic 32 gauge x #100 ea 01/19/24 Rx 32" (Pen Needle) insulin aspart U-100 100 unit/mL See Rx Instructions .Route .COMPLEX 02/05/24 02/05/24 History subcutaneous solution Patient History Medical History Mood disorder Hx-TIA (transient ischemic attack) Epilepsy Surgical History S/P right knee arthroscopy Family History Other Diabetes Hypertension Seizure Social History Smoking Status: Current every day smoker Second Hand Exposure: No; Hx Alcohol Use: No (??) Hx Substance Use: No Preferred Language: Occitan Communication Ability: Effective Visual Impairment: No Limitations Hearing Ability: Normal 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: No Beliefs That Will Affect Care: None marital status: Current Living Situation: Alone current occupational status: employed Feels Safe at Home: Yes Assistive Devices: None Review of Systems 2 Review of Systems: All systems reviewed & are unremarkable except as noted in HPI & below Physical Exam 2 Physical Exam: Constitutional: No acute distress HEENT: EOMI, PERRLA Respiratory system: Decreased air entry bilaterally, no wheeze, no rhonchi, no crackles CVS: S1-S2 positive, no murmurs or gallops, tachycardia Abdomen: Soft, nontender, nondistended, positive bowel sounds x4 Extremities: +2 pulses bilaterally radialis/ dorsalis pedis, no cyanosis, no edema Neuro: Somnolent, arousable to deep stimuli, moving all extremities spontaneously Psych: Normal mood and affect G/U: No Montiel Skin: no rashes, warm and dry Lymphatic: no cervical or axillary lymphadenopathy Results & Data Results & Data Vital Signs (Past 12 Hours) Vital Signs Pulse Pulse Resp BP BP Pulse Ox O2 Del Method 02/05/24 13:19 106 H 02/05/24 13:07 120 H 18 118/89 99 Room Air 02/05/24 12:08 87 25 H 115/86 96 02/05/24 10:48 117 H 18 100 02/05/24 10:47 110/82 02/05/24 10:47 110/82 02/05/24 10:47 110/82 02/05/24 10:44 131/108 H 02/05/24 10:36 119 H 21 02/05/24 10:33 117 H 16 02/05/24 10:21 115 H 16 02/05/24 10:18 117 H 20 95 02/05/24 10:09 114 H 16 02/05/24 09:45 110 H 16 02/05/24 09:39 123 H 16 02/05/24 09:24 99 Room Air 02/05/24 09:21 114 H 20 100 02/05/24 09:18 115 H 26 H 02/05/24 09:14 111 H 02/05/24 09:09 131/94 02/05/24 09:08 123 H 18 131/94 97 Room Air Laboratory Results 02/05/24 09:21 02/05/24 10:37 PG Care Time/CCT Total # of Minutes Spent Total Time Spent with Patient: Total time spent is greater than 50% in coordination of care (as documented) at patient's floor/unit and/or counseling patient: Coding Level of Care Code 32432 CRITICAL CARE 1ST 30-74M Diagnoses Type 1 diabetes mellitus with ketoacidosis without coma E10.10 Diabetes mellitus complication status: with ketoacidosis Diabetes mellitus complication detail: without coma Leukocytosis D72.829 Leukocytosis type: unspecified Vomiting R11.2 Nausea presence: with nausea Vomiting type: unspecified DKA (diabetic ketoacidosis) E10.10 Diabetes mellitus complication detail: without coma Diabetes mellitus type: type 1 Metabolic acidosis, increased anion gap E87.29 Pseudohyponatremia R79.89 Metabolic encephalopathy G93.41 CARYL (acute kidney injury) N17.9 Mood disorder F39
[2024-02-05] MEDS: PLASMA-LYTE A 500 ML IV ONE (15:15)
[2024-02-05] MEDS: ICU Protocol for HYPERglycemia SCH (15:30)
[2024-02-05] MEDS: PLASMA-LYTE A 1,000 ML IV SCH (15:46)
[2024-02-05 16:05] LABS: Base Excess VBG -12.3 mEq/L; HCO3 VBG 15 mmol/L; Oxygen Saturation VBG 61.2 %; PCO2 VBG 37 mmHg (38-50); PO2 VBG 32 mmHg; pH VBG 7.21 (7.36-7.41)
--- NOTE | 2024-02-05 16:16 | Electrocardiogram Report ---
Test Reason : Blood Pressure : */* mmHG Vent. Rate : 101 BPM Atrial Rate : 101 BPM P-R Int : 138 ms QRS Dur : 84 ms QT Int : 320 ms P-R-T Axes : 73 67 75 degrees QTcB Int : 414 ms Sinus tachycardia Right atrial enlargement Borderline ECG When compared with ECG of 05-Feb-2024 09:09, (unconfirmed) No significant change was found Confirmed by Aries Butterfield ([id number]) on 02/05/2024 4:16:29 PM Referred By: REFERRED SELF Confirmed By: Aries Butterfield
--- NOTE | 2024-02-05 16:19 | Electrocardiogram Report ---
Test Reason : Blood Pressure : */* mmHG Vent. Rate : 113 BPM Atrial Rate : 113 BPM P-R Int : 138 ms QRS Dur : 82 ms QT Int : 314 ms P-R-T Axes : 84 88 73 degrees QTcB Int : 430 ms Sinus tachycardia Right atrial enlargement Borderline ECG When compared with ECG of 16-Jan-2024 12:43, No significant change was found Confirmed by Aries Butterfield ([id number]) on 02/05/2024 4:18:53 PM Referred By: REFERRED SELF Confirmed By: Aries Butterfield
[2024-02-05] MEDS: D5W AND NSS 1,000 ML IV SCH (16:42)
[2024-02-05 16:53] LABS: BUN Creatinine Ratio 18.4 (10-20); Calcium 8.8 mg/dl (8.6-10.3); Creatinine Clr Calc Pharmacy 74.3 ml/min; Magnesium 2.1 mg/dl (1.7-2.4); Phosphorus 1.5 mg/dl (2.5-4.9); Potassium 4.8 mmol/L (3.5-5.1); Thyroid Stimulating Hormone 3.513 uIu/ml (0.300-4.500)
--- NOTE | 2024-02-05 16:59 | Emergency Department Note ---
History of Present Illness General Chief complaint: Hyperglycemia Stated complaint: ILLNESS, HYPERGLYCEMIA Time Seen by Provider: 02/05/24 09:17 History of Present Illness Provider complaint: Hyperglycemia Maximum Pain Intensity: 8 48-year-old insulin-dependent diabetic male presents emergency department for hyperglycemia. Patient states he ran out of supplies from his insulin pump so has not been given any insulin in the last 3 days. Denies any falls traumas drugs or alcohol. Denies any abdominal pain or chest pain. Denies any fevers. Denies any difficulty breathing. Patient does report nausea and vomiting no hematemesis coffee-ground emesis or bilious vomiting. Home Medications Medication Instructions Recorded Confirmed Type insulin aspart U-100 100 unit/mL 1 sliding scale dose subcut 01/19/24 02/05/24 Rx (3 mL) subcutaneous pen (Novolog USEASDIRECTD #15 mL FlexPen U-100 Insulin aspart) insulin glargine 100 unit/mL (3 18 unit (0.18 mL) subcut HS #15 mL 01/19/24 02/05/24 Rx mL) subcutaneous pen (Lantus Solostar U-100 Insulin) nicotine 7 mg/24 hr daily 1 patch transdermal QAM #28 ea 01/19/24 02/05/24 Rx transdermal patch pen needle, diabetic 32 gauge x #100 ea 01/19/24 Rx 32" (Pen Needle) insulin aspart U-100 100 unit/mL See Rx Instructions .Route .COMPLEX 02/05/24 02/05/24 History subcutaneous solution Allergies Allergy/AdvReac Type Severity Reaction Status Date / Time hydrocodone Allergy Mild HIVES Verified 12/02/22 19:55 codeine Allergy Unknown Hives Verified 12/02/22 19:55 ethyl alcohol Allergy Unknown Hives Verified 01/16/24 14:32 Past Med/Surg History Problem List (Updated 02/05/24 @ 17:11 by Josias Tavarez MD) Lactic acidemia (Acute) CARYL (acute kidney injury) Metabolic encephalopathy T1DM (type 1 diabetes mellitus) Leukocytosis (Acute) Vomiting (Acute) DKA (diabetic ketoacidosis) (Acute) Metabolic acidosis, increased anion gap Pseudohyponatremia (Acute) DKA (diabetic ketoacidosis) (Acute) History of TIAs (Acute) Diabetes mellitus, new onset History of tobacco abuse (Acute) Diabetes mellitus, new onset (Acute) Hyponatremia (Acute) History of orthopedic surgery Headache Right shoulder injury (Acute) Slurred speech Work related injury (Acute) Medical History Mood disorder Hx-TIA (transient ischemic attack) Epilepsy Surgical History S/P right knee arthroscopy Family History Other Diabetes Hypertension Seizure Social History Smoking Status: Current every day smoker Second Hand Exposure: No; Hx Alcohol Use: No (??) Hx Substance Use: No Preferred Language: Greenlandic Communication Ability: Effective Visual Impairment: No Limitations Hearing Ability: Normal Manager Practice Required: No Beliefs That Will Affect Care: None marital status: Current Living Situation: Alone current occupational status: employed Feels Safe at Home: Yes Assistive Devices: None Physical Exam Vital Signs Vital Signs - 24 hr 02/05/24 09:08 02/05/24 09:09 02/05/24 09:14 Temperature Source Temporal Artery Scan Pulse Rate 123 H 111 H Pulse Rate from SpO2 Sensor Respiratory Rate 18 Blood Pressure 131/94 131/94 Blood Pressure Mean 106 103 Pulse Oximetry 97 Oxygen Delivery Method Room Air Sepsis Recent Fever Within 48 Hours No Sepsis New/Unexplained Change in Mental Status N/A Sepsis Action Taken by Nursing No Action Required 02/05/24 09:18 02/05/24 09:21 02/05/24 09:24 Temperature Source Pulse Rate 115 H 114 H Pulse Rate from SpO2 Sensor 116 H Respiratory Rate 26 H 20 Blood Pressure Blood Pressure Mean Pulse Oximetry 100 99 Oxygen Delivery Method Room Air Sepsis Recent Fever Within 48 Hours Sepsis New/Unexplained Change in Mental Status Sepsis Action Taken by Nursing 02/05/24 09:39 02/05/24 09:45 02/05/24 10:09 Temperature Source Pulse Rate 123 H 110 H 114 H Pulse Rate from SpO2 Sensor Respiratory Rate 16 16 16 Blood Pressure Blood Pressure Mean Pulse Oximetry Oxygen Delivery Method Sepsis Recent Fever Within 48 Hours Sepsis New/Unexplained Change in Mental Status Sepsis Action Taken by Nursing 02/05/24 10:18 02/05/24 10:21 02/05/24 10:33 Temperature Source Pulse Rate 117 H 115 H 117 H Pulse Rate from SpO2 Sensor Respiratory Rate 20 16 16 Blood Pressure Blood Pressure Mean Pulse Oximetry 95 Oxygen Delivery Method Sepsis Recent Fever Within 48 Hours Sepsis New/Unexplained Change in Mental Status Sepsis Action Taken by Nursing 02/05/24 10:36 02/05/24 10:44 02/05/24 10:47 Temperature Source Pulse Rate 119 H Pulse Rate from SpO2 Sensor Respiratory Rate 21 Blood Pressure 131/108 H 110/82 Blood Pressure Mean 121 95 Pulse Oximetry Oxygen Delivery Method Sepsis Recent Fever Within 48 Hours Sepsis New/Unexplained Change in Mental Status Sepsis Action Taken by Nursing 02/05/24 10:47 02/05/24 10:47 02/05/24 10:48 Temperature Source Pulse Rate 117 H Pulse Rate from SpO2 Sensor Respiratory Rate 18 Blood Pressure 110/82 110/82 Blood Pressure Mean 95 95 Pulse Oximetry 100 Oxygen Delivery Method Sepsis Recent Fever Within 48 Hours Sepsis New/Unexplained Change in Mental Status Sepsis Action Taken by Nursing Physical Exam GENERAL: Patient is very agitated and verbally abusive towards myself and staff. HENT: Exam performed. - Head: Normocephalic and atraumatic. EYES: Conjunctivae and EOM are normal. Right eye exhibits no discharge. Left eye exhibits no discharge. No scleral icterus. NECK: Normal range of motion. Neck supple. No JVD present. CV: Tachycardic rate, regular rhythm, normal heart sounds and intact distal pulses. There is no peripheral edema. Palpable radial pulses bue. PULM/CHEST: Effort normal and breath sounds normal. No respiratory distress. No stridor. no wheezes. no rales. ABD: The abdomen is soft. There is no tenderness. NEURO: Motor and sensation grossly intact. SKIN: Skin is warm and dry. He is not diaphoretic. Course Course 0917: The patient was evaluated in room . A complete history and physical exam was performed Cardiac monitoring: An order was placed for continuous cardiac monitoring. The monitor shows a rate of 90 with sinus rhythm interpreted by me Patient's Accu-Chek is greater than 400. 1 L normal saline fluid ordered for the patient. Patient is very agitated and verbally abusive towards myself and staff. Ativan ordered for the patient. 1017: Vital signs stable. Patient's potassium 6.1 glucose 604 anion gap 27. Patient will be treated with 1 g calcium gluconate. An additional liter of fluid to be given to the patient. Patient will be started on insulin drip at 5.8 units/h and will be given a 6 unit bolus of insulin. 1115: Vital signs stable. Patient's white blood cell count is 36.5. Lactic acid is 5.5. On reassessment patient has no pain on palpation of the abdomen. It is thought that the patient's lab abnormalities are most likely due to severe dehydration secondary to DKA however will obtain CT of the abdomen pelvis as well as treat with broad-spectrum antibiotics Zosyn and vancomycin for any possible coinfection causing his lab abnormalities. When the patient was taken to CT scan he refused to get on the table stating that everyone was "trying to steal his money". I explained to him that we are trying to save his life and were not doing unnecessary test. Patient was increasingly agitated, 2nd dose ativan ordered for the patient. Administered Medications Insulin Human Regular 250 (units/ Sodium Chloride) 250 mls @ 3.8 mls/hr IV .Q24H TIGIST; Protocol Stop: 03/06/24 10:29 Last Titration: 02/05/24 16:35 Dose: 3.8 unit/hr, 3.8 mls/hr Documented By: EDGAR Co-signed By: LAF Titration: 02/05/24 15:35 Dose: 4.8 unit/hr, 4.8 mls/hr Documented By: EDGAR Co-signed By: LAF Titration: 02/05/24 15:08 Dose: 4 unit/hr, 4 mls/hr Documented By: EDGAR Co-signed By: LAF Titration: 02/05/24 14:35 Dose: 0 unit/hr, 0 mls/hr Documented By: MARIPOSA Co-signed By: DMH Titration: 02/05/24 13:33 Dose: 6.6 unit/hr, 6.6 mls/hr Documented By: MARIPOSA Co-signed By: YOHANNES Titration: 02/05/24 12:24 Dose: 8.3 unit/hr, 8.3 mls/hr Documented By: MARIPOSA Co-signed By: ANT Admin: 02/05/24 11:15 Dose: 5.9 unit/hr, 5.9 mls/hr Documented By: MARIPOSA Co-signed By: YOHANNES Parenteral Electrolytes (Plasma-Lyte A Ph 7.4) 1,000 mls @ 100 mls/hr IV .Q10H TIGIST Stop: 02/06/24 00:46 Last Infusion: 02/05/24 16:55 Dose: 100 mls/hr Documented By: Admin: 02/05/24 15:46 Dose: 150 mls/hr Documented By: EDGAR Insulin Aspart (Insulin Aspart Per Unit Charge) 0 units SC [facility] Stop: 03/06/24 11:29 Last Admin: 02/05/24 16:25 Dose: Not Given Documented By: EDGAR Co-signed By: LAF Admin: 02/05/24 13:56 Dose: Not Given Documented By: MARIPOSA Co-signed By: [facility] Miscellaneous (Icu Protocol For Hyperglycemia) 1 each N/A [facility] Stop: 02/07/24 16:29 Last Admin: 02/05/24 15:30 Dose: Not Given Documented By: EDGAR Discontinued Medications Sodium Chloride (Nss) 1,000 mls @ 999 mls/hr IV .Q1H1M ONE Stop: 02/05/24 10:17 Last Infusion: 02/05/24 10:25 Dose: Infused Documented By: Admin: 02/05/24 09:24 Dose: 999 mls/hr Documented By: ML Calcium Gluconate () 1,000 mg in 60 mls @ 240 mls/hr IV NOW STA Stop: 02/05/24 10:36 Last Infusion: 02/05/24 10:51 Dose: Infused Documented By: Admin: 02/05/24 10:33 Dose: 240 mls/hr Documented By: ML Sodium Chloride (Nss) 1,000 mls @ 125 mls/hr IV .Q8H [facility] Stop: 02/06/24 10:29 Last Infusion: 02/05/24 15:10 Dose: Infused Documented By: Infusion: 02/05/24 13:33 Dose: 125 mls/hr Documented By: Admin: 02/05/24 11:25 Dose: 125 mls/hr Documented By: GGG Sodium Chloride (Nss) 1,000 mls @ 999 mls/hr IV .Q1H1M ONE Stop: 02/05/24 11:22 Last Infusion: 02/05/24 15:14 Dose: Infused Documented By: Admin: 02/05/24 10:33 Dose: 999 mls/hr Documented By: ML Piperacillin Sod/Tazobactam Sod (Zosyn) 4.5 gm in 120 mls @ 240 mls/hr IV NOW ONE Stop: 02/05/24 11:28 Last Infusion: 02/05/24 12:41 Dose: Infused Documented By: Admin: 02/05/24 11:42 Dose: 240 mls/hr Documented By: MARIPOSA Sodium Bicarbonate 150 meq/ (Sterile Water) 1,150 mls @ 125 mls/hr IV .Q9H12M [facility] Stop: 02/06/24 12:29 Last Infusion: 02/05/24 16:29 Dose: Infused Documented By: Infusion: 02/05/24 15:08 Dose: 0 mls/hr Documented By: Admin: 02/05/24 13:11 Dose: 125 mls/hr Documented By: MARIPOSA Dextrose/Sodium Chloride (D5w And Nss) 1,000 mls @ 80 mls/hr IV .[id number] [facility] Stop: 02/06/24 14:59 Last Admin: 02/05/24 16:42 Dose: Not Given Documented By: EDGAR Parenteral Electrolytes (Plasma-Lyte A Ph 7.4) 500 mls @ 999 mls/hr IV .Q31M ONE Stop: 02/05/24 15:39 Last Infusion: 02/05/24 15:46 Dose: Infused Documented By: Admin: 02/05/24 15:15 Dose: 999 mls/hr Documented By: EDGAR Insulin Human Regular (Novolin-R Bolus From Bag) 6 units IV ONE ONE Stop: 02/05/24 10:46 Last Admin: 02/05/24 11:19 Dose: 6 units Documented By: MARIPOSA Co-signed By: YOHANNES Lorazepam (Lorazepam 2 Mg/1 Ml Vial) 1 mg IV NOW STA Stop: 02/05/24 09:18 Last Admin: 02/05/24 09:23 Dose: 1 mg Documented By: DIYA Lorazepam (Lorazepam 2 Mg/1 Ml Vial) 1 mg IV NOW STA Stop: 02/05/24 11:14 Last Admin: 02/05/24 11:30 Dose: 1 mg Documented By: MARIPOSA Miscellaneous (Stat Iv Infusion Titration Per Protocol) 1 each N/A NOW STA Stop: 02/05/24 10:23 Last Admin: 02/05/24 11:20 Dose: Not Given Documented By: MARIPOSA Miscellaneous (Dka Goal Range 150-250 Mg/Dl) 1 each N/A ONE ONE Stop: 02/05/24 10:33 Last Admin: 02/05/24 13:56 Dose: Not Given Documented By: MARIPOSA Critical Care Time Critical Care Time: Yes Total Critical Care Time: 64 I have personally spent greater than 64 minutes of critical care time in the direct management of this patient. This includes bedside care, interpretation of diagnostic studies, and testing, discussion with consultants, patient, and family members, and other required patient management activities. This 64 minutes is in excess of all separately billable procedures. Medical Decision Making Laboratory Data Attestation: I reviewed the patient's lab results. 02/05/24 09:21 02/05/24 15:55 Lab Results 02/05/24 02/05/24 02/05/24 Range/Units 09:08 09:21 10:05 WBC 36.54 H* (4.8-10.8) K/ul RBC 5.60 (4.70-6.10) M/uL Hgb 16.0 (14.0-18.0) g/dl Hct 48.0 (42.0-52.0) % MCV 85.7 (80.0-100.0) fL MCH 28.6 (25.0-34.0) pg MCHC 33.3 (32.0-36.0) g/dL RDW Std Deviation 40.9 (36.4-46.3) fL RDW Coeff of Edgar 12.7 (11.5-14.5) % Plt Count 500 H (130-400) K/uL MPV 10.7 (9.4-12.4) fL Immature Gran % (Auto) 1.9 % Neut % (Auto) 89.7 % Lymph % (Auto) 3.5 % [place] % (Auto) 4.4 % Eos % (Auto) 0.1 % Baso % (Auto) 0.4 % Neut # (Auto) 32.78 H (1.40-6.50) K/uL Lymph # (Auto) 1.29 (1.20-3.40) K/uL [place] # (Auto) 1.62 H (0.11-0.59) K/uL Eos # (Auto) 0.03 (0.00-0.50) K/uL Baso # (Auto) 0.14 (0.00-0.20) K/uL Immature Gran # (Auto) 0.68 H (0.01-0.20) K/uL VBG pH VBG pCO2 (38-50) mmHg VBG pO2 mmHg VBG HCO3 VBG O2 Saturation % VBG Base Excess Sodium 130 L (136-145) mmol/L Potassium 6.1 H* (3.5-5.1) mmol/L Chloride 97 L (98-107) mmol/L Carbon Dioxide 6 L* (21-32) mmol/L Anion Gap 27 H (3-11) BUN 24 H (6-23) mg/dl Creatinine 1.37 (0.6-1.4) mg/dl Est Cr Clr Drug Dosing 55.8 ml/min eGFR 64.43 BUN/Creatinine Ratio 17.5 (10-20) Glucose 604 H* (70-99(Fasting)) mg/dl POC Glucose 483 H* (70-99) mg/dl Osmolality 325 H (280-300) mOsm/kg Lactate (0.4-2.0) mmol/L Calcium 9.7 (8.6-10.3) mg/dl Phosphorus (2.5-4.9) mg/dl Magnesium (1.7-2.4) mg/dl Total Bilirubin (0.2-1.0) mg/dl AST (13-39) U/L ALT (7-52) U/L Alkaline Phosphatase (34-104) U/L Total Protein (6.0-8.3) gm/dl Albumin (3.4-5.0) gm/dl Globulin (2.5-4.0) gm/dl Albumin/Globulin Ratio (0.9-2) Lipase 14 (11-82) U/L Urine Color Yellow Urine Appearance Clear (Clear) Urine pH 5.0 (4.5-7.5) Ur Specific [place] 1.026 (1.000-1.030) Urine Protein 1+ H (Negative) Urine Glucose (UA) 3+ H (Negative) Urine Ketones 4+ H (Negative) Urine Blood 1+ H (Negative) Urine Nitrite Negative (Negative) Urine Bilirubin Negative (Negative) Urine Urobilinogen Negative (Negative) Ur Leukocyte Esterase Negative (Negative) Urine WBC (Auto) 0-5 (0-5) /hpf Urine RBC (Auto) 3-5 H (0-2) /hpf U Hyaline Cast (Auto) 6-10 H (0-2) /lpf U Epithel Cells (Auto) 0-2 (0-2) /hpf Urine Bacteria (Auto) None Seen (None Seen) Urine Mucus Present A (None Prsent) Ethyl Alcohol mg/dL (<10.0) mg/dl 02/05/24 02/05/24 02/05/24 Range/Units 10:37 10:38 10:40 WBC (4.8-10.8) K/ul RBC (4.70-6.10) M/uL Hgb (14.0-18.0) g/dl Hct (42.0-52.0) % MCV (80.0-100.0) fL MCH (25.0-34.0) pg MCHC (32.0-36.0) g/dL RDW Std Deviation (36.4-46.3) fL RDW Coeff of Edgar (11.5-14.5) % Plt Count (130-400) K/uL MPV (9.4-12.4) fL Immature Gran % (Auto) % Neut % (Auto) % Lymph % (Auto) % [place] % (Auto) % Eos % (Auto) % Baso % (Auto) % Neut # (Auto) (1.40-6.50) K/uL Lymph # (Auto) (1.20-3.40) K/uL [place] # (Auto) (0.11-0.59) K/uL Eos # (Auto) (0.00-0.50) K/uL Baso # (Auto) (0.00-0.20) K/uL Immature Gran # (Auto) (0.01-0.20) K/uL VBG pH Cancelled VBG pCO2 (38-50) mmHg VBG pO2 mmHg VBG HCO3 VBG O2 Saturation % VBG Base Excess Sodium 132 L (136-145) mmol/L Potassium 6.7 H* (3.5-5.1) mmol/L Chloride 103 (98-107) mmol/L Carbon Dioxide 4 L* (21-32) mmol/L Anion Gap 25 H (3-11) BUN 24 H (6-23) mg/dl Creatinine 1.25 (0.6-1.4) mg/dl Est Cr Clr Drug Dosing 61.2 ml/min eGFR 71.92 BUN/Creatinine Ratio 19.2 (10-20) Glucose 590 H* (70-99(Fasting)) mg/dl POC Glucose (70-99) mg/dl Osmolality (280-300) mOsm/kg Lactate 5.5 H* (0.4-2.0) mmol/L Calcium 9.0 (8.6-10.3) mg/dl Phosphorus 5.6 H (2.5-4.9) mg/dl Magnesium 2.1 (1.7-2.4) mg/dl Total Bilirubin 0.7 (0.2-1.0) mg/dl AST 12 L (13-39) U/L ALT 15 (7-52) U/L Alkaline Phosphatase 130 H (34-104) U/L Total Protein 8.0 (6.0-8.3) gm/dl Albumin 4.7 (3.4-5.0) gm/dl Globulin 3.3 (2.5-4.0) gm/dl Albumin/Globulin Ratio 1.4 (0.9-2) Lipase (11-82) U/L Urine Color Urine Appearance (Clear) Urine pH (4.5-7.5) Ur Specific [place] (1.000-1.030) Urine Protein (Negative) Urine Glucose (UA) (Negative) Urine Ketones (Negative) Urine Blood (Negative) Urine Nitrite (Negative) Urine Bilirubin (Negative) Urine Urobilinogen (Negative) Ur Leukocyte Esterase (Negative) Urine WBC (Auto) (0-5) /hpf Urine RBC (Auto) (0-2) /hpf U Hyaline Cast (Auto) (0-2) /lpf U Epithel Cells (Auto) (0-2) /hpf Urine Bacteria (Auto) (None Seen) Urine Mucus (None Prsent) Ethyl Alcohol mg/dL < 10.0 (<10.0) mg/dl 02/05/24 02/05/24 02/05/24 Range/Units 10:41 10:43 11:45 WBC (4.8-10.8) K/ul RBC (4.70-6.10) M/uL Hgb (14.0-18.0) g/dl Hct (42.0-52.0) % MCV (80.0-100.0) fL MCH (25.0-34.0) pg MCHC (32.0-36.0) g/dL RDW Std Deviation (36.4-46.3) fL RDW Coeff of Edgar (11.5-14.5) % Plt Count (130-400) K/uL MPV (9.4-12.4) fL Immature Gran % (Auto) % Neut % (Auto) % Lymph % (Auto) % [place] % (Auto) % Eos % (Auto) % Baso % (Auto) % Neut # (Auto) (1.40-6.50) K/uL Lymph # (Auto) (1.20-3.40) K/uL [place] # (Auto) (0.11-0.59) K/uL Eos # (Auto) (0.00-0.50) K/uL Baso # (Auto) (0.00-0.20) K/uL Immature Gran # (Auto) (0.01-0.20) K/uL VBG pH < 7.00 L VBG pCO2 20 L (38-50) mmHg VBG pO2 38 mmHg VBG HCO3 TNP VBG O2 Saturation 63.1 % VBG Base Excess TNP Sodium (136-145) mmol/L Potassium (3.5-5.1) mmol/L Chloride (98-107) mmol/L Carbon Dioxide (21-32) mmol/L Anion Gap (3-11) BUN (6-23) mg/dl Creatinine (0.6-1.4) mg/dl Est Cr Clr Drug Dosing ml/min eGFR BUN/Creatinine Ratio (10-20) Glucose (70-99(Fasting)) mg/dl POC Glucose 499 H* 443 H* (70-99) mg/dl Osmolality (280-300) mOsm/kg Lactate (0.4-2.0) mmol/L Calcium (8.6-10.3) mg/dl Phosphorus (2.5-4.9) mg/dl Magnesium (1.7-2.4) mg/dl Total Bilirubin (0.2-1.0) mg/dl AST (13-39) U/L ALT (7-52) U/L Alkaline Phosphatase (34-104) U/L Total Protein (6.0-8.3) gm/dl Albumin (3.4-5.0) gm/dl Globulin (2.5-4.0) gm/dl Albumin/Globulin Ratio (0.9-2) Lipase (11-82) U/L Urine Color Urine Appearance (Clear) Urine pH (4.5-7.5) Ur Specific [place] (1.000-1.030) Urine Protein (Negative) Urine Glucose (UA) (Negative) Urine Ketones (Negative) Urine Blood (Negative) Urine Nitrite (Negative) Urine Bilirubin (Negative) Urine Urobilinogen (Negative) Ur Leukocyte Esterase (Negative) Urine WBC (Auto) (0-5) /hpf Urine RBC (Auto) (0-2) /hpf U Hyaline Cast (Auto) (0-2) /lpf U Epithel Cells (Auto) (0-2) /hpf Urine Bacteria (Auto) (None Seen) Urine Mucus (None Prsent) Ethyl Alcohol mg/dL (<10.0) mg/dl Imaging Data Attestation: I personally reviewed and interpreted this imaging study as follows: My Impression: Chest x-ray negative. Airway clear. No pneumothorax. No consolidation. No cardiomegaly or cephalization.. No free air under the diaphragm. No fractures of the skeletal structures. Radiologist's Impression: Head CT 02/05/24 09:22 CT OF THE HEAD WITHOUT CONTRAST CLINICAL HISTORY: Altered mental status. COMPARISON STUDY: MRI of the brain January 22, 2016. Head CT January 17, 2023. CT DOSE: 1251.59 mGy.cm TECHNIQUE: Helical axial images of the head were obtained without IV contrast. Automated exposure control was utilized for the study. A dose lowering technique was utilized adhering to the principles of ALARA. FINDINGS: This exam is moderately compromised by motion artifact. No acute intracranial hemorrhage, midline shift or mass effect is present. The ventricular system is unremarkable. The basal cisterns are patent. No extra- axial collections are present. There are no findings to suggest acute dural sinus thrombosis or acute territorial infarct. No significant calvarial abnormalities are present. Visualized portions of the sinuses and mastoid air cells are clear. IMPRESSION: No acute intracranial findings. Exam moderately compromised by motion artifact. ACT 112: Negative or not required by law. Electronically signed by: Amadeo Dotson M.D. 02/05/2024 10:47 AM Chest X-Ray 02/05/24 11:23 XR chest 1V portable CLINICAL HISTORY: DKA TECHNIQUE: Single frontal radiograph of the chest was obtained. Comparison: Comparison is made to chest radiograph 01/16/2024 FINDINGS: No lines and tubes are seen. The cardiomediastinal silhouette is normal. The lungs are clear. No evidence of pleural effusion or pneumothorax. IMPRESSION: No acute chest disease. ACT 112: Negative or not required by law. Electronically signed by: Pascual Bain M.D. 02/05/2024 11:57 AM ECG Data Attestation: I personally reviewed and interpreted this ECG as follows: Rate (beats per minute): 101 Rhythm: + sinus tachycardia ECG Intervals/blocks: + Normal QRS, + Normal RI and + Normal QT-c ECG ST segments: + Normal ST segments MDM Narrative 0917: The patient was evaluated in room . A complete history and physical exam was performed Cardiac monitoring: An order was placed for continuous cardiac monitoring. The monitor shows a rate of 90 with sinus rhythm interpreted by me Patient's Accu-Chek is greater than 400. 1 L normal saline fluid ordered for the patient. Patient is very agitated and verbally abusive towards myself and staff. Ativan ordered for the patient. 1017: Vital signs stable. Patient's potassium 6.1 glucose 604 anion gap 27. Patient will be treated with 1 g calcium gluconate. An additional liter of fluid to be given to the patient. Patient will be started on insulin drip at 5.8 units/h and will be given a 6 unit bolus of insulin. 1115: Vital signs stable. Patient's white blood cell count is 36.5. Lactic acid is 5.5. On reassessment patient has no pain on palpation of the abdomen. It is thought that the patient's lab abnormalities are most likely due to severe dehydration secondary to DKA however will obtain CT of the abdomen pelvis as well as treat with broad-spectrum antibiotics Zosyn and vancomycin for any possible coinfection causing his lab abnormalities. When the patient was taken to CT scan he refused to get on the table stating that everyone was "trying to steal his money". I explained to him that we are trying to save his life and were not doing unnecessary test. Patient was increasingly agitated, 2nd dose ativan ordered for the patient. Impression & Plan DKA (diabetic ketoacidosis), Lactic acidemia Discharge Plan Visit Data Chief Complaint: Hyperglycemia Stated Complaint: ILLNESS, HYPERGLYCEMIA ED Provider: Josias Tavarez Discharge Problem: DKA (diabetic ketoacidosis), Lactic acidemia Patient Disposition: Admitted As Inpatient Discharge Instructions Interventions: ED Discharge Assessment Last Done: 02/05/24 14:50
[2024-02-05] MEDS: D5W AND 1/2NSS + 20MEQ KCL 20 MEQ/1,000 ML BAG IV SCH (17:25)
[2024-02-05] MEDS: PIPERACILLIN/TAZOBACTAM 4.5 GM/100 ML BAG IV SCH (17:49)
[2024-02-05 19:22] LABS: BUN Creatinine Ratio 20.5 (10-20); Calcium 8.7 mg/dl (8.6-10.3); Creatinine Clr Calc Pharmacy 92.2 ml/min; Potassium 4.4 mmol/L (3.5-5.1)
[2024-02-05 19:27] LABS: Phosphorus 1.3 mg/dl (2.5-4.9)
[2024-02-05 22:58] LABS: BUN Creatinine Ratio 21.3 (10-20); Calcium 8.7 mg/dl (8.6-10.3); Creatinine Clr Calc Pharmacy 95.6 ml/min; Potassium 3.9 mmol/L (3.5-5.1)
[2024-02-05 23:05] LABS: Magnesium 2.1 mg/dl (1.7-2.4); Phosphorus 1.2 mg/dl (2.5-4.9)
[2024-02-06 04:36] LABS: BUN Creatinine Ratio 21.3 (10-20); Calcium 8.8 mg/dl (8.6-10.3); Creatinine Clr Calc Pharmacy 95.6 ml/min; Potassium 3.8 mmol/L (3.5-5.1)
[2024-02-06 04:49] LABS: Phosphorus 1.1 mg/dl (2.5-4.9)
[2024-02-06] MEDS ORDERED: POTASSIUM PHOS 3 MMOL/1 ML INFUSION IV STA (05:05)
[2024-02-06] MEDS ORDERED: OLANZapine 10 MG/2.1 ML SDV IM PRN (06:10)
[2024-02-06] MEDS: POTASSIUM PHOSPHATE 15 MMOL in SODIUM CHLORIDE 0.9% 250 ML IV ONE (06:17)
[2024-02-06] MEDS ORDERED: PHARMACY GLYCEMIC MGMT CONSULT PRN (06:56)
[2024-02-06] MEDS: OLANZapine 10 MG/2.1 ML SDV IM STA (06:58)
[2024-02-06 07:19] LABS: Potassium Random Urine 56.6 mmol/L
[2024-02-06] MEDS: LANTUS PER UNIT CHARGE SQ STA (07:30)
--- NOTE | 2024-02-06 07:58 | Critical Care Progress Note ---
Date of Service February 06, 2024 Assessment & Plan (1) T1DM (type 1 diabetes mellitus): (2) Leukocytosis: (3) Vomiting: (4) DKA (diabetic ketoacidosis): (5) Metabolic acidosis, increased anion gap: (6) Pseudohyponatremia: (7) Metabolic encephalopathy: (8) CARYL (acute kidney injury): (9) Mood disorder: Plan Reason Critically Ill: 48-year-old male admitted to the hospital for nausea and vomiting. Patient was found to be in DKA and transferred to the ICU Past medical history: Type 1 diabetes, ADHD, seizure disorder, depression Neuro - [facility]: Unable to assess -- S/p metabolic encephalopathy Likely from hyperglycemia TSH 3.5 CT head negative 02/05/2024 --History of anxiety/mood disorder Not on any medication -- History of seizure disorder Not on any medications right now Cardiac - -- Tachycardia --> resolved Likely from underlying DKA EKG 02/05/2024 1:27 PM: Sinus tachycardia, normal axis, no ST-T wave changes appreciated Respiratory - -- No acute issues Saturating well on room air GI - -- Nausea and vomiting--> resolved Likely from DKA AST/ALT within normal limit, chronic mild elevation of alk phos RENAL/LYTES - -- S/p HAGMA Delta-delta: 1.2, pure anion gap metabolic acidosis Likely sec to DKA Initial VBG showed pH less than 7, s/p bicarb drip Monitor --DKA Continue with insulin drip until anion gap closes Decreasing blood glucose no more than 100 in an hour Replace potassium IV when potassium level between 3.3-5.3 BMP every 4 hours Continue with IV fluids -- S/p CARYL Likely from dehydration from DKA Monitor BUN/creatinine Avoid nephrotoxic medications Strict ins and outs ENDO - -- Diabetes type 1 On insulin glargine 18 units nightly Continue with ICU hypoglycemia protocol HEME - -- Thrombocytosis Likely reactive Continue to trend ID - -- Leukocytosis Likely reactive UA and chest x-ray are clean Did get Zosyn in the ED --Prophylaxis VTE: Lovenox GI: None Lines: Peripheral Diet: N.p.o. Plan: In/out: +4.9 L, urine output 750 Potassium and phosphorus being replaced Patient's anion gap has closed, he has been bridged with the insulin Patient has issues with mood disorder and he wanted to sign out AMA early in the morning Would want to make sure that he has enough insulin before he goes home or else will end up in the hospital in the next day or so Start diabetic diet Okay to ALANNA Jackman as there is no clear source of infection Hemodynamically stable to be downgrade to medical floor Case discussed with primary team Please note the above document was generated using voice recognition software. It may contain grammatical, syntax or spelling errors.Any formal questions or concerns about the content, text or information contained within the body of this dictation should be directly addressed to the provider for clarification. Admission and Anticipated Discharge Date Admission Date: February 05, 2024 Subjective Patient seen and examined at bedside. No acute distress Early in the morning he did try to sign out AMA but he decided to stay He was still on insulin drip. He has been bridged with subcu insulin He denied any headache, he said he is feeling better Denied any abdominal pain He was hungry and wanted to eat No dizziness Review of Systems 2 Review of Systems: All systems reviewed & are unremarkable except as noted in Subjective Physical Exam 2 Physical Exam: Constitutional: No acute distress HEENT: EOMI, PERRLA Respiratory system: Decreased air entry bilaterally, no wheeze, no rhonchi, no crackles CVS: S1-S2 positive, no murmurs or gallops Abdomen: Soft, nontender, nondistended, positive bowel sounds x4 Extremities: +2 pulses bilaterally radialis/ dorsalis pedis, no cyanosis, no edema Neuro: Awake alert oriented to self and place Psych: Normal mood and affect G/U: No Montiel Skin: no rashes, warm and dry Lymphatic: no cervical or axillary lymphadenopathy Results & Data Results & Data Vital Signs (Past 12 Hours) Vital Signs Temp Pulse Resp BP Pulse Ox O2 Del Method 02/06/24 07:00 62 15 101/57 L 99 Room Air 02/06/24 06:12 96 H 25 H 99 02/06/24 05:06 94 H 25 H 97 02/06/24 05:05 93/57 L 02/06/24 05:05 93/57 L 02/06/24 05:00 77/51 L 02/06/24 05:00 68 8 L 98 02/06/24 04:09 66 7 L 100 02/06/24 04:04 85/53 L 02/06/24 04:04 85/53 L 02/06/24 04:04 85/53 L 02/06/24 04:00 76 13 99 02/06/24 04:00 36.6 C 02/06/24 03:12 85 18 100 02/06/24 03:00 87/60 L 02/06/24 03:00 87/60 L 02/06/24 02:42 72 13 99 02/06/24 02:00 87/60 L 02/06/24 02:00 75 11 L 98 02/06/24 01:06 93/60 L 02/06/24 01:06 88 17 97 02/06/24 01:03 78 14 96 02/06/24 01:02 78/51 L 02/06/24 01:02 78/51 L 02/06/24 00:51 76 13 96 02/06/24 00:00 91/61 L 02/06/24 00:00 91/61 L 02/06/24 00:00 77 14 99 02/06/24 00:00 77 02/06/24 00:00 37.0 C 02/05/24 23:03 74 97 02/05/24 23:00 92/54 L 02/05/24 22:54 79 96 02/05/24 22:06 79 96 02/05/24 22:00 103/53 L 02/05/24 21:27 81 98 02/05/24 21:03 83 98 02/05/24 21:00 91/54 L 02/05/24 20:57 85 97 02/05/24 20:03 97 H 98 02/05/24 20:00 103/54 L 02/05/24 20:00 37.1 C 02/05/24 19:57 85 11 L 95 Laboratory Results 02/05/24 09:21 02/06/24 03:58 Coding Level of Care Code 69465 SUB INP/OBS CARE 3/50MIN Diagnoses Type 1 diabetes mellitus with ketoacidosis without coma E10.10 Diabetes mellitus complication detail: without coma Diabetes mellitus complication status: with ketoacidosis Leukocytosis D72.829 Leukocytosis type: unspecified Vomiting R11.2 Nausea presence: with nausea Vomiting type: unspecified DKA (diabetic ketoacidosis) E11.10 Metabolic acidosis, increased anion gap E87.29 Pseudohyponatremia R79.89 Metabolic encephalopathy G93.41 CARYL (acute kidney injury) N17.9 Mood disorder F39 (1) T1DM (type 1 diabetes mellitus) Diabetes mellitus complication detail: without coma Diabetes mellitus complication status: with ketoacidosis Qualified Code(s): E10.10 - Type 1 diabetes mellitus with ketoacidosis without coma (2) Leukocytosis Leukocytosis type: unspecified Qualified Code(s): D72.829 - Elevated white blood cell count, unspecified (3) Vomiting Nausea presence: with nausea Vomiting type: unspecified Qualified Code(s): R 11.2 - Nausea with vomiting, unspecified
[2024-02-06] MEDS: INSULIN ASPART PER UNIT CHARGE SC SCH (08:44)
[2024-02-06 08:51] LABS: Base Excess VBG -4.7 mEq/L; HCO3 VBG 22 mmol/L; Oxygen Saturation VBG < 60.0 %; PCO2 VBG 44 mmHg (38-50); PO2 VBG 22 mmHg
[2024-02-06 09:27] LABS: BUN Creatinine Ratio 17.9 (10-20); Calcium 8.4 mg/dl (8.6-10.3); Creatinine Clr Calc Pharmacy 91.1 ml/min; Magnesium 1.8 mg/dl (1.7-2.4); Phosphorus 2.9 mg/dl (2.5-4.9); Potassium 4.2 mmol/L (3.5-5.1)
[2024-02-06] MEDS: ENOXAPARIN INJ 40 MG/0.4 ML SYR SQ SCH (09:45)
[2024-02-06 09:48] LABS: Basophils # (auto) 0.04 K/uL (0.00-0.20); Basophils % (auto) 0.2 %; Eosinophils # (auto) 0.09 K/uL (0.00-0.50); Eosinophils % (auto) 0.5 %; Hemoglobin 12.7 g/dl (14.0-18.0); Immature Granulocytes # (auto) 0.07 K/uL (0.01-0.20); Immature Granulocytes % (auto) 0.4 %; Lymphocytes % (auto) 7.8 %; Mean Corpuscular Hemoglobin 28.9 pg (25.0-34.0); Mean Corpuscular Hgb Conc 34.3 g/dL (32.0-36.0); Mean Corpuscular Volume 84.1 fL (80.0-100.0); Mean Platelet Volume 10.4 fL (9.4-12.4); Monocytes # (auto) 1.28 K/uL (0.11-0.59); Monocytes % (auto) 7.1 %; Neutrophils # (auto) 15.13 K/uL (1.40-6.50); Platelet Count 328 K/uL (130-400); RDW Coefficient of Variation 12.8 % (11.5-14.5); RDW Standard Deviation 39.1 fL (36.4-46.3); White Blood Count 18.01 K/ul (4.8-10.8)
--- NOTE | 2024-02-06 11:57 | Pharmacy Report ---
Pharmacy Glycemic Short Note 2 - Date of Service February 06, 2024 - Glycemic Short BSG Results (Last 24 hours): 02/05/24 02/05/24 02/05/24 10:37 12:17 13:23 Glucose 590 H* POC Glucose 515 H* 354 H* 02/05/24 02/05/24 02/05/24 14:31 15:23 15:34 Glucose POC Glucose 248 H 283 H 259 H 02/05/24 02/05/24 02/05/24 15:55 16:33 17:33 Glucose 248 H POC Glucose 203 H 152 H 02/05/24 02/05/24 02/05/24 18:02 18:45 18:49 Glucose 221 H POC Glucose 181 H 196 H 02/05/24 02/05/24 02/05/24 20:12 21:01 21:59 Glucose POC Glucose 246 H 199 H 184 H 02/05/24 02/05/24 02/05/24 22:27 23:06 23:59 Glucose 200 H POC Glucose 180 H 166 H 02/06/24 02/06/24 02/06/24 01:05 02:02 02:32 Glucose Cancelled POC Glucose 154 H 134 H 02/06/24 02/06/24 02/06/24 03:00 03:58 04:00 Glucose 134 H POC Glucose 138 H 127 H 02/06/24 02/06/24 02/06/24 05:04 05:59 07:07 Glucose POC Glucose 122 H 138 H 170 H 02/06/24 02/06/24 02/06/24 08:06 08:28 09:05 Glucose 198 H POC Glucose 154 H 234 H 02/06/24 11:18 Glucose POC Glucose 187 H OUTPATIENT ANTIDIABETIC REGIMEN: * Lantus 20 units SC HS (recently increased by new PCP from previous dose of 18 units) * Novolog SSI - CF = 1:50 for every 50 > 150 and CR = 1:12 * Previously on Omnipod pump but stopped during previous admission this month secondary to highs and lows and running out of supplies. HbA1c: * 11.2% (02/05/24) ASSESSMENT: * 48 yo M admitted on 02/05/24 secondary to DKA. Pharmacy has been consulted to assist with inpatient glycemic management. Patient is a Type 1 diabetic as an outpatient. Please refer to outpatient regimen and most recent HbA1c above. * Presentation labs: BSG 604. Anion Gap 27. CO2 6. K 6.1. pH < 7. Urine positive for ketones. * Patient received ~2.5 L of NS in the ED then received ~500 mL of 150 mEq Sodium Bicarb in Sterile Water. * Insulin drip was started at 5.9 units/hr with an initial IV bolus of 6 units. * Upon arrival to ICU, patient was given a 500 mL bolus of Plasmalyte A and started on continuous infusion at 125 mL/hr. This was discontinued in favor of D5 1/2 NS + 20 KCl at 100 mL/hr. * Labs this AM: BSG 134. Anion Gap 3. CO2 22. K 3.8. pH 7.3. * 20 units of Lantus was given this morning and allowed to overlap with the insulin drip for two hours. Insulin drip has been discontinued at this time as well as Dextrose containing fluids. T1DM diet is ordered and being tolerated. Novolog was added per previous admission data. * Of note, patient received ~70 units total from the insulin drip over ~24 hours. PLAN FOR INPATIENT GLYCEMIC CONTROL: * Transitioned off insulin drip * Basal insulin * Lantus 20 units SC x 1 * Reassess basal in the AM * Bolus insulin * NovoLog per scale ACHS or Q6hrs while NPO * Goal Range: Low 110 mg/dL - High 140 mg/dL * Correction Factor: 35 mg/dL/unit * Nutritional / Prandial insulin per carb ratio of 1 unit per 12 grams CHO consumed
--- NOTE | 2024-02-06 13:49 | Hospitalist Progress Note ---
Date of Service February 06, 2024 Assessment & Plan (1) DKA (diabetic ketoacidosis): (2) Metabolic acidosis, increased anion gap: (3) T1DM (type 1 diabetes mellitus): (4) Leukocytosis: Plan This is a 48 y/o male with type 1 diabetes, previously on an insulin pump, ADHD, JUAN PABLO, hx seizure disorder, depression who presented to the ED with vomiting. Pt is reportedly having difficulty obtaining insulin and corresponding supplies so has been intermittently running out. In the ED, pt given 16 units of regular insulin and started on insulin gtt, calcium gluconate, NSS x 2 liters, and empiric Zosyn. Referred for admission for further management. Diabetic ketoacidosis Increased anion gap metabolic acidosis Vomiting Type 1 DM Acute Metabolic Encephalopathy Patient presented in acute DKA Was admitted to the ICU and treated with an insulin drip Pt has improved, gap is currently closed, currently on sliding scale insulin Continue IVF especially given pt's current hypotension Continue to monitor with daily BMP, mag, phos, vgb Leukocytosis Infectious workup with UA, chest XRAY negative Biofire negative Blood Cx x 2 sets NGTD pt reportedly declined CT abd/pelvis Possibly reactive in above DKA setting Empiric Zosyn was discontinued by ICU Continue to monitor Mood Disorder Pt with episodes of agitation Hx of JUAN PABLO and depression Tearful at times Psych consult placed, appreciate recs Diet: DMII DVT prophylaxis: Lovenox Code status: full code Dispo: home once medically stable Admission and Anticipated Discharge Date Admission Date: February 05, 2024 Subjective patient was seen laying in bed Was asleep, not easily arousable Review of Systems Review of Systems: All systems reviewed & are unremarkable except as noted in Subjective Physical Exam Physical Exam: General: Sleeping, no acute distress Psych: Appropriate mood and affect at the time of exam HEENT: NC/AT CV: RRR Resp: Breath sounds clear bilaterally, no increased effort of breathing Abdomen: Soft, nontender Extremities: No edema in lower extremities bilaterally. Results & Data Results & Data Vital Signs (Past 12 Hours) Vital Signs Temp Pulse Resp BP Pulse Ox O2 Del Method 02/06/24 13:00 71 12 83/51 L 97 Room Air 02/06/24 12:00 80 12 85/55 L 99 Room Air 02/06/24 12:00 37.0 C 02/06/24 11:00 67 14 91/63 L 98 Room Air 02/06/24 10:00 70 12 93/59 L 98 Room Air 02/06/24 09:03 73 14 97/65 L 100 Room Air 02/06/24 08:18 62 12 91/65 L 100 Room Air 02/06/24 08:06 63 14 94/60 L 98 Room Air 02/06/24 08:00 36.6 C 02/06/24 07:00 62 15 101/57 L 99 Room Air 02/06/24 06:12 96 H 25 H 99 02/06/24 05:06 94 H 25 H 97 02/06/24 05:05 93/57 L 02/06/24 05:05 93/57 L 02/06/24 05:00 77/51 L 02/06/24 05:00 68 8 L 98 02/06/24 04:09 66 7 L 100 02/06/24 04:04 85/53 L 02/06/24 04:04 85/53 L 02/06/24 04:04 85/53 L 02/06/24 04:00 76 13 99 02/06/24 04:00 36.6 C 02/06/24 03:12 85 18 100 02/06/24 03:00 87/60 L 02/06/24 03:00 87/60 L 02/06/24 02:42 72 13 99 02/06/24 02:00 87/60 L 02/06/24 02:00 75 11 L 98 (3) T1DM (type 1 diabetes mellitus) Diabetes mellitus complication detail: without coma Diabetes mellitus complication status: with ketoacidosis Qualified Code(s): E10.10 - Type 1 diabetes mellitus with ketoacidosis without coma (4) Leukocytosis Leukocytosis type: unspecified Qualified Code(s): D72.829 - Elevated white blood cell count, unspecified
[2024-02-06] MEDS ORDERED: Nursing to Pharmacy Communication SCH (14:15)
[2024-02-06] MEDS: SODIUM CHLORIDE 0.9% 1,000 ML IV SCH ×2 (14:27→15:16)
[2024-02-07 04:39] LABS: Basophils # (auto) 0.05 K/uL (0.00-0.20); Basophils % (auto) 0.5 %; Eosinophils # (auto) 0.14 K/uL (0.00-0.50); Eosinophils % (auto) 1.4 %; Hematocrit (blood only) 33.8 % (42.0-52.0); Hemoglobin 11.9 g/dl (14.0-18.0); Immature Granulocytes # (auto) 0.04 K/uL (0.01-0.20); Immature Granulocytes % (auto) 0.4 %; Lymphocytes # (auto) 1.92 K/uL (1.20-3.40); Lymphocytes % (auto) 18.7 %; Mean Corpuscular Hemoglobin 28.5 pg (25.0-34.0); Mean Corpuscular Hgb Conc 35.2 g/dL (32.0-36.0); Mean Corpuscular Volume 81.1 fL (80.0-100.0); Mean Platelet Volume 10.6 fL (9.4-12.4); Monocytes # (auto) 0.92 K/uL (0.11-0.59); Platelet Count 206 K/uL (130-400); RDW Coefficient of Variation 12.7 % (11.5-14.5); RDW Standard Deviation 37.7 fL (36.4-46.3); Red Blood Count 4.17 M/uL (4.70-6.10); White Blood Count 10.27 K/ul (4.8-10.8)
[2024-02-07 04:45] LABS: Albumin Level 3.1 gm/dl (3.4-5.0); Bilirubin,Total 0.3 mg/dl (0.2-1.0); Calcium 7.9 mg/dl (8.6-10.3); Magnesium 1.7 mg/dl (1.7-2.4); Potassium 3.6 mmol/L (3.5-5.1)
[2024-02-07 04:53] LABS: Base Excess VBG -1.7 mEq/L; HCO3 VBG 23 mmol/L; Oxygen Saturation VBG 94.6 %; PCO2 VBG 38 mmHg (38-50); PO2 VBG 61 mmHg; pH VBG 7.39 (7.36-7.41)
[2024-02-07 05:03] LABS: Albumin Globulin Ratio 1.5 (0.9-2); BUN Creatinine Ratio 19.2 (10-20); Creatinine Clr Calc Pharmacy 104.8 ml/min; Globulin 2.1 gm/dl (2.5-4.0); Phosphorus 2.9 mg/dl (2.5-4.9); Total Protein 5.2 gm/dl (6.0-8.3)
[2024-02-07 08:04] VITALS: RESP 14; TEMP 97.9; O2SAT 98
[2024-02-07 10:55] VITALS: BP 118/89; PULSE 75
--- NOTE | 2024-02-07 12:08 | Psychiatric Consultation ---
Date of Consultation February 07, 2024 Impression / Recommendations Impression Diagnostically consistent with likely MDD and JUAN PABLO vs adjustment disorder with mixed anxiety and depressed mood. Acute risk of self-harm is low given denial of SI, future-oriented, motivated for treatment. He's agreeable to trying an SSRI and has outpatient psych follow-up. He consented to psych liason leaving message at [facility] to alert of his hospitalization and need for his recent appointment to be rescheduled. Overall, I spent a total of 60 minutes with this case including review of chart records, review of labwork, review of EKG QTc, direct evaluation of the patient at bedside, counseling the patient, discussion of the patient with the hospitalist provider, discussion with the psychiatric liason during clinical rounds, review of collateral historian information from the family and documentation in the electronic health record. (1) Depression: (2) Anxiety: (3) T1DM (type 1 diabetes mellitus): Diabetes mellitus complication status: with ketoacidosis Diabetes mellitus complication detail: without coma Qualified Code(s): E10.10 - Type 1 diabetes mellitus with ketoacidosis without coma Plan -Consider starting sertraline 25mg daily po, can increase to 50mg daily in 1-2 weeks if well tolerated Psych History Identifying Data 48 yo man with history of depression, anxiety, DKA, ADHD, hx seizure disorder admitted medically for DKA. Psychiatry consulted for depression, labile mood. Chief Complaint "I've been depressed for 4 years". History of Present Illness Eleuterio was admitted for DKA and observed to have increased emotional lability, agitation and then reported depression and anxiety. Received prn ativan on 02/05/2024. Today he reports chronic depression and anxiety over the last 4 years. Cites difficulty managing his diabetes and partner leaving 4 years ago as main stressors. Denies any current nor recent SI. Has an upcoming appointment at [facility] but thinks he may have missed it while hospitalized for this admission. Interested in trying medication to help. His father is present at bedside and very supportive. Psych hx notable for no previous psych hospitalizations, past suciide attempts (~2-3 times, last 4 years ago), no access to guns. Prior trial of Wellbutrin, didn't find helpful. Allergies Allergy/AdvReac Type Severity Reaction Status Date / Time hydrocodone Allergy Mild HIVES Verified 12/02/22 19:55 codeine Allergy Unknown Hives Verified 12/02/22 19:55 ethyl alcohol Allergy Unknown Hives Verified 01/16/24 14:32 Home Medications Medication Instructions Recorded Confirmed Type insulin aspart U-100 100 unit/mL 1 sliding scale dose subcut 01/19/24 02/05/24 Rx (3 mL) subcutaneous pen (Novolog USEASDIRECTD #15 mL FlexPen U-100 Insulin aspart) insulin glargine 100 unit/mL (3 18 unit (0.18 mL) subcut HS #15 mL 01/19/24 02/05/24 Rx mL) subcutaneous pen (Lantus Solostar U-100 Insulin) nicotine 7 mg/24 hr daily 1 patch transdermal QAM #28 ea 01/19/24 02/05/24 Rx transdermal patch pen needle, diabetic 32 gauge x #100 ea 01/19/24 Rx " (Pen Needle) insulin aspart U-100 100 unit/mL See Rx Instructions .Route .COMPLEX 02/05/24 02/05/24 History subcutaneous solution Patient History Medical History Mood disorder Hx-TIA (transient ischemic attack) Epilepsy Surgical History S/P right knee arthroscopy Family History Other Diabetes Hypertension Seizure Social History Smoking Status: Current every day smoker Second Hand Exposure: No; Hx Alcohol Use: No (??) Hx Substance Use: No Preferred Language: Bruneian Communication Ability: Effective Visual Impairment: No Limitations Hearing Ability: Normal Hatchery Supervisor Required: No Beliefs That Will Affect Care: None marital status: Current Living Situation: Alone current occupational status: employed Feels Safe at Home: Yes Assistive Devices: Other Physical Exam Psychiatric: Orientation: alert and oriented x 3 Apperance: appropriately dressed and appropriately groomed Eye Contact: good eye contact Motor Behavior: steady gait and station and no abnormal motor movements Speech: normal rate/rhythm/volume of speech Affect: + constricted affect Mood: + depressed mood and + anxious mood Thought Process: goal directed thought process Thought Content: reality based without delusions Suicidal Thoughts: denies suicidal thoughts, denies suicidal plan and denies suicidal intent Homicidal Thoughts: denies homicidal thoughts Hallucinations: no auditory hallucinations and no visual hallucinations Cognition: recent memory grossly intact, remote memory grossly intact, attention grossly intact and language grossly intact Estimated Intelligence: consistent with education level Insight: + fair insight Judgment: + fair judgement Vital Signs (Past 24 Hours): Last Vital Signs Temp 36.6 C 02/07/24 10:51 Pulse 75 02/07/24 10:51 Resp 14 02/07/24 10:51 BP 118/89 02/07/24 10:51 Pulse Ox 98 02/07/24 10:51 O2 Del Method Room Air 02/07/24 08:00 Results & Data (PSY) Medications Administered Enoxaparin Sodium (Enoxaparin Inj 40 Mg/0.4 Ml Syr) 40 mg SQ QAM TIGIST Stop: 03/07/24 08:59 Last Admin: 02/07/24 09:29 Dose: Not Given Documented By: Admin: 02/06/24 09:45 Dose: Not Given Documented By: EDGAR Insulin Aspart (Insulin Aspart Per Unit Charge) 0 units SC ACHS TIGIST Stop: 03/07/24 08:44 Last Admin: 02/07/24 11:36 Dose: 9 units Documented By: NANNETTE Co-signed By: ANT Admin: 02/07/24 07:34 Dose: 7 units Documented By: NANNETTE Co-signed By: BELLAK Admin: 02/06/24 22:17 Dose: 8 units Documented By: BRIANA Co-signed By: HERRERA Admin: 02/06/24 16:23 Dose: 5 units Documented By: EDGAR Co-signed By: MARTITA Admin: 02/06/24 11:23 Dose: 6 units Documented By: EDGAR Co-signed By: MARTITA Admin: 02/06/24 08:44 Dose: 3 units Documented By: EDGAR Co-signed By: MARTITA Coding Level of Care Code 54531 IN/OBS CONSULT LVL 4,60M Diagnoses Depression F32.A Anxiety F41.9 Type 1 diabetes mellitus with ketoacidosis without coma E10.10 Diabetes mellitus complication status: with ketoacidosis Diabetes mellitus complication detail: without coma
--- NOTE | 2024-02-07 13:49 | Discharge Summary ---
Date of Service February 07, 2024 Admission HPI Per Admitting Provider This is a 48 y/o male with type 1 diabetes, previously on an insulin pump, recent admission for DKA, ADHD, JUAN PABLO, hx seizure disorder, depression and other history as outlined below who presented to the ED today with vomiting. History from the patient is currently limited due to agitation and delirium so his outpatient Epic chart was extensively reviewed. Pt was recently admitted to [facility] 01/15-01/19/24 with DKA secondary to noncompliance with insulin as he reported running out a week prior to admission. Pt was treated with an insulin drip initially before being converted to basal/bolus dosing before discharge. He was seen by the medical educator, unable to get insulin pump supplies until February. Since discharge, he was seen by PCP office on 01/29 and glargine insulin dose increased from 18 to 20 units nightly, was referred to glycemic pharmacist for additional management and had an appointment with them today to establish. He is also overdue for follow-up with endocrinology in [place] and is scheduled for that appointment in February. Pt reportedly ran out of his insulin again within the last few days. Came in to the ED via EMS c/o nausea, vomiting, and back pain for the last few days. Admission Exam Per Admitting Provider oriented x 1-2 , not in distress, speaks in sentences with no effort nor accessory muscle use normal rate, regular rhythm, no murmurs clear breath sounds bilaterally non distended, soft, nontender no bipedal edema, erythema, warmth no neuro deficits Principal Diagnosis Diabetic ketoacidosis Discharge Exam Constitutional: WD/WN, vitals as above, NAD, sitting up in bed, pleasant, conversing easily Respiratory: normal respiratory effort, lungs clear to auscultation, no wheeze, rales, rhonchi. Normal insp/exp effort, no accessory muscle use Cardiovascular: RRR, no murmur, no edema Vessels: no JVD or carotid bruit Chest: normal inspection of chest Abdomen: normal bowel sounds, soft, nontender, no hepatosplenomegaly Musculoskeletal: no cyanosis or clubbing, extremities motor strength 5/5 Skin: no rashes, warm and dry normal turgor Neurologic: PERRL, EOMI, accommodation nl, no face palsy, no dysarthria CN's II- XI intact bilaterally and moves all extremities Psychiatric: A+Ox3, euthymic affect Discharge Data Allergies Allergy/AdvReac Type Severity Reaction Status Date / Time hydrocodone Allergy Mild HIVES Verified 12/02/22 19:55 codeine Allergy Unknown Hives Verified 12/02/22 19:55 ethyl alcohol Allergy Unknown Hives Verified 01/16/24 14:32 Consultations 02/05/24 10:26 ED Decision to Admit Stat 02/05/24 15:06 Consult Certified Phlebotomy Technician Routine 02/06/24 15:53 Consult Psychiatry Routine Ordered Studies 02/05/24 09:22 CT head/brain wo con Stat 02/05/24 10:59 CT abd pelvis IV con only Stat Hospital Course (1) DKA (diabetic ketoacidosis): (2) Metabolic acidosis, increased anion gap: (3) T1DM (type 1 diabetes mellitus): (4) Leukocytosis: Plan This is a 48 y/o male with type 1 diabetes, previously on an insulin pump, ADHD, JUAN PABLO, hx seizure disorder, depression who presented to the ED with vomiting. Patient was found to have diabetic ketoacidosis and encephalopathic. He was admitted to ICU and was started on insulin drip, iv hydration. Infectious workup was done which was negative Patient showed significant improvement with IV fluids and insulin; Subsequently changed to subcu insulin and was tolerating oral diet. On further discussion at the time of the discharge, patient reported that he was very weak for the last few days not been able to eat prior to admission. He reports that he was too weak to administer insulin. He reported that he has enough insulin supplies from last admission. Patient was asked to stay in the hospital and monitored until final decision regarding his insulin doses can be determined. However, patient wanted to leave the hospital. Discussion was done with him about risks of foregoing treatment which includes repeated episodes of DKA, multiorgan failure and . He verbalized understanding of the risks involved but left the hospital against medical advice. Please note the above document was generated using voice recognition software. It may contain grammatical, syntax or spelling errors. Any formal questions or concerns about the content, text or information contained within the body of this dictation should be directly addressed to the provider for clarification Total Time Total Time Spent Total Time Spent (In Minutes): 45 Total Time Includes: Examination of the Patient, Discharge Planning, Medication Reconciliation, Communication With Other Providers and Other Discharge Plan Discharge Items Patient Disposition: Against Medical Advice Reason For Visit: DKA Activity: Resume your previous activity Non-emergency contact: Primary Care Provider Follow-up/Referrals: PCP,NO [Physician] - Pending Studies at Discharge: No Stand-Alone Forms: My [facility] CompareMyFare, Smoking Cessation Medications and DC Order Prescriptions: Continued insulin glargine [Lantus Solostar U-100 Insulin] 100 unit/mL (3 mL) insulin pen 18 unit subcut HS Qty: 15 1RF (DME) pen needle, diabetic [Pen Needle] 32 gauge x 5/32" needle See Rx Instructions .Route Qty: 100 1RF Rx Instructions: to inject 4x/day. insulin aspart U-100 [Novolog FlexPen U-100 Insulin] 100 unit/mL (3 mL) insulin pen 1 sliding scale dose subcut USEASDIRECTD Qty: 15 1RF Rx Instructions: per carb coverage and sliding scale up to 90 units/day. nicotine 7 mg/24 hr Patch 24 Hour 1 patch transdermal QAM Qty: 28 0RF Rx Instructions: Unable to verify OTC meds at this date/time. insulin aspart U-100 100 unit/mL solution See Rx Instructions .ROUTE .COMPLEX Rx Instructions: Pharmacy unsure if pt is not still on insulin pump or not. Original Directions: 100 units daily per pump Discharge Orders: Left Against Medical Advice (Routine); Ordered 02/07/24 Ordered By: Andry Portillo Admission Data Admit Date/Time: 02/05/24 11:48 Attending Provider: Andry Portillo Admit Provider: Doroteo Escobar Primary Care Provider: Ivanna Vazquez Other Providers: Doroteo Escobar; Vivek Duran; Anh Tamayo; Mina Brenner; Bárbara Major; Keyona Benitez; Lev Avila; Wellington Sanders; Duncan Arriaza
[2024-02-07] MEDS ORDERED: LANTUS PER UNIT CHARGE SC ONE (14:00)
[2024-02-07 19:44] LABS: A calco-baum cmplx NotReported Not Detected (NotDetected); Bact fragilis Not Reported Not Detected (NotDetected); Blood Culture Id Panel See PCR Comment (NotDetected); C auris Not Reported Not Detected (NotDetected); Calbicans Not Reported Not Detected (NotDetected); Candida glabrata Not Reported Not Detected (NotDetected); Candida krusei Not Reported Not Detected (NotDetected); Cneoformans/gatti Not Reported Not Detected (NotDetected); Cparapsilosis Not Reported Not Detected (NotDetected); E cloacae compx Not Reported Not Detected (NotDetected); Efaecalis Not Reported Not Detected (NotDetected); Efaecium Not Reported Not Detected (NotDetected); Enterobacterales Not Reported Not Detected (NotDetected); Escherichia coli Not Reported Not Detected (NotDetected); H influenzae Not Reported Not Detected (NotDetected); K aerogenes Not Reported Not Detected (NotDetected); Koxytoca Not Reported Not Detected (NotDetected); Kpneumoniae grp Not Reported Not Detected (NotDetected); Lmonocyt Not Reported Not Detected (NotDetected); N meningitidis Not Reported Not Detected (NotDetected); P aeruginosa Not Reported Not Detected (NotDetected); Proteus spp Not Reported Not Detected (NotDetected); Salmonella spp Not Reported Not Detected (NotDetected); Staph lugdunensis Not Reported Not Detected (NotDetected); Staph spp. Not Reported DETECTED (NotDetected); Staphaureus Not Reported Not Detected (NotDetected); Staphepi Not Reported Not Detected (NotDetected); Stenmaltophilia Not Reported Not Detected (NotDetected); Strep agal(GrpB) Not Reported Not Detected (NotDetected); Strep pneum Not Reported Not Detected (NotDetected); Strep pyog (GrpA) Not Reported Not Detected (NotDetected); Strep spp Not Reported Not Detected (NotDetected)
--- NOTE | 2024-02-07 21:28 | Communication Note ---
Date of Service: February 07, 2024 Made aware by metallurgical laboratory assistant of abnormal blood CS result of patient was discharged today. positive blood culture for px: NIKKI BERRY : 1975. It's the Anaerobic bottle for the first set of blood culture. It's a gram positive cocci in cluster which is Staphylococcus spp. Will relay results to Dr. Portillo in .
[2024-02-07 21:33] LABS: Staphylococcus spp. DETECTED (NotDetected)
[2024-02-08] MEDS ORDERED: LANTUS PER UNIT CHARGE SC SCH (21:00)
== END 2024-02-07 12:00 | disposition left against medical advice (07) | DRG 637 ==
LOC: ED 09:02 → 1E 11:48 → SUATTDRO 11:48 → 1E 14:50